=== PATIENT | female | born 1970 | race Caucasian/White ===

== ENCOUNTER 2019-11-12 11:05 | Emergency (ER) | payer MEDICAID, SELFPAY ==
[2019-11-12 11:15] VITALS: BP 144/100; RESP 19; TEMP 36.6; O2SAT 95; BMI 25.7
--- NOTE | 2019-11-12 11:23 | ED_ITS ---
Entered by Marci Leon, acting as scribe for Ortega Sanchez DO Nov 12, 2019 11:05 HPI - Abdominal Pain General: Chief Complaint: Abdominal Pain Stated Complaint: ABD PAIN Time Seen by Provider: 11/12/19 12:22 History of Present Illness: HPI narrative: 49 yo female presents with abd pain. Pt states that she has epigastric pain and it radiates to her right ribs. He has had nausea and vomiting is worse when she eats. Denies any dysuria urge ncy or frequency no hematuria no hematemesis or coffee-ground emesis. MD elicited complaint: abdominal pain Associated Symptoms: Reports nausea; Denies chills, coffee ground emesis, constipation, GI cramping, diarrhea, dysuria, fever(s), heartburn, hematochezia, hematuria, hematemesis, melena, syncope and vomiting Review of Systems Const: Denies: fever, chills, body aches, fatigue, malaise or night sweats Eyes: Denies: change in vision or blurry vision ENMT: Denies: throat pain, oral sores/lesions, dental pain, nasal discharge or nasal congestion Card: Denies: chest pain, palpitations, irregular heart rhythm, edema, syncope, shortness of breath on exertion, shortness of breath when lying down or leg pain with exertion Resp: Denies: shortness of breath, productive cough, non-productive cough or wheezing GI: Reports: abdominal pain (epigastric) and nausea; Denies: vomiting, vomiting blood, coffee grounds in vomit, difficulty swallowing, heartburn/indigestion, diarrhea, constipation, cramping, blood in stool or black tarry stool : Denies: flank pain, painful urination, urinary frequency, urinary urgency, urinary incontinence or blood in urine Musc: Denies: neck pain, back pain, extremity pain, extremity swelling, joint pain or joint swelling Skin/Breast: Denies: rash, itching or redness Neuro: Denies: headache, numbness in extremities, weakness in extremities, changes in sensation, lack of coordination, difficulty walking, frequent falls, dizziness, vertigo or confusion Psych: Denies: anxiety, depression, loss of interest, visual hallucinations, auditory hallucinations, suicidal ideation or homicidal ideation Endo: Denies: excessive urination, excessive thirst, tired all the time or cold intolerance Wolf/Lymph: Denies: easy bruising, easy bleeding, petechiae, enlarged lymph nodes or tender lymph nodes PFSH ED PFSH: Medical History Alcohol use disorder, severe, in early remission Amphetamine use disorder, mild, in sustained remission Chronic post-traumatic stress disorder (PTSD) Major depressive disorder, recurrent, moderate Surgical History (Updated 11/12/19 @ 12:45 by Marci Leon) History of appendectomy History of lung biopsy Social History (Updated 11/06/19 @ 15:14 by Danelle Dior LPN) Smoking and tobacco status: current every day smoker cigarettes Packs smoked per day: 0.5 Years cigarettes smoked: 30 Quit status (tobacco): not considering quitting Second hand smoke exposure: No Current gender identity: Female Physical Exam Const: COMMON NORMALS: average body habitus, oriented x3 and alert GENERAL APPEARANCE: cooperative, comfortable, well kempt and well developed NUTRITIONAL APPEARANCE: not obese ORIENTATION/CONSCIOUSNESS: Yes awake, Yes oriented to person and Yes oriented to place HENMT: COMMON NORMALS: normocephalic, head/scalp atraumatic, EAC's normal, TM's normal bilaterally, external nose normal, moist oral mucous membranes and oropharynx normal HEAD & SCALP: normocephalic and atraumatic NOSE: external nose normal EXTERNAL AUDITORY CANAL: EAC's normal TYMPANIC MEMB ANGELY: TM's normal bilaterally MOUTH: oral and palatal mucosa normal, lip normal and tongue normal THROAT: posterior oropharynx normal and tonsils normal Eye: COMMON NORMALS: PERRL, EOMs intact bilaterally, conjunctivae normal and no scleral icterus CONJUNCTIVA: Yes conjunctivae normal PUPIL: Yes PERRL Neck/C-Spine: COMMON NORMALS: full ROM, no lymphadenopathy, supple, no meningeal signs and thyroid normal THYROID: thyroid normal and asymmetrical Lymph: LYMPHATIC: no lymphadenopathy noted Resp: COMMON NORMALS: normal respiratory effort, no retractions, no use of accessory muscles and clear to auscultation bilaterally AUSCULTATION: clear to auscultation bilaterally Cardio: COMMON NORMALS: regular rate and regular rhythm RATE: regular rate RHYTHM: regular rhythm HEART SOUNDS: no murmurs GI: INSPECTION: Yes normal to inspection AUSCULTATION: Yes normoactive bowel sounds PALPATION: Yes tender (epigastric) Details: RUQ (Positive Altamirano sign), No hepatosplenomegaly, No hernia and No mass : COMMON NORMALS: Yes no CVA tenderness BLADDER/KIDNEY EXAM: Yes no CVA tenderness EXTERNAL FEMALE EXAM: No hernia Back/Pelvis: COMMON NORMALS: no CVA tenderness LUMBAR SPINE/LOWER BACK: Yes normal to inspection Extremity: COMMON NORMALS: no clubbing, cyanosis or edema, no calf tenderness and no pedal edema Neuro: COMMON NORMALS: oriented x3 SENSORIUM/ORIENTATION: Yes alert, Yes oriented to person and Yes oriented to place MENINGEAL SIGNS: Yes no meningeal signs Psych: APPEARANCE: Yes well kempt Skin: COMMON NORMALS: no rashes or lesions noted and skin turgor normal GENERAL SKIN EXAM: no rashes or lesions noted and turgor normal Course ED course: Patient given dose of Zosyn was planning on admitting her. D imaging shows evidence of cholecystitis although her white count is normal. She does not have any obstruction. Patient left the hospital to go home and feed some dogs and then returned. I talked to Dr. Concepcion about her given that she does have an elevated white count injury to her tolerate her temporary elopement from the emergency room will get a go ahead and discharge her home. Discussed with the patient she did actually prefer to go home. The main appointment for her tomorrow to see Dr. Jamey bay and he will schedule her for outpatient cholecystectomy later this week. Vital Signs: Vital signs: Vital Signs Temperature 98 F 11/12/19 11:15 Pulse Rate 75 11/12/19 16:47 Respiratory Rate 14 11/12/19 16:47 Blood Pressure 145/85 11/12/19 16:47 Pulse Oximetry 98 11/12/19 16:47 MDM - Abdominal Pain Lab Data: Labs: Lab Results 11/12/19 11/12/19 11/12/19 Range/Units 12:17 12:17 12:17 WBC 6.6 (4.0-10.0) 10^3/ uL RBC 4.73 (4.1-5.3) 10^6/u L Hgb 13.4 (11.5-15.3) g/dL Hct 42.5 (37.0-47.0) % MCV 89.9 (81-99) fL MCH 28.3 (28.0-34.0) pg MCHC 31.5 (30.0-36.0) g/dL RDW 16.1 H (12.1-15.1) % Plt Count 258 (130-400) 10^3/c mm MPV 9.4 (7.4-10.4) fL Neut % (Auto) 57.1 % Lymph % (Auto) 29.7 % [place] % (Auto) 9.5 % Eos % (Auto) 2.7 % Baso % (Auto) 0.8 % Neut # (Auto) 3.8 (1.8-7.7) 10^3/u L Lymph # (Auto) 2.0 (0.8-4.8) 10^3/u L [place] # (Auto) 0.6 (0.2-0.9) 10^3/u L Eos # (Auto) 0.2 (0.0-0.8) 10^3/u L Baso # (Auto) 0.1 (0.0-0.1) 10^3/u L Nucleated RBC % (a uto) 0 % Nucleated RBCs # 0.0 /100WBC Sodium 139 (136-145) mmol/L Potassium 4.6 (3.5-5.1) mmol/L Chloride 102 (98-107) mmol/L Carbon Dioxide 25 (22-29) mmol/L Anion Gap 16.6 (5-19) BUN 17 (6-20) mg/dL Creatinine 0.6 (0.5-0.9) mg/dL GFR Calculation 105.4 (90-130) mL/min Glucose 102 (65-115) mg/dL Calcium 10.6 H (8.5-10.5) mg/dL Total Bilirubin 0.2 (0.15-1.2) mg/dL AST 165 H (0-32) U/L ALT 226 H (0-33) U/L Alkaline Phosphata se 103 (35-105) IU/L Total Protein 8.2 (6.6-8.7) g/dL Albumin 4.3 (3.5-5.2) g/dL Globulin 3.9 (1.3-4.6) g/dL Lipase 31 (13-60) U/L Urine Color (Yellow) Urine Appearance (CLEAR) Urine pH (5-7) Ur Specific Gravit y (1.005-1.030) Urine Protein (Negative) Urine Glucose (UA) (Normal) Urine Ketones (Negative) Urine Occult Blood (Negative) Urine Nitrate (Negative) Urine Bilirubin (NEGATIVE) Urine Urobilinogen (Negative) mg/dL Ur Leukocyte Susana ase (Negative) Urine Opiates Scre en (Negative) ng/mL Ur Barbiturates Sc reen (Negative) ng/mL Ur Phencyclidine S crn (Negative) ng/mL Ur Amphetamines Sc reen (Negative) ng/mL U Benzodiazepines Scrn (Negative) ng/mL Urine Cocaine Scre en (Negative) ng/mL U Marijuana (THC) Screen (Negative) ng/mL Ethyl Alcohol < 10 (0-10) mg/dL 11/12/19 11/12/19 Range/Units 12:29 12:29 WBC (4.0-10.0) 10^3/ uL RBC (4.1-5.3) 10^6/u L Hgb (11.5-15.3) g/dL Hct (37.0-47.0) % MCV (81-99) fL MCH (28.0-34.0) pg MCHC (30.0-36.0) g/dL RDW (12.1-15.1) % Plt Count (130-400) 10^3/c mm MPV (7.4-10.4) fL Neut % (Auto) % Lymph % (Auto) % [place] % (Auto) % Eos % (Auto) % Baso % (Auto) % Neut # (Auto) (1.8-7.7) 10^3/u L Lymph # (Auto) (0.8-4.8) 10^3/u L [place] # (Auto) (0.2-0.9) 10^3/u L Eos # (Auto) (0.0-0.8) 10^3/u L Baso # (Auto) (0.0-0.1) 10^3/u L Nucleated RBC % (a uto) % Nucleated RBCs # /100WBC Sodium (136-145) mmol/L Potassium (3.5-5.1) mmol/L Chloride (98-107) mmol/L Carbon Dioxide (22-29) mmol/L Anion Gap (5-19) BUN (6-20) mg/dL Creatinine (0.5-0.9) mg/dL GFR Calculation (90-130) mL/min Glucose (65-115) mg/dL Calcium (8.5-10.5) mg/dL Total Bilirubin (0.15-1.2) mg/dL AST (0-32) U/L ALT (0-33) U/L Alkaline Phosphata se (35-105) IU/L Total Protein (6.6-8.7) g/dL Albumin (3.5-5.2) g/dL Globulin (1.3-4.6) g/dL Lipase (13-60) U/L Urine Color Yellow (Yellow) Urine Appearance Clear (CLEAR) Urine pH 5 (5-7) Ur Specific Gravit y 1.020 (1.005-1.030) Urine Protein Neg (Negative) Urine Glucose (UA) Norm (Normal) Urine Ketones Negative (Negative) Urine Occult Blood Neg (Negative) Urine Nitrate Negative (Negative) Urine Bilirubin Neg (NEGATIVE) Urine Urobilinogen Norm (Negative) mg/dL Ur Leukocyte Susana ase Negative (Negative) Urine Opiates Scre en Negative (Negative) ng/mL Ur Barbiturates Sc reen Negative (Negative) ng/mL Ur Phencyclidine S crn Negative (Negative) ng/mL Ur Amphetamines Sc reen Negative (Negative) ng/mL U Benzodiazepines Scrn Negative (Negative) ng/mL Urine Cocaine Scre en Negative (Negative) ng/mL U Marijuana (THC) Screen Negative (Negative) ng/mL Ethyl Alcohol (0-10) mg/dL Discharge Plan Discharge Patient Disposition: Home, Self-Care Clinical Impression: Cholecystitis Condition: Stable Prescriptions: [place] 5-325 mg tablet 1 tab PO Q6H PRN (Reason: pain) Qty: 20 RF: 0 Zofran 4 mg tablet 4 mg PO Q6H PRN (Reason: nausea and vomiting) Qty: 20 RF: 0 No Action hydroxyzine pamoate [Vistaril] 25 mg capsule 25 mg PO BID PRN (Reason: anxiety) Qty: 60 RF: 1 gabapentin 600 mg tablet 600 mg PO BID Qty: 60 RF: 1 olanzapine 5 mg tablet 5 mg PO Q6H PRN (Reason: hallucinations) RF: 0 ibuprofen 200 mg Tablet 200 mg PO Q6H PRN (Reason: Pain) RF: 0 mirtazapine 30 mg tablet 30 mg PO BEDTIME RF: 0 Discharge Orders: Discharge Order (Routine); Ordered 11/12/19 Ordered By: Ortega Sanchez Referrals: Ruben Concepcion MD [Physician] - (November 13, 2019 at 3:45pm at Dr. Concepcion's office on [facility]) Discharge Diet: Clear Liquid and Full LIquid Discharge Activity: Increase activity as tolerated Activity Restrictions/Additional Instructions: You will be [facility] by Dr[facility]. Discharge Date/Time: 11/12/19 16:47 Coding Level of Care Code ED Credit Specialist for Chg Fwd Exam Comprehensive The documentation recorded by the Edward rodriguez Kialy, accurately reflects the service I personally performed and the decisions made by Daniel cerna Curtis L, DO Nov 12, 2019 11:05
[2019-11-12 12:26] LABS: Basophils # 0.1 10^3/uL (0.0-0.1); Basophils % 0.8 %; Eosinophils # 0.2 10^3/uL (0.0-0.8); Eosinophils % 2.7 %; Hematocrit 42.5 % (37.0-47.0); Hemoglobin 13.4 g/dL (11.5-15.3); Lymphocytes % 29.7 %; Mean Corpuscular HGB Conc 31.5 g/dL (30.0-36.0); Mean Corpuscular Hemoglobin 28.3 pg (28.0-34.0); Mean Corpuscular Volume 89.9 fL (81-99); Mean Platelet Volume 9.4 fL (7.4-10.4); Monocytes # 0.6 10^3/uL (0.2-0.9); Monocytes % 9.5 %; Neutrophils # 3.8 10^3/uL (1.8-7.7); Neutrophils % 57.1 %; Nucleated Red Blood Cells % 0 %; Platelet Count 258 10^3/cmm (130-400); Red Blood Count 4.73 10^6/uL (4.1-5.3); Red Cell Distribution Width 16.1 % (12.1-15.1); White Blood Count 6.6 10^3/uL (4.0-10.0)
[2019-11-12 12:51] LABS: Alanine Aminotransferase 226 U/L (0-33); Albumin Level 4.3 g/dL (3.5-5.2); Alkaline Phosphatase 103 IU/L (35-105); Anion Gap 16.6 (5-19); Aspartate Amino Transferase 165 U/L (0-32); Blood Urea Nitrogen 17 mg/dL (6-20); Calcium 10.6 mg/dL (8.5-10.5); Carbon Dioxide 25 mmol/L (22-29); Chloride 102 mmol/L (98-107); Globulin 3.9 g/dL (1.3-4.6); Glomerular Filtration Rate 105.4 mL/min (90-130); Glucose 102 mg/dL (65-115); Potassium 4.6 mmol/L (3.5-5.1); Sodium 139 mmol/L (136-145); Total Bilirubin 0.2 mg/dL (0.15-1.2); Total Protein 8.2 g/dL (6.6-8.7)
[2019-11-12 12:51] LABS: Add Urine Microscopic? NO
[2019-11-12 13:03] LABS: Bilirubin Urine Neg (NEGATIVE); Blood Urine Neg (Negative); Glucose Urine UA Norm (Normal); Ketones Urine Negative (Negative); Leukocyte Esterase Urine Negative (Negative); Nitrate Urine Negative (Negative); Protein Urine Neg (Negative); Urine Appearance Clear (CLEAR); Urine Color Yellow (Yellow); Urobilinogen Urine Norm (Negative); pH Urine 5 (5-7)
[2019-11-12 13:11] LABS: Alcohol Level < 10 mg/dL (0-10)
[2019-11-12 13:18] LABS: Amphetamines Screen Urine Negative (Negative); Barbiturates Screen Urine Negative (Negative); Benzodiazepines Screen Urine Negative (Negative); Cocaine Screen Urine Negative (Negative); Opiate Screen Urine Negative (Negative); PCP Screen Urine Negative (Negative); THC Screen Urine Negative (Negative)
[2019-11-12] MEDS: sodium chloride 0.9% 1,000 ML 999 ML IV (13:18)
[2019-11-12] MEDS: ondansetron 2 mg/ML SDV 2 mL 4 MG IVP (13:19)
[2019-11-12 13:20] LABS: Lipase 31 U/L (13-60)
--- NOTE | 2019-11-12 13:57 | US_ITS ---
WS: [id number] ABDOMINAL ULTRASOUND LIMITED REASON FOR VISIT: RUQ pain TECHNIQUE: Grayscale and Doppler ultrasound examination of the abdomen. FINDINGS: Pancreas: Appears negative Abdominal aorta and IVC: There is negative Liver: Liver measures 19.0 cm in length. Infiltration of the liver Gallbladder: Gallbladder wall thickness measures 3.6 mm. Edema changes of the wall. Biliary sludge p resent. No definite stones identified but the gallbladder is contracted. Common bile duct measured 0.49 cm. Right kidney: Right kidney measures 9.7 cm x 5.7 cm x 4.6 cm. No hydronephrosis or stones. US/US gall bladder 34770 IMPRESSION: Thickened wall gallbladder with edema this of the wall and contracture consiste nt with acute cholecystitis. fatty infiltration of the liver.
--- NOTE | 2019-11-12 14:25 | PC.NURSE ---
Ultrasound at bedside with patient.
[2019-11-12] MEDS: piperacillin-tazobactam 3.375 GM in sodium chloride 0.9% (plus) 50 ML IV (15:09)
[2019-11-12 15:10] VITALS: RESP 14
[2019-11-12] MEDS: morphine 4 mg/mL SDV 1 mL IVP (15:10)
--- NOTE | 2019-11-12 15:11 | PC.NURSE ---
Patient resting at this time. No needs.
[2019-11-12 15:18] VITALS: BP 119/72; PULSE 85; O2SAT 95
--- NOTE | 2019-11-12 16:15 | PC.NURSE ---
Called to room. Patient is concerned that her animals will not be fed. She is unable to reach a family member to feed her animals. She has elected to leave and attend to her animals. She risks associated with leaving the hospital discussed. She verbalized understanding. She hopes to return shortly.
[2019-11-12 16:47] VITALS: BP 145/85; PULSE 75; RESP 14; O2SAT 98
== END 2019-11-12 16:47 | disposition home or self-care (01) ==
PROVIDERS: Emergency Provider Family Medicine; Family Provider Nurse Practitioner
DX: K81.9 Cholecystitis, unspecified (principal); F17.210 Nicotine dependence, cigarettes, uncomplicated
CPT/HCPCS: 36415; 76705; 80053; 80307; 81003; 83690; 85025; 96365; 96366; 96367; 96375; 99282; 99284; J2270; J2405; J2543; J7030

== ENCOUNTER 2019-11-14 08:01 | Day surgery (SDC) | payer MEDICAID, SELFPAY ==
[2019-11-14] VITALS (15 sets, daily range): BP systolic 135–167; BP diastolic 87–106; PULSE 68–110; RESP 15–26; TEMP 36.4–37; O2SAT 90–98
--- NOTE | 2019-11-14 07:40 | W.PM.OPSUD ---
Surgery/Procedure H&P Update DATE OF PROCEDURE: November 14, 2019 DATE H&P PERFORMED: 11/13/19 H&P UPDATE INFORMATION: I have reviewed H&P completed within last 30 days, I have examined patient prior to procedure and No changes to prior documentation PLANNED PROCEDURE: Operation Date: 11/14/19 09:30 Proposed Procedures p Laparoscopic Cholecystectomy 73082 K81.9(Not Applicable) - Ruben Concepcion MD
--- NOTE | 2019-11-14 08:58 | ANES.PREANE2 ---
Pre-Anesthetic Assessment Pre-Anesthetic Assessment: Height/Weight: Height 1.6 m Weight 67.132 kg Preop Diagnosis: Acute cholecystitis Proposed Procedure: Operation Date: 11/14/19 09:30 Proposed Procedures p Laparoscopic Cholecystectomy 82946 K81.9(Not Applicable) - Ruben Concepcion MD Was Beta Irineo taken within 24 hours: N/A Last intake: Intake Last Liquid Date 11/13/19 Last Liquid Time 21:00 Last Solid Date 11/13/19 Last Solid Time 19:00 Social: Social History: Alcohol (history abuse) and Tobacco (0.5 ppd) Packs per day: 0.5 Comment: history of drug and alcohol abuse Exam: Pre-Anes Outpt Exam: alert, oriented x 3, clear to auscultation bilaterally and regular rate & rhythm Airway: Submandibular: WNL Cervical ROM: WNL MP: 2 Dentition: False History/ROS: No significant complaints Pulmonary: Pulmonary: COPD and [place] CV/HEM: CV/HEM: Murmur : : None reported Hepatic: Hepatic: Hepatitis (hep C) GI: GI: None reported Metabolic: Metabolic: None reported Musc/skel: Musc/skel: Lower Back Pain and OA/DJD Neuropsych: Neuropsych: Anxiety, Depression and None reported Anesthetic Plan: ASA status: 3 Anesthesia: General Risk of > 500 ml blood loss (7ml/kg in children): No PFSH Anesthesia PFSH: Medical History (Updated 11/13/19 @ 17:34 by Ruben Concepcion MD) Alcohol use disorder, severe, in early remission Amphetamine use disorder, mild, in sustained remission Chronic post-traumatic stress disorder (PTSD) Hepatitis C Major depressive disorder, recurrent, moderate Surgical History (Updated 11/13/19 @ 17:34 by Ruben Concepcion MD) H/O: hysterectomy History of appendectomy History of lung biopsy Hx of tonsillectomy Social History Smoking and tobacco status: current every day smoker cigarettes Packs smoked per day: 0.5 Years cigarettes smoked: 30 Quit status (tobacco): not considering quitting Second hand smoke exposure: No Current gender identity: Female Data Anesthesia Cardiac Studies: No Data to Display
[2019-11-14] MEDS: sodium chloride 0.9% 1,000 ML 30 ML IV (09:14)
[2019-11-14] MEDS: levofloxacin-dextrose 5 % 500 MG/100 ML PREMIX 100 MG IV (09:20)
--- NOTE | 2019-11-14 10:21 | PM.OP ---
Operative Report Date of procedure: November 14, 2019 Pre-op Diagnosis: Acute cholecystitis Post-op diagnosis: same Procedure Done: Laparoscopic cholecystectomy Specimens removed/disposition: Gallbladder Surgeon: Ruben Concepcion Anesthesia: General Condition: stable Disposition: PACU Procedure: The patient was taken to the operating room and was intubated under general anesthesia. After the antibiotic had been administered, the abdomen was prepped and draped in a sterile manner. Using a #15 blade, a 1 centimeter infraumbilical curvilinear incision was made and using an open Preston technique the peritoneal cavity was entered. A 10 millimeter port was placed and 15 millimeters of pneumoperitoneum was created. A 10 millimeter, 30 degrees scope was then introduced. Three 5 millimeter ports were placed in the epigastric, midclavicular and the anterior axillary line two fingerbreadths below the costal margin on the right side under the direct visualization. Ratcheted forceps were introduced into the lateral most port and was used to retract the fundus of the gallbladder cephalad and using forceps the infundibulum of the gallbladder was retracted laterally. Using L-hook cautery the peritoneum overlying the Calot's triangle was opened medially and laterally until the cystic duct and the cystic artery were skeletonized. Dissection was carried along the body of the gallbladder and after ensuring critical view of safety, 4 clips applied on the cystic duct and 3 clips applied on the cystic artery and cut leaving, 3 clips on the remaining portion of the duct and 2 clips on the remaining portion of the artery. The rest of the gallbladder was dissected off the liver using L-hook cautery. There was no bleeding or bile leaking noted from the gallbladder fossa and the clips appeared to be in place. An EndoCatch bag was introduced to remove the gallbladder. All the ports were removed under direct visualization and there was no bleeding noted from the port sites. The fascia of the umbilicus was closed using [id number] 0 Vicryl sutures and the subcutaneous tissue was approximated using 3-0 Vicryl sutures. The skin at all four ports were closed using 4-0 Monocryl and Dermabond. A total of 10 millimeters of 0.5% Marcaine was infiltrated around the port sites. The patient was stable throughout the procedure.
[2019-11-14] MEDS: ondansetron 2 mg/ML SDV 2 mL 4 MG IVP (10:30)
[2019-11-14] MEDS: fentaNYL 50 mcg/mL INJ 2mL IVP ×2 (10:32→10:38)
[2019-11-14] MEDS: morphine 4 mg/mL SDV 1 mL 2 MG IVP ×2 (10:43→10:45)
--- NOTE | 2019-11-14 10:50 | SUR.PHASEI ---
1027 PT MORE ALERT C/O STILL OF ABD PAIN OF 10/10 PT HOB UP TO COMFORT VSS RESP UNLABORED
--- NOTE | 2019-11-14 11:06 | SUR.PHASEI ---
1100 PT DOZING OFF AND ON, VSS PT CONTINUES TO C/O OF PAIN OF 10 WHEN AWAKE, BUT FACE SCALE 3 PT STATES HER PAIN ON ADMIT TO PREOP TODAY WAS 8 , PT OK WITH TAKING PO PAIN MED AND SIPS OF SPRITE IN OPS , PT TO OPS AWAKES EASILY TALKS TO NURSE BEATRIZ. PT GIVEN JELLO AND SPRITE.
[2019-11-14] MEDS: oxyCODONE-APAP 5-325 mg Tablet 1 TAB PO (11:39)
== END 2019-11-14 12:11 | disposition home or self-care (01) ==
PROVIDERS: Family Provider Nurse Practitioner; Visit Provider Surgery
PROC: 0FT44ZZ Resection of Gallbladder, Percutaneous Endoscopic Approach (ICD-10-PCS; CPT 47562; principal; 2019-11-14 09:10)
DX: K80.10 Calculus of gallbladder with chronic cholecystitis without obstruction (principal); F17.210 Nicotine dependence, cigarettes, uncomplicated; J44.9 Chronic obstructive pulmonary disease, unspecified; B19.20 Unspecified viral hepatitis C without hepatic coma; M19.90 Unspecified osteoarthritis, unspecified site
CPT/HCPCS: 47562; 12345; 88304; 96365; J0131; J1100; J1956; J2001; J2250; J2270; J2370; J2405; J2704; J2710; J3010; J3490; J7030

== ENCOUNTER 2019-12-02 15:05 | Emergency (ER) | payer MEDICAID, SELFPAY ==
[2019-12-02] VITALS (14 sets, daily range): BP systolic 128–199; BP diastolic 52–115; PULSE 39–112; RESP 16–18; TEMP 36.9; O2SAT 95–98; BMI 28.3
--- NOTE | 2019-12-02 16:03 | ED_ITS ---
Entered by Ronda Sauer, acting as scribe for Komal Cherry Valerio Dec 02, 2019 15:05 HPI - Abdominal Pain General: Chief Complaint: Abdominal Pain Stated Complaint: ABD PAIN Time Seen by Provider: 12/02/19 16:02 Source: patient Mode of arrival: ambulatory Limitations: no limitations History of Present Illness: HPI narrative: 49 yo Female presents to ED with complaint of left side abdominal pain. Pt states that the pain started last night in her left flank and radiates around to her left abdomen. Pt states that she just had her gallbladder out about a week and a half ago.(Per patient's medical record, her laparoscopic cholecystectomy was performed on 11/14/19). Pt states that she also has boils on her scalp. Pt states that she has lost her hair due to stress because she quit drinking, got , and her mom . Pt states that she can't lay down and can't sleep because of the pain from the boils on her head. MD elicited complaint: abdominal pain and flank pain Pertinent past history: other (cholecystectomy a week and a half ago) Onset (ago): day(s) Pain Consistency: constant Location: L flank Radiation: LUQ Migration to: no migration Exacerbating factors: nothing Relieving factors: nothing Context: recent surgery/procedure Associated Symptoms: Reports chills; Denies constipation, diarrhea, dysuria, fever(s), hematuria, nausea, syncope and vomiting Review of Systems General: Reports: other (negative unless marked) Const: Reports: chills; Denies: fever Eyes: Denies: change in vision or blurry vision ENMT: Denies: throat pain, painful swallowing, hoarseness, ear pain, ear discharge, Change in hearing or nasal discharge Card: Denies: chest pain, palpitations, irregular heart rhythm, syncope, pre- syncope, shortness of breath on exertion or shortness of breath when lying down Resp: Denies: shortness of breath, productive cough, non-productive cough, wheezing, coughing up blood or chest congestion GI: Reports: abdominal pain; Denies: nausea, vomiting, diarrhea or constipation : Reports: flank pain; Denies: painful urination, urinary frequency, urinary urgency, decreased urine ouput, urinary incontinence or blood in urine Musc: Denies: neck pain, back pain, extremity pain, extremity swelling, joint pain, joint swelling, joint warmth or joint stiffness Skin/Breast: Reports: sores (scalp); Denies: rash, skin tenderness or yellow skin Neuro: Denies: headache, numbness in extremities, weakness in extremities, changes in sensation, lack of coordination, difficulty walking, dizziness, vertigo or confusion Endo: Denies: excessive thirst, tired all the time, cold intolerance, e xcessive sweating, flushing or hot flashes Wolf/Lymph: Denies: easy bruising, easy bleeding, petechiae or enlarged lymph nodes All/Imm: Denies: hives, throat swelling, tongue swelling, facial swelling or acute wheezing PFSH ED PFSH: Medical History Alcohol use disorder, severe, in early remission Amphetamine use disorder, mild, in sustained remission Chronic post-traumatic stress disorder (PTSD) Hepatitis C Major depressive disorder, recurrent, moderate Surgical History H/O: hysterectomy History of appendectomy History of lung biopsy Hx of tonsillectomy Status post laparoscopic cholecystectomy Social History Smoking and tobacco status: current every day smoker cigarettes Packs smoked per day: 0.5 Years cigarettes smoked: 30 Quit status (tobacco): not considering quitting Second hand smoke exposure: No Current gender identity: Female Physical Exam Const: COMMON NORMALS: no apparent distress, oriented x3, no limitations, healthy appearing and well nourished EXAM LIMITATIONS: no altered mental status GENERAL APPEARANCE: cooperative, well kempt and well developed ORIENTATION/CONSCIOUSNESS: Yes awake HENMT: COMMON NORMALS: normocephalic, head/scalp atraumatic, hearing grossly normal bilaterally, external ears normal, EAC's normal, external nose normal and moist oral mucous membranes HEAD & SCALP: normal to inspection, normocephalic and atraumatic FACE & SINUS: normal facial exam and face symmetric NOSE: external nose normal and nares normal EXTERNAL EAR: Yes external ears normal EXTERNAL AUDITORY CANAL: EAC's normal MOUTH: oral and palatal mucosa normal and tongue normal Eye: COMMON NORMALS: PERRL, EOMs intact bilaterally, conjunctivae normal and no scleral icterus GENERAL EYE: normal appearance of both eyes and normal light reflex CONJUNCTIVA: Yes conjunctivae normal SCLERA: sclerae normal CORNEA: Yes corneas normal PUPIL: Yes PERRL DIRECT OPHTHALMOSCOPY: Yes normal light reflex Neck/C-Spine: COMMON NORMALS: full ROM, no lymphadenopathy, supple, no meningeal signs and no JVD GENERAL: Yes normal visual inspection and Yes trachea midline CERVICAL SPINE: Yes cervical ROM normal Chest: COMMONS NORMALS: inspection of chest normal and palpation of chest normal Resp: COMMON NORMALS: normal respiratory effort, no retractions, no use of accessory muscles and clear to auscultation bilaterally EFFORT & INSPECTION: Yes able to speak in complete sentences AUSCULTATION: clear to auscultation bilaterally Cardio: COMMON NORMALS: no JVD, regular rate, regular rhythm, S1 normal heart sound, S2 normal heart sound, no gallops, no clicks, no murmurs and no rub JUGULAR VENOUS DISTENTION: no JVD RATE: regular rate RHYTHM: regular rhythm HEART SOUNDS: S1 normal and S2 normal GI: COMMON NORMALS: soft to palpation, non-tender, no hepatosplenomegaly and no masses INSPECTION: Yes normal to inspection PALPATION: Yes soft and Yes no hepatosplenomegaly : COMMON NORMALS: Yes no CVA tenderness BLADDER/KIDNEY EXAM: Yes no CVA tenderness Back/Pelvis: COMMON NORMALS: no CVA tenderness, thoracic and lumbar spine normal to inspection, no thoracic nor lumbar tenderness and thoraco-lumbar ROM normal Extremity: COMMON NORMALS: normal to inspection, full ROM, normal capillary refill, no joint enlargement, no clubbing, cyanosis or edema and no calf tenderness Neuro: COMMON NORMALS: oriented x3, CN's II-XII intact bilaterally, moves all extremities, no focal motor deficits and no sensory deficits noted MENINGEAL SIGNS: Yes no meningeal signs Psych: COMMON NORMALS: mental status grossly normal, thought process normal, cooperative, affect normal, speech normal and activity/motor behavior normal APPEARANCE: Yes well kempt SPEECH: Yes normal speech THOUGHT PROCESS: normal thought process Skin: COMMON NORMALS: no rashes or lesions noted, skin turgor normal, no jaundice, no petechiae and no mottling GENERAL SKIN EXAM: no rashes or lesions noted and turgor normal Course Vital Signs: Vital signs: Vital Signs Temperature 98.4 F 12/02/19 15:33 Pulse Rate 89 12/02/19 21:22 Respiratory Rate 18 12/02/19 21:22 Blood Pressure 199/115 12/02/19 21:22 Pulse Oximetry 98 12/02/19 21:22 MDM - Abdominal Pain MDM Narrative: Medical decision making narrative: Viola is a 49-year-old female who comes in complaining of left upper quadrant abdominal pain. She said associated nausea but no vomiting. She denies any epigastric or right upper quadrant pain. Her CT scan was consistent with a postcholecystectomy patient and specifically did not notice any problems with her biliary tree. Ultrasound confirmed a normal postoperative common bile duct. The patient's liver enzymes are elevated but per review of her chart they are chronically elevated and she does have hepatitis C. Her T bili and alk phos were normal. There is no imaged common bile duct stone. Patient declined an MRCP or other more invasive evaluation. She was requesting something for blood pressure and repeatedly asked for pain medications which she did receive but stated she wanted something for home which I have informed her she would have to see her regular doctor for this. I did review the case with Dr. Concepcion who had seen the patient and performed her surgery he recommended she start on Protonix for possible gastritis. The patient did agree to return to her symptoms change or worsen but she wanted to be discharged at this time. Lab Data: Attestation: I reviewed the patient's lab results. Labs: Lab Results 12/02/19 12/02/19 12/02/19 Range/Units 16:27 16:27 16:27 WBC 5.8 (4.0-10.0) 10^3/ uL RBC 4.49 (4.1-5.3) 10^6/u L Hgb 12.5 (11.5-15.3) g/dL Hct 40.8 (37.0-47.0) % MCV 90.9 (81-99) fL MCH 27.8 L (28.0-34.0) pg MCHC 30.6 (30.0-36.0) g/dL RDW 15.7 H (12.1-15.1) % Plt Count 301 (130-400) 10^3/c mm MPV 9.1 (7.4-10.4) fL Neut % (Auto) 53.9 % Lymph % (Auto) 31.7 % [place] % (Auto) 10.4 % Eos % (Auto) 2.8 % Baso % (Auto) 0.9 % Neut # (Auto) 3.1 (1.8-7.7) 10^3/u L Lymph # (Auto) 1.8 (0.8-4.8) 10^3/u L [place] # (Auto) 0.6 (0.2-0.9) 10^3/u L Eos # (Auto) 0.2 (0.0-0.8) 10^3/u L Baso # (Auto) 0.1 (0.0-0.1) 10^3/u L Nucleated RBC % (a uto) 0 % Nucleated RBCs # 0.0 /100WBC Sodium 138 (136-145) mmol/L Potassium 3.8 (3.5-5.1) mmol/L Chloride 97 L (98-107) mmol/L Carbon Dioxide 30 H (22-29) mmol/L Anion Gap 14.8 (5-19) BUN 11 (6-20) mg/dL Creatinine 0.5 (0.5-0.9) mg/dL GFR Calculation 130.1 H (90-130) mL/min Glucose 112 (65-115) mg/dL Calculated Osmolal ity 283 L (285-295) mOsm/k g Calcium 9.8 (8.5-10.5) mg/dL Total Bilirubin 0.2 (0.15-1.2) mg/dL AST 332 H (0-32) U/L ALT 192 H (0-33) U/L Alkaline Phosphata se 112 H (35-105) IU/L Total Protein 7.6 (6.6-8.7) g/dL Albumin 3.9 (3.5-5.2) g/dL Globulin 3.7 (1.3-4.6) g/dL Lipase 23 (13-60) U/L HCG, Qual Negative (Negative) Urine Color (Yellow) Urine Appearance (CLEAR) Urine pH (5-7) Ur Specific Gravit y (1.005-1.030) Urine Protein (Negative) Urine Glucose (UA) (Normal) Urine Ketones (Negative) Urine Blood (Negative) Urine Nitrate (Negative) Urine Bilirubin (NEGATIVE) Prot Sulfosalicyli c Acd Urine Urobilinogen (Negative) mg/dL Ur Leukocyte Susana ase (Negative) Urine RBC (0-2) /hpf Urine WBC (0-5) /hpf Ur Squamous Epith Cells (0-5) Urine Bacteria (NONE) Urine Mucus Hepatitis A IgM Ab (Nonreactive) Hep Bs Antigen (Nonreactive) Hep B Core IgM Ab (Nonreactive) Hepatitis C Antibo dy (Nonreactive) 12/02/19 12/02/19 Range/Units 16:27 18:28 WBC (4.0-10.0) 10^3/ uL RBC (4.1-5.3) 10^6/u L Hgb (11.5-15.3) g/dL Hct (37.0-47.0) % MCV (81-99) fL MCH (28.0-34.0) pg MCHC (30.0-36.0) g/dL RDW (12.1-15.1) % Plt Count (130-400) 10^3/c mm MPV (7.4-10.4) fL Neut % (Auto) % Lymph % (Auto) % [place] % (Auto) % Eos % (Auto) % Baso % (Auto) % Neut # (Auto) (1.8-7.7) 10^3/u L Lymph # (Auto) (0.8-4.8) 10^3/u L [place] # (Auto) (0.2-0.9) 10^3/u L Eos # (Auto) (0.0-0.8) 10^3/u L Baso # (Auto) (0.0-0.1) 10^3/u L Nucleated RBC % (a uto) % Nucleated RBCs # /100WBC Sodium (136-145) mmol/L Potassium (3.5-5.1) mmol/L Chloride (98-107) mmol/L Carbon Dioxide (22-29) mmol/L Anion Gap (5-19) BUN (6-20) mg/dL Creatinine (0.5-0.9) mg/dL GFR Calculation (90-130) mL/min Glucose (65-115) mg/dL Calculated Osmolal ity (285-295) mOsm/k g Calcium (8.5-10.5) mg/dL Total Bilirubin (0.15-1.2) mg/dL AST (0-32) U/L ALT (0-33) U/L Alkaline Phosphata se (35-105) IU/L Total Protein (6.6-8.7) g/dL Albumin (3.5-5.2) g/dL Globulin (1.3-4.6) g/dL Lipase (13-60) U/L HCG, Qual (Negative) Urine Color Yellow (Yellow) Urine Appearance Clear (CLEAR) Urine pH 8 H (5-7) Ur Specific Gravit y 1.015 (1.005-1.030) Urine Protein Neg (Negative) Urine Glucose (UA) Norm (Normal) Urine Ketones Negative (Negative) Urine Blood Trace H (Negative) Urine Nitrate Negative (Negative) Urine Bilirubin Neg (NEGATIVE) Prot Sulfosalicyli c Acd Negative Urine Urobilinogen Norm (Negative) mg/dL Ur Leukocyte Susana ase Negative (Negative) Urine RBC Rare (0-2) /hpf Urine WBC None (0-5) /hpf Ur Squamous Epith Cells Rare (0-5) Urine Bacteria Trace (NONE) Urine Mucus Trace Hepatitis A IgM Ab Non-reactive (Nonreactive) Hep Bs Antigen Non-reactive (Nonreactive) Hep B Core IgM Ab Non-reactive (Nonreactive) Hepatitis C Antibo dy Reactive H (Nonreactive) Imaging Data ^: CT Abd/Pel: Radiologist's impression: [place] [address] CT Scan Report Signed Patient: Viola Woods #: [id number] : 1970Acct#:[id number] Age/Sex: 49 / FADM Date: 12/02/19 Loc: ERRoom/Bed: Attending Dr: Ordering Provider/Ordering MD: Komal Cherry DO Date of Service: 12/02/19 Procedure(s): CT abdomen pelvis w con* [id number] Accession Number(s): [id number] Report Number: [id number] PROCEDURE INFORMATION: Exam: CT Abdomen And Pelvis With Contrast Exam date and time: 12/02/2019 4:20 PM Age: 49 years old Clinical indication: Abdominal pain; Localized; Left upper quadrant (luq); Prior surgery; Surgery date: Post-operative (0-2 days); Surgery type: Gb TECHNIQUE: Imaging protocol: Computed tomography of the abdomen and pelvis with intravenous contrast. Total DLP: 601.89 mGy-cm Radiation optimization: All CT scans at this facility use at least one of these dose optimization techniques: automated exposure control; mA and/or kV adjustment per patient size (includes targeted exams where dose is matched to clinical indication); or iterative reconstruction. Contrast material: OMNI 300; Contrast volume: 95 ml; Contrast route: LT UPPER ARM; COMPARISON: CT abdomen pelvis w con* [id number] 08/01/2018 4:21 PM FINDINGS: Lungs: Limited assessment lung bases fails to reveal evidence for active cardiopulmonary process. Right basilar surgical clips. Calcified granuloma right middle lobe. This is a benign finding. Liver: Again note of a tiny left hepatic lobe cyst. Mild hepatomegaly at 19 cm. Gallbladder and bile ducts: Status post cholecystectomy. No visible evidence of postoperative complication. No visible hematoma, seroma, abscess, or biloma. Mild intra and extrahepatic biliary ectasia post cholecystectomy. Maximum common bile duct diameter 7 mm. No visible choledocholithiasis. Pancreas: Pancreas unremarkable. No pancreatic ductal ectasia. Spleen: Spleen unremarkable. Adrenals: Adrenal glands unremarkable. Kidneys and ureters: Kidneys unremarkable. No hydronephrosis or perinephric fluid. No visible obstructing nephrolithiasis. Stomach and bowel: Nonobstructive bowel pattern. No visible adynamic or reactive ileus. Appendix: Status post appendectomy. Intraperitoneal space: Unremarkable. No free air. No significant fluid collection. Vasculature: The abdominal aorta is nonaneurysmal. Minimal arterial sclerotic disease. Lymph nodes: No visible mesenteritis/panniculitis or mesenteric lymphadenitis/lymphadenopathy. Bladder: Unremarkable as visualized. Reproductive: Status post hysterectomy. Bones/joints: No visible active musculoskeletal pathology. Advanced degenerative disease and degenerative disc disease with disc space height loss L5/S1. Soft tissues: Unremarkable. CT/CT abdomen pelvis w con* [id number] IMPRESSION: 1. Status post cholecystectomy without visible evidence of postoperative complication to include no visible evidence of hematoma, seroma, abscess, or biloma. 2. Mild intra and extrahepatic biliary ectasia status post cholecystectomy. Radiation Dose CTDIVOL = (mGy): DLP = 601.89 (mGy-cm) Dictated By:Jv Vaca Signed By:Jv VacaSirebekah Date/Time:12/02/191745 DD/ 44 US: Radiologist's impression: Ultrasound abdomen, Tech interpretation -no acute findings. Common bile duct normal postcholecystectomy. No other CBD stone seen. Pancreas normal. Liver normal except for cyst. Right and left kidney normal. IVC normal. Spleen normal. Discharge Plan Discharge Patient Disposition: Home, Self-Care Clinical Impression: Abdominal pain Qualifiers: Abdominal location: left upper quadrant Qualified Code(s): R10.12 - Left upper quadrant pain Cellulitis Qualifiers: Site of cellulitis: head Qualified Code(s): L03.811 - Cellulitis of head [any part, except face] Condition: Stable Prescriptions: New Protonix 40 mg tablet,delayed release (DR/EC) 40 mg PO DAILY 56 Days RF: 0 Bactrim DS 800-160 mg tablet 1 tab PO Q12H 10 Days Qty: 20 RF: 0 No Action hydroxyzine pamoate [Vistaril] 25 mg capsule 25 mg PO BID PRN (Reason: anxiety) Qty: 60 RF: 1 gabapentin 600 mg tablet 600 mg PO BID Qty: 60 RF: 1 diphenhydramine HCl [Benadryl] 25 mg Capsule See Rx Instructions .ROUTE .COMPLEX RF: 0 mirtazapine 30 mg tablet 30 mg PO BEDTIME RF: 0 ondansetron HCl [Zofran] 4 mg tablet 4 mg PO Q6H PRN (Reason: nausea and vomiting) Qty: 20 RF: 0 Discharge Orders: Discharge Order (Routine); Ordered 12/02/19 Ordered By: Komal Cherry Referrals: Lili Harris PHOTOGRAPHIC REPRODUCTION TECHNICIAN [Primary Care Provider] - 1-3 days Discharge Diet: Advance as tolerated Discharge Activity: Increase activity as tolerated Patient Instructions: Cellulitis, Abdominal Pain (ED) Activity Restrictions/Additional Instructions: Please return to the ER immediately for any of the signs or symptoms listed on your discharge instruction sheets, worsening/changing of your symptoms, you are not getting better as quickly as expected, or for ANY other cause or concerns. Discharge Date/Time: 12/02/19 21:24 Coding Level of Care Code ED Tricot Knitter for Chg Fwd Exam Comprehensive The documentation recorded by the Cristiane rodriguez Carmen, accurately reflects the service I personally performed and the decisions made by Jo Ann cerna Eli N Dec 02, 2019 15:05
--- NOTE | 2019-12-02 16:09 | CTR_ITS ---
PROCEDURE INFORMATION: Exam: CT Abdomen And Pelvis With Contrast Exam date and time: 12/02/2019 4:20 PM Age: 49 years old Clinical indication: Abdominal pain; Localized; Left upper quadrant (luq); Prior surgery; Surgery date: Post-operative (0-2 days); Surgery type: Gb TECHNIQUE: Imaging protocol: Computed tomography of the abdomen and pelvis with intravenous contrast. Total DLP: 601.89 mGy-cm Radiation optimization: All CT scans at this facility use at least one of these dose optimization techniques: automated exposure control; mA and/or kV adjustment per patient size (includes targeted exams where dose is matched to clinical indication); or iterative reconstruction. Contrast material: OMNI 300; Contrast volume: 95 ml; Contrast route: LT UPPER ARM; COMPARISON: CT abdomen pelvis w con* [id number] 08/01/2018 4:21 PM FINDINGS: Lungs: Limited assessment lung bases fails to reveal evidence for active cardiopulmonary process. Right basilar surgical clips. Calcified granuloma right middle lobe. This is a benign finding. Liver: Again note of a tiny left hepatic lobe cyst. Mild hepatomegaly at 19 cm. Gallbladder and bile ducts: Status post cholecystectomy. No visible evidence of postoperative complication. No visible hematoma, seroma, abscess, or biloma. Mild intra and extrahepatic biliary ectasia post cholecystectomy. Maximum common bile duct diameter 7 mm. No visible choledocholithiasis. Pancreas: Pancreas unremarkable. No pancreatic ductal ectasia. Spleen: Spleen unremarkable. Adrenals: Adrenal glands unremarkable. Kidneys and ureters: Kidneys unremarkable. No hydronephrosis or perinephric fluid. No visible obstructing nephrolithiasis. Stomach and bowel: Nonobstructive bowel pattern. No visible adynamic or reactive ileus. Appendix: Status post appendectomy. Intraperitoneal space: Unremarkable. No free air. No significant fluid collection. Vasculature: The abdominal aorta is nonaneurysmal. Minimal arterial sclerotic disease. Lymph nodes: No visible mesenteritis/panniculitis or mesenteric lymphadenitis/lymphadenopathy. Bladder: Unremarkable as visualized. Reproductive: Status post hysterectomy. Bones/joints: No visible active musculoskeletal pathology. Advanced degenerative disease and degenerative disc disease with disc space height loss L5/S1. Soft tissues: Unremarkable. CT/CT abdomen pelvis w con* [id number] IMPRESSION: 1. Status post cholecystectomy without visible evidence of postoperative complication to include no visible evidence of hematoma, seroma, abscess, or biloma. 2. Mild intra and extrahepatic biliary ectasia status post cholecystectomy. Radiation Dose CTDIVOL = (mGy): DLP = 601.89 (mGy-cm)
[2019-12-02 16:33] LABS: Basophils # 0.1 10^3/uL (0.0-0.1); Basophils % 0.9 %; Eosinophils # 0.2 10^3/uL (0.0-0.8); Eosinophils % 2.8 %; Hematocrit 40.8 % (37.0-47.0); Hemoglobin 12.5 g/dL (11.5-15.3); Lymphocytes # 1.8 10^3/uL (0.8-4.8); Lymphocytes % 31.7 %; Mean Corpuscular HGB Conc 30.6 g/dL (30.0-36.0); Mean Corpuscular Hemoglobin 27.8 pg (28.0-34.0); Mean Corpuscular Volume 90.9 fL (81-99); Mean Platelet Volume 9.1 fL (7.4-10.4); Monocytes # 0.6 10^3/uL (0.2-0.9); Monocytes % 10.4 %; Neutrophils # 3.1 10^3/uL (1.8-7.7); Neutrophils % 53.9 %; Nucleated Red Blood Cells % 0 %; Platelet Count 301 10^3/cmm (130-400); Red Blood Count 4.49 10^6/uL (4.1-5.3); Red Cell Distribution Width 15.7 % (12.1-15.1); White Blood Count 5.8 10^3/uL (4.0-10.0)
[2019-12-02] MEDS: ondansetron 2 mg/ML SDV 2 mL 4 MG IVP (16:39)
[2019-12-02] MEDS: morphine 4 mg/mL SDV 1 mL IVP (16:39)
[2019-12-02] MEDS: sodium chloride 0.9% 1,000 ML 100 ML IV (16:39)
[2019-12-02 16:45] LABS: HCG, Serum Qual Negative (Negative)
[2019-12-02 16:52] LABS: Alanine Aminotransferase 192 U/L (0-33); Albumin Level 3.9 g/dL (3.5-5.2); Alkaline Phosphatase 112 IU/L (35-105); Anion Gap 14.8 (5-19); Aspartate Amino Transferase 332 U/L (0-32); Blood Urea Nitrogen 11 mg/dL (6-20); Calcium 9.8 mg/dL (8.5-10.5); Carbon Dioxide 30 mmol/L (22-29); Chloride 97 mmol/L (98-107); Globulin 3.7 g/dL (1.3-4.6); Glomerular Filtration Rate 130.1 mL/min (90-130); Glucose 112 mg/dL (65-115); Lipase 23 U/L (13-60); Osmolality Calculated 283 mOsm/kg (285-295); Potassium 3.8 mmol/L (3.5-5.1); Sodium 138 mmol/L (136-145); Total Bilirubin 0.2 mg/dL (0.15-1.2); Total Protein 7.6 g/dL (6.6-8.7)
[2019-12-02] MEDS: iohexol 300 mg/mL 100 mL Btl IV (17:11)
[2019-12-02] MEDS: HYDROmorphone 1 mg/mL INJ 1 mL IVP (18:07)
--- NOTE | 2019-12-02 18:10 | USR_ITS ---
PROCEDURE INFORMATION: Exam: US Abdomen Complete Exam date and time: 12/02/2019 6:39 PM Age: 49 years old Clinical indication: Abdominal pain; Acute; Prior surgery; Surgery date: <1 month; Surgery type: Gb removed less than 2 weeks ago; Additional info: Elevated lfts TECHNIQUE: Imaging protocol: Real-time ultrasound of the abdomen with image documentation. COMPARISON: US gall bladder [id number] 11/12/2019 2:33 PM FINDINGS: Liver: Mild intra and extrahepatic biliary ectasia status post cholecystectomy with the common bile duct averaging 7 mm. Gallbladder: Status post cholecystectomy. Pancreas: Visualized pancreas is unremarkable. Right kidney: Right kidney dimensions 10.5 cm x 4 cm x 5.2 cm. Left kidney: Left kidney dimensions 11.2 cm x 6.4 cm x 6.7 cm. Spleen: Spleen unremarkable. Aorta: Visualized portion of the abdominal aorta nonaneurysmal. Inferior vena cava: Patent IVC. Other findings: Antegrade portal venous flow to color and Doppler assessment. US/US abdomen complete* [id number] IMPRESSION: Mild intra and extrahepatic biliary ectasia status post cholecystectomy with the common bile duct averaging 7 mm.
[2019-12-02 18:55] LABS: Hepatitis A Antibody IgM. Non-Reactive (Nonreactive); Hepatitis B Core IgM Non-Reactive (Nonreactive); Hepatitis B Surface Antigen. Non-Reactive (Nonreactive); Hepatitis C Virus Antibody Reactive (Nonreactive)
[2019-12-02 19:03] LABS: Bilirubin Urine Neg (NEGATIVE); Blood Urine Trace (Negative); Glucose Urine UA Norm (Normal); Ketones Urine Negative (Negative); Leukocyte Esterase Urine Negative (Negative); Nitrate Urine Negative (Negative); Protein Urine Neg (Negative); Specific Gravity, Urine 1.015 (1.005-1.030); Sulfosalicylic Acid Urine Negative; Urine Appearance Clear (CLEAR); Urine Color Yellow (Yellow); Urobilinogen Urine Norm (Negative); pH Urine 8 (5-7)
[2019-12-02 19:05] LABS: Add Urine Culture? No; Bacteria Urine TRACE; Mucus Urine TRACE; RBC Urine RARE /hpf (0-2); Squamous Epithelial Cell Urine RARE (0-5)
[2019-12-02] MEDS: sulfamethoxazole-trimeth DS 160-800 mg Tablet 1 TAB PO (21:07)
[2019-12-02] MEDS: ketorolac 30 mg/mL INJ 15 MG IVP (21:08)
== END 2019-12-02 21:24 | disposition home or self-care (01) ==
PROVIDERS: Emergency Provider Emergency Medicine; Family Provider Nurse Practitioner; PCP Nurse Practitioner
DX: R10.12 Left upper quadrant pain (principal); L03.90 Cellulitis, unspecified; Z90.49 Acquired absence of other specified parts of digestive tract
CPT/HCPCS: 12345; 36415; 74177; 76700; 80053; 80074; 81001; 83690; 84703; 85025; 96360; 96361; 96374; 96375; 99284; A9270; J1170; J1885; J2270; J2405; J7030; Q9967

== ENCOUNTER 2019-12-23 11:56 | Emergency (ER) | payer MEDICAID, SELFPAY ==
[2019-12-23 12:03] VITALS: BP 174/95; PULSE 116; RESP 18; TEMP 36.7; O2SAT 98; BMI 26.5
--- NOTE | 2019-12-23 12:17 | ED_ITS ---
HPI - Chest Pain General: Chief Complaint: Chest Pain Stated Complaint: CP; POSSIBLE PNEUMONIA; ALCOHOL RELAPSE Time Seen by Provider: 12/23/19 12:13 History of Present Illness: HPI narrative: 49-year-old female presents with chest pain. Patient is hyperventilating and is extremely anxious she states she has not drank in a few days and thinks she is withdrawing as well she denies hematochezia hematemesis or coffee-ground emesis denies any shortness of breath no vomiting or diarrhea. She states she had started drinking again drank heavily for a while and then recently suddenly stopped. Associated symptoms: Deny abdominal pain, dyspnea, fever(s), nausea or vomiting Review of Systems Const: Denies: fever, chills, body aches, change in appetite, fatigue or malaise ENMT: Denies: throat pain, ear pain, nasal discharge or nasal congestion Card: Reports: chest pain; Denies: edema, shortness of breath on exertion or shortness of breath when lying down Resp: Denies: shortness of breath, productive cough or non-productive cough GI: Denies: abdominal pain, nausea, vomiting, vomiting blood, coffee grounds in vomit, diarrhea, constipation, bloating, blood in stool or black tarry stool : Denies: flank pain, difficulty urinating, painful urination, urinary frequency or urinary urgency Skin/Breast: Denies: rash or itching PFSH ED PFSH: Social History Smoking and tobacco status: current every day smoker cigarettes Packs smoked per day: 0.5 Years cigarettes smoked: 30 Quit status (tobacco): not considering quitting Second hand smoke exposure: No Current gender identity: Female Physical Exam Const: COMMON NORMALS: no apparent distress GENERAL APPEARANCE: cooperative and comfortable ORIENTATION/CONSCIOUSNESS: Yes awake, Yes oriented to person, Yes oriented to place and Yes oriented to time HENMT: COMMON NORMALS: normocephalic, head/scalp atraumatic, hearing grossly normal bilaterally, external ears normal, EAC's normal, TM's normal bilaterally, nasal mucous membranes and turbinates normal, moist oral mucous membranes and oropharynx normal HEAD & SCALP: normocephalic and atraumatic NOSE: nasal mucous membranes and turbinates normal EXTERNAL EAR: Yes external ears normal EXTERNAL AUDITORY CANAL: EAC's normal TYMPANIC MEMBRANE: TM's normal bilaterally Eye: COMMON NORMALS: PERRL, EOMs intact bilaterally, conjunctivae normal and no scleral icterus CONJUNCTIVA: Yes conjunctivae normal PUPIL: Yes PERRL Neck/C-Spine: COMMON NORMALS: full ROM, no lymphadenopathy, supple and no JVD Lymph: LYMPHATIC: no lymphadenopathy noted and no lymphedema noted Resp: COMMON NORMALS: normal respiratory effort, no retractions, no use of accessory muscles and clear to auscultation bilaterally AUSCULTATION: clear to auscultation bilaterally Cardio: COMMON NORMALS: no JVD, regular rate, regular rhythm and no murmurs RATE: regular rate RHYTHM: regular rhythm GI: COMMON NORMALS: soft to palpation and no hepatosplenomegaly AUSCULTATION: Yes normoactive bowel sounds PALPATION: Yes soft, No tender, No guarding and Yes no hepatosplenomegaly Extremity: COMMON NORMALS: normal to inspection, normal capillary refill, no clubbing, cyanosis or edema, no calf tenderness and no pedal edema Neuro: SENSORIUM/ORIENTATION: Yes oriented to person, Yes oriented to place and Yes oriented to time Skin: COMMON NORMALS: no rashes or lesions noted GENERAL SKIN EXAM: no rashes or lesions noted Course Vital Signs: Vital signs: Vital Signs Temperature 98.7 F 12/23/19 15:29 Pulse Rate 112 H 12/23/19 15:29 Respiratory Rate 16 12/23/19 15:29 Blood Pressure 138/95 12/23/19 15:29 Pulse Oximetry 95 12/23/19 15:29 MDM - Chest Pain MDM Narrative: Medical decision making narrative: Blood alcohol still mildly elevated patient states she did not drink since yesterday initially she stated been even longer when I discussed with her the fact that she did have a detectable amount of alcohol in her blood she admitted that she did drink yesterday. She is feeling much better she was hyperventilating when she first came in but the timing of the blood gases that had improved some. Salazar go ahead and discharge her home I gave her the number for [facility] encouraged her to seek out alcohol rehab avoid alcohol. She does have some chest discomfort but that has resolved she has any recurrence or problems she should return immediately. Lab Data: Labs: Lab Results 12/23/19 12/23/19 12/23/19 Range/Units 12:35 12:35 12:35 WBC 5.8 (4.0-10.0) 10^3/ uL RBC 5.03 (4.1-5.3) 10^6/u L Hgb 14.2 (11.5-15.3) g/dL Hct 43.5 (37.0-47.0) % MCV 86.5 (81-99) fL MCH 28.2 (28.0-34.0) pg MCHC 32.6 (30.0-36.0) g/dL RDW 17.9 H (12.1-15.1) % Plt Count 215 (130-400) 10^3/c mm MPV 9.2 (7.4-10.4) fL Neut % (Auto) 73.3 % Lymph % (Auto) 20.6 % [place]cho % (Auto) 4.8 % Eos % (Auto) 0.2 % Baso % (Auto) 0.9 % Neut # (Auto) 4.3 (1.8-7.7) 10^3/u L Lymph # (Auto) 1.2 (0.8-4.8) 10^3/u L [place] # (Auto) 0.3 (0.2-0.9) 10^3/u L Eos # (Auto) 0.0 (0.0-0.8) 10^3/u L Baso # (Auto) 0.1 (0.0-0.1) 10^3/u L Nucleated RBC % (a uto) 0 % Nucleated RBCs # 0.0 /100WBC D-Dimer (0-0.59) ug/mIFE U Specimen Type Sample Site ABG pH (7.35-7.45) ABG pCO2 (35-45) mmHg ABG pO2 (80.0-100.0) mmH g ABG HCO3 (22-26) mmol/L ABG O2 Saturation ABG Base Excess (-2.0-2.0) mmol/ L Dutch Test A-a O2 Gradient (5-10) mmHg Hematocrit (37-47) % Hgb O2 Saturation (95-100) % Carboxyhemoglobin (0.4-20.1) %THgb Methemoglobin (0.4-1.5) % Total Hemoglobin (12-16) g/dL Ionized Calcium (1.1-1.4) mmol/L O2 Delivery Device FiO2 % Drying Oven Attendant ID Sodium 133 L (136-145) mmol/L Potassium 3.9 (3.5-5.1) mmol/L Chloride 92 L (98-107) mmol/L Carbon Dioxide 19 L (22-29) mmol/L Anion Gap 25.9 H (5-19) BUN 14 (6-20) mg/dL Creatinine 0.9 (0.5-0.9) mg/dL GFR Calculation 66.0 L (90-130) mL/min Glucose 107 (65-115) mg/dL Calculated Osmolal ity 273 L (285-295) mOsm/k g Calcium 10.1 (8.5-10.5) mg/dL Total Bilirubin 1.1 (0.15-1.2) mg/dL AST 1080 H (0-32) U/L ALT 912 H (0-33) U/L Alkaline Phosphata se 202 H (35-105) IU/L Troponin T Baselin e 13 H (0-10) ng/mL Troponin T [address] [place] (0-10) ng/mL Delta Troponin T (0-10) ABS# Total Protein 7.8 (6.6-8.7) g/dL Albumin 4.4 (3.5-5.2) g/dL Globulin 3.4 (1.3-4.6) g/dL Lipase 39 (13-60) U/L Urine Color (Yellow) Urine Appearance (CLEAR) Urine pH (5-7) Ur Specific Gravit y (1.005-1.030) Urine Protein (Negative) Urine Glucose (UA) (Normal) Urine Ketones (Negative) Urine Blood (Negative) Urine Nitrate (Negative) Urine Bilirubin (NEGATIVE) Urine Urobilinogen (Negative) mg/dL Ur Leukocyte Susana ase (Negative) Urine RBC (0-2) /hpf Urine WBC (0-5) /hpf Ur Squamous Epith Cells (0-5) Urine Bacteria (NONE) Hyaline Casts Urine Mucus Urine Opiates Scre en (Negative) ng/mL Ur Barbiturates Sc reen (Negative) ng/mL Ur Phencyclidine S crn (Negative) ng/mL Ur Amphetamines Sc reen (Negative) ng/mL U Benzodiazepines Scrn (Negative) ng/mL Urine Cocaine Scre en (Negative) ng/mL U Marijuana (THC) Screen (Negative) ng/mL Ethyl Alcohol (0-10) mg/dL 12/23/19 12/23/19 12/23/19 Range/Units 12:35 12:35 13:03 WBC (4.0-10.0) 10^3/ uL RBC (4.1-5.3) 10^6/u L Hgb (11.5-15.3) g/dL Hct (37.0-47.0) % MCV (81-99) fL MCH (28.0-34.0) pg MCHC (30.0-36.0) g/dL RDW (12.1-15.1) % Plt Count (130-400) 10^3/c mm MPV (7.4-10.4) fL Neut % (Auto) % Lymph % (Auto) % [place] % (Auto) % Eos % (Auto) % Baso % (Auto) % Neut # (Auto) (1.8-7.7) 10^3/u L Lymph # (Auto) (0.8-4.8) 10^3/u L [place] # (Auto) (0.2-0.9) 10^3/u L Eos # (Auto) (0.0-0.8) 10^3/u L Baso # (Auto) (0.0-0.1) 10^3/u L Nucleated RBC % (a uto) % Nucleated RBCs # /100WBC D-Dimer 0.35 (0-0.59) ug/mIFE U Specimen Type Arterial Sample Site Brachial, right ABG pH 7.41 (7.35-7.45) ABG pCO2 30.9 L (35-45) mmHg ABG pO2 74.6 L (80.0-100.0) mmH g ABG HCO3 19.5 L (22-26) mmol/L ABG O2 Saturation 95.1 ABG Base Excess -4.0 L (-2.0-2.0) mmol/ L Dutch Test N/a A-a O2 Gradient 35.4 H (5-10) mmHg Hematocrit 42.9 (37-47) % Hgb O2 Saturation 89.4 L (95-100) % Carboxyhemoglobin 4.8 (0.4-20.1) %THgb Methemoglobin 1.2 (0.4-1.5) % Total Hemoglobin 14.0 (12-16) g/dL Ionized Calcium 1.2 (1.1-1.4) mmol/L O2 Delivery Device Room air FiO2 21.0 % Drying Oven Attendant ID amh Sodium 134.0 (136-145) mmol/L Potassium 3.8 (3.5-5.1) mmol/L Chloride (98-107) mmol/L Carbon Dioxide (22-29) mmol/L Anion Gap (5-19) BUN (6-20) mg/dL Creatinine (0.5-0.9) mg/dL GFR Calculation (90-130) mL/min Glucose 94.0 (65-115) mg/dL Calculated Osmolal ity (285-295) mOsm/k g Calcium (8.5-10.5) mg/dL Total Bilirubin (0.15-1.2) mg/dL AST (0-32) U/L ALT (0-33) U/L Alkaline Phosphata se (35-105) IU/L Troponin T Baselin e (0-10) ng/mL Troponin T 120 [address] [place] (0-10) ng/mL Delta Troponin T (0-10) ABS# Total Protein (6.6-8.7) g/dL Albumin (3.5-5.2) g/dL Globulin (1.3-4.6) g/dL Lipase (13-60) U/L Urine Color (Yellow) Urine Appearance (CLEAR) Urine pH (5-7) Ur Specific Gravit y (1.005-1.030) Urine Protein (Negative) Urine Glucose (UA) (Normal) Urine Ketones (Negative) Urine Blood (Negative) Urine Nitrate (Negative) Urine Bilirubin (NEGATIVE) Urine Urobilinogen (Negative) mg/dL Ur Leukocyte Susana ase (Negative) Urine RBC (0-2) /hpf Urine WBC (0-5) /hpf Ur Squamous Epith Cells (0-5) Urine Bacteria (NONE) Hyaline Casts Urine Mucus Urine Opiates Scre en (Negative) ng/mL Ur Barbiturates Sc reen (Negative) ng/mL Ur Phencyclidine S crn (Negative) ng/mL Ur Amphetamines Sc reen (Negative) ng/mL U Benzodiazepines Scrn (Negative) ng/mL Urine Cocaine Scre en (Negative) ng/mL U Marijuana (THC) Screen (Negative) ng/mL Ethyl Alcohol 36 H (0-10) mg/dL 12/23/19 12/23/19 12/23/19 Range/Units 14:19 14:28 14:28 WBC (4.0-10.0) 10^3/ uL RBC (4.1-5.3) 10^6/u L Hgb (11.5-15.3) g/dL Hct (37.0-47.0) % MCV (81-99) fL MCH (28.0-34.0) pg MCHC (30.0-36.0) g/dL RDW (12.1-15.1) % Plt Count (130-400) 10^3/c mm MPV (7.4-10.4) fL Neut % (Auto) % Lymph % (Auto) % [place] % (Auto) % Eos % (Auto) % Baso % (Auto) % Neut # (Auto) (1.8-7.7) 10^3/u L Lymph # (Auto) (0.8-4.8) 10^3/u L [place] # (Auto) (0.2-0.9) 10^3/u L Eos # (Auto) (0.0-0.8) 10^3/u L Baso # (Auto) (0.0-0.1) 10^3/u L Nucleated RBC % (a uto) % Nucleated RBCs # /100WBC D-Dimer (0-0.59) ug/mIFE U Specimen Type Sample Site ABG pH (7.35-7.45) ABG pCO2 (35-45) mmHg ABG pO2 (80.0-100.0) mmH g ABG HCO3 (22-26) mmol/L ABG O2 Saturation ABG Base Excess (-2.0-2.0) mmol/ L Dutch Test A-a O2 Gradient (5-10) mmHg Hematocrit (37-47) % Hgb O2 Saturation (95-100) % Carboxyhemoglobin (0.4-20.1) %THgb Methemoglobin (0.4-1.5) % Total Hemoglobin (12-16) g/dL Ionized Calcium (1.1-1.4) mmol/L O2 Delivery Device FiO2 % Drying Oven Attendant ID Sodium (136-145) mmol/L Potassium (3.5-5.1) mmol/L Chloride (98-107) mmol/L Carbon Dioxide (22-29) mmol/L Anion Gap (5-19) BUN (6-20) mg/dL Creatinine (0.5-0.9) mg/dL GFR Calculation (90-130) mL/min Glucose (65-115) mg/dL Calculated Osmolal ity (285-295) mOsm/k g Calcium (8.5-10.5) mg/dL Total Bilirubin (0.15-1.2) mg/dL AST (0-32) U/L ALT (0-33) U/L Alkaline Phosphata se (35-105) IU/L Troponin T Baselin e (0-10) ng/mL Troponin T [address] [place] 12.60 H (0-10) ng/mL Delta Troponin T -0.40 L (0-10) ABS# Total Protein (6.6-8.7) g/dL Albumin (3.5-5.2) g/dL Globulin (1.3-4.6) g/dL Lipase (13-60) U/L Urine Color Yellow (Yellow) Urine Appearance Clear (CLEAR) Urine pH 5 (5-7) Ur Specific Gravit y 1.025 (1.005-1.030) Urine Protein Trace (Negative) Urine Glucose (UA) Norm (Normal) Urine Ketones 1+ H (Negative) Urine Blood Neg (Negative) Urine Nitrate Negative (Negative) Urine Bilirubin Neg (NEGATIVE) Urine Urobilinogen Norm (Negative) mg/dL Ur Leukocyte Susana ase Negative (Negative) Urine RBC None (0-2) /hpf Urine WBC None (0-5) /hpf Ur Squamous Epith Cells 0-4 H (0-5) Urine Bacteria Trace (NONE) Hyaline Casts 15-25 H Urine Mucus 1+ Urine Opiates Scre en Negative (Negative) ng/mL Ur Barbiturates Sc reen Negative (Negative) ng/mL Ur Phencyclidine S crn Negative (Negative) ng/mL Ur Amphetamines Sc reen Negative (Negative) ng/mL U Benzodiazepines Scrn Positive H (Negative) ng/mL Urine Cocaine Scre en Negative (Negative) ng/mL U Marijuana (THC) Screen Negative (Negative) ng/mL Ethyl Alcohol (0-10) mg/dL Discharge Plan Discharge Patient Disposition: Home, Self-Care Clinical Impression: Atypical chest pain, Alcohol abuse Condition: Stable Prescriptions: No Action hydroxyzine pamoate [Vistaril] 25 mg capsule 25 mg PO BID PRN (Reason: anxiety) Qty: 60 RF: 1 gabapentin 600 mg tablet 600 mg PO BID Qty: 60 RF: 1 diphenhydramine HCl [Benadryl] 25 mg Capsule See Rx Instructions .ROUTE .COMPLEX RF: 0 pantoprazole [Protonix] 40 mg tablet,delayed release (DR/EC) 40 mg PO DAILY 56 Days RF: 0 mirtazapine 30 mg tablet 30 mg PO BEDTIME RF: 0 ondansetron HCl [Zofran] 4 mg tablet 4 mg PO Q6H PRN (Reason: nausea and vomiting) Qty: 20 RF: 0 Referrals: Liil Harris ADMINISTRATIVE SERVICES ASSISTANT [Primary Care Provider] - Discharge Diet: As Directed Discharge Activity: Increase activity as tolerated Patient Instructions: Abuse of Alcohol (ED) Activity Restrictions/Additional Instructions: Refrain from alcohol, Recommend pursuing rehabilitation for alcohol abuse. Discharge Date/Time: 12/23/19 15:30 Coding Level of Care Code ED Battery Charger Tester for Palak Thorne
--- NOTE | 2019-12-23 12:19 | ECG_ITS ---
Measurements Intervals [place] Rate: 113 P: 73 MD: 158 QRS: 34 QRSD: 87 T: 52 QT: 314 QTc: 431 SINUS TACHYCARDIA POSSIBLE RIGHT ATRIAL ENLARGEMENT [0.25mV P WAVE] POSSIBLE LEFT ATRIAL ENLARGEMENT [-0.1mV P WAVE IN V1/V2] Compared to ECG 04/09/2019 21:39:05 Sinus rhythm no longer present Electronically Signed On 12-24-2019 18:24:34 CDT by Maria E Espinosa M.D. [email or web address]
--- NOTE | 2019-12-23 12:19 | XRR_ITS ---
PROCEDURE INFORMATION: Exam: XR Chest, 1 View Exam date and time: 12/23/2019 12:40 PM Age: 49 years old Clinical indication: Chest pain; Dyspnea/cough TECHNIQUE: Imaging protocol: XR of the chest Views: 1 view. COMPARISON: CR Chest 1 [place] [id number] 04/09/2019 6:15 PM FINDINGS: Lungs: There architectural changes in both lungs compatible with emphysema. Prior right basilar lung surgery. No focal peripheral lung consolidation, air bronchogram formation, or silhouette sign. Pleural space: No pleural effusion or pneumothorax. Heart/Mediastinum: The cardiac silhouette is not enlarged. Bones/joints: No acute osseous abnormality. Other findings: There is a left epicardial fat pad. XR/XR chest 1V portable [id number] IMPRESSION: 1. Emphysema. 2. No pneumonia.
[2019-12-23 12:25] VITALS: RESP 18; O2SAT 98
[2019-12-23 12:42] LABS: Basophils # 0.1 10^3/uL (0.0-0.1); Basophils % 0.9 %; Eosinophils % 0.2 %; Hematocrit 43.5 % (37.0-47.0); Hemoglobin 14.2 g/dL (11.5-15.3); Lymphocytes # 1.2 10^3/uL (0.8-4.8); Lymphocytes % 20.6 %; Mean Corpuscular HGB Conc 32.6 g/dL (30.0-36.0); Mean Corpuscular Hemoglobin 28.2 pg (28.0-34.0); Mean Corpuscular Volume 86.5 fL (81-99); Mean Platelet Volume 9.2 fL (7.4-10.4); Monocytes # 0.3 10^3/uL (0.2-0.9); Monocytes % 4.8 %; Neutrophils # 4.3 10^3/uL (1.8-7.7); Neutrophils % 73.3 %; Nucleated Red Blood Cells % 0 %; Platelet Count 215 10^3/cmm (130-400); Red Blood Count 5.03 10^6/uL (4.1-5.3); Red Cell Distribution Width 17.9 % (12.1-15.1); White Blood Count 5.8 10^3/uL (4.0-10.0)
[2019-12-23] MEDS: LORazepam 2 mg/mL INJ 1 mL 1 MG IVP (12:59)
[2019-12-23] MEDS: sodium chloride 0.9% 1,000 ML 999 ML IV (12:59)
[2019-12-23 13:01] LABS: Albumin Level 4.4 g/dL (3.5-5.2); Alkaline Phosphatase 202 IU/L (35-105); Anion Gap 25.9 (5-19); Blood Urea Nitrogen 14 mg/dL (6-20); Calcium 10.1 mg/dL (8.5-10.5); Carbon Dioxide 19 mmol/L (22-29); Chloride 92 mmol/L (98-107); Globulin 3.4 g/dL (1.3-4.6); Glucose 107 mg/dL (65-115); Lipase 39 U/L (13-60); Osmolality Calculated 273 mOsm/kg (285-295); Potassium 3.9 mmol/L (3.5-5.1); Sodium 133 mmol/L (136-145); Total Bilirubin 1.1 mg/dL (0.15-1.2); Total Protein 7.8 g/dL (6.6-8.7); Troponin(5th) Baseline 13 ng/mL (0-10)
[2019-12-23 13:12] LABS: Alanine Aminotransferase 912 U/L (0-33)
[2019-12-23 13:14] LABS: Alcohol Level 36 mg/dL (0-10)
[2019-12-23 13:15] LABS: ABG PCO2 30.9 mmHg (35-45); ABG PH Result 7.41 (7.35-7.45); Alveolar-Arterial Oxygen Gradi 35.4 mmHg (5-10); Arterial Blood Gas Hematocrit 42.9 % (37-47); Blood Gas Operator Identificat amh; Blood Gas Sample Site Brachial, right; Blood Gas Sample Type Arterial; Carboxyhemoglobin 4.8 %THgb (0.4-20.1); HCO3 ABG 19.5 mmol/L (22-26); HGB O2 Sat 89.4 % (95-100); Ionized Calcium Level - ABG 1.2 mmol/L (1.1-1.4); Methemoglobin 1.2 % (0.4-1.5); Oxygen Device ROOM AIR; Oxygen Saturation ABG 95.1; PO2 ABG 74.6 mmHg (80.0-100.0); Potassium Level - ABG 3.8 mmol/L (3.5-5.0)
[2019-12-23 13:16] LABS: Aspartate Amino Transferase 1080 U/L (0-32)
[2019-12-23] MEDS: ondansetron 2 mg/ML SDV 2 mL 4 MG IVP (13:18)
[2019-12-23] MEDS: ibuprofen 600 mg Tablet PO (13:18)
[2019-12-23 14:33] VITALS: PULSE 114; RESP 17; O2SAT 96
[2019-12-23 14:53] LABS: Add Urine Microscopic? YES; Bilirubin Urine Neg (NEGATIVE); Blood Urine Neg (Negative); Glucose Urine UA Norm (Normal); Ketones Urine 1+ (Negative); Leukocyte Esterase Urine Negative (Negative); Nitrate Urine Negative (Negative); Protein Urine Trace (Negative); Specific Gravity, Urine 1.025 (1.005-1.030); Urine Appearance Clear (CLEAR); Urine Color Yellow (Yellow); Urobilinogen Urine Norm (Negative); pH Urine 5 (5-7)
[2019-12-23 15:02] LABS: Amphetamines Screen Urine Negative (Negative); Barbiturates Screen Urine Negative (Negative); Benzodiazepines Screen Urine Positive (Negative); Cocaine Screen Urine Negative (Negative); Opiate Screen Urine Negative (Negative); PCP Screen Urine Negative (Negative); THC Screen Urine Negative (Negative)
[2019-12-23 15:09] LABS: Bacteria Urine TRACE; Hyaline Casts Urine 15-25; Mucus Urine 1+; Squamous Epithelial Cell Urine 0-4 (0-5)
[2019-12-23 15:10] LABS: Add Urine Culture? No
[2019-12-23 15:12] LABS: D Dimer 0.35 ug/mIFEU (0-0.59)
[2019-12-23 15:29] VITALS: BP 138/95; PULSE 112; RESP 16; TEMP 37.1; O2SAT 95
== END 2019-12-23 15:30 | disposition home or self-care (01) ==
PROVIDERS: Emergency Provider Family Medicine; Family Provider Nurse Practitioner; PCP Nurse Practitioner
DX: R07.89 Other chest pain (principal); F10.10 Alcohol abuse, uncomplicated; F17.210 Nicotine dependence, cigarettes, uncomplicated
CPT/HCPCS: 12345; 36415; 36600; 71045; 80051; 80053; 80306; 80307; 81001; 82810; 83690; 83986; 84484; 85025; 85378; 93005; 96360; 96361; 96374; 96375; 99283; 99284; A9270; J2060; J2405; J7030

== ENCOUNTER 2020-01-05 12:53 | Emergency (ER) | payer MEDICAID, SELFPAY ==
[2020-01-05 13:08] VITALS: BP 153/106; PULSE 106; RESP 17; TEMP 37.3; O2SAT 97; BMI 26.5
--- NOTE | 2020-01-05 13:14 | ED_ITS ---
HPI - Neck Pain/Injury General: Chief Complaint: Neck Pain/Injury Stated Complaint: abscess behind ear Time Seen by Provider: 01/05/20 13:14 Source: patient Mode of arrival: ambulatory Limitations: no limitations History of Present Illness: HPI Narrative: Patient is a 49-year-old female who presents to ED today with complaints of swelling to the left side of her face and neck that she noticed a few days ago. She states area is extremely painful. She has not noticed any redness or warmth to the area. She denies dental pain as she is edentulous to upper and lowers. Reports some mild pain to her left ear. She has not found the eating or drinking seems to make her pain worse. No recent infections Onset (ago): day(s) Place: home Duration: constant Relieving factors: none Exacerbating factors: none Associated symptoms: Denies difficulty walking, dizziness, headache(s) or nausea Review of Systems General: Reports: 10 or more systems reviewed and unremarkable except in HPI and below Const: Denies: fever, chills, body aches, change in appetite, change in weight, fatigue or malaise Eyes: Denies: change in vision, blurry vision, photophobia, floaters or seeing flashes ENMT: Reports: painful swallowing (reports throat doesn't hurt when swallowing; just makes L side of face hurt) and ear pain; Denies: throat pain, enlarged tonsils, hoarseness, mouth pain, swelling of lips/tongue, oral sores/lesions, dental pain, ear discharge, nasal discharge, nasal congestion, nose bleeds or facial/sinus pain Card: Denies: chest pain, palpitations, irregular heart rhythm, edema, lightheadedness, syncope or pre-syncope Resp: Denies: shortness of breath, productive cough or chest congestion GI: Denies: abdominal pain, nausea, vomiting or diarrhea Musc: Reports: neck pain; Denies: back pain, extremity pain, extremity swelling, joint pain or joint swelling Skin/Breast: Denies: rash, sores, new lesion, changing lesion or changes in skin color Neuro: Denies: headache, numbness in extremities, weakness in extremities, changes in sensation, lack of coordination, difficulty walking, dizziness or vertigo [facility] ED PFSH: Social History Smoking and tobacco status: current every day smoker cigarettes Packs smoked per day: 0.5 Years cigarettes smoked: 30 Quit status (tobacco): not considering quitting Second hand smoke exposure: No Current gender identity: Female Physical Exam Const: COMMON NORMALS: average body habitus, oriented x3, no limitations, healthy appearing, alert and well nourished GENERAL APPEARANCE: anxious HENMT: COMMON NORMALS: normocephalic, head/scalp atraumatic, hearing grossly normal bilaterally, external ears normal, EAC's normal, TM's normal bilaterally, external nose normal, nasal mucous membranes and turbinates normal, moist oral mucous membranes, oropharynx normal and gingiva normal HEAD & SCALP: normal to inspection, normocephalic and atraumatic FACE & SINUS: sinuses nontender and other (see below) NOSE: external nose normal, nares normal and nasal mucous membranes and turbinates normal EXTERNAL EAR: Yes external ears normal EXTERNAL AUDITORY CANAL: EAC's normal TYMPANIC MEMBRANE: TM's normal bilaterally MOUTH: oral and palatal mucosa normal, lip normal and tongue normal TEETH & GINGIVA: Yes edentulous THROAT: posterior oropharynx normal, tonsils normal and uvula midline OTHER: pt has extreme tenderness and firm swelling noted to parotid gland/angle of mandible region; there is no erythema and tenderness does not seem to be localized to mastoid region; no lymphadenopathy present Eye: COMMON NORMALS: PERRL and EOMs intact bilaterally PUPIL: Yes PERRL Neck/C-Spine: COMMON NORMALS: full ROM OTHER: see [facility] assessment; swellin g does not seem to extend into submandibular spaces Lymph: LYMPHATIC: no lymphadenopathy noted Resp: COMMON NORMALS: normal respiratory effort and clear to auscultation bilaterally AUSCULTATION: clear to auscultation bilaterally Cardio: COMMON NORMALS: regular rate and regular rhythm RATE: regular rate RHYTHM: regular rhythm Neuro: COMMON NORMALS: oriented x3 SENSORIUM/ORIENTATION: Yes alert Skin: COMMON NORMALS: no rashes or lesions noted GENERAL SKIN EXAM: no rashes or lesions noted Course Vital Signs: Vital signs: Vital Signs Temperature 99.2 F 01/05/20 13:08 Pulse Rate 72 01/05/20 15:36 Respiratory Rate 17 01/05/20 13:08 Blood Pressure 134/85 01/05/20 15:36 Pulse Oximetry 95 01/05/20 15:36 MDM - Neck Pain/Injury Lab Data: Labs: Lab Results 01/05/20 01/05/20 01/05/20 Range/Units 13:51 13:51 13:51 WBC 6.5 (4.0-10.0) 10^3/ uL RBC 4.11 (4.1-5.3) 10^6/u L Hgb 12.0 (11.5-15.3) g/dL Hct 38.1 (37.0-47.0) % MCV 92.7 (81-99) fL MCH 29.2 (28.0-34.0) pg MCHC 31.5 (30.0-36.0) g/dL RDW 17.5 H (12.1-15.1) % Plt Count 297 (130-400) 10^3/c mm MPV 9.4 (7.4-10.4) fL Neut % (Auto) 62.6 % Lymph % (Auto) 25.4 % [place] % (Auto) 8.5 % Eos % (Auto) 2.6 % Baso % (Auto) 0.6 % Neut # (Auto) 4.0 (1.8-7.7) 10^3/u L Lymph # (Auto) 1.6 (0.8-4.8) 10^3/u L [place] # (Auto) 0.6 (0.2-0.9) 10^3/u L Eos # (Auto) 0.2 (0.0-0.8) 10^3/u L Baso # (Auto) 0.0 (0.0-0.1) 10^3/u L Nucleated RBC % (a uto) 0 % Nucleated RBCs # 0.0 /100WBC Sodium 140 (136-145) mmol/L Potassium 3.9 (3.5-5.1) mmol/L Chloride 104 (98-107) mmol/L Carbon Dioxide 24 (22-29) mmol/L Anion Gap 15.9 (5-19) BUN 13 (6-20) mg/dL Creatinine 0.7 (0.5-0.9) mg/dL GFR Calculation 88.2 L (90-130) mL/min Glucose 141 H (65-115) mg/dL Calculated Osmolal ity 289 (285-295) mOsm/k g Lactate 1.9 (0.5-2.2) mmol/L Calcium 10.3 (8.5-10.5) mg/dL Total Bilirubin 0.2 (0.15-1.2) mg/dL AST 35 H (0-32) U/L ALT 49 H (0-33) U/L Alkaline Phosphata se 111 H (35-105) IU/L C-Reactive Protein 1.2 (0.0-4.9) mg/L Total Protein 7.7 (6.6-8.7) g/dL Albumin 3.9 (3.5-5.2) g/dL Globulin 3.8 (1.3-4.6) g/dL Imaging Data^: CT neck: Radiologist's impression: [address] [address] [address] Scan Report Signed Patient: Viola Woods Unit #: [id number] : 1970 Age/Sex: 49 / F ADM Date: 01/05/20 Loc: ER Room/Bed: Attending Dr: Ordering Provider/Ordering MD: Mona De La Cruz Date of Service: 01/05/20 Procedure(s): CT neck w con* [id number] Accession Number(s): [id number] Report Number: [id number] PROCEDURE INFORMATION: Exam: CT Neck With Contrast Exam date and time: 01/05/2020 1:35 PM Age: 49 years old Clinical indication: Pain; Other: Abcess behind left ear/ neck swelling; Additional info: Swelling/pain near angle of jaw TECHNIQUE: Imaging protocol: Computed tomography images of the neck with intravenous contrast. Total DLP: 648.14 mGy-cm Radiation optimization: All CT scans at this facility use at least one of these dose optimization techniques: automated exposure control; mA and/or kV adjustment per patient size (includes targeted exams where dose is matched to clinical indication); or iterative reconstruction. Contrast material: OMNI 300; Contrast volume: 95 ml; Contrast route: LT HAND; COMPARISON: CT Cervical Spine wo* [id number] 10/12/2018 4:56 AM FINDINGS: Nasopharynx: Unremarkable. Oropharynx: Unremarkable. No significant tonsillar enlargement. Hypopharynx: Unremarkable. Larynx: Unremarkable. Normal epiglottis. Retropharyngeal space: Unremarkable. Submandibular/Parotid glands: Unremarkable. Thyroid: 8.5 mm left thyroid nodule, unchanged from 10/12/2018. Lymph nodes: Several homogeneous 1.1 cm or smaller left jugulodigastric chain lymph nodes, probably reactive. Trachea: Visualized trachea is unremarkable. Lungs: Unremarkable as visualized. Bones/joints: Unremarkable. No acute fracture. Soft tissues:Mild subcutaneous fat stranding over left submandibular and parotid glands suggesting mild inflammation/edema. No soft tissue gas evident. No abscess evident. CT/CT neck w con* [id number] IMPRESSION: 1.) Mild subcutaneous fat stranding over left submandibular and parotid glands suggesting mild inflammation/edema. No soft tissue gas evident. No abscess evident. 2.) Left neck lymphadenopathy, presumably reactive. 3.) stable 8.5 mm left thyroid nodule. COMMENTS: Consistent with the [employer]'s Incidental Findings Committee white paper (J Am Astrid Radiol 2015): In patients aged 35 years and older with an incidental thyroid nodule equal to or greater than 1.[address], MRI or extrathyroidal US, further evaluation with dedicated thyroid US is recommended for patients with normal life expectancy and without comorbidities. For smaller nodules without suspicious features, no further evaluation or follow up is recommended. Radiation Dose CTDIVOL = (mGy): DLP = 648.14 (mGy-cm) Dictated By: Levi Zapien MD Signed By: Levi Zapien MD Signed Date/Time: 01/05/201441 DD/ 40 Discharge Plan Discharge Patient Disposition: Home, Self-Care Clinical Impression: Acute parotitis Condition: Stable Prescriptions: New hydrocodone-acetaminophen 5-325 mg tablet 1 tab PO Q6H PRN (Reason: pain) Qty: 15 RF: 0 Augmentin 875-125 mg tablet 1 tab PO Q12H 7 Days Qty: 14 RF: 0 No Action gabapentin 600 mg tablet 600 mg PO BID Qty: 60 RF: 1 mirtazapine 30 mg tablet 30 mg PO BEDTIME Qty: 30 RF: 1 hydroxyzine pamoate [Vistaril] 25 mg capsule 25 mg PO BID PRN (Reason: anxiety) Qty: 60 RF: 1 pantoprazole [Protonix] 40 mg tablet,delayed release (/EC) 40 mg PO DAILY 56 Days RF: 0 ondansetron HCl [Zofran] 4 mg tablet 4 mg PO Q6H PRN (Reason: nausea and vomiting) Qty: 20 RF: 0 Discharge Orders: Discharge Order (Routine); Ordered 01/05/20 Ordered By: Mona De La Cruz Referrals: Lili Harris, [facility] SPECIAL EDUCATOR [Primary Care Provider] - Patient Instructions: Parotid Duct Obstruction (ED), Sialoadenitis (ED), Parotid Gland Infection Activity Restrictions/Additional Instructions: Begin antibiotics promptly. Apply warm compresses to the side of your face multiple times daily. Sucking on sour candies can help stimulate the salivary gland. Please follow-up with your PCP in 3-5 days for continued pain. Return to the emergency department for worsening swelling, uncontrollable pain, fevers greater than 100.4, or any other concerns you may have. Coding Level of Care Code ED Compound Filler for [place] Fwd Exam Comprehensive
--- NOTE | 2020-01-05 13:22 | CTR_ITS ---
PROCEDURE INFORMATION: Exam: CT Neck With Contrast Exam date and time: 01/05/2020 1:35 PM Age: 49 years old Clinical indication: Pain; Other: Abcess behind left ear/ neck swelling; Additional info: Swelling/pain near angle of jaw TECHNIQUE: Imaging protocol: Computed tomography images of the neck with intravenous contrast. Total DLP: 648.14 mGy-cm Radiation optimization: All CT scans at this facility use at least one of these dose optimization techniques: automated exposure control; mA and/or kV adjustment per patient size (includes targeted exams where dose is matched to clinical indication); or iterative reconstruction. Contrast material: OMNI 300; Contrast volume: 95 ml; Contrast route: LT HAND; COMPARISON: CT Cervical Spine wo* [id number] 10/12/2018 4:56 AM FINDINGS: Nasopharynx: Unremarkable. Oropharynx: Unremarkable. No significant tonsillar enlargement. Hypopharynx: Unremarkable. Larynx: Unremarkable. Normal epiglottis. Retropharyngeal space: Unremarkable. Submandibular/Parotid glands: Unremarkable. Thyroid: 8.5 mm left thyroid nodule, unchanged from 10/12/2018. Lymph nodes: Several homogeneous 1.1 cm or smaller left jugulodigastric chain lymph nodes, probably reactive. Trachea: Visualized trachea is unremarkable. Lungs: Unremarkable as visualized. Bones/joints: Unremarkable. No acute fracture. Soft tissues:Mild subcutaneous fat stranding over left submandibular and parotid glands suggesting mild inflammation/edema. No soft tissue gas evident. No abscess evident. CT/CT neck w con* [id number] IMPRESSION: 1.) Mild subcutaneous fat stranding over left submandibular and parotid glands suggesting mild inflammation/edema. No soft tissue gas evident. No abscess evident. 2.) Left neck lymphadenopathy, presumably reactive. 3.) stable 8.5 mm left thyroid nodule. COMMENTS: Consistent with the [employer]'s Incidental Findings Committee white paper (J Am Astrid Radiol 2015): In patients aged 35 years and older with an incidental thyroid nodule equal to or greater than 1.[address], MRI or extrathyroidal US, further evaluation with dedicated thyroid US is recommended for patients with normal life expectancy and without comorbidities. For smaller nodules without suspicious features, no further evaluation or follow up is recommended. Radiation Dose CTDIVOL = (mGy): DLP = 648.14 (mGy-cm)
[2020-01-05 14:02] LABS: Basophils % 0.6 %; Eosinophils # 0.2 10^3/uL (0.0-0.8); Eosinophils % 2.6 %; Hematocrit 38.1 % (37.0-47.0); Lymphocytes # 1.6 10^3/uL (0.8-4.8); Lymphocytes % 25.4 %; Mean Corpuscular HGB Conc 31.5 g/dL (30.0-36.0); Mean Corpuscular Hemoglobin 29.2 pg (28.0-34.0); Mean Corpuscular Volume 92.7 fL (81-99); Mean Platelet Volume 9.4 fL (7.4-10.4); Monocytes # 0.6 10^3/uL (0.2-0.9); Monocytes % 8.5 %; Neutrophils % 62.6 %; Nucleated Red Blood Cells % 0 %; Platelet Count 297 10^3/cmm (130-400); Red Blood Count 4.11 10^6/uL (4.1-5.3); Red Cell Distribution Width 17.5 % (12.1-15.1); White Blood Count 6.5 10^3/uL (4.0-10.0)
[2020-01-05] MEDS: iohexol 300 mg/mL 100 mL Btl IV (14:07)
--- NOTE | 2020-01-05 14:15 | PC.NURSE ---
PT TO CT BY STRETCHER WITH TECH
[2020-01-05 14:19] LABS: Alanine Aminotransferase 49 U/L (0-33); Albumin Level 3.9 g/dL (3.5-5.2); Alkaline Phosphatase 111 IU/L (35-105); Anion Gap 15.9 (5-19); Aspartate Amino Transferase 35 U/L (0-32); Blood Urea Nitrogen 13 mg/dL (6-20); C Reactive Protein 1.2 mg/L (0.0-4.9); Calcium 10.3 mg/dL (8.5-10.5); Carbon Dioxide 24 mmol/L (22-29); Chloride 104 mmol/L (98-107); Globulin 3.8 g/dL (1.3-4.6); Glomerular Filtration Rate 88.2 mL/min (90-130); Glucose 141 mg/dL (65-115); Osmolality Calculated 289 mOsm/kg (285-295); Potassium 3.9 mmol/L (3.5-5.1); Sodium 140 mmol/L (136-145); Total Bilirubin 0.2 mg/dL (0.15-1.2); Total Protein 7.7 g/dL (6.6-8.7)
[2020-01-05 14:20] LABS: Lactate (Lactic Acid level) 1.9 mmol/L (0.5-2.2)
[2020-01-05] MEDS: morphine 4 mg/mL SDV 1 mL IVP (14:30)
[2020-01-05] MEDS: ondansetron 2 mg/ML SDV 2 mL 4 MG IVP (14:30)
[2020-01-05] MEDS: ampicillin-sulbactam 3 GM in sodium chloride 0.9% (plus) 50 ML IV (15:35)
[2020-01-05 15:36] VITALS: BP 134/85; PULSE 72; O2SAT 95
[2020-01-05 16:06] VITALS: BP 167/102; PULSE 79; O2SAT 98
== END 2020-01-05 16:06 | disposition home or self-care (01) ==
PROVIDERS: Emergency Provider Physician Assistant; Family Provider Nurse Practitioner; PCP Nurse Practitioner
DX: K11.21 Acute sialoadenitis (principal); F17.210 Nicotine dependence, cigarettes, uncomplicated
CPT/HCPCS: 12345; 36415; 70491; 80053; 83605; 85025; 86140; 96360; 96365; 96375; 99283; 99284; J0295; J2270; J2405; Q9967

== ENCOUNTER 2020-02-08 10:36 | Emergency (ER) | payer MEDICAID, SELFPAY ==
[2020-02-08 10:38] VITALS: BP 184/109; PULSE 85; RESP 18; TEMP 36.7; O2SAT 98; BMI 26.5
--- NOTE | 2020-02-08 11:09 | XR_ITS ---
WS: [id number] LEFT SHOULDER: 3 VIEW(S) TECHNIQUE: Internal and external rotation with Y view. HISTORY: fall, shoulder pain COMPARISON: None available. No fracture or dislocation or soft tissue abnormality. Glenohumeral and AC joints are unremarkable. XR/XR shoulder LT min 2V* [id number] IMPRESSION: Normal LEFT shoulder.
--- NOTE | 2020-02-08 11:12 | W.ED.EXTPRO ---
HPI - Extremity Problem General: Chief complaint: Extremity Injury, Upper Stated complaint: left shoulder pain Time Seen by Provider: 02/08/20 10:57 History of Present Illness: HPI Narrative: Patient presents four days after a fall onto her left shoulder. She fell and tried to catch herself on the arm, but fell onto it. She has been having severe pain ever since then and has not been able to move the arm. She has tried OTC medications and rubs without relief. Additionally, she has been having sore on her scalp for some time - she was treated about a month ago for a presumed salivary gland infection - with augmentin - and the swelling on the left side of her face and her scalp got better. It is worse again - now she has swelling in the lymph nodes on the right side of the neck. No fever. She has had some chills. Associated symptoms: Deny chest pain or fever(s) Review of Systems Const: Reports: chills; Denies: fever(s) ENMT: Denies: dental pain or ear or mastoid pain Card: Denies: chest pain GI: Denies: nausea or vomiting Skin/Breast: Reports: erythema, skin tenderness, skin swelling and change in hair Neuro: Reports: numbness in extremities; Denies: headache(s) Psych: Reports: anxiety and depression Wolf/Lymph: Reports: enlarged lymph nodes PFSH ED PFSH: Medical History Alcohol use disorder, severe, in early remission Amphetamine use disorder, mild, in sustained remission Chronic post-traumatic stress disorder (PTSD) Hepatitis C Major depressive disorder, recurrent, moderate Surgical History H/O: hysterectomy History of appendectomy History of lung biopsy Hx of tonsillectomy Status post laparoscopic cholecystectomy Social History Smoking and tobacco status: current every day smoker cigarettes Packs smoked per day: 0.5 Years cigarettes smoked: 30 Quit status (tobacco): not considering quitting Second hand smoke exposure: No Current gender identity: Female Physical Exam HENMT: COMMON NORMALS: Normal external nose present HEAD & SCALP: scalp lesion and scalp tenderness HEAD IMAGES: 1. tender, red, mildly fluctuant 2. tender, red, mildly fluctuant 3. tender, red, mildly fluctuant FACE & SINUS: normal facial exam NOSE: Normal external nose present and Normal nares present Neck/C-Spine: COMMON NORMALS: no JVD THYROID: multiple palpable nodules and tender CERVICAL SPINE: Yes cervical ROM normal NECK IMAGES: 1. tender to palpation, muscle 2. enlarged lymph nodes Lymph: LYMPHATIC: lymphadenopathy Resp: COMMON NORMALS: normal respiratory effort, No retractions, No use of accessory muscles and clear to auscultation bilaterally AUSCULTATION: clear to auscultation bilaterally Cardio: COMMON NORMALS: no JVD, regular rate and regular rhythm RATE: regular rate RHYTHM: regular rhythm Extremity: COMMON NORMALS: capillary refill normal LEFT UPPER EXTREMITY: Yes shoulder joint Left shoulder joint: Yes inspection (normal), Yes palpation (diffusely tender to palpation), Yes ROM (will not allow active or passive ranging of the shoulder) and Yes neurovascular exam (describes tingling, motor intact, pulses intact) Course ED course: Patient treated for pain - also doxycycline for scalp lesions - I think the lymph nodes are related to that. She doesn't have a PCP but is working on getting medicaid and getting one. I strongly encouraged her to follow up for her multiple issues. Also given a referral to ortho for her shoulder injury. Vital Signs: Vital signs: Vital Signs Temperature 98.0 F 02/08/20 10:38 Pulse Rate 82 02/08/20 12:02 Respiratory Rate 20 H 02/08/20 12:02 Blood Pressure 173/139 02/08/20 11:56 Pulse Oximetry 98 02/08/20 12:02 Discharge Plan Discharge Patient Disposition: Home, Self-Care Clinical Impression: Other sprain of left shoulder joint, initial encounter, Abscess or cellulitis of scalp Condition: Stable Prescriptions: New hydrocodone-acetaminophen 5-325 mg tablet 1 tab PO Q6H Qty: 14 RF: 0 Robaxin-750 750 mg tablet 750 mg PO TID Qty: 30 RF: 0 doxycycline hyclate 100 mg tablet 100 mg PO BID 14 Days Qty: 28 RF: 0 No Action gabapentin 600 mg tablet 600 mg PO BID Qty: 60 RF: 1 mirtazapine 30 mg tablet 30 mg PO BEDTIME Qty: 30 RF: 1 hydroxyzine pamoate [Vistaril] 25 mg capsule 25 mg PO BID PRN (Reason: anxiety) Qty: 60 RF: 1 ondansetron HCl [Zofran] 4 mg tablet 4 mg PO Q6H PRN (Reason: nausea and vomiting) Qty: 20 RF: 0 hydrocodone-acetaminophen 5-325 mg tablet 1 tab PO Q6H PRN (Reason: pain) Qty: 15 RF: 0 Discharge Orders: Discharge Order (Routine); Ordered 02/08/20 Ordered By: Jacqueline Nelson Referrals: Lili Harris APN [Primary Care Provider] - Sofie Regalado MD [Physician] - 2 weeks Patient Instructions: Cellulitis (ED), Shoulder Sprain (ED) Activity Restrictions/Additional Instructions: Take off the sling and do gentle range of motion exercises with your shoulder several times daily to prevent a frozen shoulder. Do not pick at the sore areas on your head. Return to the ED if worse in any way. Follow with with a primary care physician as soon as possibls. Discharge Date/Time: 02/08/20 12:02 Coding Level of Care Code ED [employer] Manager for [employer] Fwd Exam Detailed
[2020-02-08] MEDS: HYDROcodone-acetaminophen 5-325 mg Tablet 1 TAB PO (11:54)
[2020-02-08] MEDS: methocarbamol 750 mg Tablet 1500 MG PO (11:54)
[2020-02-08] MEDS: doxycycline 100 mg Tablet PO (11:54)
[2020-02-08 11:56] VITALS: BP 173/139; PULSE 81; RESP 18; O2SAT 99
[2020-02-08 12:02] VITALS: PULSE 82; RESP 20; O2SAT 98
--- NOTE | 2020-02-11 10:52 | DCPLANNER ---
manager bilingual had message to schedule a follow up appointment for patient with ortho. manager bilingual called the ortho clinic, spoke with Ida, gave clinic patients information. manager bilingual was told that patients information would be printed and reviewed. Clinic will call nurse case management and patient with appointment information.
--- NOTE | 2020-02-13 12:53 | DCPLANNER ---
Patient has a follow up appointment scheduled for , February 21, 2020 at 1:[address] Regalado. Clinic will call patient with appointment information.
--- NOTE | 2020-03-13 14:10 | DCPLANNER ---
Patient did attend appointment scheduled for 02.21.20 with ortho.
== END 2020-02-08 12:02 | disposition home or self-care (01) ==
PROVIDERS: Emergency Provider Emergency Medicine; Family Provider Nurse Practitioner; PCP Nurse Practitioner
DX: S43.402A Unspecified sprain of left shoulder joint, initial encounter (principal); L02.811 Cutaneous abscess of head [any part, except face]; L03.811 Cellulitis of head [any part, except face]; W19.XXXA Unspecified fall, initial encounter; Z86.19 Personal history of other infectious and parasitic diseases; F17.210 Nicotine dependence, cigarettes, uncomplicated
CPT/HCPCS: 12345; 73030; 99281; 99283

== ENCOUNTER → 2020-02-21 13:48 | Outpatient (BNVA) | payer MEDICAID, SELFPAY | PROVIDERS: Family Provider Nurse Practitioner; PCP Nurse Practitioner; Visit Provider Specialist | DX: M25.512 Pain in left shoulder (principal) | CPT/HCPCS: 73020 ==

== ENCOUNTER 2020-03-04 17:00 | Inpatient (IN) | payer MEDICAID, SELFPAY ==
[2020-03-04 17:02] VITALS: RESP 18
[2020-03-04] MEDS: ziprasidone 20 mg/mL SDV (17:10)
[2020-03-04] MEDS: LORazepam 2 mg/mL INJ 1 mL (17:10)
[2020-03-04] MEDS: ziprasidone 20 mg/mL SDV IM (17:14)
[2020-03-04] MEDS: LORazepam 2 mg/mL INJ 1 mL IM (17:15)
--- NOTE | 2020-03-04 17:20 | W.ED.PSYCH ---
Documented by User: Ortega Sanchez DO 03/05/20 14:03 HPI - Psych General: Chief Complaint: Psychiatric Symptoms Stated Complaint: psych Time Seen by Provider: 03/04/20 17:10 History of Present Illness: HPI Narrative: 49-year-old female presents emergency room acutely intoxicated and belligerent she is having visual and auditory hallucinations claiming she is doing her seeing her father. She is also expressing suicidal ideation. She has a history of methamphetamine use and chronic alcohol abuse. Due to her acutely intoxicated and belligerent state is impossible to get any significant meaningful history from her. MD complaint: suicidal ideation Onset (ago): hour(s) Duration: constant History of same: Yes Relieving factors: none Exacerbating factors: none Context: recent alcohol abuse and recent drug abuse Associated psychiatric symptoms: suicidal ideation, racing thoughts, auditory hallucinations and visual hallucinations Associated symptoms: Reports auditory hallucinations, visual hallucinations and suicidal ideation Treatments prior to arrival: none If self harm: admits thoughts of self harm and has plan Review of Systems Const: Denies: fever(s), chills, body aches, change in appetite, fatigue or malaise ENMT: Denies: throat pain, ear or mastoid pain, nasal discharge or nasal congestion Card: Denies: chest pain, edema or dyspnea on exertion Resp: Denies: dyspnea, productive cough or non-productive cough GI: Denies: abdominal pain, nausea, vomiting, hematemesis, coffee ground emesis, diarrhea, constipation, bloating, hematochezia or melena : Denies: flank pain, difficulty voiding, dysuria, urinary frequency or urinary urgency Psych: Reports: visual hallucinations, auditory hallucinations and suicidal ideation [facility] ED PFSH: Medical History Alcohol use disorder, severe, in early remission She denies alcohol use since last visit. Amphetamine use disorder, mild, in sustained remission Chronic post-traumatic stress disorder (PTSD) Chronic nightmares. See notes below regarding Remeron. Hepatitis C Major depressive disorder, recurrent, moderate Gabapentin is helpful for mood stability/anxiety. She reports mood improvement since making some personal changes in her lifestyle and beginning to attend nondenominational. Surgical History H/O: hysterectomy History of appendectomy History of lung biopsy Hx of tonsillectomy Status post laparoscopic cholecystectomy Social History Smoking and tobacco status: current every day smoker cigarettes Packs smoked per day: 0.5 Years cigarettes smoked: 30 Quit status (tobacco): not considering quitting Second hand smoke exposure: No Current gender identity: Female Physical Exam HENMT: COMMON NORMALS: normocephalic, atraumatic, hearing grossly normal bilaterally, external ears normal, EAC's normal, TM's normal bilaterally, Normal nasal mucous membranes and turbinates present, moist oral mucous membranes and oropharynx normal HEAD & SCALP: normocephalic and atraumatic NOSE: Normal nasal mucous membranes and turbinates present EXTERNAL EAR: Yes external ears normal EXTERNAL AUDITORY CANAL: EAC's normal TYMPANIC MEMBRANE: TM's normal bilaterally Eye: COMMON NORMALS: Equal, round and reactive pupils present, EOMs intact bilaterally, conjunctivae normal and no scleral icterus CONJUNCTIVA: Yes conjunctivae normal PUPIL: Yes Equal, round and reactive pupils present Neck/C-Spine: COMMON NORMALS: full ROM, no lymphadenopathy, supple and no JVD Lymph: LYMPHATIC: no lymphadenopathy noted and no lymphedema noted Resp: COMMON NORMALS: normal respiratory effort, No retractions, No use of accessory muscles and clear to auscultation bilaterally AUSCULTATION: clear to auscultation bilaterally Cardio: COMMON NORMALS: no JVD, regular rate, regular rhythm and No murmurs present (Cardio) RATE: regular rate RHYTHM: regular rhythm GI: COMMON NORMALS: Soft to palpation and No hepatosplenomegaly present AUSCULTATION: Yes normoactive bowel sounds PALPATION: Yes Soft to palpation, No Tenderness to palpation present (GI), No Guarding due to palpation present (GI) and Yes No hepatosplenomegaly present Extremity: COMMON NORMALS: normal to inspection, capillary refill normal, no clubbing, cyanosis or edema, no calf tenderness and no pedal edema Skin: COMMON NORMALS: no rashes or lesions noted GENERAL SKIN EXAM: no rashes or lesions noted MDM - Psych MDM Narrative: Medical decision making narrative: Turned over to Dr. Walker at change of shift Lab Data: Labs: Lab Results 03/04/20 03/04/20 03/04/20 Range/Units 18:58 18:58 19:53 WBC 5.2 (4.0-10.0) 10^3/ uL RBC 4.23 (4.1-5.3) 10^6/u L Hgb 12.7 (11.5-15.3) g/dL Hct 41.9 (37.0-47.0) % MCV 99.1 H (81-99) fL MCH 30.0 (28.0-34.0) pg MCHC 30.3 (30.0-36.0) g/dL RDW 15.4 H (12.1-15.1) % Plt Count 197 (130-400) 10^3/c mm MPV 9.6 (7.4-10.4) fL Neut % (Auto) 40.2 % Lymph % (Auto) 51.0 % Hall % (Auto) 4.6 % Eos % (Auto) 3.4 % Baso % (Auto) 0.6 % Neut # (Auto) 2.1 (1.8-7.7) 10^3/u L Lymph # (Auto) 2.7 (0.8-4.8) 10^3/u L Hall # (Auto) 0.2 (0.2-0.9) 10^3/u L Eos # (Auto) 0.2 (0.0-0.8) 10^3/u L Baso # (Auto) 0.0 (0.0-0.1) 10^3/u L Nucleated RBC % (a uto) 0 % Nucleated RBCs # 0.0 /100WBC Sodium (136-145) mmol/L Potassium (3.5-5.1) mmol/L Chloride (98-107) mmol/L Carbon Dioxide (22-29) mmol/L Anion Gap (5-19) BUN (6-20) mg/dL Creatinine (0.5-0.9) mg/dL GFR Calculation (90-130) mL/min Glucose (65-115) mg/dL Calculated Osmolal ity (285-295) mOsm/k g Calcium (8.5-10.5) mg/dL Total Bilirubin (0.15-1.2) mg/dL AST (0-32) U/L ALT (0-33) U/L Alkaline Phosphata se (35-105) IU/L Total Protein (6.6-8.7) g/dL Albumin (3.5-5.2) g/dL Globulin (1.3-4.6) g/dL Urine Color Yellow (Yellow) Urine Appearance Clear (CLEAR) Urine pH 6.5 (5-7) Ur Specific Gravit y 1.005 (1.005-1.030) Urine Protein Neg (Negative) Urine Glucose (UA) Norm (Normal) Urine Ketones Negative (Negative) Urine Blood Neg (Negative) Urine Nitrate Negative (Negative) Urine Bilirubin Neg (NEGATIVE) Urine Urobilinogen Neg (Negative) mg/dL Ur Leukocyte Susana ase Negative (Negative) Salicylates (3-10) mg/dL Urine Opiates Scre en Negative (Negative) ng/mL Acetaminophen (10-30) ug/mL Ur Barbiturates Sc reen Negative (Negative) ng/mL Ur Phencyclidine S crn Negative (Negative) ng/mL Ur Amphetamines Sc reen Negative (Negative) ng/mL U Benzodiazepines Scrn Negative (Negative) ng/mL Urine Cocaine Scre en Negative (Negative) ng/mL U Marijuana (THC) Screen Negative (Negative) ng/mL Ethyl Alcohol (0-10) mg/dL 03/04/20 Range/Units 19:53 WBC (4.0-10.0) 10^3/ uL RBC (4.1-5.3) 10^6/u L Hgb (11.5-15.3) g/dL Hct (37.0-47.0) % MCV (81-99) fL MCH (28.0-34.0) pg MCHC (30.0-36.0) g/dL RDW (12.1-15.1) % Plt Count (130-400) 10^3/c mm MPV (7.4-10.4) fL Neut % (Auto) % Lymph % (Auto) % Hall % (Auto) % Eos % (Auto) % Baso % (Auto) % Neut # (Auto) (1.8-7.7) 10^3/u L Lymph # (Auto) (0.8-4.8) 10^3/u L Hall # (Auto) (0.2-0.9) 10^3/u L Eos # (Auto) (0.0-0.8) 10^3/u L Baso # (Auto) (0.0-0.1) 10^3/u L Nucleated RBC % (a uto) % Nucleated RBCs # /100WBC Sodium 142 (136-145) mmol/L Potassium 3.6 (3.5-5.1) mmol/L Chloride 111 H (98-107) mmol/L Carbon Dioxide 21 L (22-29) mmol/L Anion Gap 13.6 (5-19) BUN 13 (6-20) mg/dL Creatinine 0.6 (0.5-0.9) mg/dL GFR Calculation 105.4 (90-130) mL/min Glucose 124 H (65-115) mg/dL Calculated Osmolal ity 292 (285-295) mOsm/k g Calcium 8.9 (8.5-10.5) mg/dL Total Bilirubin 0.2 (0.15-1.2) mg/dL AST 152 H (0-32) U/L ALT 314 H (0-33) U/L Alkaline Phosphata se 97 (35-105) IU/L Total Protein 6.8 (6.6-8.7) g/dL Albumin 4.0 (3.5-5.2) g/dL Globulin 2.8 (1.3-4.6) g/dL Urine Color (Yellow) Urine Appearance (CLEAR) Urine pH (5-7) Ur Specific Gravit y (1.005-1.030) Urine Protein (Negative) Urine Glucose (UA) (Normal) Urine Ketones (Negative) Urine Blood (Negative) Urine Nitrate (Negative) Urine Bilirubin (NEGATIVE) Urine Urobilinogen (Negative) mg/dL Ur Leukocyte Susana ase (Negative) Salicylates < 0.3 L (3-10) mg/dL Urine Opiates Scre en (Negative) ng/mL Acetaminophen < 5.0 L (10-30) ug/mL Ur Barbiturates Sc reen (Negative) ng/mL Ur Phencyclidine S crn (Negative) ng/mL Ur Amphetamines Sc reen (Negative) ng/mL U Benzodiazepines Scrn (Negative) ng/mL Urine Cocaine Scre en (Negative) ng/mL U Marijuana (THC) Screen (Negative) ng/mL Ethyl Alcohol 234 H (0-10) mg/dL Discharge Plan Discharge Patient Disposition: Admitted As Inpatient Admit Provider: Jerrell Rincon Clinical Impression: Suicidal ideation Condition: Stable Discharge Date/Time: 03/05/20 01:53 Sign Out Sign Out Data: Patient Sign Out occurred on 03/04/20 at 18:20. Patient's care was discussed, and care was transferred from Ortega Sanchez DO to Komal Cherry. Sign Out Comment: Psych medical clearance pending 96-hour completed Last updated by Ortega Sanchez DO at 03/04/20 18:13 Coding Level of Care Code ED Er Registrar for Chg Fwd Exam Comprehensive Documented by User: Komal Cherry 03/05/20 05:48 HPI - Psych General: Chief Complaint: Psychiatric Symptoms Stated Complaint: psych Time Seen by Provider: 03/04/20 17:10 PFSH ED PFSH: Medical History Alcohol use disorder, severe, in early remission She denies alcohol use since last visit. Amphetamine use disorder, mild, in sustained remission Chronic post-traumatic stress disorder (PTSD) Chronic nightmares. See notes below regarding Remeron. Hepatitis C Major depressive disorder, recurrent, moderate Gabapentin is helpful for mood stability/anxiety. She reports mood improvement since making some personal changes in her lifestyle and beginning to attend nondenominational. Surgical History H/O: hysterectomy History of appendectomy History of lung biopsy Hx of tonsillectomy Status post laparoscopic cholecystectomy Social History Smoking and tobacco status: current every day smoker cigarettes Packs smoked per day: 0.5 Years cigarettes smoked: 30 Quit status (tobacco): not considering quitting Second hand smoke exposure: No Current gender identity: Female MDM - Psych MDM Narrative: Medical decision making narrative: The case was reviewed with Dr. Rincon and he was agreeable to admission. Lab Data: Labs: Lab Results 03/04/20 03/04/20 03/04/20 Range/Units 18:58 18:58 19:53 WBC 5.2 (4.0-10.0) 10^3/ uL RBC 4.23 (4.1-5.3) 10^6/u L Hgb 12.7 (11.5-15.3) g/dL Hct 41.9 (37.0-47.0) % MCV 99.1 H (81-99) fL MCH 30.0 (28.0-34.0) pg MCHC 30.3 (30.0-36.0) g/dL RDW 15.4 H (12.1-15.1) % Plt Count 197 (130-400) 10^3/c mm MPV 9.6 (7.4-10.4) fL Neut % (Auto) 40.2 % Lymph % (Auto) 51.0 % Hall % (Auto) 4.6 % Eos % (Auto) 3.4 % Baso % (Auto) 0.6 % Neut # (Auto) 2.1 (1.8-7.7) 10^3/u L Lymph # (Auto) 2.7 (0.8-4.8) 10^3/u L Hall # (Auto) 0.2 (0.2-0.9) 10^3/u L Eos # (Auto) 0.2 (0.0-0.8) 10^3/u L Baso # (Auto) 0.0 (0.0-0.1) 10^3/u L Nucleated RBC % (a uto) 0 % Nucleated RBCs # 0.0 /100WBC Sodium (136-145) mmol/L Potassium (3.5-5.1) mmol/L Chloride (98-107) mmol/L Carbon Dioxide (22-29) mmol/L Anion Gap (5-19) BUN (6-20) mg/dL Creatinine (0.5-0.9) mg/dL GFR Calculation (90-130) mL/min Glucose (65-115) mg/dL Calculated Osmolal ity (285-295) mOsm/k g Calcium (8.5-10.5) mg/dL Total Bilirubin (0.15-1.2) mg/dL AST (0-32) U/L ALT (0-33) U/L Alkaline Phosphata se (35-105) IU/L Total Protein (6.6-8.7) g/dL Albumin (3.5-5.2) g/dL Globulin (1.3-4.6) g/dL Urine Color Yellow (Yellow) Urine Appearance Clear (CLEAR) Urine pH 6.5 (5-7) Ur Specific Gravit y 1.005 (1.005-1.030) Urine Protein Neg (Negative) Urine Glucose (UA) Norm (Normal) Urine Ketones Negative (Negative) Urine Blood Neg (Negative) Urine Nitrate Negative (Negative) Urine Bilirubin Neg (NEGATIVE) Urine Urobilinogen Neg (Negative) mg/dL Ur Leukocyte Susana ase Negative (Negative) Salicylates (3-10) mg/dL Urine Opiates Scre en Negative (Negative) ng/mL Acetaminophen (10-30) ug/mL Ur Barbiturates Sc reen Negative (Negative) ng/mL Ur Phencyclidine S crn Negative (Negative) ng/mL Ur Amphetamines Sc reen Negative (Negative) ng/mL U Benzodiazepines Scrn Negative (Negative) ng/mL Urine Cocaine Scre en Negative (Negative) ng/mL U Marijuana (THC) Screen Negative (Negative) ng/mL Ethyl Alcohol (0-10) mg/dL 03/04/20 Range/Units 19:53 WBC (4.0-10.0) 10^3/ uL RBC (4.1-5.3) 10^6/u L Hgb (11.5-15.3) g/dL Hct (37.0-47.0) % MCV (81-99) fL MCH (28.0-34.0) pg MCHC (30.0-36.0) g/dL RDW (12.1-15.1) % Plt Count (130-400) 10^3/c mm MPV (7.4-10.4) fL Neut % (Auto) % Lymph % (Auto) % Hall % (Auto) % Eos % (Auto) % Baso % (Auto) % Neut # (Auto) (1.8-7.7) 10^3/u L Lymph # (Auto) (0.8-4.8) 10^3/u L Hall # (Auto) (0.2-0.9) 10^3/u L Eos # (Auto) (0.0-0.8) 10^3/u L Baso # (Auto) (0.0-0.1) 10^3/u L Nucleated RBC % (a uto) % Nucleated RBCs # /100WBC Sodium 142 (136-145) mmol/L Potassium 3.6 (3.5-5.1) mmol/L Chloride 111 H (98-107) mmol/L Carbon Dioxide 21 L (22-29) mmol/L Anion Gap 13.6 (5-19) BUN 13 (6-20) mg/dL Creatinine 0.6 (0.5-0.9) mg/dL GFR Calculation 105.4 (90-130) mL/min Glucose 124 H (65-115) mg/dL Calculated Osmolal ity 292 (285-295) mOsm/k g Calcium 8.9 (8.5-10.5) mg/dL Total Bilirubin 0.2 (0.15-1.2) mg/dL AST 152 H (0-32) U/L ALT 314 H (0-33) U/L Alkaline Phosphata se 97 (35-105) IU/L Total Protein 6.8 (6.6-8.7) g/dL Albumin 4.0 (3.5-5.2) g/dL Globulin 2.8 (1.3-4.6) g/dL Urine Color (Yellow) Urine Appearance (CLEAR) Urine pH (5-7) Ur Specific Gravit y (1.005-1.030) Urine Protein (Negative) Urine Glucose (UA) (Normal) Urine Ketones (Negative) Urine Blood (Negative) Urine Nitrate (Negative) Urine Bilirubin (NEGATIVE) Urine Urobilinogen (Negative) mg/dL Ur Leukocyte Susana ase (Negative) Salicylates < 0.3 L (3-10) mg/dL Urine Opiates Scre en (Negative) ng/mL Acetaminophen < 5.0 L (10-30) ug/mL Ur Barbiturates Sc reen (Negative) ng/mL Ur Phencyclidine S crn (Negative) ng/mL Ur Amphetamines Sc reen (Negative) ng/mL U Benzodiazepines Scrn (Negative) ng/mL Urine Cocaine Scre en (Negative) ng/mL U Marijuana (THC) Screen (Negative) ng/mL Ethyl Alcohol 234 H (0-10) mg/dL Discharge Plan Discharge Patient Disposition: Admitted As Inpatient Admit Provider: Jerrell Rincon Clinical Impression: Suicidal ideation Condition: Stable Discharge Date/Time: 03/05/20 01:53 Sign Out Sign Out Data: Patient Sign Out occurred on 03/04/20 at 18:20. Patient's care was discussed, and care was transferred from Ortega Sanchez DO to Komal Cherry. Sign Out Comment: Psych medical clearance pending 96-hour completed Last updated by Ortega Sanchez DO at 03/04/20 18:13 Coding Level of Care Code ED Er Registrar for Chg Fwd Exam Comprehensive
--- NOTE | 2020-03-04 18:40 | PC.NURSE ---
At this time this RN took over sitting from environmental protection officer, Scout Thomas.
[2020-03-04 19:03] LABS: Add Urine Microscopic? NO
[2020-03-04 19:07] LABS: Bilirubin Urine Neg (NEGATIVE); Blood Urine Neg (Negative); Glucose Urine UA Norm (Normal); Ketones Urine Negative (Negative); Leukocyte Esterase Urine Negative (Negative); Nitrate Urine Negative (Negative); Protein Urine Neg (Negative); Specific Gravity, Urine 1.005 (1.005-1.030); Urine Appearance Clear (CLEAR); Urine Color Yellow (Yellow); Urobilinogen Urine Neg (Negative); pH Urine 6.5 (5-7)
--- NOTE | 2020-03-04 19:10 | PC.NURSE ---
report received from Javi, [employer], and care transferred to LILIAN Monae
[2020-03-04 19:13] LABS: Amphetamines Screen Urine Negative (Negative); Barbiturates Screen Urine Negative (Negative); Benzodiazepines Screen Urine Negative (Negative); Cocaine Screen Urine Negative (Negative); Opiate Screen Urine Negative (Negative); PCP Screen Urine Negative (Negative); THC Screen Urine Negative (Negative)
[2020-03-04 19:58] LABS: Basophils % 0.6 %; Eosinophils # 0.2 10^3/uL (0.0-0.8); Eosinophils % 3.4 %; Hematocrit 41.9 % (37.0-47.0); Hemoglobin 12.7 g/dL (11.5-15.3); Lymphocytes # 2.7 10^3/uL (0.8-4.8); Mean Corpuscular HGB Conc 30.3 g/dL (30.0-36.0); Mean Corpuscular Volume 99.1 fL (81-99); Mean Platelet Volume 9.6 fL (7.4-10.4); Monocytes # 0.2 10^3/uL (0.2-0.9); Monocytes % 4.6 %; Neutrophils # 2.1 10^3/uL (1.8-7.7); Neutrophils % 40.2 %; Nucleated Red Blood Cells % 0 %; Platelet Count 197 10^3/cmm (130-400); Red Blood Count 4.23 10^6/uL (4.1-5.3); Red Cell Distribution Width 15.4 % (12.1-15.1); White Blood Count 5.2 10^3/uL (4.0-10.0)
[2020-03-04 20:12] LABS: Alanine Aminotransferase 314 U/L (0-33); Alcohol Level 234 mg/dL (0-10); Alkaline Phosphatase 97 IU/L (35-105); Anion Gap 13.6 (5-19); Aspartate Amino Transferase 152 U/L (0-32); Blood Urea Nitrogen 13 mg/dL (6-20); Calcium 8.9 mg/dL (8.5-10.5); Carbon Dioxide 21 mmol/L (22-29); Chloride 111 mmol/L (98-107); Globulin 2.8 g/dL (1.3-4.6); Glomerular Filtration Rate 105.4 mL/min (90-130); Glucose 124 mg/dL (65-115); Osmolality Calculated 292 mOsm/kg (285-295); Potassium 3.6 mmol/L (3.5-5.1); Sodium 142 mmol/L (136-145); Total Bilirubin 0.2 mg/dL (0.15-1.2); Total Protein 6.8 g/dL (6.6-8.7)
[2020-03-04 20:16] LABS: Acetaminophen < 5.0 ug/mL (10-30); Salicylate < 0.3 mg/dL (3-10)
[2020-03-04 22:45] VITALS: BP 96/61; PULSE 82; RESP 16; TEMP 36.7; O2SAT 92
[2020-03-05 01:16] VITALS: BP 184/76; PULSE 101; RESP 19; TEMP 36.9; O2SAT 98
[2020-03-05] MEDS: acetaminophen 325 mg Tablet 650 MG PO ×2 (03:18→08:59)
[2020-03-05] MEDS: hyDROXYzine 25 mg Capsule 50 MG PO ×2 (03:22→08:59)
--- NOTE | 2020-03-05 03:22 | PC.NURSE ---
[facility] PT REQUESTING SOMETHING FOR ANXIETY. ADMINISTERED [facility] 50MG PO. WILL MONITOR FOR MEDICATION EFFECTIVENESS.
[2020-03-05 06:00] VITALS: BP 147/87; PULSE 104; RESP 15; TEMP 37.7; O2SAT 96
[2020-03-05] MEDS: thiamine 100 mg Tablet PO (08:59)
[2020-03-05] MEDS: gabapentin 300 mg Capsule 600 MG PO ×2 (08:59→17:03)
[2020-03-05] MEDS: folic acid 1 mg Tablet PO (08:59)
[2020-03-05] MEDS: multivitamin therapeutic Tablet 1 TAB PO (08:59)
--- NOTE | 2020-03-05 09:01 | PC.NURSE ---
Addendum entered by Oneyda Buckner LPN 03/05/20 11:59: prn med effective no further c/o anxiety Original Note: PRN [facility] 50 MG GIVEN PO PER PT C/O STATED ANXIETY. PT HAD TO BE WOKEN UP TO TAKE SCHEDULED MEDS. WILL CONT TO MONITOR
--- NOTE | 2020-03-05 09:25 | P.HP_ITS ---
Providers/Chief Complaint Admitting Physician: Jerrell Rincon MD Primary Care Provider: Lili Harris APN Chief Complaint: psych HPI NPU History of Present Illness Viola Woods is a 49 year old female with a documented history of alcohol abuse and recurrent clinical depression. She was last admitted to this unit for her substance abuse in June 2019. She was under the care of this physician. Since her discharge at that time, she has been able to remain clean and sober. Unfortunately, her psychosocial issues have continued. She continues to be in volved with her who is a destabilizing force. 10 days ago, she became suspicious that her was again seeing a woman with whom he had had an affair. He is a long-overhauler and is frequently gone. She received 2 calls from this woman. She became desponded hopeless and overwhelmed. She began drinking. As is her pattern, her drinking accelerates to the point of self destruction. Her requested police to do a wellness check on her. They found her extremely intoxicated. She did make a vague statement about harming herself. She was brought to the emergency room. Her blood alcohol level on presentation was 234. She was admitted to the psychiatric unit for sa fety and observation. The patient readily admits all of the above details. She is humiliated and a shamed at losing her sobriety in such a dramatic fashion. She reports significant somatic complaints consistent with alcohol withdrawal including nausea, headache, and confusion. However she denies any intent of injuring herself or anyone else at any time. She admits that she is in a psychosocial situation that demands action but is not able to think clearly enough at this point to establish an effective response. Prior to the events of started drinking, she denied symptoms of depression. She reports that her medications are generally working well. She denied suicidal or homicidal ideation. She denied the presence of auditory or visual hallucinations. She had been having good hedonic capacity. However it should be noted that the patient is not a very reliable informant at this time. She continues to take her Remeron and gabapentin and reports that they are effective and without side effects. Laboratory Tests 03/04/20 03/04/20 18:58 19:53 Urine Opiates Screen Negative Ur Barbiturates Screen Negative Ur Phencyclidine Scrn Negative Ur Amphetamines Screen Negative U Benzodiazepines Scrn Negative Urine Cocaine Screen Negative U Marijuana (THC) Screen Negative Ethyl Alcohol 234 H Prior Psychiatric History From her last admission July 21 to July 27, 2019 Viola Woods is a 49-year-old woman who presented to the emergency room primarily because she can't stop drinking. She is having problems with the sequelae of chronic alcohol use. She drinks 's a fifth of fireball whiskey daily. She says she is having a lot of abdominal pain and suspects that there may be other medical problems. She's been having passive suicidal ideation but at no time has she had an intent or plan. She reports feeling hopeless and helpless. She cannot resist the temptation to drink. During interview for a full array of depressive symptoms, she requested we terminate the interview due to her severe nausea and discomfort. She was in agreement with her need to be in the hospital. Past psychiatric history: She reported that she has been in rehabilitation programs here in [place] From admission in March 2019 Suicidal Thoughts and Drinking Alcohol. HPI: The patient is a 48 year old white female who is here for suicidal thoughts. Five days ago, the suicidal thoughts started. Marital conflicts started the bates icidal thoughts. Viola reports her is leaving her. She denies a plan and intent of suicide. She has PTSD, Viola does not know symptoms of PTSD. Viola presented to the inpatient unit and slowly acclimated to the individual group and milieu therapies. She was really struggling with the situation with her and his infidelity and had fallen back on alcohol as a response. She presented and was put on gabapentin and naltrexone as well as latuda which were titrated to effect. She responded well to the medication as well as the inpatient treatment and was able to identify the importance of her going home and facing the situation which she had been using alcohol to avoid. During ho spitalization she had routine laboratory studies which were within normal limits except for few outliers. The results can be seen below. Additionally she had a routine medical examination which was within normal limits and revealed no acute processes. At the time of discharge she was able to contract for safety, with absent lethality, endorsed improvement in mood and reported a commitment to so briety and a plan to focus on her recovery as an outpatient. Review of Systems Narrative: Review of Systems Constitutional: Complains of: Fatigue; also complains of headache Eyes: Complains of: No eye symptoms ENT/Mouth: Complains of: No ENTM symptoms Cardiovascular: Complains of: No cardiac symptoms Respiratory: Complains of: No respiratory symptoms GI: Complains of: Complains of nausea without vomiting Neuro: Complains of: No neuro symptoms Musculoskeletal: Complains of: No musculoskeletal symptoms Skin: Complains of: No skin symptoms Hematologic/Lymphatic: Complains of: No hematologic/lymphatic symptoms Endocrine: Complains of: No endocrine symptoms : Complains of: No symptoms Psych: Complains of: Denied depression, Suicide ideation Meds NPU Home Medications Medication Instructions Recorded Confirmed Last Taken Type hydrocodone 5 mg-acetaminophen 300 1 tab PO BID PRN 7 Days #14 tab 02/21/2006/15 Unknown Rx mg tablet diphenhydramine HCl 25 mg capsule 25 mg PO .QHS PRN cap 02/25/20 03/04/20 Unknown History gabapentin 600 mg tablet 600 mg PO BID #60 tab 02/28/20 03/04/20 Unknown Rx mirtazapine 30 mg tablet 30 mg PO .qhs #30 tab 03/03/20 03/04/20 Unknown Rx Allergies Allergy/AdvReac Type Severity Reaction Status Date / Time cephalexin [From Keflex] Allergy Severe ALGY-Anaphy Verified 02/21/20 13:59 laxis tramadol Allergy Unknown Verified 02/21/20 13:59 trazodone Allergy rapid Verified 02/21/20 13:59 heart beat PFSH NPU PFSH: Medical History Alcohol use disorder, severe, in early remission She denies alcohol use since last visit. Amphetamine use disorder, mild, in sustained remission Chronic post-traumatic stress disorder (PTSD) Chronic nightmares. See notes below regarding Remeron. Hepatitis C Major depressive disorder, recurrent, moderate Gabapentin is helpful for mood stability/anxiety. She reports mood improvement since making some personal changes in her lifestyle and beginning to attend [employer]. Surgical History H/O: hysterectomy History of appendectomy History of lung biopsy Hx of tonsillectomy Status post laparoscopic cholecystectomy Social History Smoking and tobacco status: current every day smoker cigarettes Packs smoked per day: 0.5 Years cigarettes smoked: 30 Quit status (tobacco): not considering quitting Second hand smoke exposure: No Current gender identity: Female Mental Status Exam MSE Comments: Mental Status Exam: Appearance: hygiene is fair; no gross neurological deficits., gait is unremarkable; AIMS=0 Speech: Speech is of normal rate and rhythm and easily understood. Thought processes: Thought processes are abstract. Judgment is not adequate for safety. Associations: intact Psychotic processes: There is no indication of guarding or paranoia. There is no attention to the internal stimuli. Auditory and visual hallucinations are denied. Judgment: Insight is fair. Problem solving skills are adequate for safety. Orientation: The patient is oriented to person, place time and situation. Memory: no deficits noted in immediate, intermediate, or remote spheres. Attention: The patient is alert and interpersonally engaged. Language: Verbalizations are coherent. Fund of knowledge: Fund of knowledge is adequate. Affect/Mood: Affect is consistent with a depressed mood. Denied suicidal ideation Affective range is appropriate. Psychosis: perception unimpaired except through cognitive distortion; reality testing intact. Vitals/I&O/Wt Last Vital Signs Temp 99.8 F H 03/05/20 06:00 Pulse 104 H 03/05/20 06:00 Resp 15 03/05/20 06:00 BP 147/87 03/05/20 06:00 Pulse Ox 96 03/05/20 06:00 Weight last 48 hrs Weight 63.503 kg Data NPU : 03/04/20 19:53 03/04/20 19:53 A&P Assessment and plan (1) Alcohol intoxication: Status: Acute Qualifiers: Complication of substance-induced condition: uncomplicated Qualified Code(s): F10.920 - Alcohol use, unspecified with intoxication, uncomplicated (2) Alcohol dependence: Status: Acute Qualifiers: Substance use status: in withdrawal Complication of substance-induced condition: with unspecified complication Qualified Code(s): F10.239 - Alcohol dependence with withdrawal, unspecified (3) Adjustment disorder with depressed mood: Status: Acute Additional A&P Information Treatment plan: Due to the psychiatric conditions and treatment listed in the Assessment and Plan - the patient requires continued hospitalization. Will provide a safe and therapeutic environment for patient.. Will continue inpatient treatment to allow for medication adjustment and monitoring. Will continue q15 min safety checks. Hospital day #1: Will continue current home medications and monitor for me dication side effects. We will also initiate CIWA protocol. Monitor patient's mood, sleep, appetite, and behavior closely. Encourage patient to participate in individual and group therapeutic sessions on the [facility]itas. Estimated length of stay 5 days The expected benefits and potential side effects of patient's psychiatric medications were discussed with the patient. The patient understands and con sents to treatment.CRITERIA FOR DISCHARGE: stable on medications and no longer an imminent risk Involuntary Hold Information 96 Hour Hold: 96 Hour Involuntary Admission: Yes 96 Hour Hold Ending Date: 03/10/20 96 Hour Hold Ending Time: 17:25 Attestations NPU Medical Necessity Statement*: Patient will remain in the hospital 3-4 nights for alcohol withdrawal protocol Coding Level of Care Code Acute Environmental Science Technician for Palak Thorne Diagnoses Alcohol intoxication F10.920 Complication of substance-induced condition: uncomplicated Alcohol dependence F10.239 Substance use status: in withdrawal Complication of substance-induced condition: with unspecified complication Adjustment disorder with depressed mood F43.21
[2020-03-05] MEDS: LORazepam 2 mg Tablet PO (10:04)
[2020-03-05 14:00] VITALS: BP 124/78; PULSE 86; RESP 18; TEMP 36.8; O2SAT 95
[2020-03-05] MEDS: LORazepam 0.5 mg Tablet PO ×2 (15:43→21:34)
--- NOTE | 2020-03-05 16:38 | PC.RESP ---
SMOKING CESSATION INFORMATION SENT TO PATIENT.
[2020-03-05] MEDS: ondansetron 4 MG Tablet PO (21:33)
[2020-03-05] MEDS: mirtazapine 30 mg Tablet PO (21:33)
--- NOTE | 2020-03-05 21:33 | PC.NURSE ---
PRN ZOFRAN PT REQUESTING SOMETHING TO HELP WITH NAUSEA. ADMINISTERED ZOFRAN 4MG PO. WILL MONITOR FOR MEDICATION EFFECTIVENESS.
[2020-03-05 22:00] VITALS: BP 130/83; PULSE 92; RESP 18; TEMP 35.6; O2SAT 95
[2020-03-06 06:00] VITALS: BP 121/81; PULSE 84; RESP 18; TEMP 36.9; O2SAT 97
[2020-03-06] MEDS: thiamine 100 mg Tablet PO (09:17)
[2020-03-06] MEDS: multivitamin therapeutic Tablet 1 TAB PO (09:17)
[2020-03-06] MEDS: gabapentin 300 mg Capsule 600 MG PO (09:17)
[2020-03-06] MEDS: folic acid 1 mg Tablet PO (09:17)
[2020-03-06] MEDS: LORazepam 1 mg Tablet PO (09:20)
[2020-03-06] MEDS: HYDROcodone-acetaminophen 5-325 mg Tablet 1 TAB PO (11:23)
--- NOTE | 2020-03-06 13:54 | PM.NDC ---
Diagnoses at Discharge Discharge Diagnosis (1) Alcohol intoxication: Status: Resolved Qualifiers: Complication of substance-induced condition: uncomplicated Qualified Code(s): F10.920 - Alcohol use, unspecified with intoxication, uncomplicated (2) Alcohol dependence: Status: Resolved Qualifiers: Substance use status: in withdrawal Complication of substance-induced condition: with unspecified complication Qualified Code(s): F10.239 - Alcohol dependence with withdrawal, unspecified (3) Adjustment disorder with depressed mood: Status: Resolved Reason for Visit Reason for Visit: psych Brief History: Viola Woods is a 49 year old female with a documented history of alcohol abuse and recurrent clinical depression. She was last admitted to this unit for her substance abuse in June 2019. She was under the care of this physician. Since her discharge at that time, she has been able to remain clean and sober. Unfortunately, her psychosocial issues have continued. She continues to be involved with her who is a destabilizing force. 10 days ago, she became suspicious that her was again seeing a woman with whom he had had an affair. He is a long-dumpcart driver and is frequently gone. She received 2 calls from this woman. She became desponded hopeless and overwhelmed. She began drinking. As is her pattern, her drinking accelerates to the point of self destruction. Her requested police to do a wellness check on her. They found her extremely intoxicated. She did make a vague statement about harming herself. She was brought to the emergency room. Her blood alcohol level on presentation was 234. She was admitted to the psychiatric unit for safety and observation. The patient readily admits all of the above details. She is humiliated and ashamed at losing her sobriety in such a dramatic fashion. She reports significant somatic complaints consistent with alcohol withdrawal including nausea, headache, and confusion. However she denies any intent of injuring herself or anyone else at any time. She admits that she is in a psychosocial situation that demands action but is not able to think clearly enough at this point to establish an effective response. Prior to the events of started drinking, she denied symptoms of depression. She reports that her medications are generally working well. She denied suicidal or homicidal ideation. She denied the presence of auditory or visual hallucinations. She had been having good hedonic capacity. However it should be noted that the patient is not a very reliable informant at this time. She continues to take her Remeron and gabapentin and reports that they are effective and without side effects. Hospital Course Hospital Course Assessment and plan (1) Alcohol intoxication: Status: Acute Qualifiers: Complication of substance-induced condition: uncomplicated Qualified Code(s): F10.920 - Alcohol use, unspecified with intoxication, uncomplicated (2) Alcohol dependence: Status: Acute Qualifiers: Substance use status: in withdrawal Complication of substance-induced condition: with unspecified complication Qualified Code(s): F10.239 - Alcohol dependence with withdrawal, unspecified (3) Adjustment disorder with depressed mood: Status: Acute Additional A&P Information Treatment plan: Due to the psychiatric conditions and treatment listed in the Assessment and Plan - the patient requires continued hospitalization. Will provide a safe and therapeutic environment for patient.. Will continue inpatient treatment to allow for medication adjustment and monitoring. Will continue q15 min safety checks. Hospital day #1: Will continue current home medications and monitor for medication side effects. We will also initiate CIWA protocol. Hospital day #2: Patient reported resolution of symptoms of alcohol withdrawal. She was highly motivated to return home. She was concerned about the fact that she had been scheduled for an MRI of her left shoulder and that is verified by Ortho notes. I had given her a small amount of pain medication to get her to her MRI appointment. Otherwise she was no longer an imminent risk to self or others and was granted her request to be discharged. Involuntary Hold Information 96 Hour Hold: 96 Hour Involuntary Admission: Yes 96 Hour Hold Ending Date: 03/10/20 96 Hour Hold Ending Time: 17:25 Mental Status Exam MSE Comments: Discharge Mental Status Exam: Appearance: hygiene is good; no gross neurological deficits., gait is unremarkable; AIMS=0 Speech: Speech is of normal rate and rhythm and easily understood. Thought processes: Thought processes are abstract. Judgment is adequate for safety. Associations: intact Psychotic processes: There is no indication of guarding or paranoia. There is no attention to the internal stimuli. Auditory and visual hallucinations are denied. Judgment: Insight is fair. Problem solving skills are adequate for safety. Orientation: The patient is oriented to person, place time and situation. Memory: no deficits noted in immediate, intermediate, or remote spheres. Attention: The patient is alert and interpersonally engaged. Language: Verbalizations are coherent. Fund of knowledge: Fund of knowledge is adequate. Affect/Mood: Affect is consistent with a euthymic mood. denied suicidal ideation Affective range is appropriate. Psychosis: perception unimpaired except through cognitive distortion; reality testing intact. Discharge Data Data Completed and Pending: Pending at discharge Category Date Time Status MR [facility] LT wo /w con [id number] [place] MRI 03/06/20 08:59 Ordered Vitals: Last Vital Signs Temp 98.5 F 03/06/20 06:00 Pulse 84 03/06/20 06:00 Resp 18 03/06/20 06:00 BP 121/81 03/06/20 06:00 Pulse Ox 97 03/06/20 06:00 Discharge Plan Discharge Patient Disposition: Home, Self-Care Condition: Stable Prescriptions: New hydrocodone-acetaminophen 5-325 mg Tablet 1 tab PO Q12H PRN (Reason: Moderate Pain) Qty: 20 RF: 0 lorazepam 1 mg Tablet 1 mg PO TID Qty: 10 RF: 0 Continued gabapentin 600 mg tablet 600 mg PO BID Qty: 60 RF: 1 mirtazapine [Remeron] 30 mg tablet 30 mg PO .qhs Qty: 30 RF: 0 Discontinued hydrocodone-acetaminophen 5-300 mg tablet 1 tab PO BID PRN (Reason: pain) 7 Days Qty: 14 RF: 0 diphenhydramine HCl [Benadryl] 25 mg capsule 25 mg PO .QHS PRN (Reason: unknown) RF: 0 Discharge Orders: Discharge Order (Routine); Ordered 03/06/20 Ordered By: Jerrell Rincon Discharge Attestations NPU Time Spent in Discharge Care*: greater than 30 min Coding Level of Care Code Acute Welding Machine Operator Electron Beam for Palak Fwd Diagnoses Alcohol intoxication F10.920 Complication of substance-induced condition: uncomplicated Alcohol dependence F10.239 Substance use status: in withdrawal Complication of substance-induced condition: with unspecified complication Adjustment disorder with depressed mood F43.21
[2020-03-06 14:09] VITALS: BP 121/81; PULSE 84; RESP 18; TEMP 36.9; O2SAT 97
== END 2020-03-06 14:17 | disposition home or self-care (01) | DRG 897 ==
LOC: ER 18:20 → NP 21:56
PROVIDERS: Family Medicine; Admitting Provider Psychiatry & Neurology Psychiatry; Family Provider Nurse Practitioner; PCP Nurse Practitioner; Visit Provider Psychiatry & Neurology Psychiatry
DX: F10.229 Alcohol dependence with intoxication, unspecified (principal); F33.1 Major depressive disorder, recurrent, moderate; Y90.7 Blood alcohol level of 200-239 mg/100 ml; F43.12 Post-traumatic stress disorder, chronic; B19.20 Unspecified viral hepatitis C without hepatic coma; F43.21 Adjustment disorder with depressed mood
CPT/HCPCS: 12345; 36415; 80053; 80306; 80307; 81003; 85025; 96372; 99284; J2060; J3486; Q0162

== ENCOUNTER 2020-03-08 11:47 | Emergency (ER) | payer MEDICAID, SELFPAY ==
[2020-03-08 11:53] VITALS: BP 134/92; PULSE 110; RESP 18; TEMP 36.9; O2SAT 95; BMI 25.7
--- NOTE | 2020-03-08 12:12 | W.ED.GENADLT ---
HPI - General Adult General: Chief complaint: General Medical Stated complaint: R LEG/R ABD PAIN Time Seen by Provider: 03/08/20 11:51 Source: patient Mode of arrival: ambulatory Limitations: no limitations History of Present Illness: HPI narrative: Patient is a poor historian. She complains of right flank pain that developed over the last few days. Pain radiates to her right upper quadrant. She denies any urinary symptoms. She denies a fever. Pain radiates to her right leg. She went swimming recently and developed pain in her left ear as well as some discharge. She has tried some [id number] eardrops with no improvement. Associated symptoms: Deny dyspnea, headache(s), nausea, rash, palpitations or vomiting Review of Systems General: Reports: 10 or more systems reviewed and unremarkable except in HPI and below Const: Denies: fever(s), chills or body aches ENMT: Reports: ear or mastoid pain Card: Denies: palpitations, irregular heart rhythm, edema or swelling of feet/ankles Resp: Denies: dyspnea, productive cough or non-productive cough GI: Denies: abdominal pain, nausea or vomiting : Reports: flank pain; Denies: difficulty voiding, dysuria, urinary frequency, urinary urgency or urinary hesitancy Musc: Denies: neck pain, back pain or extremity swelling Skin/Breast: Denies: rash, pruritus or erythema Neuro: Denies: headache(s), numbness in extremities or weakness in extremities Endo: Denies: polyuria, polydipsia or tired all the time [facility] ED PFSH: Medical History (Updated 03/08/20 @ 20:00 by Millie Haddad MD, [facility] [place]) Alcohol use disorder, severe, in early remission She denies alcohol use since last visit. Amphetamine use disorder, mild, in sustained remission Chronic post-traumatic stress disorder (PTSD) Chronic nightmares. See notes below regarding Remeron. Hepatitis C Major depressive disorder, recurrent, moderate Gabapentin is helpful for mood stability/anxiety. She reports mood improvement since making some personal changes in her lifestyle and beginning to attend sabianism. Surgical History H/O: hysterectomy History of appendectomy History of lung biopsy Hx of tonsillectomy Status post laparoscopic cholecystectomy Social History Smoking and tobacco status: current every day smoker cigarettes Packs smoked per day: 0.5 Years cigarettes smoked: 30 Quit status (tobacco): not considering quitting Second hand smoke exposure: No Current gender identity: Female Physical Exam Const: COMMON NORMALS: no acute distress, average body habitus, patient oriented x3, no limitations, healthy appearing, alert and well nourished HENMT: COMMON NORMALS: TM's normal bilaterally EXTERNAL AUDITORY CANAL: Abnormal EAC present EAC laterality: left Details: erythema, EAC tenderness and otic discharge TYMPANIC MEMBRANE: TM's normal bilaterally Neck/C-Spine: COMMON NORMALS: no meningeal signs and no JVD Resp: COMMON NORMALS: normal respiratory effort, No retractions, No use of accessory muscles, clear to auscultation bilaterally and percussion normal AUSCULTATION: clear to auscultation bilaterally PERCUSSION: percussion normal Cardio: COMMON NORMALS: no JVD, regular rate, regular rhythm, S1 normal heart sound present, S2 normal heart sound present, No gallops present (Cardio), No clicks present (Cardio), No murmurs present (Cardio), No rub (Cardio) and Peripheral pulses 2+ throughout RATE: regular rate RHYTHM: regular rhythm HEART SOUNDS: S1 normal heart sound present and S2 normal heart sound present PERIPHERAL PULSES: Peripheral pulses 2+ throughout GI: COMMON NORMALS: Normal to inspection, nondistended, normoactive bowel sounds present, Soft to palpation, non-tender, No hepatosplenomegaly present, no masses and no bruits PALPATION: Yes Soft to palpation and Yes No hepatosplenomegaly present : COMMON NORMALS: Yes no CVA tenderness BLADDER/KIDNEY EXAM: Yes no CVA tenderness Back/Pelvis: COMMON NORMALS: no CVA tenderness Extremity: COMMON NORMALS: normal to inspection, full ROM, capillary refill normal, no calf tenderness and no pedal edema Neuro: COMMON NORMALS: patient oriented x3 SENSORIUM/ORIENTATION: Yes alert MENINGEAL SIGNS: Yes no meningeal signs Skin: COMMON NORMALS: no rashes or lesions noted, no wounds, turgor normal, no jaundice, no petechiae and no mottling GENERAL SKIN EXAM: no rashes or lesions noted and turgor normal Course Reevaluation(s): Reevaluation #1: Discussed her lab findings with her. Negative for acute findings. Discussed her drug screen which was positive for meth, opioids and benzos which she denies taking. We will discharge her home. She voiced understanding and is in agreement with the plan. Time: 15:29 Vital Signs: Vital signs: Vital Signs Temperature 98.5 F 03/08/20 11:53 Pulse Rate 85 03/08/20 15:50 Respiratory Rate 17 03/08/20 15:50 Blood Pressure 132/97 03/08/20 15:50 Pulse Oximetry 96 03/08/20 15:50 MDM - General Adult MDM Narrative: Medical decision making narrative: Patient who has frequent visits to the emergency department and presents with different pain complaints. She has an unremarkable ED evaluation today and is discharged home on muscle relaxants. She also has features suggestive of otitis externa after swimming. She is given topical antibiotic and steroids to apply to the ear. Medical Records: Attestation: I reviewed the patient's medical records. Lab Data: Attestation: I reviewed the patient's lab results. Labs: Lab Results 03/08/20 03/08/20 03/08/20 Range/Units 12:14 12:14 12:54 WBC 7.7 (4.0-10.0) 10^3/ uL RBC 3.35 L (4.1-5.3) 10^6/u L Hgb 10.4 L (11.5-15.3) g/dL Hct 32.1 L (37.0-47.0) % MCV 95.8 (81-99) fL MCH 31.0 (28.0-34.0) pg MCHC 32.4 (30.0-36.0) g/dL RDW 14.7 (12.1-15.1) % Plt Count 152 (130-400) 10^3/c mm MPV 9.8 (7.4-10.4) fL Neut % (Auto) 64.5 % Lymph % (Auto) 22.5 % Petroleum % (Auto) 8.6 % Eos % (Auto) 3.8 % Baso % (Auto) 0.3 % Neut # (Auto) 5.0 (1.8-7.7) 10^3/u L Lymph # (Auto) 1.7 (0.8-4.8) 10^3/u L Petroleum # (Auto) 0.7 (0.2-0.9) 10^3/u L Eos # (Auto) 0.3 (0.0-0.8) 10^3/u L Baso # (Auto) 0.0 (0.0-0.1) 10^3/u L Nucleated RBC % (a uto) 0 % Nucleated RBCs # 0.0 /100WBC Sodium 137 (136-145) mmol/L Potassium 3.6 (3.5-5.1) mmol/L Chloride 106 (98-107) mmol/L Carbon Dioxide 21 L (22-29) mmol/L Anion Gap 13.6 (5-19) BUN 25 H (6-20) mg/dL Creatinine 0.7 (0.5-0.9) mg/dL GFR Calculation 88.2 L (90-130) mL/min Glucose 165 H (65-115) mg/dL Calculated Osmolal ity 285 (285-295) mOsm/k g Calcium 9.6 (8.5-10.5) mg/dL Total Bilirubin 0.3 (0.15-1.2) mg/dL AST 251 H (0-32) U/L ALT 169 H (0-33) U/L Alkaline Phosphata se 94 (35-105) IU/L Total Protein 6.4 L (6.6-8.7) g/dL Albumin 3.9 (3.5-5.2) g/dL Globulin 2.5 (1.3-4.6) g/dL Lipase 36 (13-60) U/L HCG, Qual Negative (Negative) Urine Color (Yellow) Urine Appearance (CLEAR) Urine pH (5-7) Ur Specific Gravit y (1.005-1.030) Urine Protein (Negative) Urine Glucose (UA) (Normal) Urine Ketones (Negative) Urine Blood (Negative) Urine Nitrate (Negative) Urine Bilirubin (NEGATIVE) Urine Urobilinogen (Negative) mg/dL Ur Leukocyte Susana ase (Negative) Urine RBC (0-2) /hpf Urine WBC (0-5) /hpf Ur Squamous Epith Cells (0-5) Urine Bacteria (NONE) Urine Mucus Urine Opiates Scre en (Negative) ng/mL Ur Barbiturates Sc reen (Negative) ng/mL Ur Phencyclidine S crn (Negative) ng/mL Ur Amphetamines Sc reen (Negative) ng/mL U Benzodiazepines Scrn (Negative) ng/mL Urine Cocaine Scre en (Negative) ng/mL U Marijuana (THC) Screen (Negative) ng/mL Ethyl Alcohol < 10 (0-10) mg/dL 03/08/20 03/08/20 Range/Units 12:54 12:54 WBC (4.0-10.0) 10^3/ uL RBC (4.1-5.3) 10^6/u L Hgb (11.5-15.3) g/dL Hct (37.0-47.0) % MCV (81-99) fL MCH (28.0-34.0) pg MCHC (30.0-36.0) g/dL RDW (12.1-15.1) % Plt Count (130-400) 10^3/c mm MPV (7.4-10.4) fL Neut % (Auto) % Lymph % (Auto) % Petroleum % (Auto) % Eos % (Auto) % Baso % (Auto) % Neut # (Auto) (1.8-7.7) 10^3/u L Lymph # (Auto) (0.8-4.8) 10^3/u L Petroleum # (Auto) (0.2-0.9) 10^3/u L Eos # (Auto) (0.0-0.8) 10^3/u L Baso # (Auto) (0.0-0.1) 10^3/u L Nucleated RBC % (a uto) % Nucleated RBCs # /100WBC Sodium (136-145) mmol/L Potassium (3.5-5.1) mmol/L Chloride (98-107) mmol/L Carbon Dioxide (22-29) mmol/L Anion Gap (5-19) BUN (6-20) mg/dL Creatinine (0.5-0.9) mg/dL GFR Calculation (90-130) mL/min Glucose (65-115) mg/dL Calculated Osmolal ity (285-295) mOsm/k g Calcium (8.5-10.5) mg/dL Total Bilirubin (0.15-1.2) mg/dL AST (0-32) U/L ALT (0-33) U/L Alkaline Phosphata se (35-105) IU/L Total Protein (6.6-8.7) g/dL Albumin (3.5-5.2) g/dL Globulin (1.3-4.6) g/dL Lipase (13-60) U/L HCG, Qual (Negative) Urine Color Yellow (Yellow) Urine Appearance Clear (CLEAR) Urine pH 5 (5-7) Ur Specific Gravit y 1.020 (1.005-1.030) Urine Protein Trace (Negative) Urine Glucose (UA) Norm (Normal) Urine Ketones Negative (Negative) Urine Blood 3+ H (Negative) Urine Nitrate Negative (Negative) Urine Bilirubin Neg (NEGATIVE) Urine Urobilinogen Norm (Negative) mg/dL Ur Leukocyte Susana ase Negative (Negative) Urine RBC Rare (0-2) /hpf Urine WBC Rare (0-5) /hpf Ur Squamous Epith Cells Rare (0-5) Urine Bacteria Trace (NONE) Urine Mucus Trace Urine Opiates Scre en Positive H (Negative) ng/mL Ur Barbiturates Sc reen Negative (Negative) ng/mL Ur Phencyclidine S crn Negative (Negative) ng/mL Ur Amphetamines Sc reen Positive H (Negative) ng/mL U Benzodiazepines Scrn Positive H (Negative) ng/mL Urine Cocaine Scre en Negative (Negative) ng/mL U Marijuana (THC) Screen Negative (Negative) ng/mL Ethyl Alcohol (0-10) mg/dL Discharge Plan Discharge Patient Disposition: Home, Self-Care Clinical Impression: Acute right flank pain, Otitis externa Condition: Stable Prescriptions: New cyclobenzaprine 10 mg tablet 10 mg PO TID PRN (Reason: muscle spasm) Qty: 30 RF: 0 Ciprodex 0.3-0.1 % drops,suspension 4 drop EAR-BOTH BID 7 Days RF: 0 Continued gabapentin 600 mg tablet 600 mg PO BID Qty: 60 RF: 1 mirtazapine [Remeron] 30 mg tablet 30 mg PO .qhs Qty: 30 RF: 0 hydrocodone-acetaminophen 5-325 mg Tablet 1 tab PO Q12H PRN (Reason: Moderate Pain) Qty: 20 RF: 0 lorazepam 1 mg Tablet 1 mg PO TID Qty: 10 RF: 0 Discharge Orders: Discharge Order (Routine); Ordered 03/08/20 Ordered By: Millie Haddad Referrals: Lili Harris, [employer] [Primary Care Provider] - 4-7 days Patient Instructions: Abdominal Pain (ED) Activity Restrictions/Additional Instructions: Return for any new or worsening symptoms. Follow-up with the primary care provider within 1 week. Take the medications as prescribed. Interventions: ED Discharge Assessment Last Done: 03/08/20 15:50 ED Charges Last Done: 03/08/20 15:50 Discharge Date/Time: 03/08/20 15:51 Coding Level of Care Code ED Fish Cutting Machine Operator for Chg Fwd Exam Comprehensive
[2020-03-08] MEDS: ketorolac 30 mg/mL INJ IM (12:23)
[2020-03-08] MEDS: orphenadrine 30 mg/mL Inj 2 mL 60 MG IM (12:24)
[2020-03-08 12:43] LABS: Basophils % 0.3 %; Eosinophils # 0.3 10^3/uL (0.0-0.8); Eosinophils % 3.8 %; Hematocrit 32.1 % (37.0-47.0); Hemoglobin 10.4 g/dL (11.5-15.3); Lymphocytes # 1.7 10^3/uL (0.8-4.8); Lymphocytes % 22.5 %; Mean Corpuscular HGB Conc 32.4 g/dL (30.0-36.0); Mean Corpuscular Volume 95.8 fL (81-99); Mean Platelet Volume 9.8 fL (7.4-10.4); Monocytes # 0.7 10^3/uL (0.2-0.9); Monocytes % 8.6 %; Neutrophils % 64.5 %; Nucleated Red Blood Cells % 0 %; Platelet Count 152 10^3/cmm (130-400); Red Blood Count 3.35 10^6/uL (4.1-5.3); Red Cell Distribution Width 14.7 % (12.1-15.1); White Blood Count 7.7 10^3/uL (4.0-10.0)
[2020-03-08 12:49] LABS: Alanine Aminotransferase 169 U/L (0-33); Albumin Level 3.9 g/dL (3.5-5.2); Alkaline Phosphatase 94 IU/L (35-105); Anion Gap 13.6 (5-19); Aspartate Amino Transferase 251 U/L (0-32); Blood Urea Nitrogen 25 mg/dL (6-20); Calcium 9.6 mg/dL (8.5-10.5); Carbon Dioxide 21 mmol/L (22-29); Chloride 106 mmol/L (98-107); Globulin 2.5 g/dL (1.3-4.6); Glomerular Filtration Rate 88.2 mL/min (90-130); Glucose 165 mg/dL (65-115); Lipase 36 U/L (13-60); Osmolality Calculated 285 mOsm/kg (285-295); Potassium 3.6 mmol/L (3.5-5.1); Sodium 137 mmol/L (136-145); Total Bilirubin 0.3 mg/dL (0.15-1.2); Total Protein 6.4 g/dL (6.6-8.7)
[2020-03-08 13:05] LABS: HCG Qualitative Urine. Negative (Negative)
[2020-03-08 13:06] LABS: Alcohol Level < 10 mg/dL (0-10)
[2020-03-08 13:20] LABS: Add Urine Microscopic? YES; Bilirubin Urine Neg (NEGATIVE); Blood Urine 3+ (Negative); Glucose Urine UA Norm (Normal); Ketones Urine Negative (Negative); Leukocyte Esterase Urine Negative (Negative); Nitrate Urine Negative (Negative); Protein Urine Trace (Negative); Urine Appearance Clear (CLEAR); Urine Color Yellow (Yellow); Urobilinogen Urine Norm (Negative); pH Urine 5 (5-7)
[2020-03-08 13:26] LABS: RBC Urine RARE /hpf (0-2); Squamous Epithelial Cell Urine RARE (0-5); WBC Urine RARE /hpf (0-5)
[2020-03-08 13:27] LABS: Add Urine Culture? No; Bacteria Urine TRACE; Mucus Urine TRACE
[2020-03-08 13:29] LABS: Amphetamines Screen Urine Positive (Negative); Barbiturates Screen Urine Negative (Negative); Benzodiazepines Screen Urine Positive (Negative); Cocaine Screen Urine Negative (Negative); Opiate Screen Urine Positive (Negative); PCP Screen Urine Negative (Negative); THC Screen Urine Negative (Negative)
[2020-03-08 15:50] VITALS: BP 132/97; PULSE 85; RESP 17; O2SAT 96
== END 2020-03-08 15:51 | disposition home or self-care (01) ==
PROVIDERS: Emergency Provider Family Medicine; Family Provider Nurse Practitioner; PCP Nurse Practitioner
DX: R10.9 Unspecified abdominal pain (principal); H60.90 Unspecified otitis externa, unspecified ear; Z86.19 Personal history of other infectious and parasitic diseases; F17.210 Nicotine dependence, cigarettes, uncomplicated
CPT/HCPCS: 12345; 36415; 80053; 80306; 80307; 81001; 81025; 83690; 85025; 96372; 99281; 99282; 99283; J1885; J2360

== ENCOUNTER 2020-03-17 15:09 | Inpatient (IN) | payer MEDICAID, SELFPAY ==
[2020-03-17 15:15] VITALS: BP 183/121; PULSE 114; RESP 20; TEMP 36.8; O2SAT 95; BMI 26.5
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
--- NOTE | 2020-03-17 15:43 | CT_ITS ---
WS: [id number] CT HEAD NONCONTRAST HISTORY: fall, possible LOC TECHNIQUE: Contiguous axial imaging performed through the brain in 2.5 mm imaging. Bone and soft tiss ue windows. Sagittal and coronal reformats reviewed. All CT scans at [facility] use at ast one of these dose optimization techniques: automated exposure control; mA and/or kV adjustment pe r patient size (includes targeted exams where dose is matched to clinical indication); or iterative r econstruction. DLP: 848.44 mGy.cm COMPARISON: 11/02/2018 No acute intracranial hemorrhage, midline shift or mass effect. No atrophy or prior infarcts or herniation. Ventricles: Normal size with no hydrocephalus. Paranasal sinuses: As visualized are clear. Mastoid air cells: Well pneumatized. Calvarium and scalp: Skull is intact with no soft tissue edema or swelling. No fracture involving the 1skull base. CT/CT head wo con* [id number] IMPRESSION: Negative head CT.
[2020-03-17 15:56] LABS: Basophils # 0.1 10^3/uL (0.0-0.1); Basophils % 1.5 %; Eosinophils % 0.6 %; Hematocrit 42.8 % (37.0-47.0); Hemoglobin 13.9 g/dL (11.5-15.3); Lymphocytes # 2.2 10^3/uL (0.8-4.8); Lymphocytes % 40.8 %; Mean Corpuscular HGB Conc 32.5 g/dL (30.0-36.0); Mean Corpuscular Hemoglobin 29.7 pg (28.0-34.0); Mean Corpuscular Volume 91.5 fL (81-99); Mean Platelet Volume 8.5 fL (7.4-10.4); Monocytes # 0.4 10^3/uL (0.2-0.9); Monocytes % 7.6 %; Neutrophils # 2.7 10^3/uL (1.8-7.7); Neutrophils % 49.3 %; Nucleated Red Blood Cells % 0 %; Platelet Count 303 10^3/cmm (130-400); Red Blood Count 4.68 10^6/uL (4.1-5.3); Red Cell Distribution Width 15.1 % (12.1-15.1); White Blood Count 5.4 10^3/uL (4.0-10.0)
[2020-03-17 16:22] LABS: Alanine Aminotransferase 308 U/L (0-33); Albumin Level 4.5 g/dL (3.5-5.2); Alcohol Level 179 mg/dL (0-10); Alkaline Phosphatase 128 IU/L (35-105); Anion Gap 20.3 (5-19); Aspartate Amino Transferase 349 U/L (0-32); Blood Urea Nitrogen 17 mg/dL (6-20); Calcium 9.3 mg/dL (8.5-10.5); Carbon Dioxide 24 mmol/L (22-29); Chloride 97 mmol/L (98-107); Globulin 3.3 g/dL (1.3-4.6); Glomerular Filtration Rate 105.4 mL/min (90-130); Glucose 105 mg/dL (65-115); Osmolality Calculated 281 mOsm/kg (285-295); Potassium 4.3 mmol/L (3.5-5.1); Sodium 137 mmol/L (136-145); Total Bilirubin 0.3 mg/dL (0.15-1.2); Total Protein 7.8 g/dL (6.6-8.7)
[2020-03-17 16:26] LABS: Salicylate < 0.3 mg/dL (3-10)
[2020-03-17 16:27] LABS: Acetaminophen < 5.0 ug/mL (10-30)
[2020-03-17] MEDS: LORazepam 1 mg Tablet 0.5 MG PO (17:13)
[2020-03-17 18:22] VITALS: BP 115/75; PULSE 75; RESP 15; O2SAT 98
[2020-03-17 18:33] VITALS: BP 167/100; PULSE 117; RESP 20; TEMP 36.7; O2SAT 94
[2020-03-17] MEDS: mupirocin oint 22 gm 1 APPLIC TOPICAL (19:05)
[2020-03-17] MEDS: ciprofloxacin-dexameth Otic Susp 7.5 mL Btl 4 DROP EAR-LEFT (19:05)
[2020-03-17 19:30] LABS: Add Urine Microscopic? NO
[2020-03-17 19:40] LABS: Bilirubin Urine Neg (NEGATIVE); Blood Urine Neg (Negative); Glucose Urine UA Norm (Normal); Ketones Urine Negative (Negative); Leukocyte Esterase Urine Negative (Negative); Nitrate Urine Negative (Negative); Protein Urine Neg (Negative); Specific Gravity, Urine 1.015 (1.005-1.030); Urine Appearance Clear (CLEAR); Urine Color Yellow (Yellow); Urobilinogen Urine Neg (Negative); pH Urine 5 (5-7)
[2020-03-17 19:44] VITALS: BP 144/109; PULSE 110; RESP 18; TEMP 37.1; O2SAT 96
[2020-03-17] MEDS: hyDROXYzine 25 mg Capsule 50 MG PO (21:25)
[2020-03-17] MEDS: OLANZapine 5 mg ODT PO (21:25)
[2020-03-17 21:44] VITALS: BP 144/109; PULSE 110; TEMP 37.1; O2SAT 96
[2020-03-18] MEDS: LORazepam 2 mg Tablet PO (00:23)
[2020-03-18 06:00] VITALS: BP 139/78; PULSE 96; RESP 21; TEMP 36.9; O2SAT 95
[2020-03-18] MEDS: ciprofloxacin-dexameth Otic Susp 7.5 mL Btl 4 DROP EAR-LEFT ×2 (08:45→17:47)
[2020-03-18] MEDS: mupirocin oint 22 gm 1 APPLIC TOPICAL ×2 (08:45→17:47)
[2020-03-18] MEDS: thiamine 100 mg Tablet PO (08:46)
[2020-03-18] MEDS: gabapentin 300 mg Capsule 600 MG PO ×2 (08:46→17:46)
[2020-03-18] MEDS: folic acid 1 mg Tablet PO (08:46)
[2020-03-18] MEDS: LORazepam 1 mg Tablet PO ×3 (08:46→21:06)
[2020-03-18] MEDS: multivitamin therapeutic Tablet 1 TAB PO (08:46)
--- NOTE | 2020-03-18 09:19 | P.HP_ITS ---
Providers/Chief Complaint Admitting Physician: Miguel Avalos MD Primary Care Provider: Lili Harris APN Chief Complaint: SI HPI NPU History of Present Illness Viola Woods is a 49 year old female The patient presented to the emergency room yesterday endorsing recent relapse on alcohol as well as depression and suicidal thoughts. She was admitted to the neuro-psychiatric unit for definitive treatment of those issues. On the unit today, she reports that she had been doing well until earlier this month when she had her most recent admission and she had relapsed after reportedly having six months of sobriety. She reports that she feels that the medications that she is on are working but they cannot counteract when she is drinking. We agreed to continue her current medications and that the focus we would need to have, is her sobering up while she is here, and maintaining the sobriety after she leaves. An excerpt from the last hospitalization is included below, as she denies any substantive changes. Currently she continues to report some issues at home, being at the heart of her recent relapse. We discussed the importance of her having outpatient therapy to really effectively work on those issues. Per her last [facility] IP eval 03/05/2020: History of Present Illness Viola Woods is a 49 year old female with a documented history of alcohol abuse and recurrent clinical depression. She was last admitted to this unit for her substance abuse in June 2019. She was under the care of this physician. Since her discharge at that time, she has been able to remain clean and sober. Unfortunately, her psychosocial issues have continued. She continues to be involved with her who is a destabilizing force. 10 days ago, she became suspicious that her was again seeing a woman with whom he had had an affair. He is a long-recycling collections driver and is frequently gone. She received 2 calls from this woman. She became desponded hopeless and overwhelmed. She began drinking. As is her pattern, her drinking accelerates to the point of self destruction. Her requested police to do a wellness check on her. They found her extremely intoxicated. She did make a vague statement about harming herself. She was brought to the emergency room. Her blood alcohol level on presentation was 234. She was admitted to the psychiatric unit for safety and observation. The patient readily admits all of the above details. She is humiliated and ashamed at losing her sobriety in such a dramatic fashion. She reports significant somatic complaints consistent with alcohol withdrawal including nausea, headache, and confusion. However she denies any intent of injuring herself or anyone else at any time. She admits that she is in a psychosocial situation that demands action but is not able to think clearly enough at this po int to establish an effective response. Prior to the events of started drinking, she denied symptoms of depression. She reports that her medications are generally working well. She denied suicidal or homicidal ideation. She denied the presence of auditory or visual hallucinations. She had been having good hedonic capacity. However it should be noted that the patient is not a very reliable informant at this time. She continues to take her Remeron and gabapentin and reports that they are effective and without side effects. Laboratory Tests 03/04/20 03/04/20 18:58 19:53 Urine Opiates Screen Negative Ur Barbiturates Screen Negative Ur Phencyclidine Scrn Negative Ur Amphetamines Screen Negative U Benzodiazepines Scrn Negative Urine Cocaine Screen Negative U Marijuana (THC) Screen Negative Ethyl Alcohol 234 H Prior Psychiatric History From her last admission July 21 to July 27, 2019 Viola Woods is a 49-year-old woman who presented to the emergency room primarily because she can't stop drinking. She is having problems with the sequelae of chronic alcohol use. She drinks 's a fifth of fireball whiskey daily. She says she is having a lot of abdominal pain and suspects that there may be other medical problems. She's been having passive suicidal ideation but at no time has she had an intent or plan. She reports feeling hopeless and helpless. She cannot resist the temptation to drink. During interview for a full array of depressive symptoms, she requested we terminate the interview due to her severe nausea and discomfort. She was in agreement with her need to be in the hospital. Past psychiatric history: She reported that she has been in rehabilitation programs here in [place] From admission in March 2019 Suicidal Thoughts and Drinking Alcohol. HPI: The patient is a 48 year old white female who is here for suicidal thoughts. Five days ago, the suicidal thoughts started. Marital conflicts started the suicidal thoughts. Viola reports her is leaving her. She denies a plan and intent of suicide. She has PTSD, Viola does not know symptoms of PTSD. Viola presented to the inpatient unit and slowly acclimated to the individual group and milieu therapies. She was really struggling with the situation with her and his infidelity and had fallen back on alcohol as a response. She presented and was put on gabapentin and naltrexone as well as latuda which were titrated to effect. She responded well to the medication as well as the inpatient treatment and was able to identify the importance of her going home and facing the situation which she had been using alcohol to avoid. During hospitalization she had routine laboratory studies which were within normal limits except for few outliers. The results can be seen below. Additionally she had a routine medical examination which was within normal limits and revealed no acute processes. At the time of discharge she was able to contract for safety, with absent lethality, endorsed improvement in mood and reported a commitment to sobriety and a plan to focus on her recovery as an outpatient. Review of Systems Narrative: Review of Systems Constitutional: Complains of: Fatigue; also complains of headache Eyes: Complains of: No eye symptoms ENT/Mouth: Complains of: No ENTM symptoms Cardiovascular: Complains of: No cardiac symptoms Respiratory: Complains of: No respiratory symptoms GI: Complains of: Complains of nausea without vomiting Neuro: Complains of: No neuro symptoms Musculoskeletal: Complains of: No musculoskeletal symptoms Skin: Complains of: No skin symptoms Hematologic/Lymphatic: Complains of: No hematologic/lymphatic symptoms Endocrine: Complains of: No endocrine symptoms : Complains of: No symptoms Psych: Complains of: Denied depression, Suicide ideation Meds NPU Home Medications Medication Instructions Recorded Confirmed Last Taken Type hydrocodone 5 mg-acetaminophen 300 1 tab PO BID PRN 7 Days #14 tab 02/21/20 03/04/20 Unknown Rx mg tablet diphenhydramine HCl 25 mg capsule 25 mg PO .QHS PRN cap 02/25/20 03/04/20 Unknown History gabapentin 600 mg tablet 600 mg PO BID #60 tab 02/28/20 03/04/20 Unknown Rx mirtazapine 30 mg tablet 30 mg PO .qhs #30 tab 03/03/20 03/04/20 Unknown Rx Allergies Allergy/AdvReac Type Severity Reaction Status Date / Time cephalexin [From Keflex] Allergy Severe ALGY-Anaphy Verified 02/21/20 13:59 laxis tramadol Allergy Unknown Verified 02/21/20 13:59 trazodone Allergy rapid Verified 02/21/20 13:59 heart beat PFS NPU PFSH: Medical History Alcohol use disorder, severe, in early remission She denies alcohol use since last visit. Amphetamine use disorder, mild, in sustained remission Chronic post-traumatic stress disorder (PTSD) Chronic nightmares. See notes below regarding Remeron. Hepatitis C Major depressive disorder, recurrent, moderate Gabapentin is helpful for mood stability/anxiety. She reports mood improvement since making some personal changes in her lifestyle and beginning to attend congregational. Surgical History H/O: hysterectomy History of appendectomy History of lung biopsy Hx of tonsillectomy Status post laparoscopic cholecystectomy Social History Smoking and tobacco status: current every day smoker cigarettes Packs smoked per day: 0.5 Years cigarettes smoked: 30 Quit status (tobacco): not considering quitting Second hand smoke exposure: No Current gender identity: Female Meds NPU Home Medications Medication Instructions Recorded Confirmed Last Taken Type gabapentin 600 mg tablet 600 mg PO BID #60 tab 02/28/20 03/17/20 03/16/20 Rx mirtazapine 30 mg tablet 30 mg PO .qhs #30 tab 03/03/20 03/17/20 03/16/20 Rx hydrocodone-acetaminophen 1 tab PO Q12H PRN #20 tab 03/06/20 03/17/20 03/16/20 Rx lorazepam 1 mg PO TID #10 tab 03/06/20 03/17/20 03/16/20 Rx cyclobenzaprine 10 mg PO TID PRN #30 tab 03/08/20 03/17/20 03/16/20 Rx Allergies Allergy/AdvReac Type Severity Reaction Status Date / Time cephalexin [From Keflex] Allergy Severe ALGY-Anaphy Verified 03/17/20 15:57 laxis tramadol Allergy Unknown Verified 03/17/20 15:57 trazodone Allergy rapid Verified 03/17/20 15:57 heart beat PFS NPU PFSH: Medical History Alcohol use disorder, severe, in early remission She denies alcohol use since last visit. Amphetamine use disorder, mild, in sustained remission Chronic post-traumatic stress disorder (PTSD) Chronic nightmares. See notes below regarding Remeron. Hepatitis C Major depressive disorder, recurrent, moderate Gabapentin is helpful for mood stability/anxiety. She reports mood improvement since making some personal changes in her lifestyle and beginning to attend congregational. Surgical History H/O: hysterectomy History of appendectomy History of lung biopsy Hx of tonsillectomy Status post laparoscopic cholecystectomy Social History Smoking and tobacco status: current every day smoker cigarettes Packs smoked per day: 0.5 Years cigarettes smoked: 30 Quit status (tobacco): not considering quitting Second hand smoke exposure: No Current gender identity: Female Mental Status Exam MSE Comments: This is a well-nourished, well-developed, white male, looking older than her stated age, with adequate dress, grooming, and eye contact. No abnormal movements except for psychomotor retardation. Cooperative with exam in no acute distress. Speech was normal rate and volume. Mood described as depressed; affect congruent. Thought process, organized. Thought content: patient denied any suicidal or homicidal ideation, there were no delusions repor ameya or noted, patient denied any auditory or visual hallucinations. Attention, concentration, and memory appear intact but were not formally tested. He is alert and oriented times three. Insight and judgment are limited, impulse control is limited. Vitals/I&O/Wt Last Vital Signs Temp 98.4 F 03/18/20 06:00 Pulse 96 03/18/20 06:00 Resp 21 H 03/18/20 06:00 BP 139/78 03/18/20 06:00 Pulse Ox 95 03/18/20 06:00 Weight last 48 hrs Weight 68.039 kg Data NPU : 03/17/20 15:49 03/17/20 15:49 A&P Assessment and plan (1) Suicidal ideation: Status: Acute (2) Acute alcohol intoxication: Status: Acute (3) Alcoholism: Status: Acute (4) Amphetamine use disorder, mild, in sustained remission: Status: Chronic (5) Alcohol use disorder, severe, in early remission: Status: Chronic (6) Chronic post-traumatic stress disorder (PTSD): Status: Chronic (7) Major depressive disorder, recurrent, moderate: Status: Chronic Additional A&P Information This is a 49 year old, white female, with a long history of alcohol use disorder, depressive disorder, unspecified, anxiety disorder, unspecified, with recent relapse on alcohol, who presents trying to stabilize and get back on track. Continue current medication. Maintain on the CIWA protocol for withdrawal. Continue q 15-minute checks for safety. Encourage individual, group, and milieu therapy. Recommend discharge to sober living treatment at the highest level, to which she is willing to commit. Involuntary Hold Information 96 Hour Hold: 96 Hour Involuntary Admission: Yes 96 Hour Hold Ending Date: 03/21/20 96 Hour Hold Ending Time: 15:50 Attestations NPU Medical Necessity Statement*: Inpatient hospitalization is medically necessary, and the clinically appropriate intervention at this time. We will monitor the medications and make changes as indicated. She will be in the hospital for over two midnights. Likely length of stay three to five days. Coding Level of Care Code Acute Loaf Counter for [facility] Diagnoses Suicidal ideation R45.851 Acute alcohol intoxication F10.929 Alcoholism F10.20 Amphetamine use disorder, mild, in sustained remission F15.11 Alcohol use disorder, severe, in early remission F10.21 Chronic post-traumatic stress disorder (PTSD) F43.12 Major depressive disorder, recurrent, moderate F33.1
[2020-03-18] MEDS: HYDROcodone-acetaminophen 5-325 mg Tablet 1 TAB PO ×2 (10:20→21:19)
[2020-03-18] MEDS: hyDROXYzine 25 mg Capsule 50 MG PO ×2 (11:39→21:06)
[2020-03-18 14:00] VITALS: BP 116/70; PULSE 108; RESP 20; TEMP 37.3; O2SAT 97
[2020-03-18] MEDS: nicotine 2 mg Gum BUCCAL (15:03)
[2020-03-18] MEDS: mirtazapine 30 mg Tablet PO (21:05)
[2020-03-18 21:09] VITALS: BP 116/75; PULSE 100; RESP 18; TEMP 37.3; O2SAT 94
--- NOTE | 2020-03-19 04:36 | PC.NURSE ---
Pt was given scheduled ativan and prn remeron and vistaril per pt request, at HS.
[2020-03-19 06:00] VITALS: BP 130/85; PULSE 102; RESP 14; TEMP 36.9; O2SAT 96
[2020-03-19] MEDS: thiamine 100 mg Tablet PO (09:05)
[2020-03-19] MEDS: mupirocin oint 22 gm 1 APPLIC TOPICAL ×2 (09:05→17:32)
[2020-03-19] MEDS: LORazepam 1 mg Tablet PO ×3 (09:05→20:51)
[2020-03-19] MEDS: folic acid 1 mg Tablet PO (09:05)
[2020-03-19] MEDS: ciprofloxacin-dexameth Otic Susp 7.5 mL Btl 4 DROP EAR-LEFT ×2 (09:05→17:32)
[2020-03-19] MEDS: multivitamin therapeutic Tablet 1 TAB PO (09:05)
[2020-03-19] MEDS: gabapentin 300 mg Capsule 600 MG PO ×2 (09:05→17:32)
[2020-03-19] MEDS: HYDROcodone-acetaminophen 5-325 mg Tablet 1 TAB PO ×2 (09:08→20:50)
[2020-03-19 14:00] VITALS: BP 114/74; PULSE 101; RESP 20; TEMP 36.9; O2SAT 96
--- NOTE | 2020-03-19 14:17 | PM.NPN ---
Subjective NPU Subjective: Interval history: Viola presented today reporting that she was feeling okay overall. She reports that her withdrawal symptoms are subsiding. She does not feel ready to leave yet but she does feel like things are improving and she is feeling safe with the process. We began a discussion about how she was going to make sure that she could get another long period of sobriety together and has a question that she is working on answering. She is eating better and sleeping better. Mental Status Exam MSE Comments: This is a well-nourished, well-developed, white male, looking older than her stated age, with adequate dress, grooming, and eye contact. No abnormal movements except for psychomotor retardation. Cooperative with exam in no acute distress. Speech was normal rate and volume. Mood described as still not too good; affect congruent. Thought process, organized. Thought content: patient denied any suicidal or homicidal ideation, there were no delusions reported or noted, patient denied any auditory or visual hallucinations. Attention, concentration, and memory appear intact but were not formally tested. He is alert and oriented times three. Insight and judgment are limited, impulse control is limited. Vitals/I&O/Wt Last Vital Signs Temp 98.5 F 03/19/20 06:00 Pulse 102 H 03/19/20 06:00 Resp 14 03/19/20 06:00 BP 130/85 03/19/20 06:00 Pulse Ox 96 03/19/20 06:00 Data NPU : 03/17/20 15:49 03/17/20 15:49 A&P Additional A&P Information (1) Suicidal ideation: (2) Acute alcohol intoxication: (3) Alcoholism: (4) Amphetamine use disorder, mild, in sustained remission: (5) Alcohol use disorder, severe, in early remission: (6) Chronic post-traumatic stress disorder (PTSD): (7) Major depressive disorder, recurrent, moderate: This is a 49 year old, white female, with a long history of alcohol use disorder, depressive disorder, unspecified, anxiety disorder, unspecified, with recent relapse on alcohol, who presents trying to stabilize and get back on track. Continue current medication. Maintain on the CIWA protocol for withdrawal. Continue q 15-minute checks for safety. Encourage individual, group, and milieu therapy. Recommend discharge to sober living treatment at the highest level, to which she is willing to commit. Involuntary Hold Information 96 Hour Hold: 96 Hour Involuntary Admission: Yes 96 Hour Hold Ending Date: 03/21/20 96 Hour Hold Ending Time: 15:50 Attestations NPU Medical Necessity Statement*: Inpatient hospitalization is medically necessary, and the clinically appropriate intervention at this time. We will monitor the medications and make changes as indicated. Likely length of stay 2-4 days. Coding Level of Care Code Acute Carding Machine Feeder for Palak Thorne
[2020-03-19] MEDS: mirtazapine 30 mg Tablet PO (20:49)
[2020-03-19] MEDS: hyDROXYzine 25 mg Capsule 50 MG PO (20:49)
[2020-03-19] MEDS: cyclobenzaprine 10 mg Tablet PO (20:50)
[2020-03-19 22:00] VITALS: BP 112/77; PULSE 107; RESP 22; TEMP 37.2; O2SAT 97
[2020-03-19] MEDS: OLANZapine 5 mg ODT PO (23:32)
[2020-03-20 06:00] VITALS: BP 115/75; PULSE 79; RESP 16; TEMP 36.4; O2SAT 95
[2020-03-20] MEDS: cyclobenzaprine 10 mg Tablet PO (08:57)
[2020-03-20] MEDS: HYDROcodone-acetaminophen 5-325 mg Tablet 1 TAB PO ×2 (08:57→20:48)
[2020-03-20] MEDS: folic acid 1 mg Tablet PO (08:57)
[2020-03-20] MEDS: thiamine 100 mg Tablet PO (08:57)
[2020-03-20] MEDS: LORazepam 1 mg Tablet PO ×3 (08:57→20:46)
[2020-03-20] MEDS: ciprofloxacin-dexameth Otic Susp 7.5 mL Btl 4 DROP EAR-LEFT ×2 (08:58→17:18)
[2020-03-20] MEDS: mupirocin oint 22 gm 1 APPLIC TOPICAL ×2 (08:58→17:18)
[2020-03-20] MEDS: gabapentin 300 mg Capsule 600 MG PO ×2 (08:58→17:18)
[2020-03-20] MEDS: multivitamin therapeutic Tablet 1 TAB PO (08:58)
--- NOTE | 2020-03-20 08:59 | PC.NURSE ---
Addendum entered by Oneyda Buckner LPN 03/20/20 10:45: PRN MED EFFECTIVE NO FURTHER C/O SPASMS Original Note: PRN FLEXERIL 10 MG GIVEN PO PER PT C/O MUSCLE SPASMS
--- NOTE | 2020-03-20 13:04 | P.PN_ITS ---
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 She is lonely and she gets moments where she feels depressed and she either drinks or does other things that are unhealthy, she reports. We discussed the different options and she reports that the plan is that she is going to go with him the next time, however that has been the response we have gotten previous times and they still have not gotten to a point where she is traveling with him. She also reported other issues, deaths in the family, and we discussed the fact that when she gets to the age that she is at, that there has to be some expectation that the people that are around us that are older are going to pass, and if this is an excuse for her drinking all the time, she is going to have a problem, as all of her older family members leave this earth. She is still reporting concerns of lethality but was able to discuss our concerns that this is in relation to the loneliness and not necessarily suicidality. Mental Status Exam MSE Comments: This is a well-nourished, well-developed, white female, with adequate dress, grooming, and eye contact, appearing older than her stated age. No abnormal movements except for mild psychomotor retardation. Cooperative with exam in mild distress. Speech was slightly decreased rate and volume. Mood described as still depressed; affect congruent. She does continue to endorse suicidality, but it is unclear whether this represents a statement that she does not want to leave or actual suicidality. Thought process, organized. Thought content: patient denied any homicidal ideation, there were no delusions reported or noted, patient denied any auditory or visual hallucinations. Attention, concentration, and memory appeared intact but were not formally tested. Alert and oriented times three. Insight and judgment are limited. Vitals/I&O/Wt Last Vital Signs Temp 98.0 F 03/20/20 22:00 Pulse 91 03/20/20 22:00 Resp 17 03/20/20 22:00 BP 102/62 03/20/20 22:00 Pulse Ox 96 03/20/20 22:00 Data NPU : 03/17/20 15:49 03/17/20 15:49 A&P Additional A&P Information (1) Suicidal ideation: (2) Acute alcohol intoxication: (3) Alcoholism: (4) Amphetamine use disorder, mild, in sustained remission: (5) Alcohol use disorder, severe, in early remission: (6) Chronic post-traumatic stress disorder (PTSD): (7) Major depressive disorder, recurrent, moderate: This is a 49 year old, white female, with a long history of alcohol use disorder, depressive disorder, unspecified, anxiety disorder, unspecified, with recent relapse on alcohol, who presents trying to stabilize and get back on track. Continue current medication. Maintain on the CIWA protocol for withdrawal. Continue q 15-minute checks for safety. Encourage individual, group, and milieu therapy. Recommend discharge to sober living treatment at the highest level, to which she is willing to commit. Involuntary Hold Information 96 Hour Hold: 96 Hour Involuntary Admission: Yes 96 Hour Hold Ending Date: 03/21/20 96 Hour Hold Ending Time: 15:50 Attestations NPU 2 Medical Necessity Statement*: Inpatient hospitalization is medically necessary, and the clinically appropriate intervention at this time. We will monitor the medications and make changes as indicated. Likely length of stay 1-3 days.We will consider discharge tomorrow. Coding Level of Care Code Acute Training And Development Coordinator for Palak Thorne
[2020-03-20 13:10] VITALS: BP 111/71; PULSE 87; RESP 18; TEMP 36.8; O2SAT 94
[2020-03-20] MEDS: mirtazapine 30 mg Tablet PO (20:46)
--- NOTE | 2020-03-20 20:46 | PC.NURSE ---
PRN REMERON PT REQUESTING SLEEP AID. ADMINISTERED REMERON 30 MG PO. WILL MONITOR FOR MEDICATION EFFECTIVENESS.
[2020-03-20 22:00] VITALS: BP 102/62; PULSE 91; RESP 17; TEMP 36.7; O2SAT 96
[2020-03-20] MEDS: hyDROXYzine 25 mg Capsule 50 MG PO (23:37)
--- NOTE | 2020-03-20 23:37 | PC.NURSE ---
PRN VISTARIL PT REQUESTING SOMETHING TO HELP WITH ANXIETY. ADMINISTERED VISTARIL 50MG PO. WILL MONITOR FOR MEDICATION EFFECTIVENESS.
--- NOTE | 2020-03-21 00:34 | PC.NURSE ---
PRN REMERON PT REQUESTING SLEEP AID. ADMINISTERED REMERON 30 MG PO. WILL MONITOR FOR MEDICATION EFFECTIVENESS.
[2020-03-21] MEDS: acetaminophen 325 mg Tablet 650 MG PO (01:14)
[2020-03-21 06:00] VITALS: BP 132/80; PULSE 77; RESP 20; TEMP 36.4; O2SAT 97
[2020-03-21] MEDS: gabapentin 300 mg Capsule 600 MG PO (09:19)
[2020-03-21] MEDS: folic acid 1 mg Tablet PO (09:19)
[2020-03-21] MEDS: LORazepam 1 mg Tablet PO (09:19)
[2020-03-21] MEDS: multivitamin therapeutic Tablet 1 TAB PO (09:20)
[2020-03-21] MEDS: thiamine 100 mg Tablet PO (09:20)
[2020-03-21] MEDS: mupirocin oint 22 gm 1 APPLIC TOPICAL (09:20)
[2020-03-21] MEDS: ciprofloxacin-dexameth Otic Susp 7.5 mL Btl 4 DROP EAR-LEFT (09:20)
[2020-03-21] MEDS: HYDROcodone-acetaminophen 5-325 mg Tablet 1 TAB PO (09:27)
--- NOTE | 2020-03-21 12:41 | PM.NDC ---
Diagnoses at Discharge Discharge Diagnosis (1) Suicidal ideation: Status: Resolved (2) Acute alcohol intoxication: Status: Acute (3) Alcoholism: Status: Acute (4) Amphetamine use disorder, mild, in sustained remission: Status: Chronic (5) Alcohol use disorder, severe, in early remission: Status: Chronic (6) Chronic post-traumatic stress disorder (PTSD): Status: Chronic (7) Major depressive disorder, recurrent, moderate: Status: Chronic Problem details: Remeron is helpful for depressed mood symptoms and sleep impairment Reason for Visit Reason for Visit: SI Involuntary Hold Information 96 Hour Hold: 96 Hour Involuntary Admission: Yes 96 Hour Hold Ending Date: 03/21/20 96 Hour Hold Ending Time: 15:50 Mental Status Exam MSE Comments: This is a well-nourished, well-developed, white female, with adequate dress, grooming, and eye contact, appearing older than her stated age. No abnormal movements except for mild psychomotor retardation. Cooperative with exam in no acute distress. Speech was more normal rate and volume. Mood described as better; affect congruent. Thought process, organized. Thought content: patient denied any suicidal or homicidal ideation, there were no delusions reported or noted, patient denied any auditory or visual hallucinations. Attention, concentration, and memory appeared intact but were not formally tested. Alert and oriented times three. Insight and judgment are improving. Discharge Data Data Completed and Pending: Completed Studies During Hospitalization Category Date Time Status CT head wo con* [id number] Stat Cat Scan 03/17/20 15:43 Completed Vitals: Last Vital Signs Temp 97.6 F 03/21/20 06:00 Pulse 77 03/21/20 06:00 Resp 20 H 03/21/20 06:00 BP 132/80 03/21/20 06:00 Pulse Ox 97 03/21/20 06:00 Discharge Plan Discharge Patient Disposition: Home, Self-Care Condition: Stable Prescriptions: Continued cyclobenzaprine 10 mg tablet 10 mg PO TID PRN (Reason: muscle spasm) 30 Days Qty: 30 RF: 1 hydrocodone-acetaminophen 5-325 mg Tablet 1 tab PO Q12H PRN (Reason: Moderate Pain) 10 Days Qty: 30 RF: 0 mirtazapine [Remeron] 30 mg tablet 30 mg PO .qhs 30 Days Qty: 30 RF: 1 lorazepam 1 mg Tablet 1 mg PO TID 10 Days Qty: 30 RF: 0 No Action gabapentin 600 mg tablet 600 mg PO BID Qty: 60 RF: 0 oxycodone 5 mg capsule 5 mg PO Q6H PRN (Reason: pain) Qty: 10 RF: 0 Discharge Orders: Discharge Order (Routine); Ordered 03/21/20 Ordered By: Miguel Avalos Referrals: [facility] [place] [facility] [Outside] - 4-7 days (You will need to go during the walk-in hours of 7:30 a.m.-2:30 p.m. and request initial intake in order to establish services at [facility]. They have walk-in hours on any day Tuesday through Tuesday. If needed, ask about financial assistance. ) [facility] [Outside] - 1-3 days ([facility] offers substance abuse treatment. If you are interested in treatment call them. ) Discharge Diet: Regular Discharge Activity: Resume usual activity Patient Instructions: Alcoholism, Hydrocodone/Acetaminophen (By mouth), Cyclobenzaprine (By mouth), Mirtazapine (By mouth) Activity Restrictions/Additional Instructions: for questions about medicaid application: contact Jeffrey Gar [phone] for questions about possible financial assistance for the hospital: [phone] Discharge Date/Time: 03/21/20 13:20 Discharge Attestations NPU Time Spent in Discharge Care*: less than 30 min Specific Discharge Activities: Specific discharge activities: educating patient, discussing with porter sample case/social workers/dc planners, documenting/other paperwork and evaluating patient/reviewing data Coding Level of Care Code Acute Stamping Mill Tender for [facility] Fwd Diagnoses Suicidal ideation R45.851 Acute alcohol intoxication F10.929 Alcoholism F10.20 Amphetamine use disorder, mild, in sustained remission F15.11 Alcohol use disorder, severe, in early remission F10.21 Chronic post-traumatic stress disorder (PTSD) F43.12 Major depressive disorder, recurrent, moderate F33.1
[2020-03-21 12:44] VITALS: BP 132/80; PULSE 77; RESP 20; TEMP 36.4; O2SAT 97
== END 2020-03-21 13:20 | disposition home or self-care (01) | DRG 897 ==
LOC: ER 15:33 → NP 16:48
PROVIDERS: Family Medicine; Admitting Provider Psychiatry & Neurology Psychiatry; Family Provider Nurse Practitioner; PCP Nurse Practitioner; Visit Provider Psychiatry & Neurology Psychiatry
DX: F10.229 Alcohol dependence with intoxication, unspecified (principal); F33.1 Major depressive disorder, recurrent, moderate; R45.851 Suicidal ideations; Y90.7 Blood alcohol level of 200-239 mg/100 ml; F15.90 Other stimulant use, unspecified, uncomplicated; F43.12 Post-traumatic stress disorder, chronic; B19.20 Unspecified viral hepatitis C without hepatic coma; F17.210 Nicotine dependence, cigarettes, uncomplicated; Z79.891 Long term (current) use of opiate analgesic
CPT/HCPCS: 12345; 36415; 70450; 80053; 80307; 81003; 85025; 99284

== ENCOUNTER 2020-03-22 18:38 | Emergency (ER) | payer MEDICAID, SELFPAY ==
[2020-03-22 18:48] VITALS: BP 117/69; PULSE 99; RESP 18; TEMP 36.8; O2SAT 93; BMI 26.5
== END 2020-03-22 20:15 ==
LOC: ER 18:50
PROVIDERS: Emergency Provider Emergency Medicine
DX: Z53.21 Procedure and treatment not carried out due to patient leaving prior to being seen by health care provider (principal)
CPT/HCPCS: 99281

== ENCOUNTER 2020-03-24 15:12 | Emergency (ER) | payer MEDICAID, SELFPAY ==
[2020-03-24 15:12] VITALS: BP 165/56; PULSE 107; RESP 16; TEMP 36.7; O2SAT 97; BMI 26.5
[2020-03-24 15:22] VITALS: RESP 18
--- NOTE | 2020-03-24 15:49 | ED_ITS ---
HPI - Psych General: Chief Complaint: Psychiatric Symptoms Stated Complaint: PSYCH EVAL Time Seen by Provider: 03/24/20 15:14 History of Present Illness: HPI Narrative: This patient is a 49-year-old female presenting today with hallucinations. She also has chronic pain in her right side. She has a history of alcohol abuse which had been in remission for 6 or 7 months until she relapsed about a week ago. She thinks she drank for a couple of days and then was admitted here to the hospital. She has not had a drink since being discharged from the hospital. She is very motivated to stay sober. She presents today because she has been having hallucinations that actually started before she had relapse. She said she is seeing people who are not there and finds herself talking to objects as though they were people. She said she gets upset because the objects do not return any conversation. She also says that she has hallucinated that her mother is there with her. She is afraid to drive because she cannot tell what is real and what not. She was concerned that medications were causing the symptoms so she did not take any of her normal medications today. She also has frequent falls which she relates to her right leg giving out on her. She sees pain management for this but currently has no insurance and cannot afford to go. She has not had any pain medicine for some time. She says she is not overtly suicidal but she is afraid she is going to hurt herself or someone else because she cannot tell what is real and what does not. Relieving factors: none Exacerbating factors: none Context: not taking psychiatric medications Associated psychiatric symptoms: auditory hallucinations and visual hallucinations If self harm: admits thoughts of self harm (But says that she would not do it because of her love for her family) Details of plan: She states that she does not want to live like this but she also does not want to kill her self. She wants to get better Review of Systems General: Reports: 10 or more systems reviewed and unremarkable except in HPI and below Const: Denies: fever(s), chills, fatigue or malaise Eyes: Denies: change in vision ENMT: Denies: odynophagia Card: Denies: chest pain or swelling of feet/ankles Resp: Denies: dyspnea, productive cough or non-productive cough GI: Denies: abdominal pain, nausea or vomiting : Denies: flank pain or difficulty voiding Musc: Reports: back pain and extremity pain; Denies: neck pain Skin/Breast: Denies: rash Neuro: Reports: numbness in extremities, difficulty walking and frequent falls; Denies: headache(s) or weakness in extremities Wolf/Lymph: Denies: easy bruising or easy bleeding PFSH ED PFSH: Medical History Alcohol use disorder, severe, in early remission She denies alcohol use since last visit. Amphetamine use disorder, mild, in sustained remission Chronic post-traumatic stress disorder (PTSD) Chronic nightmares. See notes below regarding Remeron. Hepatitis C Major depressive disorder, recurrent, moderate Gabapentin is helpful for mood stability/anxiety. She reports mood improvement since making some personal changes in her lifestyle and beginning to attend gnosticism. Surgical History H/O: hysterectomy History of appendectomy History of lung biopsy Hx of tonsillectomy Status post laparoscopic cholecystectomy Social History Smoking and tobacco status: current every day smoker cigarettes Packs smoked per day: 0.5 Years cigarettes smoked: 30 Quit status (tobacco): not considering quitting Second hand smoke exposure: No Current gender identity: Female Physical Exam Const: COMMON NORMALS: no acute distress, patient oriented x3, no limitations and alert GENERAL APPEARANCE: cooperative, comfortable and well kempt HENMT: HEAD & SCALP: normal to inspection FACE & SINUS: normal facial exam Eye: GENERAL EYE: appearance normal, both eyes and all related structures Neck/C-Spine: COMMON NORMALS: supple, no meningeal signs and no JVD Chest: COMMONS NORMALS: normal inspection of the chest Resp: COMMON NORMALS: normal respiratory effort, No use of accessory muscles and clear to auscultation bilaterally AUSCULTATION: clear to auscultation bilaterally Cardio: COMMON NORMALS: no JVD, regular rate, regular rhythm and No murmurs present (Cardio) RATE: regular rate RHYTHM: regular rhythm GI: COMMON NORMALS: Normal to inspection, nondistended, normoactive bowel sounds present, Soft to palpation and non-tender INSPECTION: Yes normal to inspection AUSCULTATION: Yes normoactive bowel sounds PALPATION: Yes Soft to palpation Back/Pelvis: COMMON NORMALS: thoracic and lumbar spine normal to inspection Extremity: COMMON NORMALS: normal to inspection Neuro: COMMON NORMALS: patient oriented x3, moves all extremities, no focal motor deficits and no sensory deficits noted SENSORIUM/ORIENTATION: Yes alert MENINGEAL SIGNS: Yes no meningeal signs Psych: COMMON NORMALS: mental status grossly normal and cooperative APPEARANCE: Yes well kempt MOOD & AFFECT: Yes depressed mood and Yes anxious THOUGHT PROCESS: disorganized THOUGHT CONTENT: Yes Hallucination(s) present Skin: COMMON NORMALS: no rashes or lesions noted and turgor normal GENERAL SKIN EXAM: no rashes or lesions noted and turgor normal MDM - Psych Lab Data: Labs: Lab Results 03/24/20 03/24/20 03/24/20 Range/Units 15:50 15:50 15:50 WBC 4.4 (4.0-10.0) 10^3/ uL RBC 3.87 L (4.1-5.3) 10^6/u L Hgb 11.7 (11.5-15.3) g/dL Hct 37.2 (37.0-47.0) % MCV 96.1 (81-99) fL MCH 30.2 (28.0-34.0) pg MCHC 31.5 (30.0-36.0) g/dL RDW 14.8 (12.1-15.1) % Plt Count 185 (130-400) 10^3/c mm MPV 9.4 (7.4-10.4) fL Neut % (Auto) 54.5 % Lymph % (Auto) 32.6 % [place] % (Auto) 9.7 % Eos % (Auto) 2.5 % Baso % (Auto) 0.5 % Neut # (Auto) 2.4 (1.8-7.7) 10^3/u L Lymph # (Auto) 1.4 (0.8-4.8) 10^3/u L [place] # (Auto) 0.4 (0.2-0.9) 10^3/u L Eos # (Auto) 0.1 (0.0-0.8) 10^3/u L Baso # (Auto) 0.0 (0.0-0.1) 10^3/u L Nucleated RBC % (a uto) 0 % Nucleated RBCs # 0.0 /100WBC Sodium 137 (136-145) mmol/L Potassium 3.9 (3.5-5.1) mmol/L Chloride 102 (98-107) mmol/L Carbon Dioxide 24 (22-29) mmol/L Anion Gap 14.9 (5-19) BUN 6 (6-20) mg/dL Creatinine 0.4 L (0.5-0.9) mg/dL GFR Calculation 168.3 H (90-130) mL/min Glucose 96 (65-115) mg/dL Calculated Osmolal ity 280 L (285-295) mOsm/k g Calcium 9.8 (8.5-10.5) mg/dL Total Bilirubin 0.2 (0.15-1.2) mg/dL AST 78 H (0-32) U/L ALT 119 H (0-33) U/L Alkaline Phosphata se 98 (35-105) IU/L Total Protein 7.5 (6.6-8.7) g/dL Albumin 4.2 (3.5-5.2) g/dL Globulin 3.3 (1.3-4.6) g/dL Urine Color (Yellow) Urine Appearance (CLEAR) Urine pH (5-7) Ur Specific Gravit y (1.005-1.030) Urine Protein (Negative) Urine Glucose (UA) (Normal) Urine Ketones (Negative) Urine Blood (Negative) Urine Nitrate (Negative) Urine Bilirubin (NEGATIVE) Urine Urobilinogen (Negative) mg/dL Ur Leukocyte Susana ase (Negative) Salicylates < 0.3 L (3-10) mg/dL Urine Opiates Scre en (Negative) ng/mL Acetaminophen < 5.0 L (10-30) ug/mL Ur Barbiturates Sc reen (Negative) ng/mL Ur Phencyclidine S crn (Negative) ng/mL Ur Amphetamines Sc reen (Negative) ng/mL U Benzodiazepines Scrn (Negative) ng/mL Urine Cocaine Scre en (Negative) ng/mL U Marijuana (THC) Screen (Negative) ng/mL Ethyl Alcohol < 10 (0-10) mg/dL 03/24/20 03/24/20 Range/Units 16:20 16:20 WBC (4.0-10.0) 10^3/ uL RBC (4.1-5.3) 10^6/u L Hgb (11.5-15.3) g/dL Hct (37.0-47.0) % MCV (81-99) fL MCH (28.0-34.0) pg MCHC (30.0-36.0) g/dL RDW (12.1-15.1) % Plt Count (130-400) 10^3/c mm MPV (7.4-10.4) fL Neut % (Auto) % Lymph % (Auto) % [place] % (Auto) % Eos % (Auto) % Baso % (Auto) % Neut # (Auto) (1.8-7.7) 10^3/u L Lymph # (Auto) (0.8-4.8) 10^3/u L [place] # (Auto) (0.2-0.9) 10^3/u L Eos # (Auto) (0.0-0.8) 10^3/u L Baso # (Auto) (0.0-0.1) 10^3/u L Nucleated RBC % (a uto) % Nucleated RBCs # /100WBC Sodium (136-145) mmol/L Potassium (3.5-5.1) mmol/L Chloride (98-107) mmol/L Carbon Dioxide (22-29) mmol/L Anion Gap (5-19) BUN (6-20) mg/dL Creatinine (0.5-0.9) mg/dL GFR Calculation (90-130) mL/min Glucose (65-115) mg/dL Calculated Osmolal ity (285-295) mOsm/k g Calcium (8.5-10.5) mg/dL Total Bilirubin (0.15-1.2) mg/dL AST (0-32) U/L ALT (0-33) U/L Alkaline Phosphata se (35-105) IU/L Total Protein (6.6-8.7) g/dL Albumin (3.5-5.2) g/dL Globulin (1.3-4.6) g/dL Urine Color Straw (Yellow) Urine Appearance Clear (CLEAR) Urine pH 7 (5-7) Ur Specific Gravit y 1.005 (1.005-1.030) Urine Protein Neg (Negative) Urine Glucose (UA) Norm (Normal) Urine Ketones Negative (Negative) Urine Blood Neg (Negative) Urine Nitrate Negative (Negative) Urine Bilirubin Neg (NEGATIVE) Urine Urobilinogen Norm (Negative) mg/dL Ur Leukocyte Susana ase Negative (Negative) Salicylates (3-10) mg/dL Urine Opiates Scre en Negative (Negative) ng/mL Acetaminophen (10-30) ug/mL Ur Barbiturates Sc reen Negative (Negative) ng/mL Ur Phencyclidine S crn Negative (Negative) ng/mL Ur Amphetamines Sc reen Negative (Negative) ng/mL U Benzodiazepines Scrn Positive H (Negative) ng/mL Urine Cocaine Scre en Negative (Negative) ng/mL U Marijuana (THC) Screen Negative (Negative) ng/mL Ethyl Alcohol (0-10) mg/dL Discharge Plan Discharge Patient Disposition: Home, Self-Care Clinical Impression: Acute anxiety Chronic pain Qualifiers: Chronic pain type: other chronic pain Qualified Code(s): G89.29 - Other chronic pain Condition: Stable Prescriptions: New oxycodone 5 mg capsule 5 mg PO Q6H PRN (Reason: pain) Qty: 10 RF: 0 No Action gabapentin 600 mg tablet 600 mg PO BID Qty: 60 RF: 1 Ciprodex 0.3-0.1 % Drops,Suspension 4 drp ear (left) BID 10 Days Qty: 10 RF: 0 cyclobenzaprine 10 mg tablet 10 mg PO TID PRN (Reason: muscle spasm) 30 Days Qty: 30 RF: 1 hydrocodone-acetaminophen 5-325 mg Tablet 1 tab PO Q12H PRN (Reason: Moderate Pain) 10 Days Qty: 30 RF: 0 mirtazapine [Remeron] 30 mg tablet 30 mg PO .qhs 30 Days Qty: 30 RF: 1 lorazepam 1 mg Tablet 1 mg PO TID 10 Days Qty: 30 RF: 0 Discharge Orders: Discharge Order (Routine); Ordered 03/24/20 Ordered By: Jacqueline Nelson Discharge Diet: Advance as tolerated Discharge Activity: Resume usual activity Patient Instructions: Chronic Pain (ED), Anxiety (ED) Activity Restrictions/Additional Instructions: Return to the emergency department if thoughts of harming yourself or anyone else. Return as well if you wish for further treatment for the hallucinations. Follow-up with [facility] for medication adjustments. Use the pain medicine sparingly and follow-up with pain management as planned. Discharge Date/Time: 03/24/20 17:39 Coding Level of Care Code ED Charge Master Coordinator for [place] Fwd Exam Comprehensive
[2020-03-24 15:53] VITALS: RESP 18
[2020-03-24] MEDS: oxyCODONE-APAP 5-325 mg Tablet 2 TAB PO (15:53)
[2020-03-24 15:56] LABS: Basophils % 0.5 %; Eosinophils # 0.1 10^3/uL (0.0-0.8); Eosinophils % 2.5 %; Hematocrit 37.2 % (37.0-47.0); Hemoglobin 11.7 g/dL (11.5-15.3); Lymphocytes # 1.4 10^3/uL (0.8-4.8); Lymphocytes % 32.6 %; Mean Corpuscular HGB Conc 31.5 g/dL (30.0-36.0); Mean Corpuscular Hemoglobin 30.2 pg (28.0-34.0); Mean Corpuscular Volume 96.1 fL (81-99); Mean Platelet Volume 9.4 fL (7.4-10.4); Monocytes # 0.4 10^3/uL (0.2-0.9); Monocytes % 9.7 %; Neutrophils # 2.4 10^3/uL (1.8-7.7); Neutrophils % 54.5 %; Nucleated Red Blood Cells % 0 %; Platelet Count 185 10^3/cmm (130-400); Red Blood Count 3.87 10^6/uL (4.1-5.3); Red Cell Distribution Width 14.8 % (12.1-15.1); White Blood Count 4.4 10^3/uL (4.0-10.0)
[2020-03-24 16:18] LABS: Alanine Aminotransferase 119 U/L (0-33); Albumin Level 4.2 g/dL (3.5-5.2); Alkaline Phosphatase 98 IU/L (35-105); Anion Gap 14.9 (5-19); Aspartate Amino Transferase 78 U/L (0-32); Blood Urea Nitrogen 6 mg/dL (6-20); Calcium 9.8 mg/dL (8.5-10.5); Carbon Dioxide 24 mmol/L (22-29); Chloride 102 mmol/L (98-107); Globulin 3.3 g/dL (1.3-4.6); Glomerular Filtration Rate 168.3 mL/min (90-130); Glucose 96 mg/dL (65-115); Osmolality Calculated 280 mOsm/kg (285-295); Potassium 3.9 mmol/L (3.5-5.1); Sodium 137 mmol/L (136-145); Total Bilirubin 0.2 mg/dL (0.15-1.2); Total Protein 7.5 g/dL (6.6-8.7)
[2020-03-24 16:24] LABS: Acetaminophen < 5.0 ug/mL (10-30); Salicylate < 0.3 mg/dL (3-10)
[2020-03-24 16:39] LABS: Add Urine Microscopic? NO
[2020-03-24 16:42] LABS: Bilirubin Urine Neg (NEGATIVE); Blood Urine Neg (Negative); Glucose Urine UA Norm (Normal); Ketones Urine Negative (Negative); Leukocyte Esterase Urine Negative (Negative); Nitrate Urine Negative (Negative); Protein Urine Neg (Negative); Specific Gravity, Urine 1.005 (1.005-1.030); Urine Appearance Clear (CLEAR); Urine Color Straw (Yellow); Urobilinogen Urine Norm (Negative); pH Urine 7 (5-7)
[2020-03-24 16:52] LABS: Amphetamines Screen Urine Negative (Negative); Barbiturates Screen Urine Negative (Negative); Benzodiazepines Screen Urine Positive (Negative); Cocaine Screen Urine Negative (Negative); Opiate Screen Urine Negative (Negative); PCP Screen Urine Negative (Negative); THC Screen Urine Negative (Negative)
[2020-03-24 17:33] LABS: Alcohol Level < 10 mg/dL (0-10)
[2020-03-24 17:38] VITALS: RESP 18; TEMP 36.7; O2SAT 97
== END 2020-03-24 17:39 | disposition home or self-care (01) ==
PROVIDERS: Emergency Provider Emergency Medicine
DX: F41.9 Anxiety disorder, unspecified (principal); G89.29 Other chronic pain; Z86.19 Personal history of other infectious and parasitic diseases; F17.210 Nicotine dependence, cigarettes, uncomplicated
CPT/HCPCS: 12345; 36415; 80053; 80306; 80307; 81003; 85025; 99282; 99283

== ENCOUNTER 2020-05-01 15:20 | Emergency (ER) | payer MEDICAID, SELFPAY ==
[2020-05-01 16:03] VITALS: BP 119/83; PULSE 97; RESP 14; TEMP 36.9; O2SAT 96; BMI 26.5
[2020-05-01 16:52] LABS: Basophils % 0.5 %; Eosinophils # 0.2 10^3/uL (0.0-0.8); Eosinophils % 2.4 %; Hematocrit 45.2 % (37.0-47.0); Hemoglobin 14.3 g/dL (11.5-15.3); Lymphocytes # 3.2 10^3/uL (0.8-4.8); Lymphocytes % 42.8 %; Mean Corpuscular HGB Conc 31.6 g/dL (30.0-36.0); Mean Corpuscular Hemoglobin 29.9 pg (28.0-34.0); Mean Corpuscular Volume 94.4 fL (81-99); Mean Platelet Volume 9.5 fL (7.4-10.4); Monocytes # 0.7 10^3/uL (0.2-0.9); Monocytes % 9.5 %; Neutrophils # 3.32 10^3/uL (1.8-7.7); Neutrophils % 44.7 %; Nucleated Red Blood Cells % 0 %; Platelet Count 275 10^3/cmm (130-400); Red Blood Count 4.79 10^6/uL (4.1-5.3); Red Cell Distribution Width 15.1 % (12.1-15.1); White Blood Count 7.5 10^3/uL (4.0-10.0)
--- NOTE | 2020-05-01 17:15 | W.ED.ABDPA2 ---
HPI - Abdominal Pain General: Chief Complaint: Abdominal Pain Stated Complaint: right side stomach pain/ swelling Time Seen by Provider: 05/01/20 17:06 Source: patient Mode of arrival: ambulatory Limitations: no limitations History of Present Illness: HPI narrative: Viola is a 49-year-old female who has a long history of alcoholism and hep C. Patient states she has had diffuse abdominal pain mainly being epigastric and right upper quadrant over the last 2 to 3 days. She has had a cholecystectomy along with appendectomy and hysterectomy. States her pain is sharp in nature and rates it a 7 out of 10. Denies any fever denies any worsening or improving factors. MD elicited complaint: abdominal pain Pertinent past history: other Onset (ago): day(s) Pain Consistency: constant Location: Diffuse Severity: moderate Quality: stabbing Radiation: none Migration to: no migration Exacerbating factors: nothing Relieving factors: nothing Associated Symptoms: Denies chills, dysuria and fever(s) Review of Systems Const: Denies: fever(s), chills, body aches or change in appetite Eyes: Denies: blurry vision or eye discomfort ENMT: Denies: throat pain or dental pain Card: Denies: chest pain Resp: Denies: dyspnea GI: Reports: abdominal pain : Denies: dysuria Musc: Denies: neck pain or back pain Skin/Breast: Denies: rash Neuro: Denies: headache(s) Psych: Denies: depression Wolf/Lymph: Denies: easy bruising All/Imm: Denies: urticaria PFSH ED PFSH: Medical History Alcohol use disorder, severe, in early remission Amphetamine use disorder, mild, in sustained remission Chronic post-traumatic stress disorder (PTSD) Hepatitis C Major depressive disorder, recurrent, moderate Remeron is helpful for depressed mood symptoms and sleep impairment Surgical History H/O: hysterectomy History of appendectomy History of lung biopsy Hx of tonsillectomy Status post laparoscopic cholecystectomy Social History Smoking and tobacco status: current every day smoker cigarettes Packs smoked per day: 0.5 Years cigarettes smoked: 30 Quit status (tobacco): not considering quitting Second hand smoke exposure: No Current gender identity: Female Physical Exam Const: COMMON NORMALS: no acute distress, patient oriented x3 and healthy appearing HENMT: COMMON NORMALS: normocephalic and atraumatic HEAD & SCALP: normocephalic and atraumatic Eye: COMMON NORMALS: Equal, round and reactive pupils present and EOMs intact bilaterally PUPIL: Yes Equal, round and reactive pupils present Neck/C-Spine: COMMON NORMALS: full ROM and supple Chest: COMMONS NORMALS: normal inspection of the chest and normal palpation of entire chest wall Resp: COMMON NORMALS: normal respiratory effort, No retractions, No use of accessory muscles and clear to auscultation bilaterally AUSCULTATION: clear to auscultation bilaterally Cardio: COMMON NORMALS: regular rate, regular rhythm and No murmurs present (Cardio) RATE: regular rate RHYTHM: regular rhythm GI: COMMON NORMALS: Normal to inspection, nondistended, normoactive bowel sounds present, Soft to palpation and no masses PALPATION: Yes Soft to palpation and Yes Tenderness to palpation present (GI) (diffuse) Extremity: COMMON NORMALS: normal to inspection and full ROM Neuro: COMMON NORMALS: patient oriented x3, moves all extremities and no focal motor deficits Psych: COMMON NORMALS: mental status grossly normal, Normal thought process present and cooperative THOUGHT PROCESS: Normal thought process present Skin: COMMON NORMALS: no rashes or lesions noted and no wounds GENERAL SKIN EXAM: no rashes or lesions noted Course Vital Signs: Vital signs: Vital Signs Temperature 98.4 F 05/01/20 16:03 Pulse Rate 81 05/01/20 18:29 Respiratory Rate 18 05/01/20 18:29 Blood Pressure 152/87 05/01/20 18:29 Pulse Oximetry 96 05/01/20 18:29 MDM - Abdominal Pain MDM Narrative: Medical decision making narrative: Viola presents here with abdominal pain. Patient's lab work and CT scan here are negative. Her pain is improved and will place her on Bentyl and Zofran. She is stable for discharge and is to follow-up with her primary care doctor in 3 to 5 days and return if worsening. She understands and agrees to plan. Lab Data: Labs: Lab Results 05/01/20 05/01/20 05/01/20 Range/Units 16:05 16:41 16:41 WBC 7.5 (4.0-10.0) 10^3/ uL RBC 4.79 (4.1-5.3) 10^6/u L Hgb 14.3 (11.5-15.3) g/dL Hct 45.2 (37.0-47.0) % MCV 94.4 (81-99) fL MCH 29.9 (28.0-34.0) pg MCHC 31.6 (30.0-36.0) g/dL RDW 15.1 (12.1-15.1) % Plt Count 275 (130-400) 10^3/c mm MPV 9.5 (7.4-10.4) fL Neut % (Auto) 44.7 % Lymph % (Auto) 42.8 % [place] % (Auto) 9.5 % Eos % (Auto) 2.4 % Baso % (Auto) 0.5 % Neut # (Auto) 3.32 (1.8-7.7) 10^3/u L Lymph # (Auto) 3.2 (0.8-4.8) 10^3/u L [place] # (Auto) 0.7 (0.2-0.9) 10^3/u L Eos # (Auto) 0.2 (0.0-0.8) 10^3/u L Baso # (Auto) 0.0 (0.0-0.1) 10^3/u L Nucleated RBC % (a uto) 0 % Nucleated RBCs # 0.0 /100WBC Sodium 134 L (136-145) mmol/L Potassium 4.9 (3.5-5.1) mmol/L Chloride 101 (98-107) mmol/L Carbon Dioxide 25 (22-29) mmol/L Anion Gap 12.9 (5-19) BUN 15 (6-20) mg/dL Creatinine 0.6 (0.5-0.9) mg/dL GFR Calculation 105.4 (90-130) mL/min Glucose 111 (65-115) mg/dL Calculated Osmolal ity 275 L (285-295) mOsm/k g Calcium 10.7 H (8.5-10.5) mg/dL Total Bilirubin 0.2 (0.15-1.2) mg/dL AST 73 H (0-32) U/L ALT 162 H (0-33) U/L Alkaline Phosphata se 123 H (35-105) IU/L Total Protein 8.2 (6.6-8.7) g/dL Albumin 4.7 (3.5-5.2) g/dL Globulin 3.5 (1.3-4.6) g/dL Lipase 64 H (13-60) U/L Urine Color Yellow (Yellow) Urine Appearance Clear (CLEAR) Urine pH 6 (5-7) Ur Specific Gravit y 1.020 (1.005-1.030) Urine Protein Neg (Negative) Urine Glucose (UA) Norm (Normal) Urine Ketones Negative (Negative) Urine Blood Neg (Negative) Urine Nitrate Negative (Negative) Urine Bilirubin Neg (NEGATIVE) Urine Urobilinogen Norm (Negative) mg/dL Ur Leukocyte Susana ase Negative (Negative) Imaging Data ^: CT Abd/Pel: Radiologist's impression: [place] [address] CT Scan Report Signed Patient: Viola Woods Unit #: [id number] : 1970 Age/Sex: 49 / F ADM Date: 05/01/20 Loc: ER Room/Bed: Attending Dr: Ordering Provider/Ordering MD: Radha Osullivan MD Date of Service: 05/01/20 Procedure(s): CT abdomen pelvis w con* [id number] Accession Number(s): [id number] Report Number: [id number] PROCEDURE INFORMATION: Exam: CT Abdomen And Pelvis With Contrast Exam date and time: 05/01/2020 6:03 PM Age: 49 years old Clinical indication: Abdominal pain; Prior surgery; Surgery type: Hyst, gb, appy; Additional info: Abd pain TECHNIQUE: Imaging protocol: Computed tomography of the abdomen and pelvis with intravenous contrast. Radiation optimization: All CT scans at this facility use at least one of these dose optimization techniques: automated exposure control; mA and/or kV adjustment per patient size (includes targeted exams where dose is matched to clinical indication); or iterative reconstruction. Contrast material: OMNI 300; Contrast volume: 95 ml; Contrast route: INTRAVENOUS (IV); COMPARISON: CT abdomen pelvis w con* [id number] 12/02/2019 5:14 PM RADIATION DOSE METRICS: Total DLP (mGy-cm): 683.41 FINDINGS: Liver: Tiny benign cyst in the left lobe liver is not changed. Gallbladder and bile ducts: There has been a cholecystectomy. There is mild biliary tract dilatation consistent with post cholecystectomy status not significantly changed. Pancreas: The pancreas is normal. Spleen: The spleen is normal. Adrenals: The adrenal glands are normal. Kidneys and ureters: The kidneys are normal. There is no evidence of hydronephrosis. Stomach and bowel: There is no evidence of colitis/diverticulitis. Mild gaseous and fluid distention of some small bowel loops may represent mild ileus. There is no evidence for bowel obstruction. Appendix: There has been an appendectomy. Intraperitoneal space: Unremarkable. No free air. No significant fluid collection. Vasculature: Unremarkable. No abdominal aortic aneurysm. Lymph nodes: Unremarkable. No enlarged lymph nodes. Bladder: Unremarkable as visualized. Reproductive: There has been a hysterectomy. Bones/joints: Degenerative changes L5-S1 is stable. Soft tissues: Unremarkable. CT/CT abdomen pelvis w con* [id number] IMPRESSION: Possible mild ileus. Otherwise no acute finding. Discharge Plan Discharge Patient Disposition: Home Clinical Impression: Abdominal pain Qualifiers: Abdominal location: generalized Qualified Code(s): R10.84 - Generalized abdominal pain Condition: Stable Prescriptions: New ondansetron 4 mg tablet,disintegrating 4 mg PO Q6H PRN (Reason: nausea and vomiting) Qty: 14 RF: 0 dicyclomine 20 mg tablet 20 mg PO TID PRN (Reason: abdominal pain) Qty: 20 RF: 0 No Action gabapentin 600 mg tablet 600 mg PO BID Qty: 60 RF: 0 oxycodone 5 mg capsule 5 mg PO Q6H PRN (Reason: pain) Qty: 10 RF: 0 Tylenol 325 mg Tablet 650 mg PO PRN PRN (Reason: Pain) RF: 0 mirtazapine [Remeron] 30 mg tablet 30 mg PO .qhs 30 Days Qty: 30 RF: 1 Discharge Orders: Discharge Order (Routine); Ordered 05/01/20 Ordered By: Radha Osullivan Discharge Diet: Advance as tolerated Discharge Activity: Resume usual activity Patient Instructions: Abdominal Pain (ED) Coding Level of Care Code ED Superintendent Communications for Chg Fwd Exam Comprehensive
[2020-05-01 17:18] LABS: Add Urine Microscopic? NO
--- NOTE | 2020-05-01 17:31 | XRR_ITS ---
PROCEDURE INFORMATION: Exam: XR Abdomen, 1 View Exam date and time: 05/01/2020 5:54 PM Age: 49 years old Clinical indication: Abdominal pain; Generalized; Prior surgery; Additional info: Abd pain TECHNIQUE: Imaging protocol: XR of the abdomen. Views: Frontal supine view of the abdomen. 1 View. COMPARISON: CT abdomen pelvis w con* [id number] 12/02/2019 5:14 PM FINDINGS: Gastrointestinal tract: Bowel gas pattern is nonspecific. No mass effect upon the bowel loops. Distal rectal gas. Scattered loops of air filled small bowel none of which are dilated. Large amount of stool throughout the large bowel. Bones/joints: No acute process within the osseous structures of the spine or pelvis. Soft tissues: No appreciable calcifications XR/XR KUB [id number] IMPRESSION: 1. Bowel gas pattern is nonspecific. 2. Large amount of stool throughout the large bowel.
[2020-05-01 17:32] LABS: Urine Appearance Clear (CLEAR); Urine Color Yellow (Yellow)
[2020-05-01 17:33] LABS: Bilirubin Urine Neg (NEGATIVE); Blood Urine Neg (Negative); Glucose Urine UA Norm (Normal); Ketones Urine Negative (Negative); Leukocyte Esterase Urine Negative (Negative); Nitrate Urine Negative (Negative); Protein Urine Neg (Negative); Urobilinogen Urine Norm (Negative); pH Urine 6 (5-7)
[2020-05-01 17:36] VITALS: BP 144/87; PULSE 91; RESP 20; O2SAT 96
[2020-05-01 17:39] LABS: Alanine Aminotransferase 162 U/L (0-33); Albumin Level 4.7 g/dL (3.5-5.2); Alkaline Phosphatase 123 IU/L (35-105); Anion Gap 12.9 (5-19); Aspartate Amino Transferase 73 U/L (0-32); Blood Urea Nitrogen 15 mg/dL (6-20); Calcium 10.7 mg/dL (8.5-10.5); Carbon Dioxide 25 mmol/L (22-29); Chloride 101 mmol/L (98-107); Globulin 3.5 g/dL (1.3-4.6); Glomerular Filtration Rate 105.4 mL/min (90-130); Glucose 111 mg/dL (65-115); Lipase 64 U/L (13-60); Osmolality Calculated 275 mOsm/kg (285-295); Potassium 4.9 mmol/L (3.5-5.1); Sodium 134 mmol/L (136-145); Total Bilirubin 0.2 mg/dL (0.15-1.2); Total Protein 8.2 g/dL (6.6-8.7)
[2020-05-01 17:51] VITALS: RESP 20
[2020-05-01] MEDS: metoclopramide 5 mg/mL SDV 2 mL 10 MG IVP (17:51)
[2020-05-01] MEDS: diphenhydrAMINE 50 mg/mL SDV 1mL IVP (17:51)
[2020-05-01] MEDS: morphine 4 mg/mL SDV 1 mL IVP (17:51)
--- NOTE | 2020-05-01 18:00 | CTR_ITS ---
PROCEDURE INFORMATION: Exam: CT Abdomen And Pelvis With Contrast Exam date and time: 05/01/2020 6:03 PM Age: 49 years old Clinical indication: Abdominal pain; Prior surgery; Surgery type: Hyst, gb, appy; Additional info: Abd pain TECHNIQUE: Imaging protocol: Computed tomography of the abdomen and pelvis with intravenous contrast. Radiation optimization: All CT scans at this facility use at least one of these dose optimization techniques: automated exposure control; mA and/or kV adjustment per patient size (includes targeted exams where dose is matched to clinical indication); or iterative reconstruction. Contrast material: OMNI 300; Contrast volume: 95 ml; Contrast route: INTRAVENOUS (IV); COMPARISON: CT abdomen pelvis w con* [id number] 12/02/2019 5:14 PM RADIATION DOSE METRICS: Total DLP (mGy-cm): 683.41 FINDINGS: Liver: Tiny benign cyst in the left lobe liver is not changed. Gallbladder and bile ducts: There has been a cholecystectomy. There is mild biliary tract dilatation consistent with post cholecystectomy status not significantly changed. Pancreas: The pancreas is normal. Spleen: The spleen is normal. Adrenals: The adrenal glands are normal. Kidneys and ureters: The kidneys are normal. There is no evidence of hydronephrosis. Stomach and bowel: There is no evidence of colitis/diverticulitis. Mild gaseous and fluid distention of some small bowel loops may represent mild ileus. There is no evidence for bowel obstruction. Appendix: There has been an appendectomy. Intraperitoneal space: Unremarkable. No free air. No significant fluid collection. Vasculature: Unremarkable. No abdominal aortic aneurysm. Lymph nodes: Unremarkable. No enlarged lymph nodes. Bladder: Unremarkable as visualized. Reproductive: There has been a hysterectomy. Bones/joints: Degenerative changes L5-S1 is stable. Soft tissues: Unremarkable. CT/CT abdomen pelvis w con* [id number] IMPRESSION: Possible mild ileus. Otherwise no acute finding. Radiation Dose CTDIVOL = (mGy): DLP = 683.41 (mGy-cm)
[2020-05-01 18:03] VITALS: BP 136/92; PULSE 88; RESP 18; O2SAT 96
[2020-05-01] MEDS: iohexol 300 mg/mL 100 mL Btl 95 ML IV (18:14)
[2020-05-01 18:29] VITALS: BP 152/87; PULSE 81; RESP 18; O2SAT 96
[2020-05-01 19:05] VITALS: BP 152/87; PULSE 81; RESP 18; TEMP 37; O2SAT 95
== END 2020-05-01 19:08 | disposition home or self-care (01) ==
PROVIDERS: Emergency Provider Emergency Medicine
DX: R10.84 Generalized abdominal pain (principal); Z86.19 Personal history of other infectious and parasitic diseases; F17.210 Nicotine dependence, cigarettes, uncomplicated
CPT/HCPCS: 12345; 36415; 74018; 74177; 80053; 81003; 83690; 85025; 96374; 96375; 99283; J1200; J2270; J2765; Q9967

== ENCOUNTER 2020-06-18 11:22 | Emergency (ER) | payer MEDICAID, SELFPAY ==
[2020-06-18 11:37] VITALS: BP 162/98; PULSE 93; RESP 18; TEMP 36.2; O2SAT 96; BMI 28.7
--- NOTE | 2020-06-18 11:51 | CT_ITS ---
WS: [id number] CT ABDOMEN PELVIS TECHNIQUE: Contrast-enhanced CT of the abdomen and pelvis with coronal and sagittal reformatted image s. CLINICAL INFORMATION: abd pain COMPARISON: None. DLP: 825.[address] scans at [facility] use at least one of these dose optimization techniques: automat ed exposure control; mA and/or kV adjustment per patient size (includes targeted exams where dose is matched to clinical indication); or iterative reconstruction. FINDINGS: Cholecystectomy. Prior hysterectomy. Mild diffuse fatty infiltration liver. A few tiny hepatic cysts. Normal GE junction. Lung bases are well aerated. Adrenal glands are normal. Normal renal parenchymal enhancement. No hydronephrosis. Normal spleen. Normal visualized pancreas. Normal caliber abdominal aorta. Tiny incidental fat-containing abdominal hernia. Normal sigmoid colon. No evidence of high-grade small or large bowel obstruction. Prior appendectomy. No abdominal lymphadenopathy. No pelvic or inguinal lymphadenopathy. Disc space narrowing L5-S1. Por taylor vein and splenic vein are patent. CT/CT abdomen pelvis w con* [id number] IMPRESSION: 1. Mild diffuse fatty infiltration liver. A few tiny hepatic cysts. 2. Prior cholecystectomy. 3. Normal renal parenchymal enhancement. No hydronephrosis. 4. No evidence of small or large bowel obstruction. 5. No free fluid in the pelvis. 6. No acute abdominal or pelvic findings. Attempted notification Radha Osullivan MD at 06/18/2020 12:31 PM.
--- NOTE | 2020-06-18 11:54 | W.ED.ABDPA2 ---
HPI - Abdominal Pain General: Chief Complaint: Abdominal Pain Stated Complaint: abdominal pain Time Seen by Provider: 06/18/20 11:47 Source: patient Mode of arrival: ambulatory Limitations: no limitations History of Present Illness: HPI narrative: 49-year-old female who has chronic abdominal pain states she has been having right upper quadrant abdominal pain over the last 2 to 3 days. Patient states the pain is sharp in nature and rates today 6 out of 10. She has had some fullness feeling and nausea. MD elicited complaint: abdominal pain Associated Symptoms: Denies chills, dysuria and fever(s) Review of Systems Const: Denies: fever(s), chills, body aches or change in appetite Eyes: Denies: blurry vision or eye discomfort ENMT: Denies: throat pain or dental pain Card: Denies: chest pain Resp: Denies: dyspnea GI: Reports: abdominal pain : Denies: dysuria Musc: Denies: neck pain or back pain Skin/Breast: Denies: rash Neuro: Denies: headache(s) Psych: Denies: depression Wolf/Lymph: Denies: easy bruising All/Imm: Denies: urticaria PFSH ED PFSH: Medical History Alcohol use disorder, severe, in early remission Amphetamine use disorder, mild, in sustained remission Chronic post-traumatic stress disorder (PTSD) Hepatitis C Major depressive disorder, recurrent, moderate Remeron is helpful for depressed mood symptoms and sleep impairment. Surgical History H/O: hysterectomy History of appendectomy History of lung biopsy Hx of tonsillectomy Status post laparoscopic cholecystectomy Social History Smoking and tobacco status: current every day smoker cigarettes Packs smoked per day: 0.5 Years cigarettes smoked: 30 Quit status (tobacco): not considering quitting Second hand smoke exposure: No Alcohol intake: former Substance/Drug Use: never Current gender identity: Female Physical Exam Const: COMMON NORMALS: no acute distress, patient oriented x3 and healthy appearing HENMT: COMMON NORMALS: normocephalic and atraumatic HEAD & SCALP: normocephalic and atraumatic Eye: COMMON NORMALS: Equal, round and reactive pupils present and EOMs intact bilaterally PUPIL: Yes Equal, round and reactive pupils present Neck/C-Spine: COMMON NORMALS: full ROM and supple Chest: COMMONS NORMALS: normal inspection of the chest and normal palpation of entire chest wall Resp: COMMON NORMALS: normal respiratory effort, No retractions, No use of accessory muscles and clear to auscultation bilaterally AUSCULTATION: clear to auscultation bilaterally Cardio: COMMON NORMALS: regular rate, regular rhythm and No murmurs present (Cardio) RATE: regular rate RHYTHM: regular rhythm GI: COMMON NORMALS: Normal to inspection, nondistended, normoactive bowel sounds present, Soft to palpation, non-tender and no masses PALPATION: Yes Soft to palpation and Yes Tenderness to palpation present (GI) Details: RUQ Extremity: COMMON NORMALS: normal to inspection and full ROM Neuro: COMMON NORMALS: patient oriented x3, moves all extremities and no focal motor deficits Psych: COMMON NORMALS: mental status grossly normal, Normal thought process present and cooperative THOUGHT PROCESS: Normal thought process present Skin: COMMON NORMALS: no rashes or lesions noted and no wounds GENERAL SKIN EXAM: no rashes or lesions noted Course Vital Signs: Vital signs: Vital Signs Temperature 97.2 F L 06/18/20 11:37 Pulse Rate 93 06/18/20 11:37 Respiratory Rate 18 06/18/20 12:13 Blood Pressure 162/98 06/18/20 11:37 Pulse Oximetry 99 06/18/20 12:13 MDM - Abdominal Pain MDM Narrative: Medical decision making narrative: Simeon presents here with abdominal pain. Patient CT scan and blood work here are normal. She has no signs of acute surgical cause for her pain. She is well-appearing here and is stable for discharge. She is to follow-up with her PCP in 3 to 5 days return if worsening. Lab Data: Labs: Lab Results 06/18/20 06/18/20 06/18/20 Range/Units 12:00 12:03 12:03 WBC 6.4 (4.0-10.0) 10^3/ uL RBC 4.62 (4.1-5.3) 10^6/u L Hgb 13.9 (11.5-15.3) g/dL Hct 43.4 (37.0-47.0) % MCV 93.9 (81-99) fL MCH 30.1 (28.0-34.0) pg MCHC 32.0 (30.0-36.0) g/dL RDW 15.0 (12.1-15.1) % Plt Count 228 (130-400) 10^3/c mm MPV 9.4 (7.4-10.4) fL Neut % (Auto) 50.6 % Lymph % (Auto) 36.3 % [place] % (Auto) 9.5 % Eos % (Auto) 2.8 % Baso % (Auto) 0.6 % Neut # (Auto) 3.24 (1.8-7.7) 10^3/u L Lymph # (Auto) 2.3 (0.8-4.8) 10^3/u L [place] # (Auto) 0.6 (0.2-0.9) 10^3/u L Eos # (Auto) 0.2 (0.0-0.8) 10^3/u L Baso # (Auto) 0.0 (0.0-0.1) 10^3/u L Nucleated RBC % (a uto) 0 % Nucleated RBCs # 0.0 /100WBC Sodium 138 (136-145) mmol/L Potassium 4.4 (3.5-5.1) mmol/L Chloride 104 (98-107) mmol/L Carbon Dioxide 24 (22-29) mmol/L Anion Gap 14.4 (5-19) BUN 7 (6-20) mg/dL Creatinine 0.6 (0.5-0.9) mg/dL GFR Calculation 105.4 (90-130) mL/min Glucose 102 (65-115) mg/dL Calculated Osmolal ity 284 L (285-295) mOsm/k g Calcium 10.6 H (8.5-10.5) mg/dL Total Bilirubin 0.2 (0.15-1.2) mg/dL AST 28 (0-32) U/L ALT 31 (0-33) U/L Alkaline Phosphata se 94 (35-105) IU/L Total Protein 8.0 (6.6-8.7) g/dL Albumin 4.5 (3.5-5.2) g/dL Globulin 3.5 (1.3-4.6) g/dL Lipase 42 (13-60) U/L Urine Color Yellow (Yellow) Urine Appearance Clear (CLEAR) Urine pH 6 (5-7) Ur Specific Gravit y 1.005 (1.005-1.030) Urine Protein Neg (Negative) Urine Glucose (UA) Norm (Normal) Urine Ketones Negative (Negative) Urine Blood Neg (Negative) Urine Nitrate Negative (Negative) Urine Bilirubin Neg (Negative) Urine Urobilinogen Norm (Negative) mg/dL Ur Leukocyte Susana ase Negative (Negative) Imaging Data ^: CT Abd/Pel: Attestation: I personally reviewed and interpreted this imaging study as follows: Radiologist's impression: [address] [place] [address] CT Scan Report Signed Patient: Viola Woods Unit #: [id number] : 1970 Age/Sex: 49 / F ADM Date: 06/18/20 Loc: ER Room/Bed: Attending Dr: Ordering Provider/Ordering MD: Radha Osullivan MD Date of Service: 06/18/20 Procedure(s): CT abdomen pelvis w con* [id number] Accession Number(s): [id number] Report Number: [id number] WS: [id number] CT ABDOMEN PELVIS TECHNIQUE: Contrast-enhanced CT of the abdomen and pelvis with coronal and sagittal reformatted images. CLINICAL INFORMATION: abd pain COMPARISON: None. DLP: 825.[address] scans at [facility] use at least one of these dose optimization techniques: automated exposure control; mA and/or kV adjustment per patient size (includes targeted exams where dose is matched to clinical indication); or iterative reconstruction. FINDINGS: Cholecystectomy. Prior hysterectomy. Mild diffuse fatty infiltration liver. A few tiny hepatic cysts. Normal GE junction. Lung bases are well aerated. Adrenal glands are normal. Normal renal parenchymal enhancement. No hydronephrosis. Normal spleen. Normal visualized pancreas. Normal caliber abdominal aorta. Tiny incidental fat-containing abdominal hernia. Normal sigmoid colon. No evidence of high-grade small or large bowel obstruction. Prior appendectomy. No abdominal lymphadenopathy. No pelvic or inguinal lymphadenopathy. Disc space narrowing L5-S1. Portal vein and splenic vein are patent. CT/CT abdomen pelvis w con* [id number] IMPRESSION: 1. Mild diffuse fatty infiltration liver. A few tiny hepatic cysts. 2. Prior cholecystectomy. 3. Normal renal parenchymal enhancement. No hydronephrosis. 4. No evidence of small or large bowel obstruction. 5. No free fluid in the pelvis. 6. No acute abdominal or pelvic findings. Discharge Plan Discharge Patient Disposition: Home Clinical Impression: Abdominal pain Qualifiers: Abdominal location: right upper quadrant Qualified Code(s): R10.11 - Right upper quadrant pain Condition: Stable Prescriptions: New Reglan 10 mg tablet 10 mg PO Q6H PRN (Reason: nausea and vomiting) Qty: 20 RF: 0 No Action gabapentin 600 mg tablet 600 mg PO BID Qty: 60 RF: 1 mirtazapine [Remeron] 15 mg tablet 15 mg PO DAILY Qty: 30 RF: 1 sucralfate [Carafate] 1 gram tablet 1 gm PO Q6H Qty: 120 RF: 2 pantoprazole [Protonix] 40 mg tablet,delayed release (DR/EC) 40 mg PO BID Qty: 60 RF: 2 acetaminophen [Tylenol] 325 mg Tablet 650 mg PO PRN PRN (Reason: Pain) RF: 0 Discharge Orders: Discharge Order (Routine); Ordered 06/18/20 Ordered By: Rdaha Osullivan Discharge Diet: Advance as tolerated Discharge Activity: Resume usual activity Patient Instructions: Abdominal Pain (ED) Coding Level of Care Code 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
[2020-06-18 12:08] LABS: Basophils % 0.6 %; Eosinophils # 0.2 10^3/uL (0.0-0.8); Eosinophils % 2.8 %; Hematocrit 43.4 % (37.0-47.0); Hemoglobin 13.9 g/dL (11.5-15.3); Lymphocytes # 2.3 10^3/uL (0.8-4.8); Lymphocytes % 36.3 %; Mean Corpuscular Hemoglobin 30.1 pg (28.0-34.0); Mean Corpuscular Volume 93.9 fL (81-99); Mean Platelet Volume 9.4 fL (7.4-10.4); Monocytes # 0.6 10^3/uL (0.2-0.9); Monocytes % 9.5 %; Neutrophils # 3.24 10^3/uL (1.8-7.7); Neutrophils % 50.6 %; Nucleated Red Blood Cells % 0 %; Platelet Count 228 10^3/cmm (130-400); Red Blood Count 4.62 10^6/uL (4.1-5.3); White Blood Count 6.4 10^3/uL (4.0-10.0)
[2020-06-18 12:13] VITALS: RESP 18; O2SAT 99
[2020-06-18] MEDS: morphine 4 mg/mL SDV 1 mL IVP (12:13)
[2020-06-18] MEDS: iohexol 300 mg/mL 100 mL Btl IV (12:19)
[2020-06-18 12:21] LABS: Add Urine Microscopic? NO
[2020-06-18] MEDS: ondansetron 2 mg/ML SDV 2 mL 4 MG IVP (12:21)
[2020-06-18] MEDS: sodium chloride 0.9% 1,000 ML 999 ML IV (12:21)
[2020-06-18 12:24] LABS: Bilirubin Urine Neg (Negative); Blood Urine Neg (Negative); Glucose Urine UA Norm (Normal); Ketones Urine Negative (Negative); Leukocyte Esterase Urine Negative (Negative); Nitrate Urine Negative (Negative); Protein Urine Neg (Negative); Specific Gravity, Urine 1.005 (1.005-1.030); Urine Appearance Clear (CLEAR); Urine Color Yellow (Yellow); Urobilinogen Urine Norm (Negative); pH Urine 6 (5-7)
[2020-06-18 12:27] LABS: Alanine Aminotransferase 31 U/L (0-33); Albumin Level 4.5 g/dL (3.5-5.2); Alkaline Phosphatase 94 IU/L (35-105); Anion Gap 14.4 (5-19); Aspartate Amino Transferase 28 U/L (0-32); Blood Urea Nitrogen 7 mg/dL (6-20); Calcium 10.6 mg/dL (8.5-10.5); Carbon Dioxide 24 mmol/L (22-29); Chloride 104 mmol/L (98-107); Globulin 3.5 g/dL (1.3-4.6); Glomerular Filtration Rate 105.4 mL/min (90-130); Glucose 102 mg/dL (65-115); Lipase 42 U/L (13-60); Osmolality Calculated 284 mOsm/kg (285-295); Potassium 4.4 mmol/L (3.5-5.1); Sodium 138 mmol/L (136-145); Total Bilirubin 0.2 mg/dL (0.15-1.2)
[2020-06-18] MEDS: metoclopramide 5 mg/mL SDV 2 mL 10 MG IVP (13:10)
[2020-06-18] MEDS: diphenhydrAMINE 50 mg/mL SDV 1mL IVP (13:11)
[2020-06-18 13:30] VITALS: BP 139/98; PULSE 81; RESP 14; O2SAT 99
== END 2020-06-18 13:30 | disposition home or self-care (01) ==
PROVIDERS: Emergency Provider Emergency Medicine
DX: R10.11 Right upper quadrant pain (principal); Z86.19 Personal history of other infectious and parasitic diseases; F17.210 Nicotine dependence, cigarettes, uncomplicated
CPT/HCPCS: 12345; 74177; 80053; 81003; 83690; 85025; 96361; 96374; 96375; 99282; 99283; J1200; J2270; J2405; J2765; J7030; Q9967

== ENCOUNTER → 2020-06-26 15:19 | Outpatient (BNVA) | payer MEDICAID, SELFPAY | PROVIDERS: Visit Provider Surgery | DX: Z11.59 Encounter for screening for other viral diseases (principal) | CPT/HCPCS: 87635 ==

== ENCOUNTER 2020-07-03 12:55 | Emergency (ER) | payer MEDICAID, SELFPAY ==
[2020-07-03 13:00] VITALS: BP 154/81; PULSE 114; RESP 18; TEMP 36.8; O2SAT 92; BMI 28.3
--- NOTE | 2020-07-03 13:03 | XR_ITS ---
WS: [id number] XR wrist LT min 3V* [id number] REASON FOR EXAM: fall - wrist pain FINDINGS: Normal alignment of the left wrist. No cortical disruption or focal bone lesion is identified. The joint spaces of the left wrist are well preserved. No soft tissue abnormality is noted. XR/XR wrist LT min 3V* [id number] IMPRESSION: No fracture or dislocation of the left wrist.
[2020-07-03 13:10] VITALS: BP 154/84; PULSE 104; RESP 19; O2SAT 95
--- NOTE | 2020-07-03 13:16 | ED_ITS ---
HPI - Extremity Problem General: Chief complaint: Extremity Injury, Upper Stated complaint: FELL, INJURY TO L WRIST Time Seen by Provider: 07/03/20 12:59 History of Present Illness: HPI Narrative: 49-year-old female patient presents to the emergency department with onset of left wrist pain after she sustained a fall, FOOSH injury. She reports was mopping the floor when she slipped and fell. Attempted to break her fall with her outstretched left hand. She reports today, onset of swelling with bruising to the volar side. Pain with movement. MD Complaint: joint pain (Left wrist) Onset (ago): day(s) (1) Pain Consistency: intermittent Location: left and upper extremity Severity scale (1-10): 5 Quality: aching and constant Radiation: proximal and distal Relieving factors: immobilization Exacerbating factors: range of motion Associated symptoms: Reports no associated symptoms; Deny chest pain, fever(s) or rash Review of Systems General: Reports: 10 or more systems reviewed and unremarkable except in HPI and below Const: Denies: fever(s), chills or diaphoresis Eyes: Denies: blurry vision or eye redness ENMT: Denies: throat pain, dental pain or disequilibrium Card: Denies: chest pain, palpitations or irregular heart rhythm Resp: Denies: dyspnea, productive cough, non-productive cough or wheezing GI: Denies: abdominal pain, nausea or vomiting : Denies: difficulty voiding or dysuria Musc: Reports: joint pain (Left wrist) and joint swelling (Left breast); Denies: neck pain or back pain Skin/Breast: Denies: rash or pruritus Neuro: Denies: headache(s), weakness in extremities or behavioral changes Psych: Denies: anxiety or depression Wolf/Lymph: Denies: easy bruising PFS ED PFSH: Medical History (Updated 07/03/20 @ 13:36 by CARRI Serrano) Alcohol use disorder, severe, in early remission Amphetamine use disorder, mild, in sustained remission Chronic post-traumatic stress disorder (PTSD) Hepatitis C Major depressive disorder, recurrent, moderate Remeron is helpful for depressed mood symptoms and sleep impairment. Surgical History H/O: hysterectomy History of appendectomy History of lung biopsy Hx of tonsillectomy Status post laparoscopic cholecystectomy Social History Smoking and tobacco status: current every day smoker cigarettes Packs smoked per day: 0.5 Years cigarettes smoked: 30 Quit status (tobacco): not considering quitting Second hand smoke exposure: No Alcohol intake: former Current gender identity: Female Physical Exam Const: COMMON NORMALS: no acute distress, patient oriented x3, healthy appearing and alert GENERAL APPEARANCE: cooperative, comfortable and well hydrated HENMT: COMMON NORMALS: normocephalic, Normal external nose present and moist oral mucous membranes HEAD & SCALP: normocephalic NOSE: Normal external nose present Eye: COMMON NORMALS: Equal, round and reactive pupils present and EOMs intact bilaterally GENERAL EYE: appearance normal, both eyes and all related structures PUPIL: Yes Equal, round and reactive pupils present Neck/C-Spine: COMMON NORMALS: full ROM and no lymphadenopathy GENERAL: Yes normal visual inspection and Yes trachea midline CERVICAL SPINE: Yes cervical ROM normal, No pain with cervical ROM, No Cervical spine tenderness, No Paracervical muscle tenderness and No Trapezius muscle tenderness Lymph: LYMPHATIC: no lymphadenopathy noted Chest: COMMONS NORMALS: normal inspection of the chest Resp: COMMON NORMALS: normal respiratory effort and clear to auscultation bilaterally AUSCULTATION: clear to auscultation bilaterally Cardio: COMMON NORMALS: regular rhythm, S1 normal heart sound present, S2 normal heart sound present and Peripheral pulses 2+ throughout RHYTHM: regular rhythm HEART SOUNDS: S1 normal heart sound present and S2 normal heart sound present PERIPHERAL PULSES: Peripheral pulses 2+ throughout GI: COMMON NORMALS: Normal to inspection, nondistended, normoactive bowel sounds present, Soft to palpation and non-tender INSPECTION: Yes normal to inspection PALPATION: Yes Soft to palpation : COMMON NORMALS: Yes no CVA tenderness BLADDER/KIDNEY EXAM: Yes no CVA tenderness Back/Pelvis: COMMON NORMALS: no CVA tenderness and thoracic and lumbar spine normal to inspection Extremity: COMMON NORMALS: normal to inspection and capillary refill normal GENERAL: Yes normal exam except as noted LEFT UPPER EXTREMITY: Yes wrist Left wrist: Yes inspection (Slight swelling noted dorsally), Yes palpation (Pain with palpation to the left wrist, no pain to the left hand palmar or dorsal. Full range of motion noted to the phalanges distally), Yes ROM (Pain reproduced to the left wrist with pronation and supination) and Yes neurovascular exam (Distally intact) OTHER: Neuro: COMMON NORMALS: patient oriented x3 and no focal motor deficits SENSORIUM/ORIENTATION: Yes alert Psych: COMMON NORMALS: mental status grossly normal, Normal thought process present and cooperative ACTIVITY/MOTOR BEHAVIOR: Yes appropriate eye contact THOUGHT PROCESS: Normal thought process present Skin: COMMON NORMALS: no rashes or lesions noted and turgor normal GENERAL SKIN EXAM: no rashes or lesions noted and turgor normal Course ED course: 79-year-old female patient presents to the emergency department w ith 24-hour history of left wrist pain after she sustained a fall, FOOSH injury. Able to complete pronation supination with pain reproduced to the left wrist, preliminary findings of left wrist x-ray without acute fracture; however, radiology interpretation remains pending. Patient will be contacted if fracture is appreciated. She will then be referred to orthopedic surgery. She has requested narcotics upon this, case discussed with Dr. Osullivan, narcotics were not recommended at this time, no further orders. Patient was reexamined for left upper extremity injury, not able to reproduce pain to the shoulder elbow or hand/proximal forearm. Neurovascular exam remains unchanged, intact, status post splint placement. Vital Signs: Vital signs: Vital Signs Temperature 98.3 F 07/03/20 13:00 Pulse Rate 104 H 07/03/20 13:10 Respiratory Rate 19 H 07/03/20 13:10 Blood Pressure 154/84 07/03/20 13:10 Pulse Oximetry 95 07/03/20 13:10 Discharge Plan Discharge Patient Disposition: Home Clinical Impression: Sprain and strain of wrist Fracture of wrist Qualifiers: Encounter type: initial encounter Fracture type: closed Laterality: left Qualified Code(s): S62.102A - Fracture of unspecified carpal bone, left wrist, initial encounter for closed fracture Condition: Stable Prescriptions: No Action gabapentin 600 mg tablet 600 mg PO BID Qty: 60 RF: 1 mirtazapine [Remeron] 15 mg tablet 15 mg PO DAILY Qty: 30 RF: 1 sucralfate [Carafate] 1 gram tablet 1 gm PO Q6H Qty: 120 RF: 2 pantoprazole [Protonix] 40 mg tablet,delayed release (DR/EC) 40 mg PO BID Qty: 60 RF: 2 acetaminophen [Tylenol] 325 mg Tablet 650 mg PO PRN PRN (Reason: Pain) RF: 0 Reglan 10 mg tablet 10 mg PO Q6H PRN (Reason: nausea and vomiting) Qty: 20 RF: 0 Discharge Orders: Discharge Order (Routine); Ordered 07/03/20 Ordered By: Luzma Ayala Discharge Diet: Usual diet Discharge Activity: Limit activity as instructed Patient Instructions: Wrist Injury (ED), Splint Care (ED), Wrist Sprain (ED) Activity Restrictions/Additional Instructions: Radiology interpretation, formal review of left wrist x-ray remains pending application services manager will contact you with follow-up with orthopedic surgery Wear the splint as this will help with pain and immobilization of the wrist, this will also help with pain and swelling. Keep cool compresses on the left wrist several times daily, avoid direct contact of ice to the skin If you develop redness, swelling of the left arm, increased pain, inability to move your fingers, you will need to return to the emergency department. Limit use of the left wrist due to injury. 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
[2020-07-03] MEDS: HYDROcodone-acetaminophen 5-325 mg Tablet 1 TAB PO (13:20)
--- NOTE | 2020-07-03 14:00 | DCPLANNER ---
manager of operations was asked to schedule a follow up appointment for patient with the ortho clinic. manager of operations called the ortho clinic spoke with Deneen, gave clinic patients information. manager of operations was told that patients information would be printed and reviewed. Clinic will call patient with appointment information.
[2020-07-03 14:14] VITALS: BP 169/51; PULSE 95; RESP 18; O2SAT 96
--- NOTE | 2020-07-08 16:03 | DCPLANNER ---
residential care facility manager spoke with Ida [facility] about follow up appointment. residential care facility manager was told that patient is to follow up with primary care, patient is aware that she is to follow up with primary care physician.
== END 2020-07-03 14:05 | disposition home or self-care (01) ==
PROVIDERS: Emergency Provider Nurse Practitioner Family
DX: S63.502A Unspecified sprain of left wrist, initial encounter (principal); S66.912A Strain of unspecified muscle, fascia and tendon at wrist and hand level, left hand, initial encounter; Z86.19 Personal history of other infectious and parasitic diseases; F17.210 Nicotine dependence, cigarettes, uncomplicated; W01.0XXA Fall on same level from slipping, tripping and stumbling without subsequent striking against object, initial encounter
CPT/HCPCS: 12345; 29125; 73110; 99281; 99283

== ENCOUNTER 2020-07-04 11:17 | Emergency (ER) | payer MEDICAID, SELFPAY ==
[2020-07-04 12:04] VITALS: BP 178/103; PULSE 85; RESP 18; TEMP 36.6; O2SAT 96; BMI 4004.2
--- NOTE | 2020-07-04 12:27 | W.ED.EXTPRO ---
HPI - Extremity Problem General: Chief complaint: Extremity Problem,Nontraumatic Stated complaint: left wrist pain/fractured, here yesterday Time Seen by Provider: 07/04/20 11:43 History of Present Illness: HPI Narrative: 49-year-old female patient presents to the emergency department with continued left upper extremity pain. She was seen in the emergency department yesterday, diagnosed with a questionable radial styloid fracture, that was not appreciated on radiology final report. She reports continued pain, she states able to take naproxen last night but did not help. MD Complaint: extremity pain Location: left and upper extremity Quality: aching Radiation: proximal and distal Associated symptoms: Reports arthralgias (left wrist); Deny chest pain, fever(s) or rash Review of Systems General: Reports: 10 or more systems reviewed and unremarkable except in HPI and below Const: Denies: fever(s), chills or diaphoresis Eyes: Denies: blurry vision or eye redness ENMT: Denies: throat pain, dental pain or disequilibrium Card: Denies: chest pain, palpitations or irregular heart rhythm Resp: Denies: dyspnea, productive cough, non-productive cough or wheezing GI: Denies: abdominal pain, nausea or vomiting : Denies: difficulty voiding or dysuria Musc: Reports: joint pain (left wrist), joint stiffness (left wrist) and limited range of motion (left wrist); Denies: neck pain, back pain or joint warmth Skin/Breast: Denies: rash or pruritus Neuro: Denies: headache(s), weakness in extremities or behavioral changes Wolf/Lymph: Denies: easy bruising PFSH ED PFSH: Medical History (Updated 07/04/20 @ 12:43 by Luzma Ayala [facility]) Alcohol use disorder, severe, in early remission Amphetamine use disorder, mild, in sustained remission Chronic post-traumatic stress disorder (PTSD) Hepatitis C Major depressive disorder, recurrent, moderate Remeron is helpful for depressed mood symptoms and sleep impairment. Surgical History H/O: hysterectomy History of appendectomy History of lung biopsy Hx of tonsillectomy Status post laparoscopic cholecystectomy Social History Smoking and tobacco status: current every day smoker cigarettes Packs smoked per day: 0.5 Years cigarettes smoked: 30 Quit status (tobacco): not considering quitting Second hand smoke exposure: No Alcohol intake: former Current gender identity: Female Physical Exam Const: COMMON NORMALS: no acute distress, patient oriented x3, healthy appearing and alert GENERAL APPEARANCE: cooperative, comfortable and well hydrated HENMT: COMMON NORMALS: normocephalic, Normal external nose present and moist oral mucous membranes HEAD & SCALP: normocephalic NOSE: Normal external nose present Eye: COMMON NORMALS: Equal, round and reactive pupils present and EOMs intact bilaterally GENERAL EYE: appearance normal, both eyes and all related structures PUPIL: Yes Equal, round and reactive pupils present Neck/C-Spine: COMMON NORMALS: full ROM and no lymphadenopathy GENERAL: Yes normal visual inspection and Yes trachea midline CERVICAL SPINE: Yes cervical ROM normal Lymph: LYMPHATIC: no lymphadenopathy noted Chest: COMMONS NORMALS: normal inspection of the chest Resp: COMMON NORMALS: normal respiratory effort and clear to auscultation bilaterally AUSCULTATION: clear to auscultation bilaterally Cardio: COMMON NORMALS: regular rhythm, S1 normal heart sound present, S2 normal heart sound present and Peripheral pulses 2+ throughout RHYTHM: regular rhythm HEART SOUNDS: S1 normal heart sound present and S2 normal heart sound present PERIPHERAL PULSES: Peripheral pulses 2+ throughout GI: COMMON NORMALS: Soft to palpation and non-tender INSPECTION: Yes normal to inspection PALPATION: Yes Soft to palpation : COMMON NORMALS: Yes no CVA tenderness BLADDER/KIDNEY EXAM: Yes no CVA tenderness Back/Pelvis: COMMON NORMALS: no CVA tenderness and thoracic and lumbar spine normal to inspection Extremity: COMMON NORMALS: normal to inspection and capillary refill normal GENERAL: Yes normal exam except as noted RIGHT UPPER EXTREMITY: Yes lower arm (Not able to reproduce tenderness to the left forearm, proximal distal elbow, to the elbow pronation/supination intact) and Yes wrist (Tenderness to the volar side, slight ecchymosis noted, wrist splint was removed for visualization) Right wrist: Yes palpation (Volar), Yes ROM (Limited secondary to pain), Yes neurovascular exam (Distally intact) and Yes special tests (I was not able to produce tenderness over the scaphoid, left hand or phalanges of the left hand) Neuro: COMMON NORMALS: patient oriented x3 and no focal motor deficits SENSORIUM/ORIENTATION: Yes alert Psych: COMMON NORMALS: mental status grossly normal, Normal thought process present and cooperative ACTIVITY/MOTOR BEHAVIOR: Yes appropriate eye contact THOUGHT PROCESS: Normal thought process present Skin: COMMON NORMALS: no rashes or lesions noted and turgor normal GENERAL SKIN EXAM: no rashes or lesions noted and turgor normal Course ED course: 49-year-old female patient presents to the emergency department due to continued pain of the left upper extremity. Case discussed with Dr. Osullivan yesterday, abnormalities of the left wrist not identified, patient requested narcotic prescription, supervising physician did not authorize upon discussion. I discussed with her today, since occult fracture not appreciated, we are not able to administer narcotic prescriptions. Case discussed with Dr. Nelson, no new orders. I discussed with Viola other alternatives such as Salon Pas and to take Tylenol as needed for pain. She verbalized understanding. She also understands she will need to follow-up with her primary care physician rather than orthopedic surgery. Vital Signs: Vital signs: Vital Signs Temperature 97.8 F 07/04/20 12:04 Pulse Rate 81 07/04/20 12:50 Respiratory Rate 18 07/04/20 12:50 Blood Pressure 168/105 07/04/20 12:50 Pulse Oximetry 97 07/04/20 12:50 Discharge Plan Discharge Patient Disposition: Home Clinical Impression: Muscle strain of left wrist Qualifiers: Encounter type: initial encounter Qualified Code(s): S66.912A - Strain of unspecified muscle, fascia and tendon at wrist and hand level, left hand, initial encounter Contusion Qualifiers: Encounter type: initial encounter Contusion area: wrist Laterality: left Qualified Code(s): S60.212A - Contusion of left wrist, initial encounter Condition: Stable Prescriptions: New ibuprofen 800 mg tablet 800 mg PO TID PRN (Reason: pain) Qty: 30 RF: 0 No Action gabapentin 600 mg tablet 600 mg PO BID Qty: 60 RF: 1 mirtazapine [Remeron] 15 mg tablet 15 mg PO DAILY Qty: 30 RF: 1 sucralfate [Carafate] 1 gram tablet 1 gm PO Q6H Qty: 120 RF: 2 pantoprazole [Protonix] 40 mg tablet,delayed release (DR/EC) 40 mg PO BID Qty: 60 RF: 2 acetaminophen [Tylenol] 325 mg Tablet 650 mg PO PRN PRN (Reason: Pain) RF: 0 Reglan 10 mg tablet 10 mg PO Q6H PRN (Reason: nausea and vomiting) Qty: 20 RF: 0 Discharge Orders: Discharge Order (Routine); Ordered 07/04/20 Ordered By: Luzma Ayala Discharge Diet: Usual diet Discharge Activity: Limit activity as instructed Patient Instructions: Wrist Injury (ED), Strains Activity Restrictions/Additional Instructions: Fracture was not appreciated on left wrist x-ray from yesterday according to the radiologist Follow-up with your primary care provider next week if pain continues Keep left wrist/forearm in splint to help with pain Continue with cool compresses, may alternate with warm compresses if it feels better Return to the emergency department if you develop worsening left wrist pain, redness swelling of the left arm, inability to move your fingers on the left hand Do not take ibuprofen with any other medication with exception of Tylenol. Use of [id number] product such as Aleve, ibuprofen, or Advil can cause duplication of therapy and can cause harm to the kidneys. Discharge Date/Time: 07/04/20 12:50 Coding Level of Care Code ED Lighter for [facility] Fwd Exam Comprehensive
[2020-07-04 12:40] VITALS: PULSE 85
[2020-07-04 12:50] VITALS: BP 168/105; PULSE 81; RESP 18; O2SAT 97
== END 2020-07-04 12:50 | disposition home or self-care (01) ==
PROVIDERS: Emergency Provider Nurse Practitioner Family
DX: S66.912A Strain of unspecified muscle, fascia and tendon at wrist and hand level, left hand, initial encounter (principal); S60.212A Contusion of left wrist, initial encounter; Z86.19 Personal history of other infectious and parasitic diseases; F17.210 Nicotine dependence, cigarettes, uncomplicated; X58.XXXA Exposure to other specified factors, initial encounter
CPT/HCPCS: 12345; 29125; 99281; 99282

== ENCOUNTER 2020-07-09 13:47 | Outpatient (CLI) | payer MEDICAID, SELFPAY ==
--- NOTE | 2020-07-09 14:00 | XRR_ITS ---
PROCEDURE INFORMATION: Exam: XR Left Shoulder Exam date and time: 07/09/2020 2:15 PM Age: 50 years old Clinical indication: Pain and injury or trauma; Fall; Blunt trauma (contusions or hematomas); Shoulder; Left; Injury date: 07/04/20; Additional info: Acute pain of L shoulder TECHNIQUE: Imaging protocol: XR Left shoulder. Views: 2 or more views. COMPARISON: CR XR shoulder LT 1V [id number] 02/21/2020 1:53 PM FINDINGS: Bones/joints: Unremarkable. Soft tissues: Normal. XR/XR shoulder LT min 2V* [id number] IMPRESSION: No acute findings.
--- NOTE | 2020-07-09 14:00 | XRR_ITS ---
PROCEDURE INFORMATION: Exam: XR Left Hand Exam date and time: 07/09/2020 2:15 PM Age: 50 years old Clinical indication: Injury or trauma; Fall; Blunt trauma (contusions or hematomas); Wrist and hand; Left; Injury date: 07/04/20; Additional info: Injury of L hand TECHNIQUE: Imaging protocol: XR Left hand. Views: 3 or more views. COMPARISON: No relevant prior studies available. FINDINGS: Bones/joints: Negative for acute bony abnormality. Soft tissues: Normal. XR/XR hand LT min 3V* [id number] IMPRESSION: No acute findings.
== END 2020-07-09 13:48 | disposition home or self-care (01) ==
PROVIDERS: PCP Nurse Practitioner Family; Visit Provider Nurse Practitioner Family
DX: M25.512 Pain in left shoulder (principal); S69.92XA Unspecified injury of left wrist, hand and finger(s), initial encounter; X58.XXXA Exposure to other specified factors, initial encounter
CPT/HCPCS: 73030; 73130

== ENCOUNTER 2020-08-01 08:36 | Inpatient (IN) | payer MEDICAID, SELFPAY ==
[2020-08-01 08:37] VITALS: BP 146/82; PULSE 91; RESP 16; TEMP 36.7; O2SAT 96; BMI 26.5
--- NOTE | 2020-08-01 08:58 | W.ED.PSYCH ---
Documented by User: LuzmaCARRI Lam 08/01/20 18:10 HPI - Psych General: Chief Complaint: Psychiatric Symptoms Stated Complaint: CONFUSION/ DEPRESSION Time Seen by Provider: 08/01/20 08:37 History of Present Illness: HPI Narrative: 50-year-old female patient presents to the emergency department via EMS due to bizarre behavior and confusion. Her friend Michele, who called 911, reports he became concerned when she started seeing people that were not there, stated there were kids in a man in the house she was afraid of. He reports she is not slept in 3 nights, when she would try to rest, would have nightmares. States she has been emotionally not right. Her friend Michele reports she attempted to make a cake during the night on a flat sheet funes, reports better of the cake all over the oven and a mess in the kitchen with things misplaced. Viola states she is depressed, reports she does not want to live anymore, reports stress at home, she denies having a plan. She reports emotional stress with her sister and her father. She also agrees with bad dreams and nightmares. She denies recent EtOH use, reports last methamphetamine use several months ago. She reports seeing people and people are telling her that she is not as pretty as her mother. She reports history of schizophrenia and bipolar disorder. MD complaint: suicidal ideation and feels depressed Onset (ago): day(s) (3) Duration: constant and getting worse History of same: Yes Relieving factors: none Context: significant life stressor Associated psychiatric symptoms: depression, auditory hallucinations and visual hallucinations Associated symptoms: Reports auditory hallucinations, visual hallucinations, delusions and depression Treatments prior to arrival: placed on mental health hold Review of Systems General: Reports: 10 or more systems reviewed and unremarkable except in HPI and below Const: Denies: fever(s), chills or diaphoresis Eyes: Denies: blurry vision or eye redness ENMT: Denies: throat pain, dental pain or disequilibrium Card: Denies: chest pain, palpitations or irregular heart rhythm Resp: Denies: dyspnea, productive cough, non-productive cough or wheezing GI: Denies: abdominal pain, nausea or vomiting : Denies: difficulty voiding or dysuria Musc: Denies: neck pain, back pain or joint warmth Skin/Breast: Denies: rash, pruritus, skin tenderness or changes in skin color Neuro: Reports: confusion and difficulty communicating thoughts; Denies: headache(s), weakness in extremities or behavioral changes Psych: Reports: anxiety, depression, sleeping less, irritability, paranoia, visual hallucinations and auditory hallucinations Wolf/Lymph: Denies: easy bruising PFS ED PFSH: Medical History (Updated 08/01/20 @ 19:06 by HENOK Meeks) Alcohol use disorder, severe, in early remission Amphetamine use disorder, mild, in sustained remission Chronic post-traumatic stress disorder (PTSD) Hepatitis C Major depressive disorder, recurrent, moderate Remeron is helpful for depressed mood symptoms and sleep impairment. Surgical History H/O: hysterectomy History of appendectomy History of lung biopsy Hx of tonsillectomy Status post laparoscopic cholecystectomy Social History Smoking and tobacco status: current every day smoker cigarettes Packs smoked per day: 0.5 Years cigarettes smoked: 30 Quit status (tobacco): not considering quitting Second hand smoke exposure: No Alcohol intake: former Current gender identity: Female Physical Exam Const: COMMON NORMALS: patient oriented x3, alert and well nourished GENERAL APPEARANCE: cooperative, comfortable, anxious and well hydrated ORIENTATION/CONSCIOUSNESS: Yes awake, Yes oriented to person, Yes oriented to place, Yes oriented to time and Yes confused HENMT: COMMON NORMALS: normocephalic, Normal external nose present and moist oral mucous membranes HEAD & SCALP: normocephalic NOSE: Normal external nose present Eye: COMMON NORMALS: Equal, round and reactive pupils present and EOMs intact bilaterally GENERAL EYE: appearance normal, both eyes and all related structures PUPIL: Yes Equal, round and reactive pupils present Neck/C-Spine: COMMON NORMALS: full ROM and no lymphadenopathy GENERAL: Yes normal visual inspection and Yes trachea midline CERVICAL SPINE: Yes cervical ROM normal Lymph: LYMPHATIC: no lymphadenopathy noted Chest: COMMONS NORMALS: normal inspection of the chest Resp: COMMON NORMALS: normal respiratory effort and clear to auscultation bilaterally AUSCULTATION: clear to auscultation bilaterally Cardio: COMMON NORMALS: regular rhythm, S1 normal heart sound present, S2 normal heart sound present and Peripheral pulses 2+ throughout RHYTHM: regular rhythm HEART SOUNDS: S1 normal heart sound present and S2 normal heart sound present PERIPHERAL PULSES: Peripheral pulses 2+ throughout GI: COMMON NORMALS: Soft to palpation and non-tender INSPECTION: Yes normal to inspection PALPATION: Yes Soft to palpation : COMMON NORMALS: Yes no CVA tenderness BLADDER/KIDNEY EXAM: Yes no CVA tenderness Back/Pelvis: COMMON NORMALS: no CVA tenderness and thoracic and lumbar spine normal to inspection Extremity: COMMON NORMALS: normal to inspection and capillary refill normal Neuro: COMMON NORMALS: patient oriented x3 and no focal motor deficits SENSORIUM/ORIENTATION: Yes alert, Yes oriented to person, Yes oriented to place and Yes oriented to time Psych: COMMON NORMALS: cooperative and speech normal ATTITUDE: Yes evasive ACTIVITY/MOTOR BEHAVIOR: Yes psychomotor slowing, Yes fidgeting, Yes disorganized behavior and Yes restless SPEECH: Yes normal speech MOOD & AFFECT: Yes depressed mood, Yes anxious and Yes tearful THOUGHT PROCESS: Circumstantial thought process present THOUGHT CONTENT: Yes delusions and Yes Hallucination(s) present auditory and visual MEMORY/COGNITION: Yes memory grossly intact INSIGHT: Limited insight present (Psych) JUDGEMENT: Fair judgement present (Psych) Skin: COMMON NORMALS: no rashes or lesions noted and turgor normal GENERAL SKIN EXAM: no rashes or lesions noted and turgor normal MDM - Psych Lab Data: Labs: Lab Results 08/01/20 08/01/20 08/01/20 Range/Units 09:12 09:12 09:12 WBC 7.1 (4.0-10.0) 10^3/ uL RBC 4.26 (4.1-5.3) 10^6/u L Hgb 13.2 (11.5-15.3) g/dL Hct 41.1 (37.0-47.0) % MCV 96.5 (81-99) fL MCH 31.0 (28.0-34.0) pg MCHC 32.1 (30.0-36.0) g/dL RDW 15.0 (12.1-15.1) % Plt Count 204 (130-400) 10^3/c mm MPV 9.3 (7.4-10.4) fL Neut % (Auto) 54.6 % Lymph % (Auto) 29.2 % [place] % (Auto) 12.1 % Eos % (Auto) 3.1 % Baso % (Auto) 0.7 % Neut # (Auto) 3.89 (1.8-7.7) 10^3/u L Lymph # (Auto) 2.1 (0.8-4.8) 10^3/u L [place] # (Auto) 0.9 (0.2-0.9) 10^3/u L Eos # (Auto) 0.2 (0.0-0.8) 10^3/u L Baso # (Auto) 0.1 (0.0-0.1) 10^3/u L Nucleated RBC % (a uto) 0 % Nucleated RBCs # 0.0 /100WBC Sodium 136 (136-145) mmol/L Potassium 4.3 (3.5-5.1) mmol/L Chloride 102 (98-107) mmol/L Carbon Dioxide 22 (22-29) mmol/L Anion Gap 16.3 (5-19) BUN 34 H (6-20) mg/dL Creatinine 0.8 (0.5-0.9) mg/dL GFR Calculation 75.3 L (90-130) mL/min Glucose 94 (65-115) mg/dL Calculated Osmolal ity 289 (285-295) mOsm/k g Calcium 10.8 H (8.5-10.5) mg/dL Total Bilirubin 0.2 (0.15-1.2) mg/dL AST 203 H (0-32) U/L ALT 134 H (0-33) U/L Alkaline Phosphata se 93 (35-105) IU/L Creatine Kinase (26-192) U/L Total Protein 7.9 (6.6-8.7) g/dL Albumin 4.3 (3.5-5.2) g/dL Globulin 3.6 (1.3-4.6) g/dL Urine Color Yellow (Yellow) Urine Appearance Clear (CLEAR) Urine pH 5 (5-7) Ur Specific Gravit y 1.020 (1.005-1.030) Urine Protein Neg (Negative) Urine Glucose (UA) Norm (Normal) Urine Ketones Negative (Negative) Urine Blood Neg (Negative) Urine Nitrate Negative (Negative) Urine Bilirubin Neg (Negative) Urine Urobilinogen Neg (Negative) mg/dL Ur Leukocyte Susana ase 1+ H (Negative) Urine RBC 0-4 H (0-2) /hpf Urine WBC 0-4 H (0-5) /hpf Ur Squamous Epith Cells 0-4 H (0-5) /hpf Amorphous Sediment Not Reportable Urine Bacteria 1+ H (NONE) /hpf Hyaline Casts 5-10 H /lpf Urine Mucus 1+ /hpf Salicylates < 0.3 L (3-10) mg/dL Urine Opiates Scre en (Negative) ng/mL Acetaminophen < 5.0 L (10-30) ug/mL Ur Barbiturates Sc reen (Negative) ng/mL Ur Phencyclidine S crn (Negative) ng/mL Ur Amphetamines Sc reen (Negative) ng/mL U Benzodiazepines Scrn (Negative) ng/mL Urine Cocaine Scre en (Negative) ng/mL U Marijuana (THC) Screen (Negative) ng/mL Ethyl Alcohol < 10 (0-10) mg/dL 08/01/20 08/01/20 08/01/20 Range/Units 09:12 09:12 18:40 WBC (4.0-10.0) 10^3/ uL RBC (4.1-5.3) 10^6/u L Hgb (11.5-15.3) g/dL Hct (37.0-47.0) % MCV (81-99) fL MCH (28.0-34.0) pg MCHC (30.0-36.0) g/dL RDW (12.1-15.1) % Plt Count (130-400) 10^3/c mm MPV (7.4-10.4) fL Neut % (Auto) % Lymph % (Auto) % [place] % (Auto) % Eos % (Auto) % Baso % (Auto) % Neut # (Auto) (1.8-7.7) 10^3/u L Lymph # (Auto) (0.8-4.8) 10^3/u L [place] # (Auto) (0.2-0.9) 10^3/u L Eos # (Auto) (0.0-0.8) 10^3/u L Baso # (Auto) (0.0-0.1) 10^3/u L Nucleated RBC % (a uto) % Nucleated RBCs # /100WBC Sodium (136-145) mmol/L Potassium (3.5-5.1) mmol/L Chloride (98-107) mmol/L Carbon Dioxide (22-29) mmol/L Anion Gap (5-19) BUN (6-20) mg/dL Creatinine (0.5-0.9) mg/dL GFR Calculation (90-130) mL/min Glucose (65-115) mg/dL Calculated Osmolal ity (285-295) mOsm/k g Calcium (8.5-10.5) mg/dL Total Bilirubin (0.15-1.2) mg/dL AST (0-32) U/L ALT (0-33) U/L Alkaline Phosphata se (35-105) IU/L Creatine Kinase 4247 H* 2409 H* (26-192) U/L Total Protein (6.6-8.7) g/dL Albumin (3.5-5.2) g/dL Globulin (1.3-4.6) g/dL Urine Color (Yellow) Urine Appearance (CLEAR) Urine pH (5-7) Ur Specific Gravit y (1.005-1.030) Urine Protein (Negative) Urine Glucose (UA) (Normal) Urine Ketones (Negative) Urine Blood (Negative) Urine Nitrate (Negative) Urine Bilirubin (Negative) Urine Urobilinogen (Negative) mg/dL Ur Leukocyte Susana ase (Negative) Urine RBC (0-2) /hpf Urine WBC (0-5) /hpf Ur Squamous Epith Cells (0-5) /hpf Amorphous Sediment Urine Bacteria (NONE) /hpf Hyaline Casts /lpf Urine Mucus /hpf Salicylates (3-10) mg/dL Urine Opiates Scre en Negative (Negative) ng/mL Acetaminophen (10-30) ug/mL Ur Barbiturates Sc reen Negative (Negative) ng/mL Ur Phencyclidine S crn Negative (Negative) ng/mL Ur Amphetamines Sc reen Positive H (Negative) ng/mL U Benzodiazepines Scrn Positive H (Negative) ng/mL Urine Cocaine Scre en Negative (Negative) ng/mL U Marijuana (THC) Screen Negative (Negative) ng/mL Ethyl Alcohol (0-10) mg/dL Imaging Data^: CT Head: Radiologist's impression: [address] [address] [address] Scan Report Signed Patient: Peggy,Viola D Unit #: [id number] : 1970 Age/Sex: 50 / F ADM Date: 08/01/20 Loc: ER Room/Bed: Attending Dr: Ordering Provider/Ordering MD: Luzma Ayala Date of Service: 08/01/20 Procedure(s): CT head wo con* 91285 Accession Number(s): [id number] Report Number: [id number] WS: [id number] CT HEAD TECHNIQUE: Noncontrast CT of the head obtained from the skullbase to the vertex. CLINICAL INFORMATION: visual hallucinations COMPARISON: March 17, 2020 DLP: 645.[address] scans at [facility] use at least one of these dose optimization techniques: automated exposure control; mA and/or kV adjustment per patient size (includes targeted exams where dose is matched to clinical indication); or iterative reconstruction. FINDINGS: No evidence of intracranial hemorrhage or mass effect. Ventricular system and basal cisterns are patent. No extra-axial fluid collections. No evidence of mass or mass effect. Normal kay-white differentiation. Paranasal sinuses and mastoid air cells are well aerated. .Normal visualized soft tissues. CT/CT head wo con* 73000 IMPRESSION: 1. No evidence of intracranial hemorrhage or mass effect. 2. No acute intracranial findings. Dictated By: Collins Ramirez MD Signed By: Collins Ramirez MD Signed Date/Time: 08/01/20953 DD/ Discharge Plan Discharge Patient Disposition: Admitted As Inpatient Clinical Impression: Suicidal ideation, Substance abuse Condition: Stable Referrals: Teresa Andrade NP [Primary Care Provider] - Coding Level of Care Code ED Die Cut Operator for Chg Fwd Exam Comprehensive Documented by User: HENOK Meeks 08/01/20 20:34 HPI - Psych General: Chief Complaint: Psychiatric Symptoms Stated Complaint: CONFUSION/ DEPRESSION Time Seen by Provider: 08/01/20 08:37 [facility] ED PFSH: Medical History (Updated 08/01/20 @ 19:06 by HENOK Meeks) Alcohol use disorder, severe, in early remission Amphetamine use disorder, mild, in sustained remission Chronic post-traumatic stress disorder (PTSD) Hepatitis C Major depressive disorder, recurrent, moderate Remeron is helpful for depressed mood symptoms and sleep impairment. Surgical History H/O: hysterectomy History of appendectomy History of lung biopsy Hx of tonsillectomy Status post laparoscopic cholecystectomy Social History Smoking and tobacco status: current every day smoker cigarettes Packs smoked per day: 0.5 Years cigarettes smoked: 30 Quit status (tobacco): not considering quitting Second hand smoke exposure: No Alcohol intake: former Current gender identity: Female MDM - Psych MDM Narrative: Medical decision making narrative: Assumed care of patient from [facility]. Patient was brought to the emergency department for confusion anxiety and voiced suicidal thoughts. Patient had been using methamphetamines and had an elevated CPK. Reviewed the exam with Dr. Avalos who agreed to admit patient after medical clearance. Patient agreed to plan. Patient needs admitted for safety of self and others. Lab Data: Labs: Lab Results 08/01/20 08/01/20 08/01/20 Range/Units 09:12 09:12 09:12 WBC 7.1 (4.0-10.0) 10^3/ uL RBC 4.26 (4.1-5.3) 10^6/u L Hgb 13.2 (11.5-15.3) g/dL Hct 41.1 (37.0-47.0) % MCV 96.5 (81-99) fL MCH 31.0 (28.0-34.0) pg MCHC 32.1 (30.0-36.0) g/dL RDW 15.0 (12.1-15.1) % Plt Count 204 (130-400) 10^3/c mm MPV 9.3 (7.4-10.4) fL Neut % (Auto) 54.6 % Lymph % (Auto) 29.2 % [place] % (Auto) 12.1 % Eos % (Auto) 3.1 % Baso % (Auto) 0.7 % Neut # (Auto) 3.89 (1.8-7.7) 10^3/u L Lymph # (Auto) 2.1 (0.8-4.8) 10^3/u L [place] # (Auto) 0.9 (0.2-0.9) 10^3/u L Eos # (Auto) 0.2 (0.0-0.8) 10^3/u L Baso # (Auto) 0.1 (0.0-0.1) 10^3/u L Nucleated RBC % (a uto) 0 % Nucleated RBCs # 0.0 /100WBC Sodium 136 (136-145) mmol/L Potassium 4.3 (3.5-5.1) mmol/L Chloride 102 (98-107) mmol/L Carbon Dioxide 22 (22-29) mmol/L Anion Gap 16.3 (5-19) BUN 34 H (6-20) mg/dL Creatinine 0.8 (0.5-0.9) mg/dL GFR Calculation 75.3 L (90-130) mL/min Glucose 94 (65-115) mg/dL Calculated Osmolal ity 289 (285-295) mOsm/k g Calcium 10.8 H (8.5-10.5) mg/dL Total Bilirubin 0.2 (0.15-1.2) mg/dL AST 203 H (0-32) U/L ALT 134 H (0-33) U/L Alkaline Phosphata se 93 (35-105) IU/L Creatine Kinase (26-192) U/L Total Protein 7.9 (6.6-8.7) g/dL Albumin 4.3 (3.5-5.2) g/dL Globulin 3.6 (1.3-4.6) g/dL Urine Color Yellow (Yellow) Urine Appearance Clear (CLEAR) Urine pH 5 (5-7) Ur Specific Gravit y 1.020 (1.005-1.030) Urine Protein Neg (Negative) Urine Glucose (UA) Norm (Normal) Urine Ketones Negative (Negative) Urine Blood Neg (Negative) Urine Nitrate Negative (Negative) Urine Bilirubin Neg (Negative) Urine Urobilinogen Neg (Negative) mg/dL Ur Leukocyte Susana ase 1+ H (Negative) Urine RBC 0-4 H (0-2) /hpf Urine WBC 0-4 H (0-5) /hpf Ur Squamous Epith Cells 0-4 H (0-5) /hpf Amorphous Sediment Not Reportable Urine Bacteria 1+ H (NONE) /hpf Hyaline Casts 5-10 H /lpf Urine Mucus 1+ /hpf Salicylates < 0.3 L (3-10) mg/dL Urine Opiates Scre en (Negative) ng/mL Acetaminophen < 5.0 L (10-30) ug/mL Ur Barbiturates Sc reen (Negative) ng/mL Ur Phencyclidine S crn (Negative) ng/mL Ur Amphetamines Sc reen (Negative) ng/mL U Benzodiazepines Scrn (Negative) ng/mL Urine Cocaine Scre en (Negative) ng/mL U Marijuana (THC) Screen (Negative) ng/mL Ethyl Alcohol < 10 (0-10) mg/dL 08/01/20 08/01/20 08/01/20 Range/Units 09:12 09:12 18:40 WBC (4.0-10.0) 10^3/ uL RBC (4.1-5.3) 10^6/u L Hgb (11.5-15.3) g/dL Hct (37.0-47.0) % MCV (81-99) fL MCH (28.0-34.0) pg MCHC (30.0-36.0) g/dL RDW (12.1-15.1) % Plt Count (130-400) 10^3/c mm MPV (7.4-10.4) fL Neut % (Auto) % Lymph % (Auto) % [place] % (Auto) % Eos % (Auto) % Baso % (Auto) % Neut # (Auto) (1.8-7.7) 10^3/u L Lymph # (Auto) (0.8-4.8) 10^3/u L [place] # (Auto) (0.2-0.9) 10^3/u L Eos # (Auto) (0.0-0.8) 10^3/u L Baso # (Auto) (0.0-0.1) 10^3/u L Nucleated RBC % (a uto) % Nucleated RBCs # /100WBC Sodium (136-145) mmol/L Potassium (3.5-5.1) mmol/L Chloride (98-107) mmol/L Carbon Dioxide (22-29) mmol/L Anion Gap (5-19) BUN (6-20) mg/dL Creatinine (0.5-0.9) mg/dL GFR Calculation (90-130) mL/min Glucose (65-115) mg/dL Calculated Osmolal ity (285-295) mOsm/k g Calcium (8.5-10.5) mg/dL Total Bilirubin (0.15-1.2) mg/dL AST (0-32) U/L ALT (0-33) U/L Alkaline Phosphata se (35-105) IU/L Creatine Kinase 4247 H* 2409 H* (26-192) U/L Total Protein (6.6-8.7) g/dL Albumin (3.5-5.2) g/dL Globulin (1.3-4.6) g/dL Urine Color (Yellow) Urine Appearance (CLEAR) Urine pH (5-7) Ur Specific Gravit y (1.005-1.030) Urine Protein (Negative) Urine Glucose (UA) (Normal) Urine Ketones (Negative) Urine Blood (Negative) Urine Nitrate (Negative) Urine Bilirubin (Negative) Urine Urobilinogen (Negative) mg/dL Ur Leukocyte Susana ase (Negative) Urine RBC (0-2) /hpf Urine WBC (0-5) /hpf Ur Squamous Epith Cells (0-5) /hpf Amorphous Sediment Urine Bacteria (NONE) /hpf Hyaline Casts /lpf Urine Mucus /hpf Salicylates (3-10) mg/dL Urine Opiates Scre en Negative (Negative) ng/mL Acetaminophen (10-30) ug/mL Ur Barbiturates Sc reen Negative (Negative) ng/mL Ur Phencyclidine S crn Negative (Negative) ng/mL Ur Amphetamines Sc reen Positive H (Negative) ng/mL U Benzodiazepines Scrn Positive H (Negative) ng/mL Urine Cocaine Scre en Negative (Negative) ng/mL U Marijuana (THC) Screen Negative (Negative) ng/mL Ethyl Alcohol (0-10) mg/dL Discharge Plan Discharge Patient Disposition: Admitted As Inpatient Clinical Impression: Suicidal ideation, Substance abuse Condition: Stable Referrals: Teresa Andrade, HISTOLOGY SUPERVISOR [Primary Care Provider] - Coding Level of Care Code ED Die Cut Operator for Chg Fwd Exam Comprehensive Documented by User: Komal Cherry 08/01/20 20:23 HPI - Psych General: Chief Complaint: Psychiatric Symptoms Stated Complaint: CONFUSION/ DEPRESSION Time Seen by Provider: 08/01/20 08:37 PFSH ED PFSH: Medical History (Updated 08/01/20 @ 19:06 by HENOK Meeks) Alcohol use disorder, severe, in early remission Amphetamine use disorder, mild, in sustained remission Chronic post-traumatic stress disorder (PTSD) Hepatitis C Major depressive disorder, recurrent, moderate Remeron is helpful for depressed mood symptoms and sleep impairment. Surgical History H/O: hysterectomy History of appendectomy History of lung biopsy Hx of tonsillectomy Status post laparoscopic cholecystectomy Social History Smoking and tobacco status: current every day smoker cigarettes Packs smoked per day: 0.5 Years cigarettes smoked: 30 Quit status (tobacco): not considering quitting Second hand smoke exposure: No Alcohol intake: former Current gender identity: Female MDM - Psych MDM Narrative: Medical decision making narrative: 2021 -patient was seen and examined by me and I agree with Carlos Marin APN's assessment and plan. I discussed the case to with Dr. Avalos who agrees to recheck a CK in the morning. The patient's CK is fallen almost in half with just 1 L of normal saline and she has a another normal saline to go. We will could encourage her to drink overnight and we will repeat her labs in the morning. Dr. Avalos is agreeable to this plan. Lab Data: Labs: Lab Results 08/01/20 08/01/20 08/01/20 Range/Units 09:12 09:12 09:12 WBC 7.1 (4.0-10.0) 10^3/ uL RBC 4.26 (4.1-5.3) 10^6/u L Hgb 13.2 (11.5-15.3) g/dL Hct 41.1 (37.0-47.0) % MCV 96.5 (81-99) fL MCH 31.0 (28.0-34.0) pg MCHC 32.1 (30.0-36.0) g/dL RDW 15.0 (12.1-15.1) % Plt Count 204 (130-400) 10^3/c mm MPV 9.3 (7.4-10.4) fL Neut % (Auto) 54.6 % Lymph % (Auto) 29.2 % [place] % (Auto) 12.1 % Eos % (Auto) 3.1 % Baso % (Auto) 0.7 % Neut # (Auto) 3.89 (1.8-7.7) 10^3/u L Lymph # (Auto) 2.1 (0.8-4.8) 10^3/u L [place] # (Auto) 0.9 (0.2-0.9) 10^3/u L Eos # (Auto) 0.2 (0.0-0.8) 10^3/u L Baso # (Auto) 0.1 (0.0-0.1) 10^3/u L Nucleated RBC % (a uto) 0 % Nucleated RBCs # 0.0 /100WBC Sodium 136 (136-145) mmol/L Potassium 4.3 (3.5-5.1) mmol/L Chloride 102 (98-107) mmol/L Carbon Dioxide 22 (22-29) mmol/L Anion Gap 16.3 (5-19) BUN 34 H (6-20) mg/dL Creatinine 0.8 (0.5-0.9) mg/dL GFR Calculation 75.3 L (90-130) mL/min Glucose 94 (65-115) mg/dL Calculated Osmolal ity 289 (285-295) mOsm/k g Calcium 10.8 H (8.5-10.5) mg/dL Total Bilirubin 0.2 (0.15-1.2) mg/dL AST 203 H (0-32) U/L ALT 134 H (0-33) U/L Alkaline Phosphata se 93 (35-105) IU/L Creatine Kinase (26-192) U/L Total Protein 7.9 (6.6-8.7) g/dL Albumin 4.3 (3.5-5.2) g/dL Globulin 3.6 (1.3-4.6) g/dL Urine Color Yellow (Yellow) Urine Appearance Clear (CLEAR) Urine pH 5 (5-7) Ur Specific Gravit y 1.020 (1.005-1.030) Urine Protein Neg (Negative) Urine Glucose (UA) Norm (Normal) Urine Ketones Negative (Negative) Urine Blood Neg (Negative) Urine Nitrate Negative (Negative) Urine Bilirubin Neg (Negative) Urine Urobilinogen Neg (Negative) mg/dL Ur Leukocyte Susana ase 1+ H (Negative) Urine RBC 0-4 H (0-2) /hpf Urine WBC 0-4 H (0-5) /hpf Ur Squamous Epith Cells 0-4 H (0-5) /hpf Amorphous Sediment Not Reportable Urine Bacteria 1+ H (NONE) /hpf Hyaline Casts 5-10 H /lpf Urine Mucus 1+ /hpf Salicylates < 0.3 L (3-10) mg/dL Urine Opiates Scre en (Negative) ng/mL Acetaminophen < 5.0 L (10-30) ug/mL Ur Barbiturates Sc reen (Negative) ng/mL Ur Phencyclidine S crn (Negative) ng/mL Ur Amphetamines Sc reen (Negative) ng/mL U Benzodiazepines Scrn (Negative) ng/mL Urine Cocaine Scre en (Negative) ng/mL U Marijuana (THC) Screen (Negative) ng/mL Ethyl Alcohol < 10 (0-10) mg/dL 08/01/20 08/01/20 08/01/20 Range/Units 09:12 09:12 18:40 WBC (4.0-10.0) 10^3/ uL RBC (4.1-5.3) 10^6/u L Hgb (11.5-15.3) g/dL Hct (37.0-47.0) % MCV (81-99) fL MCH (28.0-34.0) pg MCHC (30.0-36.0) g/dL RDW (12.1-15.1) % Plt Count (130-400) 10^3/c mm MPV (7.4-10.4) fL Neut % (Auto) % Lymph % (Auto) % [place] % (Auto) % Eos % (Auto) % Baso % (Auto) % Neut # (Auto) (1.8-7.7) 10^3/u L Lymph # (Auto) (0.8-4.8) 10^3/u L [place] # (Auto) (0.2-0.9) 10^3/u L Eos # (Auto) (0.0-0.8) 10^3/u L Baso # (Auto) (0.0-0.1) 10^3/u L Nucleated RBC % (a uto) % Nucleated RBCs # /100WBC Sodium (136-145) mmol/L Potassium (3.5-5.1) mmol/L Chloride (98-107) mmol/L Carbon Dioxide (22-29) mmol/L Anion Gap (5-19) BUN (6-20) mg/dL Creatinine (0.5-0.9) mg/dL GFR Calculation (90-130) mL/min Glucose (65-115) mg/dL Calculated Osmolal ity (285-295) mOsm/k g Calcium (8.5-10.5) mg/dL Total Bilirubin (0.15-1.2) mg/dL AST (0-32) U/L ALT (0-33) U/L Alkaline Phosphata se (35-105) IU/L Creatine Kinase 4247 H* 2409 H* (26-192) U/L Total Protein (6.6-8.7) g/dL Albumin (3.5-5.2) g/dL Globulin (1.3-4.6) g/dL Urine Color (Yellow) Urine Appearance (CLEAR) Urine pH (5-7) Ur Specific Gravit y (1.005-1.030) Urine Protein (Negative) Urine Glucose (UA) (Normal) Urine Ketones (Negative) Urine Blood (Negative) Urine Nitrate (Negative) Urine Bilirubin (Negative) Urine Urobilinogen (Negative) mg/dL Ur Leukocyte Susana ase (Negative) Urine RBC (0-2) /hpf Urine WBC (0-5) /hpf Ur Squamous Epith Cells (0-5) /hpf Amorphous Sediment Urine Bacteria (NONE) /hpf Hyaline Casts /lpf Urine Mucus /hpf Salicylates (3-10) mg/dL Urine Opiates Scre en Negative (Negative) ng/mL Acetaminophen (10-30) ug/mL Ur Barbiturates Sc reen Negative (Negative) ng/mL Ur Phencyclidine S crn Negative (Negative) ng/mL Ur Amphetamines Sc reen Positive H (Negative) ng/mL U Benzodiazepines Scrn Positive H (Negative) ng/mL Urine Cocaine Scre en Negative (Negative) ng/mL U Marijuana (THC) Screen Negative (Negative) ng/mL Ethyl Alcohol (0-10) mg/dL Discharge Plan Discharge Patient Disposition: Admitted As Inpatient Clinical Impression: Suicidal ideation, Substance abuse Condition: Stable Referrals: Teresa Andrade NP [Primary Care Provider] - Coding Level of Care Code 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
--- NOTE | 2020-08-01 09:04 | CT_ITS ---
WS: [id number] CT HEAD TECHNIQUE: Noncontrast CT of the head obtained from the skullbase to the vertex. CLINICAL INFORMATION: visual hallucinations COMPARISON: March 17, 2020 DLP: 645.[address] scans at [facility] use at least one of these dose optimization techniques: automat ed exposure control; mA and/or kV adjustment per patient size (includes targeted exams where dose is matched to clinical indication); or iterative reconstruction. FINDINGS: No evidence of intracranial hemorrhage or mass effect. Ventricular system and basal cisterns are sullivan nt. No extra-axial fluid collections. No evidence of mass or mass effect. Normal kay-white different iation. Paranasal sinuses and mastoid air cells are well aerated. .Normal visualized soft tissues. CT/CT head wo con* [id number] IMPRESSION: 1. No evidence of intracranial hemorrhage or mass effect. 2. No acute intracranial findings.
[2020-08-01 09:18] LABS: Basophils # 0.1 10^3/uL (0.0-0.1); Basophils % 0.7 %; Eosinophils # 0.2 10^3/uL (0.0-0.8); Eosinophils % 3.1 %; Hematocrit 41.1 % (37.0-47.0); Hemoglobin 13.2 g/dL (11.5-15.3); Lymphocytes # 2.1 10^3/uL (0.8-4.8); Lymphocytes % 29.2 %; Mean Corpuscular HGB Conc 32.1 g/dL (30.0-36.0); Mean Corpuscular Volume 96.5 fL (81-99); Mean Platelet Volume 9.3 fL (7.4-10.4); Monocytes # 0.9 10^3/uL (0.2-0.9); Monocytes % 12.1 %; Neutrophils # 3.89 10^3/uL (1.8-7.7); Neutrophils % 54.6 %; Nucleated Red Blood Cells % 0 %; Platelet Count 204 10^3/cmm (130-400); Red Blood Count 4.26 10^6/uL (4.1-5.3); White Blood Count 7.1 10^3/uL (4.0-10.0)
[2020-08-01 09:35] LABS: Alanine Aminotransferase 134 U/L (0-33); Albumin Level 4.3 g/dL (3.5-5.2); Alkaline Phosphatase 93 IU/L (35-105); Anion Gap 16.3 (5-19); Aspartate Amino Transferase 203 U/L (0-32); Blood Urea Nitrogen 34 mg/dL (6-20); Calcium 10.8 mg/dL (8.5-10.5); Carbon Dioxide 22 mmol/L (22-29); Chloride 102 mmol/L (98-107); Globulin 3.6 g/dL (1.3-4.6); Glomerular Filtration Rate 75.3 mL/min (90-130); Glucose 94 mg/dL (65-115); Osmolality Calculated 289 mOsm/kg (285-295); Potassium 4.3 mmol/L (3.5-5.1); Sodium 136 mmol/L (136-145); Total Bilirubin 0.2 mg/dL (0.15-1.2); Total Protein 7.9 g/dL (6.6-8.7)
[2020-08-01 09:38] LABS: Acetaminophen < 5.0 ug/mL (10-30); Alcohol Level < 10 mg/dL (0-10); Salicylate < 0.3 mg/dL (3-10)
[2020-08-01 09:45] LABS: Amphetamines Screen Urine Positive (Negative); Barbiturates Screen Urine Negative (Negative); Benzodiazepines Screen Urine Positive (Negative); Cocaine Screen Urine Negative (Negative); Opiate Screen Urine Negative (Negative); PCP Screen Urine Negative (Negative); THC Screen Urine Negative (Negative)
[2020-08-01 10:18] LABS: Add Urine Microscopic? YES; Bilirubin Urine Neg (Negative); Blood Urine Neg (Negative); Glucose Urine UA Norm (Normal); Ketones Urine Negative (Negative); Leukocyte Esterase Urine 1+ (Negative); Nitrate Urine Negative (Negative); Protein Urine Neg (Negative); Urine Appearance Clear (CLEAR); Urine Color Yellow (Yellow); Urobilinogen Urine Neg (Negative); pH Urine 5 (5-7)
[2020-08-01 10:19] LABS: Bacteria Urine 1+ /hpf; Mucus Urine 1+ /hpf; RBC Urine 0-4 /hpf (0-2); Squamous Epithelial Cell Urine 0-4 /hpf (0-5); WBC Urine 0-4 /hpf (0-5)
[2020-08-01 10:20] LABS: Add Urine Culture? Yes
[2020-08-01] MEDS: sodium chloride 0.9% 500 ML 999 ML IV ×2 (12:29→18:45)
--- NOTE | 2020-08-01 14:13 | PC.NURSE ---
Pt is speaking on the phone to [facility]
--- NOTE | 2020-08-01 14:59 | DCPLANNER ---
marketing project manager was asked to find placement for patient due to family being in our NPU. marketing project manager called the following facilities: [facility] - faxed information at 12:18 [facility] - left voicemail at 12:18 [facility] - left voicemail at 12:30 [facility] - faxed information at 12:53 [facility] - Faxed information at 12:18 [facility] - denied patient [facility] is currently reviewing patients information [facility] -denied patient at this time.
--- NOTE | 2020-08-01 15:27 | DCPLANNER ---
job analysis manager called [facility] for [facility] - left voicemail for facility to call me back.
[2020-08-01] MEDS: LORazepam 2 mg/mL INJ 1 mL IVP ×2 (16:27→19:28)
[2020-08-01 17:28] LABS: Creatine Phosphokinase 4247 U/L (26-192)
--- NOTE | 2020-08-01 19:03 | DCPLANNER ---
[facility] called counter caser and stated that they declined patient. graphic manager informed ED physician, Carlos. He spoke with Dr. Avalos, after 3 denials, patient will be accepted here in the stress unit here.
[2020-08-01 20:07] LABS: Creatine Phosphokinase 2409 U/L (26-192)
[2020-08-01] MEDS: sodium chloride 0.9% 1,000 ML 999 ML IV (20:07)
[2020-08-01 23:37] VITALS: BP 131/83; PULSE 78; RESP 16; O2SAT 99
[2020-08-02 00:10] VITALS: BP 119/70; PULSE 75; RESP 18; TEMP 36.5; O2SAT 91
[2020-08-02 00:25] VITALS: BP 119/70; PULSE 75; RESP 18; TEMP 36.5; O2SAT 91
--- NOTE | 2020-08-02 01:17 | PC.NURSE ---
Skin assessment revealed a scratch top of right foot and old scar right upper abdomen.
[2020-08-02] MEDS: hyDROXYzine 25 mg Capsule 50 MG PO (01:33)
[2020-08-02] MEDS: baclofen 10 mg Tablet PO (01:34)
[2020-08-02] MEDS: HYDROcodone-acetaminophen 5-325 mg Tablet 1 TAB PO ×3 (01:34→18:02)
[2020-08-02 06:00] VITALS: BP 126/87; PULSE 63; RESP 16; TEMP 36.6; O2SAT 96
--- NOTE | 2020-08-02 08:04 | P.HP_ITS ---
Providers/Chief Complaint Admitting Physician: Miguel Avalos MD Primary Care Provider: Teresa Andrade NP Chief Complaint: CONFUSION/ DEPRESSION HPI NPU History of Present Illness Viola Woods is a 50 year old female who presented to the emergency room with t he following report: HPI Narrative: 50-year-old female patient presents to the emergency department via EMS due to bizarre behavior and confusion. Her friend Michele, who called 911, reports he became concerned when she started seeing people that were not there, stated there were kids in a man in the house she was afraid of. He reports she is not slept in 3 nights, when she would try to rest, would have nightmares. States she has been emotionally not right. Her friend Michele reports she attempted to make a cake during the night on a flat sheet funes, reports better of the cake all over the oven and a mess in the kitchen with things misplaced. Viola states she is depressed, reports she does not want to live anymore, reports stress at home, she denies having a plan. She reports emotional stress with her sister and her father. She also agrees with bad dreams and nightmares. She denies recent EtOH use, reports last methamphetamine use several months ago. She reports seeing people and people are telling her that she is not as pretty as her mother. She reports history of schizophrenia and bipolar disorder. MD complaint: suicidal ideation and feels depressed Onset (ago): day(s) (3) Duration: constant and getting worse History of same: Yes Relieving factors: none Context: significant life stressor Associated psychiatric symptoms: depression, auditory hallucinations and visual hallucinations Associated symptoms: Reports auditory hallucinations, visual hallucinations, delusions and depression Treatments prior to arrival: placed on mental health hold. She was admitted to the neuropsychiatric unit for definitive treatment of those issues. Noteworthy was the fact that her sister was also scheduled for admission and so given that it is against policy and several attempts were made to get her to another facility that will be on separate sides of the unit and not able to attend groups at the same time. She presented clearly out of sorts and her story did not in any way match up with the facts of her presentation. She continued to state that she had not used any drugs recently with clear positivity in a UDS as well as critical highs on her CK likely related to methamphetamine use. She noted that her sister was in town and her sister is a bad influence on her leading to poor choices but continues to deny drug use is 1 of those poor choices. She endorsed that she got remarried and that somehow that marriage is part of her reason for presenting. Much of her story did not make logical sense. We did review her last hospitalization which was in February and she agreed that it represented accurate historical data and an excerpt is included below. We agreed that we would review her pharmacy records and other records and try to identify what she is taking an attempt to help with her depression and anxiety that she did endorse. Per her 03/18/2020 inpatient eval: History of Present Illness Viola Woods is a 49 year old female The patient presented to the emergency r oom yesterday endorsing recent relapse on alcohol as well as depression and suicidal thoughts. She was admitted to the neuro-psychiatric unit for definitive treatment of those issues. On the unit today, she reports that she had been doing well until earlier this month when she had her most recent admission and she had relapsed after reportedly having six months of sobriety. She reports that she feels that the medications that she is on are working but they cannot counteract when she is drinking. We agreed to continue her current medications and that the focus we would need to have, is her sobering up while she is here, and maintaining the sobriety after she leaves. An excerpt from the last h ospitalization is included below, as she denies any substantive changes. Currently she continues to report some issues at home, being at the heart of her recent relapse. We discussed the importance of her having outpatient therapy to really effectively work on those issues. Per her last [facility] IP eval 03/05/2020: History of Present Illness Viola Woods is a 49 year old female with a documented history of alcohol abuse and recurrent clinical depression. She was last admitted to this unit for her substance abuse in June 2019. She was under the care of this physician. Since her discharge at that time, she has been able to remain clean and sober. Unfortunately, her psychosocial issues have continued. She continues to be involved with her who is a destabilizing force. 10 days ago, she became suspicious that her was again seeing a woman with whom he had had an affair. He is a long-regional intermodal truck driver and is frequently gone. She received 2 calls from this woman. She became desponded hopeless and overwhelmed. She began drinking. As is her pattern, her drinking accelerates to the point of self destruction. Her requested police to do a wellness check on her. They found her extremely intoxicated. She did make a vague statement about harming herself. She was brought to the emergency room. Her blood alcohol level on presentation was 234. She was admitted to the psychiatric unit for safety and observation. The patient readily admits all of the above details. She is humiliated and ashamed at losing her sobriety in such a dramatic fashion. She reports significant somatic complaints consistent with alcohol withdrawal including nausea, headache, and confusion. However she denies any intent of injuring herself or anyone else at any time. She admits that she is in a psychosocial situation that demands action but is not able to think clearly enough at this point to establish an effective response. Prior to the events of started drinking, she denied symptoms of depression. She reports that her medications are generally working well. She denied suicidal or homicidal ideation. She denied the presence of auditory or visual hallucinations. She had been having good hedonic capacity. However it should be noted that the patient is not a very reliable informant at this time. She continues to take her Remeron and gabapentin and reports that they are effective and without side effects. Laboratory Tests 03/04/20 03/04/20 18:58 19:53 Urine Opiates Screen Negative Ur Barbiturates Screen Negative Ur Phencyclidine Scrn Negative Ur Amphetamines Screen Negative U Benzodiazepines Scrn Negative Urine Cocaine Screen Negative U Marijuana (THC) Screen Negative Ethyl Alcohol 234 H Prior Psychiatric History From her last admission July 21 to July 27, 2019 Viola Woods is a 49-year-old woman who presented to the emergency room primarily because she can't stop drinking. She is having problems with the sequelae of chronic alcohol use. She drinks 's a fifth of fireball whiskey daily. She says she is having a lot of abdominal pain and suspects that there may be other medical problems. She's been having passive suicidal ideation but at no time has she had an intent or plan. She reports feeling hopeless and helpless. She cannot resist the temptation to drink. During interview for a full array of depressive symptoms, she requested we terminate the interview due to her severe nausea and discomfort. She was in agreement with her need to be in the hospital. Past psychiatric history: She reported that she has been in rehabilitation programs here in [place] From admission in March 2019 Suicidal Thoughts and Drinking Alcohol. HPI: The patient is a 48 year old white female who is here for suicidal thoughts. Five days ago, the suicidal thoughts started. Marital conflicts started the suicidal thoughts. Viola reports her is leaving her. She denies a plan and intent of suicide. She has PTSD, Viola does not know symptoms of PTSD. Viola presented to the inpatient unit and slowly acclimated to the individual group and milieu therapies. She was really struggling with the situation with her and his infidelity and had fallen back on alcohol as a response. She presented and was put on gabapentin and naltrexone as well as latuda which were titrated to effect. She responded well to the medication as well as the inpatient treatment and was able to identify the importance of her going home and facing the situation which she had been using alcohol to avoid. During hospitalization she had routine laboratory studies which were within normal limits except for few outliers. The results can be seen below. Additionally she had a routine medical examination which was within normal limits and revealed no acute processes. At the time of discharge she was able to contract for safety, with absent lethality, endorsed improvement in mood and reported a commitment to sobriety and a plan to focus on her recovery as an outpatient. Review of Systems Narrative: Review of Systems Constitutional: Complains of: Fatigue; also complains of headache Eyes: Complains of: No eye symptoms ENT/Mouth: Complains of: No ENTM symptoms Cardiovascular: Complains of: No cardiac symptoms Respiratory: Complains of: No respiratory symptoms GI: Complains of: Complains of nausea without vomiting Neuro: Complains of: No neuro symptoms Musculoskeletal: Complains of: No musculoskeletal symptoms Skin: Complains of: No skin symptoms Hematologic/Lymphatic: Complains of: No hematologic/lymphatic symptoms Endocrine: Complains of: No endocrine symptoms : Complains of: No symptoms Psych: Complains of: Denied depression, Suicide ideation Meds NPU Home Medications Medication Instructions Recorded Confirmed Last Taken Type hydrocodone 5 mg-acetaminophen 300 1 tab PO BID PRN 7 Days #14 tab 02/21/20 03/04/20 Unknown Rx mg tablet diphenhydramine HCl 25 mg capsule 25 mg PO .QHS PRN cap 02/25/20 03/04/20 Unknown History gabapentin 600 mg tablet 600 mg PO BID #60 tab 02/28/20 03/04/20 Unknown Rx mirtazapine 30 mg tablet 30 mg PO .qhs #30 tab 03/03/20 03/04/20 Unknown Rx Allergies Allergy/AdvReac Type Severity Reaction Status Date / Time cephalexin [From Keflex] Allergy Severe ALGY-Anaphy Verified 02/21/20 13:59 laxis tramadol Allergy Unknown Verified 02/21/20 13:59 trazodone Allergy rapid Verified 02/21/20 13:59 heart beat PFSH NPU PFSH: Medical History Alcohol use disorder, severe, in early remission She denies alcohol use since last visit. Amphetamine use disorder, mild, in sustained remission Chronic post-traumatic stress disorder (PTSD) Chronic nightmares. See notes below regarding Remeron. Hepatitis C Major depressive disorder, recurrent, moderate Gabapentin is helpful for mood stability/anxiety. She reports mood improvement since making some personal changes in her lifestyle and beginning to attend [facility]. Surgical History H/O: hysterectomy History of appendectomy History of lung biopsy Hx of tonsillectomy Status post laparoscopic cholecystectomy Social History Smoking and tobacco status: current every day smoker cigarettes Packs smoked per day: 0.5 Years cigarettes smoked: 30 Quit status (tobacco): not considering quitting Second hand smoke exposure: No Current gender identity: Female Meds NPU Home Medications Medication Instructions Recorded Confirmed Last Taken Type gabapentin 600 mg tablet 600 mg PO BID #60 tab 05/12/20 08/01/20 08/01/20 Rx pantoprazole 40 mg tablet,delayed 40 mg PO BID #60 tab 06/11/20 08/01/20 08/01/20 Rx release Remeron 15 mg PO BEDTIME 08/01/20 08/01/20 07/30/20 History baclofen 10 mg PO TID PRN 08/01/20 08/01/20 07/31/20 History hydrocodone-acetaminophen 1 tab PO Q6H PRN 08/01/20 08/01/20 07/31/20 History ibuprofen 400 mg PO PRN 08/01/20 08/01/20 Unknown History lisinopril 5 mg PO BID 08/01/20 08/01/20 08/01/20 History lorazepam 2 mg PO BID 08/01/20 08/01/20 07/31/20 History Allergies Allergy/AdvReac Type Severity Reaction Status Date / Time cephalexin [From Keflex] Allergy Severe ALGY-Anaphy Verified 08/01/20 15:53 laxis tramadol Allergy Unknown Verified 08/01/20 15:53 trazodone Allergy rapid Verified 08/01/20 15:53 heart beat PFSH NPU PFSH: Medical History (Updated 08/03/20 @ 07:25 by Miguel Avalos MD) Alcohol use disorder, severe, in early remission Amphetamine use disorder, mild, in sustained remission Chronic post-traumatic stress disorder (PTSD) Hepatitis C Major depressive disorder, recurrent, moderate Remeron is helpful for depressed mood symptoms and sleep impairment. Surgical History H/O: hysterectomy History of appendectomy History of lung biopsy Hx of tonsillectomy Status post laparoscopic cholecystectomy Social History Smoking and tobacco status: current every day smoker cigarettes Packs smoked per day: 0.5 Years cigarettes smoked: 30 Quit status (tobacco): not considering quitting Second hand smoke exposure: No Alcohol intake: former Current gender identity: Female Mental Status Exam MSE Comments: This is an obese white female, unkempt with limited eye contact. Poor dentition/absent dentition. Significant psychomotor retardation and limited cooperation with exam in moderate distress. Speech was increased rate decreased volume and dysarthric. Mood described as depressed and anxious, affect energetic. Thought process linear. Thought content: Patient endorsed suicidal thoughts but denied homicidal ideations there were no delusions reported but she appeared to be confused and paranoid, she denied auditory or visual hallucinations. Concentration were noted and read was unreliable but none were formally tested. She is alert and oriented times person and place. Insight and judgment are impaired impulse control is impaired. Vitals/I&O/Wt Last Vital Signs Temp 97.9 F 08/02/20 06:00 Pulse 63 08/02/20 06:00 Resp 16 08/02/20 06:00 BP 126/87 08/02/20 06:00 Pulse Ox 96 08/02/20 06:00 Weight last 48 hrs Weight 76.771 kg Weight 68.039 kg Data NPU : 08/01/20 09:12 08/02/20 09:30 Micro: Microbiology 08/01/20 09:12 Urine Culture - Preliminary Urine,Clean Catch Microbiology 08/01/20 09:12 Urine,Clean Catch Urine Culture - Preliminary A&P Assessment and plan (1) Suicidal ideation: Status: Acute (2) Substance abuse: Status: Acute (3) Methamphetamine dependence: Status: Acute (4) Alcohol use disorder, severe, in early remission: Status: Chronic (5) Chronic post-traumatic stress disorder (PTSD): Status: Chronic (6) Major depressive disorder, recurrent, moderate: Status: Chronic Additional A&P Information Viola presents today with active addiction that she is in denial of and continued mental health challenges with an elevated CK and the presence of her sister on the unit creating some challenges for the treatment team to navigate. 1. Continue current medication. We will initiate Prozac but continue to explore her other medication and adherence and attempt to stabilize her mental health issues. 2. Continue every 15 minute checks for safety. 3. Encourage individual, group and milieu therapy. 4. Encourage sober living treatment at the highest level of care to which she is willing to commit. Involuntary Hold Information 96 Hour Hold: 96 Hour Involuntary Admission: No 96 Hour Hold Ending Date: 03/21/20 96 Hour Hold Ending Time: 15:50 Attestations NPU Medical Necessity Statement*: Inpatient hospitalization is medically necessary and the clinically appropriate intervention at this time. We will monitor medications and make changes as indicated. She will be in the hospital for over 2 midnights. Likely length of stay 3 to 5 days. Coding Level of Care Code Acute Endocrinology Physician for Palak Thoren Diagnoses Suicidal ideation R45.851 Substance abuse F19.10 Methamphetamine dependence F15.20 Alcohol use disorder, severe, in early remission F10.21 Chronic post-traumatic stress disorder (PTSD) F43.12 Major depressive disorder, recurrent, moderate F33.1
[2020-08-02] MEDS: lisinopril 5 mg Tablet PO ×2 (08:06→20:34)
[2020-08-02] MEDS: LORazepam 2 mg Tablet PO ×2 (08:06→20:35)
[2020-08-02] MEDS: gabapentin 300 mg Capsule 600 MG PO ×2 (08:07→20:34)
[2020-08-02] MEDS: pantoprazole DR 40 mg Tablet PO ×2 (08:07→20:35)
[2020-08-02 10:46] LABS: Anion Gap 11.2 (5-19); Blood Urea Nitrogen 17 mg/dL (6-20); Calcium 9.7 mg/dL (8.5-10.5); Carbon Dioxide 26 mmol/L (22-29); Chloride 107 mmol/L (98-107); Creatinine Clr Calc Pharmacy 101.5611; Glucose 97 mg/dL (65-115); Osmolality Calculated 291 mOsm/kg (285-295); Potassium 4.2 mmol/L (3.5-5.1); Sodium 140 mmol/L (136-145)
[2020-08-02 11:22] LABS: Creatine Phosphokinase 1082 U/L (26-192)
[2020-08-02 14:00] VITALS: BP 107/71; PULSE 82; RESP 18; TEMP 36.3; O2SAT 94
[2020-08-02] MEDS: mirtazapine 15 mg Tablet PO (20:35)
[2020-08-02 21:09] VITALS: BP 95/58; PULSE 83; RESP 19; TEMP 36.5; O2SAT 96
[2020-08-03] MEDS: HYDROcodone-acetaminophen 5-325 mg Tablet 1 TAB PO ×3 (02:23→14:31)
[2020-08-03 06:00] VITALS: BP 113/63; PULSE 69; RESP 17; TEMP 36.6; O2SAT 91
--- NOTE | 2020-08-03 07:29 | PM.NPN ---
Vitals/I&O/Wt Last Vital Signs Temp 97.8 F 08/03/20 06:00 Pulse 69 08/03/20 06:00 Resp 17 08/03/20 06:00 BP 113/63 08/03/20 06:00 Pulse Ox 91 08/03/20 06:00 Weight last 48 hrs Weight 76.771 kg Weight 68.039 kg Data NPU : 08/01/20 09:12 08/02/20 09:30 Micro: Microbiology 08/01/20 09:12 Urine Culture - Preliminary Urine,Clean Catch Microbiology 08/01/20 09:12 Urine,Clean Catch Urine Culture - Preliminary Involuntary Hold Information 96 Hour Hold: 96 Hour Involuntary Admission: No 96 Hour Hold Ending Date: 03/21/20 96 Hour Hold Ending Time: 15:50 Coding Level of Care Code Acute Food Court Team Member for Palak Thorne
[2020-08-03] MEDS: pantoprazole DR 40 mg Tablet PO (08:27)
[2020-08-03] MEDS: gabapentin 300 mg Capsule 600 MG PO (08:27)
[2020-08-03] MEDS: LORazepam 2 mg Tablet PO (08:27)
[2020-08-03] MEDS: lisinopril 5 mg Tablet PO (08:27)
[2020-08-03] MEDS: fluoxetine 20 mg Capsule PO (12:06)
[2020-08-03 14:00] VITALS: BP 132/83; PULSE 81; RESP 18; TEMP 36.9
[2020-08-03 16:25] VITALS: BP 132/83; PULSE 81; RESP 18; TEMP 36.9
--- NOTE | 2020-08-03 16:28 | PC.NURSE ---
CLIENT REQUESTING TO LEAVE AGAINST MEDICAL ADVICE. DR. CHAU NOTIFIED CLIENT LEAVING AMA WITH DR. CHAU CONSENT TO LEAVE AMA.
--- NOTE | 2020-08-03 18:09 | PM.NDC ---
Diagnoses at Discharge Discharge Diagnosis (1) Suicidal ideation: Status: Resolved (2) Substance abuse: Status: Acute (3) Methamphetamine dependence: Status: Acute (4) Alcohol use disorder, severe, in early remission: Status: Chronic (5) Chronic post-traumatic stress disorder (PTSD): Status: Chronic (6) Major depressive disorder, recurrent, moderate: Status: Chronic Permanent problem details: Remeron is helpful for depressed mood symptoms and sleep impairment. Reason for Visit Reason for Visit: CONFUSION/ DEPRESSION Brief History: History of Present Illness Viola Woods is a 50 year old female who presented to the emergency room with the following report: HPI Narrative: 50-year-old female patient presents to the emergency department via EMS due to bizarre behavior and confusion. Her friend Michele, who called 911, reports he became concerned when she started seeing people that were not there, stated there were kids in a man in the house she was afraid of. He reports she is not slept in 3 nights, when she would try to rest, would have nightmares. States she has been emotionally not right. Her friend Michele reports she attempted to make a cake during the night on a flat sheet funes, reports better of the cake all over the oven and a mess in the kitchen with things misplaced. Viola states she is depressed, reports she does not want to live anymore, reports stress at home, she denies having a plan. She reports emotional stress with her sister and her father. She also agrees with bad dreams and nightmares. She denies recent EtOH use, reports last methamphetamine use several months ago. She reports seeing people and people are telling her that she is not as pretty as her mother. She reports history of schizophrenia and bipolar disorder. MD complaint: suicidal ideation and feels depressed Onset (ago): day(s) (3) Duration: constant and getting worse History of same: Yes Relieving factors: none Context: significant life stressor Associated psychiatric symptoms: depression, auditory hallucinations and visual hallucinations Associated symptoms: Reports auditory hallucinations, visual hallucinations, delusions and depression Treatments prior to arrival: placed on mental health hold. She was admitted to the neuropsychiatric unit for definitive treatment of those issues. Noteworthy was the fact that her sister was also scheduled for admission and so given that it is against policy and several attempts were made to get her to another facility that will be on separate sides of the unit and not able to attend groups at the same time. She presented clearly out of sorts and her story did not in any way match up with the facts of her presentation. She continued to state that she had not used any drugs recently with clear positivity in a UDS as well as critical highs on her CK likely related to methamphetamine use. She noted that her sister was in town and her sister is a bad influence on her leading to poor choices but continues to deny drug use is 1 of those poor choices. She endorsed that she got remarried and that somehow that marriage is part of her reason for presenting. Much of her story did not make logical sense. We did review her last hospitalization which was in February and she agreed that it represented accurate historical data and an excerpt is included below. We agreed that we would review her pharmacy records and other records and try to identify what she is taking an attempt to help with her depression and anxiety that she did endorse. Per her 03/18/2020 inpatient eval: History of Present Illness Viola Woods is a 49 year old female The patient presented to the emergency room yesterday endorsing recent relapse on alcohol as well as depression and suicidal thoughts. She was admitted to the neuro-psychiatric unit for definitive treatment of those issues. On the unit today, she reports that she had been doing well until earlier this month when she had her most recent admission and she had relapsed after reportedly having six months of sobriety. She reports that she feels that the medications that she is on are working but they cannot counteract when she is drinking. We agreed to continue her current medications and that the focus we would need to have, is her sobering up while she is here, and maintaining the sobriety after she leaves. An excerpt from the last hospitalization is included below, as she denies any substantive changes. Currently she continues to report some issues at home, being at the heart of her recent relapse. We discussed the importance of her having outpatient therapy to really effectively work on those issues. Per her last [facility] eval 03/05/2020: History of Present Illness Viola Woods is a 49 year old female with a documented history of alcohol abuse and recurrent clinical depression. She was last admitted to this unit for her substance abuse in June 2019. She was under the care of this physician. Since her discharge at that time, she has been able to remain clean and sober. Unfortunately, her psychosocial issues have continued. She continues to be involved with her who is a destabilizing force. 10 days ago, she became suspicious that her was again seeing a woman with whom he had had an affair. He is a long-warehouse associate driver and is frequently gone. She received 2 calls from this woman. She became desponded hopeless and overwhelmed. She began drinking. As is her pattern, her drinking accelerates to the point of self destruction. Her requested police to do a wellness check on her. They found her extremely intoxicated. She did make a vague statement about harming herself. She was brought to the emergency room. Her blood alcohol level on presentation was 234. She was admitted to the psychiatric unit for safety and observation. The patient readily admits all of the above details. She is humiliated and ashamed at losing her sobriety in such a dramatic fashion. She reports significant somatic complaints consistent with alcohol withdrawal including nausea, headache, and confusion. However she denies any intent of injuring herself or anyone else at any time. She admits that she is in a psychosocial situation that demands action but is not able to think clearly enough at this point to establish an effective response. Prior to the events of started drinking, she denied symptoms of depression. She reports that her medications are generally working well. She denied suicidal or homicidal ideation. She denied the presence of auditory or visual hallucinations. She had been having good hedonic capacity. However it should be noted that the patient is not a very reliable informant at this time. She continues to take her Remeron and gabapentin and reports that they are effective and without side effects. Laboratory Tests 03/04/20 03/04/20 18:58 19:53 Urine Opiates Screen Negative Ur Barbiturates Screen Negative Ur Phencyclidine Scrn Negative Ur Amphetamines Screen Negative U Benzodiazepines Scrn Negative Urine Cocaine Screen Negative U Marijuana (THC) Screen Negative Ethyl Alcohol 234 H Prior Psychiatric History From her last admission July 21 to July 27, 2019 Viola Woods is a 49-year-old woman who presented to the emergency room primarily because she can't stop drinking. She is having problems with the sequelae of chronic alcohol use. She drinks 's a fifth of fireball whiskey daily. She says she is having a lot of abdominal pain and suspects that there may be other medical problems. She's been having passive suicidal ideation but at no time has she had an intent or plan. She reports feeling hopeless and helpless. She cannot resist the temptation to drink. During interview for a full array of depressive symptoms, she requested we terminate the interview due to her severe nausea and discomfort. She was in agreement with her need to be in the hospital. Past psychiatric history: She reported that she has been in rehabilitation programs here in [place] From admission in March 2019 Suicidal Thoughts and Drinking Alcohol. HPI: The patient is a 48 year old white female who is here for suicidal thoughts. Five days ago, the suicidal thoughts started. Marital conflicts started the suicidal thoughts. Viola reports her is leaving her. She denies a plan and intent of suicide. She has PTSD, Viola does not know symptoms of PTSD. Viola presented to the inpatient unit and slowly acclimated to the individual group and milieu therapies. She was really struggling with the situation with her and his infidelity and had fallen back on alcohol as a response. She presented and was put on gabapentin and naltrexone as well as latuda which were titrated to effect. She responded well to the medication as well as the inpatient treatment and was able to identify the importance of her going home and facing the situation which she had been using alcohol to avoid. During hospitalization she had routine laboratory studies which were within normal limits except for few outliers. The results can be seen below. Additionally she had a routine medical examination which was within normal limits and revealed no acute processes. At the time of discharge she was able to contract for safety, with absent lethality, endorsed improvement in mood and reported a commitment to sobriety and a plan to focus on her recovery as an outpatient. Review of Systems Narrative: Review of Systems Constitutional: Complains of: Fatigue; also complains of headache Eyes: Complains of: No eye symptoms ENT/Mouth: Complains of: No ENTM symptoms Cardiovascular: Complains of: No cardiac symptoms Respiratory: Complains of: No respiratory symptoms GI: Complains of: Complains of nausea without vomiting Neuro: Complains of: No neuro symptoms Musculoskeletal: Complains of: No musculoskeletal symptoms Skin: Complains of: No skin symptoms Hematologic/Lymphatic: Complains of: No hematologic/lymphatic symptoms Endocrine: Complains of: No endocrine symptoms : Complains of: No symptoms Psych: Complains of: Denied depression, Suicide ideation Meds NPU Home Medications Medication Instructions Recorded Confirmed Last Taken Type hydrocodone 5 mg-acetaminophen 300 1 tab PO BID PRN 7 Days #14 tab 02/21/20 03/04/20 Unknown Rx mg tablet diphenhydramine HCl 25 mg capsule 25 mg PO .QHS PRN cap 02/25/20 03/04/20 Unknown History gabapentin 600 mg tablet 600 mg PO BID #60 tab 02/28/20 03/04/20 Unknown Rx mirtazapine 30 mg tablet 30 mg PO .qhs #30 tab 03/03/20 03/04/20 Unknown Rx Allergies Allergy/AdvReac Type Severity Reaction Status Date / Time cephalexin [From Keflex] Allergy Severe ALGY-Anaphy Verified 02/21/20 13:59 laxis tramadol Allergy Unknown Verified 02/21/20 13:59 trazodone Allergy rapid Verified 02/21/20 13:59 heart beat PFSH NPU PFSH: Medical History Alcohol use disorder, severe, in early remission She denies alcohol use since last visit. Amphetamine use disorder, mild, in sustained remission Chronic post-traumatic stress disorder (PTSD) Chronic nightmares. See notes below regarding Remeron. Hepatitis C Major depressive disorder, recurrent, moderate Gabapentin is helpful for mood stability/anxiety. She reports mood improvement since making some personal changes in her lifestyle and beginning to attend christian. Surgical History H/O: hysterectomy History of appendectomy History of lung biopsy Hx of tonsillectomy Status post laparoscopic cholecystectomy Social History Smoking and tobacco status: current every day smoker cigarettes Packs smoked per day: 0.5 Years cigarettes smoked: 30 Quit status (tobacco): not considering quitting Second hand smoke exposure: No Current gender identity: Female Hospital Course Hospital Course Viola presented to the emergency department with the complaints as stated above. She was admitted to the neuropsychiatric unit for definitive treatment of those issues. She slowly acclimated to the individual, group and milieu therapies provided. However after a short period she decided to sign out AMA because she wasn't getting pain medication or some other medication that she desired. During the hospitalization we administered her home medications but in keeping with an AMA discharge she was not given meds when she left. She did contract for safety prior to leaving. During the hospitalization she had routine laboratory studies which were within normal limits except for few outliers. Also she had a general medical evaluation was also within normal limits and revealed no new acute processes outside of the slight elevation in CK/rhabdomyolysis which resolved. Discharge Summary At the time of discharge, she denied psychosis or lethality. Her mood and anxiety were unremarkable. She reported a plan to avoid all drugs of abuse but requested to be discharged AGAINST MEDICAL ADVICE. She was evaluated and deemed to be absent credible lethality, and was not on a 96 hour hold and so she was discharged per her request. Involuntary Hold Information 96 Hour Hold: 96 Hour Involuntary Admission: No 96 Hour Hold Ending Date: 03/21/20 96 Hour Hold Ending Time: 15:50 Mental Status Exam MSE Comments: This is an obese white female, with adequate grooming and eye contact. Poor dentition/absent dentition. No abnormal movements. Cooperative with exam in no acute distress. Speech was normal rate and volume and dysarthric. Mood described as fine, affect congruent. Thought process organized. Thought content: Patient denied suicidal or homicidal ideations, there were no delusions reported or noted, she denied auditory or visual hallucinations. Attention and Concentration were intact and memory was mostly reliable but none were formally tested. She is alert and oriented times 3. Insight and judgment are limited, impulse control is impaired. Discharge Data Data Completed and Pending: Completed Studies During Hospitalization Category Date Time Status CT head wo con* 7 0450 Stat Cat Scan 08/01/20 09:04 Completed Vitals: Last Vital Signs Temp 98.4 F 08/03/20 16:25 Pulse 81 08/03/20 16:25 Resp 18 08/03/20 16:25 BP 132/83 08/03/20 16:25 Pulse Ox 91 08/03/20 06:00 Discharge Plan Discharge Patient Disposition: Left Against Medical Advice Condition: Stable Prescriptions: No Action gabapentin 600 mg tablet 600 mg PO BID Qty: 60 RF: 1 Remeron 15 mg tablet 15 mg PO BEDTIME Qty: 30 RF: 1 pantoprazole [Protonix] 40 mg tablet,delayed release (DR/EC) 40 mg PO BID Qty: 60 RF: 2 ibuprofen 200 mg Tablet 400 mg PO PRN RF: 0 lisinopril 5 mg tablet 5 mg PO BID RF: 0 hydrocodone-acetaminophen 5-325 mg tablet 1 tab PO Q6H PRN (Reason: Pain) RF: 0 lorazepam 2 mg Tablet 2 mg PO BID RF: 0 Naprosyn 500 mg tablet 500 mg PO BID PRN (Reason: pain) Qty: 20 RF: 0 clindamycin HCl 300 mg capsule 300 mg PO Q6H 10 Days Qty: 40 RF: 0 Discharge Orders: Discharge Order (Routine); Ordered 08/03/20 Ordered By: Miguel Avalos Referrals: Laurita Torres APRN [Nurse Practitioner] - 08/12/20 3:00 pm Teresa Andrade NP [Primary Care Provider] - Discharge Diet: Regular Discharge Activity: Resume usual activity Discharge Attestations NPU Time Spent in Discharge Care*: less than 30 min Specific Discharge Activities: Specific discharge activities: educating patient, discussing with case mgr/social workers/dc planners, documenting/other paperwork and evaluating patient/reviewing data Coding Level of Care Code Acute Fire Alarm Inspector for [facility] Fwd Diagnoses Suicidal ideation R45.851 Substance abuse F19.10 Methamphetamine dependence F15.20 Alcohol use disorder, severe, in early remission F10.21 Chronic post-traumatic stress disorder (PTSD) F43.12 Major depressive disorder, recurrent, moderate F33.1
--- NOTE | 2020-08-04 18:05 | PC.RESP ---
Smoking Cessation information sent to patient.
== END 2020-08-03 16:31 | disposition home or self-care (01) | DRG 885 ==
LOC: ER 21:25 → NP 23:24
PROVIDERS: Emergency Medicine; Nurse Practitioner Family; Admitting Provider Psychiatry & Neurology Psychiatry; PCP Nurse Practitioner Family; Visit Provider Psychiatry & Neurology Psychiatry
DX: F33.1 Major depressive disorder, recurrent, moderate (principal); R45.851 Suicidal ideations; F15.20 Other stimulant dependence, uncomplicated; F19.10 Other psychoactive substance abuse, uncomplicated; F10.21 Alcohol dependence, in remission; F43.12 Post-traumatic stress disorder, chronic; B19.20 Unspecified viral hepatitis C without hepatic coma; F17.210 Nicotine dependence, cigarettes, uncomplicated
CPT/HCPCS: 12345; 36415; 70450; 80048; 80053; 80306; 80307; 81001; 82550; 85025; 87086; 96375; 99284; J2060; J7030; J7040

== ENCOUNTER 2020-08-09 13:23 | Emergency (ER) | payer MEDICAID, SELFPAY ==
[2020-08-09 13:28] VITALS: BP 134/84; PULSE 73; RESP 18; TEMP 36.7; O2SAT 96; BMI 28.3
--- NOTE | 2020-08-09 13:39 | W.ED.SKABFB ---
HPI - Skin/Abscess/Foreign Bdy General: Chief complaint: Skin/Abscess/Foreign Body Stated complaint: left hand infection Time Seen by Provider: 08/09/20 13:33 Source: patient Mode of arrival: ambulatory Limitations: no limitations History of Present Illness: HPI narrative: 50-year-old female states she had erythema to her left hand over the last 4 days. She has had some pain as well she rates a 5 out of 10. Denies any fever. Denies any drainage. Patient denies any worsening or improving factors. Denies any vomiting. Associated symptoms: Deny chills, fever(s), nausea or vomiting Review of Systems Const: Denies: fever(s), chills, body aches or change in appetite Eyes: Denies: blurry vision or eye discomfort ENMT: Denies: throat pain or dental pain Card: Denies: chest pain Resp: Denies: dyspnea GI: Denies: abdominal pain, nausea, vomiting or diarrhea : Denies: dysuria Musc: Denies: neck pain or back pain Skin/Breast: Reports: erythema Neuro: Denies: headache(s) Psych: Denies: depression Wolf/Lymph: Denies: easy bruising All/Imm: Denies: urticaria PFSH ED PFSH: Medical History Alcohol use disorder, severe, in early remission Amphetamine use disorder, mild, in sustained remission Chronic post-traumatic stress disorder (PTSD) Hepatitis C Major depressive disorder, recurrent, moderate Remeron is helpful for depressed mood symptoms and sleep impairment. Surgical History H/O: hysterectomy History of appendectomy History of lung biopsy Hx of tonsillectomy Status post laparoscopic cholecystectomy Social History Smoking and tobacco status: current every day smoker cigarettes Packs smoked per day: 0.5 Years cigarettes smoked: 30 Quit status (tobacco): not considering quitting Second hand smoke exposure: No Alcohol intake: former Current gender identity: Female Physical Exam Const: COMMON NORMALS: no acute distress, patient oriented x3 and healthy appearing HENMT: COMMON NORMALS: normocephalic and atraumatic HEAD & SCALP: normocephalic and atraumatic Eye: COMMON NORMALS: Equal, round and reactive pupils present and EOMs intact bilaterally PUPIL: Yes Equal, round and reactive pupils present Neck/C-Spine: COMMON NORMALS: full ROM and supple Chest: COMMONS NORMALS: normal inspection of the chest and normal palpation of entire chest wall Resp: COMMON NORMALS: normal respiratory effort, No retractions, No use of accessory muscles and clear to auscultation bilaterally AUSCULTATION: clear to auscultation bilaterally Cardio: COMMON NORMALS: regular rate, regular rhythm and No murmurs present (Cardio) RATE: regular rate RHYTHM: regular rhythm GI: COMMON NORMALS: Normal to inspection, nondistended, normoactive bowel sounds present, Soft to palpation, non-tender and no masses PALPATION: Yes Soft to palpation Extremity: COMMON NORMALS: full ROM NARRATIVE EXTREMITY EXAM: Erythema to dorsal surface of left hand. Roughly 2 cm of erythema is warm to touch. Does not involve any joints. No abscess. Neuro: COMMON NORMALS: patient oriented x3, moves all extremities and no focal motor deficits Psych: COMMON NORMALS: mental status grossly normal, Normal thought process present and cooperative THOUGHT PROCESS: Normal thought process present Skin: COMMON NORMALS: no rashes or lesions noted and no wounds GENERAL SKIN EXAM: no rashes or lesions noted Course Vital Signs: Vital signs: Vital Signs Temperature 98.1 F 08/09/20 13:28 Pulse Rate 73 08/09/20 13:28 Respiratory Rate 18 08/09/20 13:28 Blood Pressure 134/84 08/09/20 13:28 Pulse Oximetry 96 08/09/20 13:28 MDM - Skin/Abscess/Foreign Bdy MDM Narrative: Medical decision making narrative: Viola presents here with cellulitis to her left hand. It is over the dorsal surface and does not go to the wrist. No abscess. It is mild in nature. We will place her on antibiotics. She is stable for discharge and is to return if she has any spreading of it. Discharge Plan Discharge Patient Disposition: Home Clinical Impression: Cellulitis of hand, left Condition: Stable Prescriptions: New Naprosyn 500 mg tablet 500 mg PO BID PRN (Reason: pain) Qty: 20 RF: 0 clindamycin HCl 300 mg capsule 300 mg PO Q6H 10 Days Qty: 40 RF: 0 No Action gabapentin 600 mg tablet 600 mg PO BID Qty: 60 RF: 1 pantoprazole [Protonix] 40 mg tablet,delayed release (DR/EC) 40 mg PO BID Qty: 60 RF: 2 ibuprofen 200 mg Tablet 400 mg PO PRN RF: 0 lisinopril 5 mg tablet 5 mg PO BID RF: 0 hydrocodone-acetaminophen 5-325 mg tablet 1 tab PO Q6H PRN (Reason: Pain) RF: 0 lorazepam 2 mg Tablet 2 mg PO BID RF: 0 baclofen 10 mg Tablet 10 mg PO TID PRN (Reason: unknown) RF: 0 Remeron 15 mg tablet 15 mg PO BEDTIME RF: 0 Discharge Orders: Discharge Order (Routine); Ordered 08/09/20 Ordered By: Radha Osullivan Referrals: Teresa Andrade ASSESSMENT COORDINATOR [Primary Care Provider] - 1-3 days Discharge Diet: Advance as tolerated Discharge Activity: Resume usual activity Patient Instructions: Cellulitis (ED) Coding Level of Care Code ED Field Training Manager for [facility]
[2020-08-09] MEDS: HYDROcodone-acetaminophen 5-325 mg Tablet 1 TAB PO (13:46)
== END 2020-08-09 13:54 | disposition home or self-care (01) ==
PROVIDERS: Emergency Provider Emergency Medicine; PCP Nurse Practitioner Family
DX: L03.114 Cellulitis of left upper limb (principal); Z86.19 Personal history of other infectious and parasitic diseases; F17.210 Nicotine dependence, cigarettes, uncomplicated
CPT/HCPCS: 12345; 99281; 99283

== ENCOUNTER → 2020-08-12 08:26 | Outpatient (BNVA) | payer MEDICAID, SELFPAY | PROVIDERS: PCP Nurse Practitioner Family; Visit Provider Nurse Practitioner Psychiatric/Mental Health | DX: F43.12 Post-traumatic stress disorder, chronic (principal); F33.1 Major depressive disorder, recurrent, moderate; F10.21 Alcohol dependence, in remission | CPT/HCPCS: 99212 ==

== ENCOUNTER 2020-08-15 12:43 | Emergency (ER) | payer MEDICAID, SELFPAY ==
[2020-08-15 12:56] VITALS: BP 122/82; PULSE 86; RESP 18; TEMP 36.6; O2SAT 95; BMI 28.3
--- NOTE | 2020-08-15 13:21 | XR_ITS ---
WS: [id number] LEFT HAND: 3 VIEW(S) TECHNIQUE: PA, oblique and lateral. HISTORY: left hand pain and swelling COMPARISON: 07/09/2020 Suspicious for nondisplaced fracture involving the base of the third metacarpal. No displacement. Moderate amount of soft tissue edema over the dorsal hand and wrist. XR/XR hand LT min 3V* [id number] IMPRESSION: 1. Moderate amount of edema over the dorsal hand and wrist. 2. Suspicious but indeterminate for nondisplaced fracture proximal third metac arpal.
[2020-08-15] MEDS: tetanus-dipt-pertussis 0.5 mL SDV IM (13:56)
[2020-08-15 14:15] LABS: Basophils # 0.1 10^3/uL (0.0-0.1); Basophils % 0.7 %; Eosinophils # 0.3 10^3/uL (0.0-0.8); Eosinophils % 3.4 %; Hematocrit 39.1 % (37.0-47.0); Hemoglobin 12.3 g/dL (11.5-15.3); Lymphocytes # 1.9 10^3/uL (0.8-4.8); Lymphocytes % 25.7 %; Mean Corpuscular HGB Conc 31.5 g/dL (30.0-36.0); Mean Corpuscular Hemoglobin 30.1 pg (28.0-34.0); Mean Corpuscular Volume 95.6 fL (81-99); Mean Platelet Volume 9.8 fL (7.4-10.4); Monocytes # 0.6 10^3/uL (0.2-0.9); Monocytes % 8.1 %; Neutrophils # 4.51 10^3/uL (1.8-7.7); Neutrophils % 61.7 %; Nucleated Red Blood Cells % 0 %; Platelet Count 243 10^3/cmm (130-400); Red Blood Count 4.09 10^6/uL (4.1-5.3); Red Cell Distribution Width 14.4 % (12.1-15.1); White Blood Count 7.3 10^3/uL (4.0-10.0)
[2020-08-15 14:25] LABS: Alanine Aminotransferase 97 U/L (0-33); Albumin Level 4.1 g/dL (3.5-5.2); Alkaline Phosphatase 101 IU/L (35-105); Aspartate Amino Transferase 66 U/L (0-32); Blood Urea Nitrogen 20 mg/dL (6-20); Calcium 9.7 mg/dL (8.5-10.5); Carbon Dioxide 26 mmol/L (22-29); Chloride 106 mmol/L (98-107); Globulin 3.1 g/dL (1.3-4.6); Glomerular Filtration Rate 75.3 mL/min (90-130); Glucose 113 mg/dL (65-115); Osmolality Calculated 289 mOsm/kg (285-295); Sodium 138 mmol/L (136-145); Total Bilirubin 0.2 mg/dL (0.15-1.2); Total Protein 7.2 g/dL (6.6-8.7)
[2020-08-15 14:28] LABS: Anion Gap 10.5 (5-19); Potassium 4.5 mmol/L (3.5-5.1)
[2020-08-15] MEDS: HYDROcodone-acetaminophen 5-325 mg Tablet 1 TAB PO (14:35)
--- NOTE | 2020-08-15 14:47 | ED_ITS ---
HPI - Skin/Abscess/Foreign Bdy General: Chief complaint: Skin/Abscess/Foreign Body Stated complaint: SPIDER BITE Time Seen by Provider: 08/15/20 13:11 Source: patient Mode of arrival: ambulatory Limitations: no limitations History of Present Illness: HPI narrative: 50-year-old female patient presents to the emergency department with onset of left hand pain x8 days. She reports seen in the ED for potential, spider bite , placed on clindamycin August 09, 2020. She reports hand improved over the next couple of days, she reports past 2 days of increased pain and swelling with redness. She reports difficulty with opening closure of the fist. She states mild fever. She reports cleaning out an old barn this past week prior to onset of symptoms., previous x-ray of the l eft hand on 07/09/2020 after sustaining FOOSH injury, negative x-ray at that time. complaint: discoloration Onset (ago): day(s) (8) Location: L hand Severity: moderate Severity scale (1-10): 7 Quality: burning, stabbing and aching Associated symptoms: Reports chills and fever(s); Deny nausea or vomiting Treatments prior to arrival: other (Antibiotic clindamycin) Review of Systems General: Reports: 10 or more systems reviewed and unremarkable except in HPI and below Const: Reports: fever(s) Eyes: Denies: blurry vision or eye redness ENMT: Denies: throat pain, dental pain or disequilibrium Card: Denies: chest pain, palpitations or irregular heart rhythm Resp: Denies: dyspnea, productive cough, non-productive cough or wheezing GI: Denies: abdominal pain, nausea or vomiting : Denies: difficulty voiding or dysuria Musc: Denies: neck pain or back pain Skin/Breast: Reports: erythema, skin tenderness and changes in skin color; Denies: rash or pruritus Neuro: Denies: headache(s), weakness in extremities or behavioral changes Psych: Denies: anxiety or depression Wolf/Lymph: Denies: easy bruising PFS ED PFSH: Medical History (Updated 08/15/20 @ 16:35 by Jacqueline Nelson MD) Alcohol use disorder, severe, in early remission Amphetamine use disorder, mild, in sustained remission Chronic post-traumatic stress disorder (PTSD) Hepatitis C Major depressive disorder, recurrent, moderate Remeron is helpful for depressed mood symptoms and sleep impairment. Surgical History H/O: hysterectomy History of appendectomy History of lung biopsy Hx of tonsillectomy Status post laparoscopic cholecystectomy Social History Smoking and tobacco status: current every day smoker cigarettes Packs smoked per day: 0.5 Years cigarettes smoked: 30 Quit status (tobacco): not considering quitting Second hand smoke exposure: No Alcohol intake: former Current gender identity: Female Physical Exam Const: COMMON NORMALS: no acute distress, patient oriented x3, healthy appearing and alert GENERAL APPEARANCE: cooperative, comfortable and well hydrated HENMT: COMMON NORMALS: normocephalic, Normal external nose present and moist oral mucous membranes HEAD & SCALP: normocephalic NOSE: Normal external nose present Eye: COMMON NORMALS: Equal, round and reactive pupils present and EOMs intact bilaterally GENERAL EYE: appearance normal, both eyes and all related structures PUPIL: Yes Equal, round and reactive pupils present Neck/C-Spine: COMMON NORMALS: full ROM and no lymphadenopathy GENERAL: Yes normal visual inspection and Yes trachea midline CERVICAL SPINE: Yes cervical ROM normal Lymph: LYMPHATIC: no lymphadenopathy noted Chest: COMMONS NORMALS: normal inspection of the chest Resp: COMMON NORMALS: normal respiratory effort and clear to auscultation bilaterally AUSCULTATION: clear to auscultation bilaterally Cardio: COMMON NORMALS: regular rhythm, S1 normal heart sound present, S2 normal heart sound present and Peripheral pulses 2+ throughout RHYTHM: regular rhythm HEART SOUNDS: S1 normal heart sound present and S2 normal heart sound present PERIPHERAL PULSES: Peripheral pulses 2+ throughout GI: COMMON NORMALS: Soft to palpation and non-tender INSPECTION: Yes normal to inspection PALPATION: Yes Soft to palpation : COMMON NORMALS: Yes no CVA tenderness BLADDER/KIDNEY EXAM: Yes no CVA tenderness Back/Pelvis: COMMON NORMALS: no CVA tenderness and thoracic and lumbar spine normal to inspection Extremity: COMMON NORMALS: normal to inspection and capillary refill normal GENERAL: Yes normal exam except as noted LEFT UPPER EXTREMITY: Yes hand & digits (Edema and erythema over the dorsal aspect of the hand, no open wounds/lesio) Left hand and digits: Yes palpation (Pain to the dorsal hand), Yes ROM (Limited flexion/extension of the fingers) and Yes neurovascular exam (Distally intact, erythema/tracking of the left ulnar wrist) Neuro: COMMON NORMALS: patient oriented x3 and no focal motor deficits SENSORIUM/ORIENTATION: Yes alert Psych: COMMON NORMALS: mental status grossly normal, Normal thought process present and cooperative ACTIVITY/MOTOR BEHAVIOR: Yes appropriate eye contact THOUGHT PROCESS: Normal thought process present Skin: COMMON NORMALS: no rashes or lesions noted and turgor normal GENERAL SKIN EXAM: no rashes or lesions noted and turgor normal Course ED course: 50-year-old female patient presents to the emergency department cellulitis of the left hand. Serology and x-ray results discussed with Dr. Nelson, Dr. Nelson evaluated the patient. Further discharge completed by supervising physician. Vital Signs: Vital signs: Vital Signs Temperature 97.9 F 08/15/20 12:56 Pulse Rate 76 08/15/20 16:51 Respiratory Rate 18 08/15/20 16:51 Blood Pressure 133/78 08/15/20 16:51 Pulse Oximetry 96 08/15/20 16:51 MDM - Skin/Abscess/Foreign Bdy Lab Data: Labs: Lab Results 08/15/20 08/15/20 08/15/20 Range/Units 13:50 13:50 13:50 WBC 7.3 (4.0-10.0) 10^3/ uL RBC 4.09 L (4.1-5.3) 10^6/u L Hgb 12.3 (11.5-15.3) g/dL Hct 39.1 (37.0-47.0) % MCV 95.6 (81-99) fL MCH 30.1 (28.0-34.0) pg MCHC 31.5 (30.0-36.0) g/dL RDW 14.4 (12.1-15.1) % Plt Count 243 (130-400) 10^3/c mm MPV 9.8 (7.4-10.4) fL Neut % (Auto) 61.7 % Lymph % (Auto) 25.7 % Pender % (Auto) 8.1 % Eos % (Auto) 3.4 % Baso % (Auto) 0.7 % Neut # (Auto) 4.51 (1.8-7.7) 10^3/u L Lymph # (Auto) 1.9 (0.8-4.8) 10^3/u L Pender # (Auto) 0.6 (0.2-0.9) 10^3/u L Eos # (Auto) 0.3 (0.0-0.8) 10^3/u L Baso # (Auto) 0.1 (0.0-0.1) 10^3/u L Nucleated RBC % (a uto) 0 % Nucleated RBCs # 0.0 /100WBC ESR 54 H (0-15) mm/hr Sodium 138 (136-145) mmol/L Potassium 4.5 (3.5-5.1) mmol/L Chloride 106 (98-107) mmol/L Carbon Dioxide 26 (22-29) mmol/L Anion Gap 10.5 (5-19) BUN 20 (6-20) mg/dL Creatinine 0.8 (0.5-0.9) mg/dL GFR Calculation 75.3 L (90-130) mL/min Glucose 113 (65-115) mg/dL Calculated Osmolal ity 289 (285-295) mOsm/k g Calcium 9.7 (8.5-10.5) mg/dL Total Bilirubin 0.2 (0.15-1.2) mg/dL AST 66 H (0-32) U/L ALT 97 H (0-33) U/L Alkaline Phosphata se 101 (35-105) IU/L Total Protein 7.2 (6.6-8.7) g/dL Albumin 4.1 (3.5-5.2) g/dL Globulin 3.1 (1.3-4.6) g/dL Imaging Data^: Xray Ortho: Radiologist's impression: [facility] [address] [place] [address] XRay Report Signed Patient: Viola Woods Unit #: [id number] : [id number] Age/Sex: 50 / F ADM Date: 08/15/20 Loc: ER Room/Bed: Attending Dr: Ordering Provider/Ordering MD: Luzma Ayala Date of Service: 08/15/20 Procedure(s): XR hand LT min 3V* [id number] Accession Number(s): [id number] Report Number: [id number] WS: [id number] LEFT HAND: 3 VIEW(S) TECHNIQUE: PA, oblique and lateral. HISTORY: left hand pain and swelling COMPARISON: 07/09/2020 Suspicious for nondisplaced fracture involving the base of the third metacarpal. No displacement. Moderate amount of soft tissue edema over the dorsal hand and wrist. XR/XR hand LT min 3V* [id number] IMPRESSION: 1. Moderate amount of edema over the dorsal hand and wrist. 2. Suspicious but indeterminate for nondisplaced fracture proximal third metacarpal. Dictated By: Stephanie Daly DO Signed By: Stephanie Daly DO Signed Date/Time: 08/15/201413 DD/ 1407 Discharge Plan Discharge Patient Disposition: Home Clinical Impression: Cellulitis of hand, left Condition: Stable Prescriptions: New hydrocodone-acetaminophen 5-325 mg tablet 1 tab PO Q4H PRN (Reason: pain) Qty: 7 RF: 0 No Action gabapentin 600 mg tablet 600 mg PO BID Qty: 60 RF: 1 Remeron 15 mg tablet 15 mg PO BEDTIME Qty: 30 RF: 1 pantoprazole [Protonix] 40 mg tablet,delayed release (DR/EC) 40 mg PO BID Qty: 60 RF: 2 ibuprofen 200 mg Tablet 400 mg PO PRN RF: 0 lisinopril 5 mg tablet 5 mg PO BID RF: 0 hydrocodone-acetaminophen 5-325 mg tablet 1 tab PO Q6H PRN (Reason: Pain) RF: 0 lorazepam 2 mg Tablet 2 mg PO BID RF: 0 Naprosyn 500 mg tablet 500 mg PO BID PRN (Reason: pain) Qty: 20 RF: 0 clindamycin HCl 300 mg capsule 300 mg PO Q6H 10 Days Qty: 40 RF: 0 Discharge Orders: Discharge Order (Routine); Ordered 08/15/20 Ordered By: Jacqueline Nelson Referrals: Teresa Andrade NP [Primary Care Provider] - Discharge Diet: Advance as tolerated Discharge Activity: Resume usual activity Patient Instructions: Cellulitis (ED) Activity Restrictions/Additional Instructions: Continue the antibiotic and follow up with your pain medicine. Coding Level of Care Code ED Polishing Machine Operator Helper for Chg Fwd Exam Comprehensive
[2020-08-15 15:46] LABS: Erythrocyte Sedimentation Rate 54 mm/hr (0-15)
[2020-08-15 16:51] VITALS: BP 133/78; PULSE 76; RESP 18; O2SAT 96
== END 2020-08-15 16:51 | disposition home or self-care (01) ==
PROVIDERS: Emergency Provider Nurse Practitioner Family; PCP Nurse Practitioner Family
DX: L03.114 Cellulitis of left upper limb (principal); Z86.19 Personal history of other infectious and parasitic diseases; F17.210 Nicotine dependence, cigarettes, uncomplicated; Z23 Encounter for immunization
CPT/HCPCS: 12345; 73130; 80053; 85025; 85651; 87040; 90471; 90715; 99282; 99283

== ENCOUNTER 2020-08-17 19:26 | Emergency (ER) | payer MEDICAID, SELFPAY ==
[2020-08-17 19:27] VITALS: BP 192/113; PULSE 94; RESP 18; TEMP 36.3; O2SAT 98; BMI 28.3
--- NOTE | 2020-08-17 19:38 | XRR_ITS ---
PROCEDURE INFORMATION: Exam: XR Left Hand Exam date and time: 08/17/2020 8:11 PM Age: 50 years old Clinical indication: Swelling; Hand; Left; Additional info: Pain and swelling TECHNIQUE: Imaging protocol: XR Left hand. Views: 3 or more views. COMPARISON: CR XR hand LT min 3V* [id number] 08/15/2020 1:46 PM FINDINGS: Bones/joints: No fracture or other acute osseous abnormality. No acute or chronic joint abnormality demonstrated. Soft tissues: Dorsal soft tissue swelling noted. XR/XR hand LT min 3V* [id number] IMPRESSION: 1. Dorsal soft tissue swelling noted. This is unchanged from 08/15/2020. 2. No acute fracture demonstrated on the current examination. 3. There is no interval change from the prior examination.
--- NOTE | 2020-08-17 20:17 | W.ED.EXTPRO ---
HPI - Extremity Problem General: Chief complaint: Extremity Injury, Upper Stated complaint: Lt hand swelling Time Seen by Provider: 08/17/20 19:36 History of Present Illness: HPI Narrative: This patient is a 50-year-old female who presents with hand pain. She has been seen several times for this complaint. She thinks maybe a spider bit her on the hand. She has been on clindamycin for it. She comes in complaining of pain. She is tearful. She has been on hydrocodone and Naprosyn. She is concerned that it is getting worse. I saw her on her last visit and today it looks significantly better to me. Complaint: extremity pain and extremity swelling Onset (ago): day(s) Pain Consistency: constant Location: left and upper extremity (Dorsal surface of the hand) Associated symptoms: Deny fever(s) Review of Systems Const: Denies: fever(s) [facility] ED PFSH: Medical History (Updated 08/17/20 @ 21:48 by Jacqueline Nelson MD) Alcohol use disorder, severe, in early remission Chronic post-traumatic stress disorder (PTSD) Hepatitis C Major depressive disorder, recurrent, moderate Remeron is helpful for depressed mood symptoms and sleep impairment. Surgical History H/O: hysterectomy History of appendectomy History of lung biopsy Hx of tonsillectomy Status post laparoscopic cholecystectomy Social History Smoking and tobacco status: current every day smoker cigarettes Packs smoked per day: 0.5 Years cigarettes smoked: 30 Quit status (tobacco): not considering quitting Second hand smoke exposure: No Alcohol intake: former Current gender identity: Female Physical Exam Const: COMMON NORMALS: no acute distress, patient oriented x3, no limitations and alert GENERAL APPEARANCE: cooperative and comfortable HENMT: HEAD & SCALP: normal to inspection FACE & SINUS: normal facial exam Eye: GENERAL EYE: appearance normal, both eyes and all related structures Neck/C-Spine: COMMON NORMALS: supple, no meningeal signs and no JVD Chest: COMMONS NORMALS: normal inspection of the chest Resp: COMMON NORMALS: normal respiratory effort and No use of accessory muscles Cardio: COMMON NORMALS: no JVD Extremity: GENERAL: Yes normal exam except as noted and Yes other findings (Dorsal surface of the left hand with slight swelling and tenderness. The r) Neuro: COMMON NORMALS: patient oriented x3, moves all extremities, no focal motor deficits and no sensory deficits noted SENSORIUM/ORIENTATION: Yes alert MENINGEAL SIGNS: Yes no meningeal signs Psych: COMMON NORMALS: mental status grossly normal, cooperative and normal affect Skin: COMMON NORMALS: no rashes or lesions noted and turgor normal GENERAL SKIN EXAM: no rashes or lesions noted and turgor normal Course ED course: Give the patient a dose of ketamine at the dosage use for acute pain. Is to give her Ativan as she had a little bit of a reaction to the ketamine. I would recommend using the same dose but over 10 to 15 minutes. It did seem to really help and she seemed very calm and comfortable the time of discharge. Vital Signs: Vital signs: Vital Signs Temperature 97.8 F 08/17/20 22:39 Pulse Rate 88 08/17/20 22:39 Respiratory Rate 16 08/17/20 22:39 Blood Pressure 140/86 08/17/20 22:39 Pulse Oximetry 97 08/17/20 22:39 MDM - Extremity (Nontraumatic) Lab Data: Labs: Lab Results 08/17/20 Range/Units 20:21 ESR 60 H (0-15) mm/hr Discharge Plan Discharge Patient Disposition: Home Clinical Impression: Cellulitis Qualifiers: Site of cellulitis: extremity Site of cellulitis of extremity: upper extremity Laterality: left Qualified Code(s): L03.114 - Cellulitis of left upper limb Condition: Stable Prescriptions: New doxycycline hyclate 100 mg tablet 100 mg PO BID 7 Days Qty: 14 RF: 0 Discontinued clindamycin HCl 300 mg capsule 300 mg PO Q6H 10 Days Qty: 40 RF: 0 No Action gabapentin 600 mg tablet 600 mg PO BID Qty: 60 RF: 1 Remeron 15 mg tablet 15 mg PO BEDTIME Qty: 30 RF: 1 pantoprazole [Protonix] 40 mg tablet,delayed release (DR/EC) 40 mg PO BID Qty: 60 RF: 2 hydrocodone-acetaminophen 5-325 mg tablet 1 tab PO Q4H PRN (Reason: pain) Qty: 7 RF: 0 ibuprofen 200 mg Tablet 400 mg PO PRN RF: 0 lisinopril 5 mg tablet 5 mg PO BID RF: 0 hydrocodone-acetaminophen 5-325 mg tablet 1 tab PO Q6H PRN (Reason: Pain) RF: 0 lorazepam 2 mg Tablet 2 mg PO BID RF: 0 Naprosyn 500 mg tablet 500 mg PO BID PRN (Reason: pain) Qty: 20 RF: 0 Discharge Orders: Discharge Order (Routine); Ordered 08/17/20 Ordered By: Jacqueline Nelson Referrals: Teresa Andrade NP [Primary Care Provider] - Discharge Diet: Usual diet Discharge Activity: Resume usual activity Patient Instructions: Cellulitis (ED) Activity Restrictions/Additional Instructions: You can stop the clindamycin if you think it is causing itching - take the doxycycline instead and take all of it until gone. Use ibuprofen and tylenol for pain. Use cool compresses for itching. Coding Level of Care Code ED Mechanical Meter Tester for Palak Fwd Exam Comprehensive
[2020-08-17 20:26] VITALS: BP 156/104; PULSE 96; RESP 18; O2SAT 96
[2020-08-17] MEDS: LORazepam 2 mg/mL INJ 1 mL 0.5 MG IVP ×2 (21:55→22:06)
[2020-08-17 22:09] LABS: Erythrocyte Sedimentation Rate 60 mm/hr (0-15)
[2020-08-17 22:39] VITALS: BP 140/86; PULSE 88; RESP 16; TEMP 36.6; O2SAT 97
== END 2020-08-17 22:49 | disposition home or self-care (01) ==
PROVIDERS: Emergency Provider Emergency Medicine; PCP Nurse Practitioner Family
DX: L03.114 Cellulitis of left upper limb (principal); Z86.19 Personal history of other infectious and parasitic diseases; F17.210 Nicotine dependence, cigarettes, uncomplicated
CPT/HCPCS: 12345; 73130; 85651; 96374; 96375; 96376; 99283; J2060; J3490

== ENCOUNTER 2020-08-21 11:25 | Emergency (ER) | payer MEDICAID, SELFPAY ==
[2020-08-21 11:29] VITALS: BP 180/100; PULSE 101; RESP 18; TEMP 36.3; O2SAT 97; BMI 28.3
--- NOTE | 2020-08-21 11:38 | ED_ITS ---
HPI - Extremity Problem General: Chief complaint: Extremity Problem,Nontraumatic Stated complaint: swelling/burning on left hand Time Seen by Provider: 08/21/20 11:31 Source: patient Mode of arrival: ambulatory Limitations: no limitations History of Present Illness: HPI Narrative: 50-year-old female patient presents to the emergency department with continued left hand pain and swelling, presumed spider bite. She was treated in the emergency department 08/08/2020, placed on clindamycin, with diagnosis of cellulitis that was improving, suggested to discontinue clindamycin with new prescription of doxycycline provided 08/17/2020. Patient reports she continued clindamycin until all gone and just started doxycycline 2 days ago. She reports out of hydrocodone for pain. [place] rodriguez naproxen is not helping. States cannot handle the pain, reports improved swelling, decreased redness, able to move her fingers and make a fist. She reports pain radiates to the wrist. Pain worse with movement. [facility] attempted to schedule appointment with her primary care provider but was unable to do so, she restates prior PCP is out of town for the holidays. She denies new trauma or injuries, [facility] made ribs at home for Thanksgiving. She is requesting hydrocodone for pain upon exam. MD Complaint: joint pain (left hand and wrist) Onset (ago): week(s) (08/08/2020) Pain Consistency: constant Location: left and upper extremity Severity scale (1-10): 7 Quality: stabbing, aching and constant Radiation: proximal Relieving factors: rest Exacerbating factors: range of motion Associated symptoms: Reports arthralgias (wrist); Deny chest pain, fever(s) or rash Review of Systems General: Reports: 10 or more systems reviewed and unremarkable except in HPI and below Const: Denies: fever(s), chills or diaphoresis Eyes: Denies: blurry vision or eye redness ENMT: Denies: throat pain, dental pain or disequilibrium Card: Denies: chest pain, palpitations or irregular heart rhythm Resp: Denies: dyspnea, productive cough, non-productive cough or wheezing GI: Denies: abdominal pain, nausea or vomiting : Denies: difficulty voiding or dysuria Musc: Reports: joint pain (left wrist and hand) and joint stiffness (left wrist); Denies: neck pain or back pain Skin/Breast: Denies: rash or pruritus Neuro: Denies: headache(s), weakness in extremities or behavioral changes Psych: Denies: anxiety or depression Wolf/Lymph: Denies: easy bruising PFSH ED PFSH: Medical History (Updated 08/21/20 @ 11:45 by Luzma Ayala [facility]) Alcohol use disorder, severe, in early remission Chronic post-traumatic stress disorder (PTSD) Hepatitis C Major depressive disorder, recurrent, moderate Remeron is helpful for depressed mood symptoms and sleep impairment. Surgical History H/O: hysterectomy History of appendectomy History of lung biopsy Hx of tonsillectomy Status post laparoscopic cholecystectomy Social History Smoking and tobacco status: current every day smoker cigarettes Packs smoked per day: 0.5 Years cigarettes smoked: 30 Quit status (tobacco): not considering quitting Second hand smoke exposure: No Alcohol intake: former Current gender identity: Female Physical Exam Const: COMMON NORMALS: no acute distress, patient oriented x3, healthy appearing and alert GENERAL APPEARANCE: cooperative, comfortable and well hydrated HENMT: COMMON NORMALS: normocephalic, Normal external nose present and moist oral mucous membranes HEAD & SCALP: normocephalic NOSE: Normal external nose present Eye: COMMON NORMALS: Equal, round and reactive pupils present and EOMs intact bilaterally GENERAL EYE: appearance normal, both eyes and all related stru ctures PUPIL: Yes Equal, round and reactive pupils present Neck/C-Spine: COMMON NORMALS: full ROM and no lymphadenopathy GENERAL: Yes normal visual inspection and Yes trachea midline CERVICAL SPINE: Yes cervical ROM normal Lymph: LYMPHATIC: no lymphadenopathy noted Chest: COMMONS NORMALS: normal inspection of the chest Resp: COMMON NORMALS: normal respiratory effort and clear to auscultation bilaterally AUSCULTATION: clear to auscultation bilaterally Cardio: COMMON NORMALS: regular rhythm, S1 normal heart sound present, S2 normal heart sound present and Peripheral pulses 2+ throughout RHYTHM: regular rhythm HEART SOUNDS: S1 normal heart sound present and S2 normal heart sound present PERIPHERAL PULSES: Peripheral pulses 2+ throughout GI: COMMON NORMALS: Soft to palpation and non-tender INSPECTION: Yes normal to inspection PALPATION: Yes Soft to palpation : COMMON NORMALS: Yes no CVA tenderness BLADDER/KIDNEY EXAM: Yes no CVA tenderness Back/Pelvis: COMMON NORMALS: no CVA tenderness and thoracic and lumbar spine normal to inspection Extremity: COMMON NORMALS: normal to inspection, full ROM and capillary refill normal GENERAL: Yes normal exam except as noted RIGHT UPPER EXTREMITY: Yes hand & digits (Slight swelling of the dorsum of the left hand, marked improvement) Right hand and digits: Yes inspection (Significantly improved compared to 08/17/2020 exam), Yes palpation (Tenderness over the dorsum hand, second third and fourth carpals), Yes ROM exam (Full flexion/extension of the fingers to the left hand, hand grasp 5/5), Yes neurovascular exam (Distally intact) and Yes tendon exam (Visually intact) LEFT UPPER EXTREMITY: Yes wrist (Negative erythema or lymphadenitis noted, supination pronation intact) Left wrist: Yes palpation (Tender over the distal dorsum), Yes ROM (Fully intact) and Yes neurovascular exam (Distally intact) Neuro: COMMON NORMALS: patient oriented x3 and no focal motor deficits SENSORIUM/ORIENTATION: Yes alert Psych: COMMON NORMALS: mental status grossly normal, Normal thought process present and cooperative ACTIVITY/MOTOR BEHAVIOR: Yes appropriate eye contact THOUGHT PROCESS: Normal thought process present Skin: COMMON NORMALS: no rashes or lesions noted and turgor normal GENERAL SKIN EXAM: no rashes or lesions noted and turgor normal Course ED course: 50-year-old female patient presents to the emergency department with complaints of continued left hand pain and wrist pain, previous exams notat ed, left dorsal hand improved today upon exam. No new injuries or trauma, previous radiology x-rays reviewed. Patient was advised to follow-up with primary care, instructed to continue with follow-up and to complete doxycycline until all gone, placed in Velcro wrist splint to help with pain as immobilization does help. Patient was administered hydrocodone here in the ED with instruction prescription would not be provided. She is to continue naproxen with recommendation to elevate the extremity, attempt application of [id number] topical analgesics for pain. Instructed to follow-up with her primary care provider next week, referral to vp digital marketing social media and crm completed to assist with appointment. Vital Signs: Vital signs: Vital Signs Temperature 97.3 F L 08/21/20 11:29 Pulse Rate 101 H 08/21/20 11:29 Respiratory Rate 18 08/21/20 11:29 Blood Pressure 180/100 08/21/20 11:29 Pulse Oximetry 97 08/21/20 11:29 Discharge Plan Discharge Patient Disposition: Home Clinical Impression: Cellulitis of hand, left, Wrist pain, left Condition: Stable Prescriptions: No Action gabapentin 600 mg tablet 600 mg PO BID Qty: 60 RF: 1 Remeron 15 mg tablet 15 mg PO BEDTIME Qty: 30 RF: 1 pantoprazole [Protonix] 40 mg tablet,delayed release (DR/EC) 40 mg PO BID Qty: 60 RF: 2 hydrocodone-acetaminophen 5-325 mg tablet 1 tab PO Q4H PRN (Reason: pain) Qty: 7 RF: 0 doxycycline hyclate 100 mg tablet 100 mg PO BID 7 Days Qty: 14 RF: 0 ibuprofen 200 mg Tablet 400 mg PO PRN RF: 0 lisinopril 5 mg tablet 5 mg PO BID RF: 0 hydrocodone-acetaminophen 5-325 mg tablet 1 tab PO Q6H PRN (Reason: Pain) RF: 0 lorazepam 2 mg Tablet 2 mg PO BID RF: 0 Naprosyn 500 mg tablet 500 mg PO BID PRN (Reason: pain) Qty: 20 RF: 0 Discharge Orders: Discharge Order (Routine); Ordered 08/21/20 Ordered By: Luzma Ayala Referrals: Teresa Andrade NP [Primary Care Provider] - Discharge Diet: Usual diet Discharge Activity: Limit activity as instructed Patient Instructions: Cellulitis (ED), Arthralgia (ED) Activity Restrictions/Additional Instructions: May apply [id number] Salonpas or other topical pain relief agents to the top of the hand to help with pain Return to the emergency department if you develop fever, chills or red streaking of the left arm Keep the left hand elevated to help with swelling, remain in Velcro splint to help with pain and swelling. Apply cool compresses alternate with warm moist heat, apply frequently to help with pain and swelling. Continue doxycycline until all gone, even if better Continue naproxen for pain May take Tylenol, 1 g by mouth 3 times daily as needed for pain. Do not exceed this dose in a 24-hour period. Coding Level of Care Code ED Emblem Drawer In for Palak Thorne
[2020-08-21] MEDS: HYDROcodone-acetaminophen 7.5-325 mg Tablet 1 TAB PO (11:44)
[2020-08-21 11:46] VITALS: BP 180/100; PULSE 89; RESP 15; O2SAT 96
--- NOTE | 2020-08-26 14:44 | DCPLANNER ---
reception manager had message to schedule a follow up appointment for patient with primary care. reception manager called [phone] to speak with patient about a follow up appointment. reception manager was unable to speak with patient at this time, a voicemail was left for patient to return caseworker protective services phone call.
== END 2020-08-21 11:51 | disposition home or self-care (01) ==
PROVIDERS: Emergency Provider Nurse Practitioner Family; PCP Nurse Practitioner Family
DX: L03.114 Cellulitis of left upper limb (principal); Z86.19 Personal history of other infectious and parasitic diseases; F17.210 Nicotine dependence, cigarettes, uncomplicated
CPT/HCPCS: 12345; 29125; 99282; 99283

== ENCOUNTER 2020-08-23 12:20 | Emergency (ER) | payer MEDICAID, SELFPAY ==
[2020-08-23 12:23] VITALS: BP 164/110; PULSE 119; RESP 20; TEMP 36.6; O2SAT 97; BMI 28.3
--- NOTE | 2020-08-23 12:47 | W.ED.GENADLT ---
HPI - General Adult General: Chief complaint: General Medical Stated complaint: L HAND SWOLLEN, BLOOD IN URINE, L ABD PAIN Time Seen by Provider: 08/23/20 12:29 History of Present Illness: HPI narrative: Patient requesting pain medication says her hand still hurts this is swelled she is wearing a brace. Also said she has had some blood in urine started this last night. complaint: Hand pain and hematuria Onset (ago): day(s) Severity: moderate Associated symptoms: Deny chest pain, dyspnea, headache(s), nausea, rash or vomiting Review of Systems Const: Denies: fever(s), chills or body aches Eyes: Denies: change in vision or blurry vision ENMT: Denies: throat pain or nasal congestion Card: Denies: chest pain or dyspnea on exertion Resp: Denies: dyspnea, productive cough or non-productive cough GI: Denies: abdominal pain, nausea or vomiting : Reports: hematuria Musc: Reports: extremity pain (Left hand she has a brace on it says she has knots in it and it hurts recen) Skin/Breast: Denies: rash Neuro: Denies: headache(s) Psych: Denies: anxiety or depression Wolf/Lymph: Denies: easy bruising PFSH ED PFSH: Medical History (Updated 08/21/20 @ 11:45 by Luzma Ayala [facility]) Alcohol use disorder, severe, in early remission Chronic post-traumatic stress disorder (PTSD) Hepatitis C Major depressive disorder, recurrent, moderate Remeron is helpful for depressed mood symptoms and sleep impairment. Surgical History H/O: hysterectomy History of appendectomy History of lung biopsy Hx of tonsillectomy Status post laparoscopic cholecystectomy Social History Smoking and tobacco status: current every day smoker cigarettes Packs smoked per day: 0.5 Years cigarettes smoked: 30 Quit status (tobacco): not considering quitting Second hand smoke exposure: No Alcohol intake: former Current gender identity: Female Physical Exam Const: COMMON NORMALS: no acute distress GI: COMMON NORMALS: Normal to inspection, nondistended, normoactive bowel sounds present Extremity: LEFT UPPER EXTREMITY: Yes lower arm (Hand and arm looks fine no signs of swelling cellulitis no erythema has ful) Left lower arm: Yes other (Pain is not consistent with physical exam barely touch her skin she says it) Course Vital Signs: Vital signs: Vital Signs Temperature 97.9 F 08/23/20 12:23 Pulse Rate 119 H 08/23/20 12:23 Respiratory Rate 20 H 08/23/20 12:23 Blood Pressure 164/110 08/23/20 12:23 Pulse Oximetry 97 08/23/20 12:23 MDM - General Adult MDM Narrative: Medical decision making narrative: Patient refuses cath UA. Patient left room before receiving medication and did not notify any staff that she was leaving. Patient did not seem pleased she was not receiving a narcotic Discharge Plan Discharge Patient Disposition: Left Against Medical Advice Prescriptions: No Action gabapentin 600 mg tablet 600 mg PO BID Qty: 60 RF: 1 Remeron 15 mg tablet 15 mg PO BEDTIME Qty: 30 RF: 1 pantoprazole [Protonix] 40 mg tablet,delayed release (DR/EC) 40 mg PO BID Qty: 60 RF: 2 hydrocodone-acetaminophen 5-325 mg tablet 1 tab PO Q4H PRN (Reason: pain) Qty: 7 RF: 0 doxycycline hyclate 100 mg tablet 100 mg PO BID 7 Days Qty: 14 RF: 0 ibuprofen 200 mg Tablet 400 mg PO PRN RF: 0 lisinopril 5 mg tablet 5 mg PO BID RF: 0 hydrocodone-acetaminophen 5-325 mg tablet 1 tab PO Q6H PRN (Reason: Pain) RF: 0 lorazepam 2 mg Tablet 2 mg PO BID RF: 0 Naprosyn 500 mg tablet 500 mg PO BID PRN (Reason: pain) Qty: 20 RF: 0 Referrals: Teresa Andrade NP [Primary Care Provider] - Coding Level of Care Code ED Intake Specialist for Chg Fwd Exam Expanded Problem Focused
== END 2020-08-23 12:39 | disposition left against medical advice (07) ==
LOC: ER 12:41
PROVIDERS: Emergency Provider Nurse Practitioner Family; PCP Nurse Practitioner Family
DX: M79.89 Other specified soft tissue disorders (principal); Z76.0 Encounter for issue of repeat prescription; Z53.21 Procedure and treatment not carried out due to patient leaving prior to being seen by health care provider; Z86.19 Personal history of other infectious and parasitic diseases; F17.210 Nicotine dependence, cigarettes, uncomplicated
CPT/HCPCS: 12345; 99281

== ENCOUNTER 2020-08-29 13:33 | Emergency (ER) | payer MEDICAID, SELFPAY ==
[2020-08-29] VITALS (7 sets, daily range): BP systolic 137–180; BP diastolic 72–108; PULSE 76–100; RESP 18–20; TEMP 36.5–36.6; O2SAT 95–96; BMI 28.3
--- NOTE | 2020-08-29 14:49 | ECG_ITS ---
[facility] Test Date: 2020-08-29 Pat Name: Viola Woods Department: Room: Gender: Female Psychologist Personnel: : 1970 Requested By: Millie Haddad I Order Number: [id number] Ayah MD: Pia Nichols M.D. Measurements Intervals [place] Rate: 85 P: 56 MI: 187 QRS: 6 QRSD: 89 T: 39 QT: 388 QTc: 462 Interpretive Statements SINUS RHYTHM Compared to ECG 12/23/2019 12:11:16 Sinus tachycardia no longer present Electronically Signed On 08-29-2020 19:15:39 [employer] by Pia Nichols M.D. [id number]
--- NOTE | 2020-08-29 14:49 | XR_ITS ---
WS: [id number] Portable AP upright chest, 08/29/2020 Clinical Data: chest pain Comparison: Portable chest, 12/23/2019. Findings: No nodules, masses or effusions are seen. The heart is normal. The pulmonary vascularity is not increased. No pneumonia or pneumothorax is seen. There are calcified granulomas in both lungs XR/XR chest 1V portable [id number] Impression: Negative chest.
--- NOTE | 2020-08-29 14:49 | XR_ITS ---
WS: [id number] Left shoulder, 2 views, 08/29/2020 Clinical Data: shoulder pain Comparison: Left shoulder, 07/09/2020. Findings: No fractures or dislocations are seen. The AC joint is normal. The adjacent left clavicle, left scapu la and ribs are normal. The soft tissues are unremarkable. XR/XR shoulder LT min 2V* [id number] Impression: Negative left shoulder.
--- NOTE | 2020-08-29 14:49 | USCV_ITS ---
Viola Woods Age: 50 Gender: F : 1970 Exam Date: 08/29/2020 15:17 Ordering Phys: Millie Haddad MD [facility] [place] Technologist: Romi Gomez [place] [facility] [place] Indication: LUE pain and swelling HISTORY: Upper extremity pain. PROCEDURES: Venous duplex imaging was performed in only the left upper extremity. The following venous structures were evaluated: internal jugular vein, subclavian vein, axillary vein, and brachial veins. In addition, the basilic vein, cephalic vein, radial vein, and ulnar vein. Serial compression, augmentation maneuvers, and spectral Doppler flow evaluation were performed. FINDINGS: Normal 2-D, color Doppler and phasicity noted in the left upper extremity venous system extending from the left internal jugular vein through the main forearm. No thrombosis or occlusion noted. Normal 2-D, color Doppler and phasicity noted in the left upper extremity venous system extending from the left internal jugular vein through the main forearm. No thrombosis or occlusion noted. CONCLUSIONS No evidence of thrombus of the left upper extremity veins. Collins Ramirez MD (Electronically Signed) Final Date: 29 August 2020 17:38 S
--- NOTE | 2020-08-29 15:01 | PC.NURSE ---
EKG done by attending nurse.
[2020-08-29 15:06] LABS: Basophils % 0.7 %; Eosinophils # 0.3 10^3/uL (0.0-0.8); Eosinophils % 4.2 %; Hematocrit 38.5 % (37.0-47.0); Hemoglobin 12.5 g/dL (11.5-15.3); Lymphocytes # 1.8 10^3/uL (0.8-4.8); Lymphocytes % 29.8 %; Mean Corpuscular HGB Conc 32.5 g/dL (30.0-36.0); Mean Corpuscular Hemoglobin 30.4 pg (28.0-34.0); Mean Corpuscular Volume 93.7 fL (81-99); Mean Platelet Volume 11.1 fL (7.4-10.4); Monocytes # 0.4 10^3/uL (0.2-0.9); Monocytes % 6.9 %; Neutrophils # 3.42 10^3/uL (1.8-7.7); Neutrophils % 58.1 %; Nucleated Red Blood Cells % 0 %; Platelet Count 159 10^3/cmm (130-400); Red Blood Count 4.11 10^6/uL (4.1-5.3); Red Cell Distribution Width 14.8 % (12.1-15.1); White Blood Count 5.9 10^3/uL (4.0-10.0)
--- NOTE | 2020-08-29 15:15 | W.ED.GENADLT ---
HPI - General Adult General: Chief complaint: General Medical Stated complaint: L ARM/NECK PAIN, SOB Time Seen by Provider: 08/29/20 14:00 Source: patient Mode of arrival: ambulatory Limitations: no limitations History of Present Illness: HPI narrative: Patient is a 50-year-old female with anxiety and substance use presents to the emergency department with left arm pain. Symptoms have been going on for about 5 days and is gradually worsening. It radiates to her neck and now her chest. She tried to manage it at home but her family scared to thinking she may have a DVT in her upper extremity or an [place] so she came in here to be evaluated for that. Onset (ago): day(s) (5) Location: left and upper extremity Radiation: neck and other (chest) Severity: severe Quality: sharp Pain Consistency: constant Relieving factors: none Exacerbating factors: movement Associated symptoms: Reports chest pain; Deny confusion, cough, diaphoresis, decreased appetite, dyspnea, fevers/chills, headache(s), malaise, nausea, rash, palpitations, seizures, short of breath, syncope, vomiting or weakness Review of Systems General: Reports: 10 or more systems reviewed and unremarkable except in HPI and below Const: Denies: malaise or diaphoresis Eyes: Denies: change in vision or blurry vision ENMT: Denies: throat pain, enlarged tonsils, odynophagia, hoarseness, mouth pain or swelling of lips/tongue Card: Reports: chest pain; Denies: palpitations or syncope Resp: Denies: dyspnea GI: Denies: nausea or vomiting : Denies: flank pain, difficulty voiding, dysuria, urinary frequency, urinary urgency or urinary hesitancy Musc: Denies: neck pain, back pain or extremity swelling Skin/Breast: Denies: rash Neuro: Denies: headache(s) or confusion Endo: Denies: polyuria, polydipsia or tired all the time PFSH ED PFSH: Medical History Alcohol use disorder, severe, in early remission Chronic post-traumatic stress disorder (PTSD) Hepatitis C Major depressive disorder, recurrent, moderate Remeron is helpful for depressed mood symptoms and sleep impairment. Surgical History H/O: hysterectomy History of appendectomy History of lung biopsy Hx of tonsillectomy Status post laparoscopic cholecystectomy Social History Smoking and tobacco status: current every day smoker cigarettes Packs smoked per day: 0.5 Years cigarettes smoked: 30 Quit status (tobacco): not considering quitting Second hand smoke exposure: No Alcohol intake: former Current gender identity: Female Physical Exam Const: COMMON NORMALS: no acute distress, average body habitus, patient oriented x3, no limitations, healthy appearing, alert and well nourished HENMT: COMMON NORMALS: normocephalic, atraumatic and moist oral mucous membranes HEAD & SCALP: normocephalic and atraumatic Neck/C-Spine: COMMON NORMALS: full ROM, supple, no meningeal signs, no JVD and No carotid bruits Chest: COMMONS NORMALS: normal inspection of the chest and normal palpation of entire chest wall Resp: COMMON NORMALS: normal respiratory effort, No retractions, No use of accessory muscles, clear to auscultation bilaterally and percussion normal AUSCULTATION: clear to auscultation bilaterally PERCUSSION: percussion normal Cardio: COMMON NORMALS: no JVD, regular rate, regular rhythm, S1 normal heart sound present, S2 normal heart sound present, No gallops present (Cardio), No clicks present (Cardio), No murmurs present (Cardio), No rub (Cardio) and Peripheral pulses 2+ throughout RATE: regular rate RHYTHM: regular rhythm HEART SOUNDS: S1 normal heart sound present and S2 normal heart sound present PERIPHERAL PULSES: Peripheral pulses 2+ throughout GI: COMMON NORMALS: Normal to inspection, nondistended, normoactive bowel sounds present, Soft to palpation, non-tender, No hepatosplenomegaly present, no masses and no bruits PALPATION: Yes Soft to palpation and Yes No hepatosplenomegaly present Extremity: COMMON NORMALS: normal to inspection, full ROM, capillary refill normal, no calf tenderness and no pedal edema LEFT UPPER EXTREMITY: Yes shoulder joint Left shoulder joint: Yes palpation (tenderness in the supra and infraspinatus muscles) and Yes special tests Left shoulder special tests: Empty can test: Positive, Drop arm test: Positive, Crossover impingement test: Positive, Neer impingement test: Positive and Rivers-Rikki impingement test: Positive Neuro: COMMON NORMALS: patient oriented x3 SENSORIUM/ORIENTATION: Yes alert MENINGEAL SIGNS: Yes no meningeal signs Skin: COMMON NORMALS: no rashes or lesions noted, no wounds, turgor normal, no jaundice, no petechiae and no mottling GENERAL SKIN EXAM: no rashes or lesions noted and turgor normal Course Vital Signs: Vital signs: Vital Signs Temperature 97.8 F 08/29/20 18:43 Pulse Rate 85 08/29/20 18:43 Respiratory Rate 20 H 08/29/20 18:43 Blood Pressure 180/108 08/29/20 18:43 Pulse Oximetry 95 08/29/20 18:43 MDM - General Adult MDM Narrative: Medical decision making narrative: This patient presents with left arm/neck pain. Her family was concerned about a DVT in the LUE and so she came in for evaluation. Evaluation in the ED was negative for ACS and DVT. HEART score is low. However her examination was consistent with a rotator cuff tendinitis of her left shoulder. I offered her an intrarticular shoulder injection but she declined. I therefore discharged her home with oral corticosteroids and she is to f/u with her PCP for further evaluation and possible MRI. Medical Records: Attestation: I reviewed the patient's medical records. Lab Data: Attestation: I reviewed the patient's lab results. Labs: Lab Results 08/29/20 08/29/20 08/29/20 Range/Units 14:43 14:43 14:43 WBC 5.9 (4.0-10.0) 10^3/ uL RBC 4.11 (4.1-5.3) 10^6/u L Hgb 12.5 (11.5-15.3) g/dL Hct 38.5 (37.0-47.0) % MCV 93.7 (81-99) fL MCH 30.4 (28.0-34.0) pg MCHC 32.5 (30.0-36.0) g/dL RDW 14.8 (12.1-15.1) % Plt Count 159 (130-400) 10^3/c mm MPV 11.1 H (7.4-10.4) fL Neut % (Auto) 58.1 % Lymph % (Auto) 29.8 % Berrien % (Auto) 6.9 % Eos % (Auto) 4.2 % Baso % (Auto) 0.7 % Neut # (Auto) 3.42 (1.8-7.7) 10^3/u L Lymph # (Auto) 1.8 (0.8-4.8) 10^3/u L [place] # (Auto) 0.4 (0.2-0.9) 10^3/u L Eos # (Auto) 0.3 (0.0-0.8) 10^3/u L Baso # (Auto) 0.0 (0.0-0.1) 10^3/u L Nucleated RBC % (a uto) 0 % Nucleated RBCs # 0.0 /100WBC Sodium 140 (136-145) mmol/L Potassium 3.9 (3.5-5.1) mmol/L Chloride 104 (98-107) mmol/L Carbon Dioxide 26 (22-29) mmol/L Anion Gap 13.9 (5-19) BUN 9 (6-20) mg/dL Creatinine 0.5 (0.5-0.9) mg/dL GFR Calculation 129.6 (90-130) mL/min Glucose 112 (65-115) mg/dL Calculated Osmolal ity 289 (285-295) mOsm/k g Calcium 9.3 (8.5-10.5) mg/dL Total Bilirubin 0.2 (0.15-1.2) mg/dL AST 80 H (0-32) U/L ALT 136 H (0-33) U/L Alkaline Phosphata se 102 (35-105) IU/L Troponin T Baselin e 6 (0-10) ng/L Troponin T 120 Min bharath (0-10) ng/L Delta Troponin T (0-10) ABS# NT-Pro-B Natriuret Pep 604 H (0-125) pg/mL Total Protein 6.6 (6.6-8.7) g/dL Albumin 4.0 (3.5-5.2) g/dL Globulin 2.6 (1.3-4.6) g/dL Lipase 37 (13-60) U/L 08/29/20 Range/Units 17:24 WBC (4.0-10.0) 10^3/ uL RBC (4.1-5.3) 10^6/u L Hgb (11.5-15.3) g/dL Hct (37.0-47.0) % MCV (81-99) fL MCH (28.0-34.0) pg MCHC (30.0-36.0) g/dL RDW (12.1-15.1) % Plt Count (130-400) 10^3/c mm MPV (7.4-10.4) fL Neut % (Auto) % Lymph % (Auto) % Berrien % (Auto) % Eos % (Auto) % Baso % (Auto) % Neut # (Auto) (1.8-7.7) 10^3/u L Lymph # (Auto) (0.8-4.8) 10^3/u L Berrien # (Auto) (0.2-0.9) 10^3/u L Eos # (Auto) (0.0-0.8) 10^3/u L Baso # (Auto) (0.0-0.1) 10^3/u L Nucleated RBC % (a uto) % Nucleated RBCs # /100WBC Sodium (136-145) mmol/L Potassium (3.5-5.1) mmol/L Chloride (98-107) mmol/L Carbon Dioxide (22-29) mmol/L Anion Gap (5-19) BUN (6-20) mg/dL Creatinine (0.5-0.9) mg/dL GFR Calculation (90-130) mL/min Glucose (65-115) mg/dL Calculated Osmolal ity (285-295) mOsm/k g Calcium (8.5-10.5) mg/dL Total Bilirubin (0.15-1.2) mg/dL AST (0-32) U/L ALT (0-33) U/L Alkaline Phosphata se (35-105) IU/L Troponin T Baselin e (0-10) ng/L Troponin T 120 Min bharath 6.00 (0-10) ng/L Delta Troponin T 0 (0-10) ABS# NT-Pro-B Natriuret Pep (0-125) pg/mL Total Protein (6.6-8.7) g/dL Albumin (3.5-5.2) g/dL Globulin (1.3-4.6) g/dL Lipase (13-60) U/L Imaging Data^: Xray Ortho: Attestation: I personally reviewed and interpreted this imaging study as follows: Radiologist's impression: [address] [address] XRay Report Signed Patient: Viola Woods #: [id number] : 1970Acct#:[id number] Age/Sex: 50 / FADM Date: 08/29/20 Loc: ERRoom/Bed: Attending Dr: Ordering Provider/Ordering MD: Millie Haddad MD, [facility] [place] Date of Service: 08/29/20 Procedure(s): XR shoulder LT min 2V* [id number] Accession Number(s): [id number] Report Number: [id number] WS: [id number] Left shoulder, 2 views, 08/29/2020 Clinical Data: shoulder pain Comparison: Left shoulder, 07/09/2020. Findings: No fractures or dislocations are seen. The AC joint is normal. The adjacent left clavicle, left scapula and ribs are normal. The soft tissues are unremarkable. XR/XR shoulder LT min 2V* [id number] Impression: Negative left shoulder. Dictated By:Violeta Angel MD Signed By:Violeta Angel MDSigned Date/Time:08/29/20 1543 DD/ 1542 US: Radiologist's impression: [employer] [address] Ultrasound Report Signed Patient: Viola Woods #: [id number] : 1970Acct#:[id number] Age/Sex: 50 / FADM Date: 08/29/20 Loc: ERRoom/Bed: Attending Dr: Ordering Provider/Ordering MD: Millie Haddad MD, [facility] [place] Date of Service: 08/29/20 Procedure(s): [place] [address] Accession Number(s): [id number] Report Number: [id number] Viola Woods Age: 50 Gender: F : 1970 Exam Date: 08/29/2020 15:17 Ordering Phys: Millie Haddad MD [facility] [place] Technologist: Romi Gomez [place] [facility] [place] Indication: LUE pain and swelling HISTORY: Upper extremity pain. PROCEDURES: Venous duplex imaging was performed in only the left upper extremity. The following venous structures were evaluated: internal jugular vein, subclavian vein, axillary vein, and brachial veins. In addition, the basilic vein, cephalic vein, radial vein, and ulnar vein. Serial compression, augmentation maneuvers, and spectral Doppler flow evaluation were performed. FINDINGS: Normal 2-D, color Doppler and phasicity noted in the left upper extremity venous system extending from the left internal jugular vein through the main forearm. No thrombosis or occlusion noted. Normal 2-D, color Doppler and phasicity noted in the left upper extremity venous system extending from the left internal jugular vein through the main forearm. No thrombosis or occlusion noted. CONCLUSIONS No evidence of thrombus of the left upper extremity veins. Collins Ramirez MD (Electronically Signed) Final Date: 29 August 2020 17:38 S EKG Data^: EKG 1: Attestation: I personally reviewed and interpreted this EKG as follows: EKG interpretation date: 08/29/20 EKG interpretation time: 14:28 Prior EKG tracings: not available for review Interpretation: NSR HR [address] changes Normal axis. Computer generated interpretation: Chest X-Ray 08/29/20 14:49 Impression: Negative chest. Shoulder X-Ray 08/29/20 14:49 Impression: Negative left shoulder. Discharge Plan Discharge Patient Disposition: Home Clinical Impression: Tendinitis of left rotator cuff Condition: Stable Prescriptions: New prednisone 20 mg tablet 60 mg PO DAILY Qty: 15 RF: 0 Continued lisinopril 5 mg tablet 5 mg PO BID@ RF: 0 Benadryl 25 mg Capsule 25 mg PO PRN RF: 0 gabapentin 600 mg tablet 600 mg PO BID@ RF: 0 Protonix 40 mg tablet,delayed release (DR/EC) 40 mg PO BID@ RF: 0 Remeron 15 mg tablet 15 mg PO BEDTIME@ RF: 0 Naprosyn 500 mg tablet 500 mg PO Q12H PRN (Reason: pain) RF: 0 Discharge Orders: Discharge ED (Routine); Ordered 08/29/20 Ordered By: Millie Haddad Referrals: Teresa Andrade NP [Primary Care Provider] - 1-3 days Discharge Diet: Usual diet Discharge Activity: Increase activity as tolerated Patient Instructions: Rotator Cuff Tendinitis (ED) Activity Restrictions/Additional Instructions: Return for any new or worsening symptoms. Follow-up with your primary care provider within 3 days for further evaluation and to see if he will benefit from an MRI of the shoulder. Take the steroids as prescribed. 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
[2020-08-29 15:17] LABS: Troponin(5th) Baseline 6 ng/L (0-10)
[2020-08-29 15:26] LABS: Alanine Aminotransferase 136 U/L (0-33); Alkaline Phosphatase 102 IU/L (35-105); Anion Gap 13.9 (5-19); Aspartate Amino Transferase 80 U/L (0-32); Blood Urea Nitrogen 9 mg/dL (6-20); Calcium 9.3 mg/dL (8.5-10.5); Carbon Dioxide 26 mmol/L (22-29); Chloride 104 mmol/L (98-107); Globulin 2.6 g/dL (1.3-4.6); Glomerular Filtration Rate 129.6 mL/min (90-130); Glucose 112 mg/dL (65-115); Lipase 37 U/L (13-60); NT Pro B Type Natriuretic Pept 604 pg/mL (0-125); Osmolality Calculated 289 mOsm/kg (285-295); Potassium 3.9 mmol/L (3.5-5.1); Sodium 140 mmol/L (136-145); Total Bilirubin 0.2 mg/dL (0.15-1.2); Total Protein 6.6 g/dL (6.6-8.7)
--- NOTE | 2020-08-29 16:49 | ECG_ITS ---
[facility] Test Date: 2020-08-29 Pat Name: Viola Woods Department: Room: Gender: Female Iuss Analyst: : 1970 Requested By: Millie Haddad I Order Number: [id number] Ayah MD: Pia Nichols M.D. Measurements Intervals [place] Rate: 76 P: 52 WA: 207 QRS: 10 QRSD: 92 T: 36 QT: 396 QTc: 447 Interpretive Statements SINUS RHYTHM Compared to ECG 08/29/2020 14:28:44 No significant changes Electronically Signed On 08-29-2020 19:29:19 MESH WORKER by Pia Nichols M.D. [id number]
[2020-08-29 17:55] LABS: Troponin 5 2HR Delta 0 ABS# (0-10)
[2020-08-29] MEDS: predniSONE 20 mg Tablet 60 MG PO (18:41)
== END 2020-08-29 18:45 | disposition home or self-care (01) ==
PROVIDERS: Emergency Provider Family Medicine; PCP Nurse Practitioner Family
DX: M77.8 Other enthesopathies, not elsewhere classified (principal); Z86.19 Personal history of other infectious and parasitic diseases; F17.210 Nicotine dependence, cigarettes, uncomplicated
CPT/HCPCS: 12345; 71045; 73030; 80053; 83690; 83880; 84484; 85025; 93005; 93971; 99281; 99283; J3490; J7512

== ENCOUNTER 2020-09-06 18:53 | Emergency (ER) | payer MEDICAID, SELFPAY ==
[2020-09-06 18:59] VITALS: BP 146/94; PULSE 85; RESP 18; TEMP 36.6; O2SAT 95; BMI 28.3
--- NOTE | 2020-09-06 19:09 | XRR_ITS ---
PROCEDURE INFORMATION: Exam: XR Chest, 1 View Exam date and time: 09/06/2020 7:09 PM Age: 50 years old Clinical indication: Cough TECHNIQUE: Imaging protocol: XR of the chest Views: 1 view. COMPARISON: CR XR chest 1V portable [id number] 08/29/2020 3:28 PM FINDINGS: Lungs: Unremarkable. No consolidation. Pleural space: Unremarkable. No pleural effusion. No pneumothorax. Heart/Mediastinum: Unremarkable. No cardiomegaly. Bones/joints: Unremarkable. XR/XR chest 1V portable [id number] IMPRESSION: No acute findings.
--- NOTE | 2020-09-06 19:51 | ED_ITS ---
HPI - General Adult General: Chief complaint: General Medical Stated complaint: depression/possible covid Time Seen by Provider: 09/06/20 19:04 Source: patient and EMS Mode of arrival: EMS Limitations: no limitations History of Present Illness: HPI narrative: 50-year-old female is well-known to the ER is here with depression. Patient states that her left has gone out and she had called him and told him that he had not he did do that with her severe depression. He then called the railcar carpenter railcar carpenter brought her here for possible suicidality. She adamantly denies any suicidality to me. She states she has had a cough and is worried about Covid. She is well-appearing here and in no respiratory distress. She denies any fevers. Denies any other symptoms. Associated symptoms: Deny chest pain, headache(s), nausea, rash or vomiting Review of Systems Const: Denies: fever(s), chills, body aches or change in appetite Eyes: Denies: blurry vision or eye discomfort ENMT: Denies: throat pain or dental pain Card: Denies: chest pain Resp: Reports: non-productive cough GI: Denies: abdominal pain, nausea, vomiting or diarrhea : Denies: dysuria Musc: Denies: neck pain or back pain Skin/Breast: Denies: rash Neuro: Denies: headache(s) Psych: Reports: depression Wolf/Lymph: Denies: easy bruising All/Imm: Denies: urticaria PFSH ED PFSH: Medical History Alcohol use disorder, severe, in early remission Chronic post-traumatic stress disorder (PTSD) Hepatitis C Major depressive disorder, recurrent, moderate Remeron is helpful for depressed mood symptoms and sleep impairment. Surgical History H/O: hysterectomy History of appendectomy History of lung biopsy Hx of tonsillectomy Status post laparoscopic cholecystectomy Social History Smoking and tobacco status: current every day smoker cigarettes Packs smoked per day: 0.5 Years cigarettes smoked: 30 Quit status (tobacco): not considering quitting Second hand smoke exposure: No Alcohol intake: former Current gender identity: Female Physical Exam Const: COMMON NORMALS: no acute distress, patient oriented x3 and healthy appearing HENMT: COMMON NORMALS: normocephalic and atraumatic HEAD & SCALP: normocephalic and atraumatic Eye: COMMON NORMALS: Equal, round and reactive pupils present and EOMs intact bilaterally PUPIL: Yes Equal, round and reactive pupils present Neck/C-Spine: COMMON NORMALS: full ROM and supple Chest: COMMONS NORMALS: normal inspection of the chest and normal palpation of entire chest wall Resp: COMMON NORMALS: normal respiratory effort, No retractions, No use of accessory muscles and clear to auscultation bilaterally AUSCULTATION: clear to auscultation bilaterally Cardio: COMMON NORMALS: regular rate, regular rhythm and No murmurs present (Cardio) RATE: regular rate RHYTHM: regular rhythm GI: COMMON NORMALS: Normal to inspection, nondistended, normoactive bowel sounds present, Soft to palpation, non-tender and no masses PALPATION: Yes Soft to palpation Extremity: COMMON NORMALS: normal to inspection and full ROM Neuro: COMMON NORMALS: patient oriented x3, moves all extremities and no focal motor deficits Psych: COMMON NORMALS: mental status grossly normal, Normal thought process present and cooperative THOUGHT PROCESS: Normal thought process present Skin: COMMON NORMALS: no rashes or lesions noted and no wounds GENERAL SKIN EXAM: no rashes or lesions noted Course Vital Signs: Vital signs: Vital Signs Temperature 97.8 F 09/06/20 18:59 Pulse Rate 85 09/06/20 18:59 Respiratory Rate 18 09/06/20 18:59 Blood Pressure 146/94 09/06/20 18:59 Pulse Oximetry 95 09/06/20 18:59 MDM - General Adult MDM Narrative: Medical decision making narrative: Patient presents here with depression. She adamantly denies suicidality to me I do not believe she is truly suicidal. I Dr. Avalos of psychiatry evaluate patient as well and he agrees as well she is not acutely suicidal. He does know Viola as well from previous admissions. I believe she is stable for discharge. Her Covid here is negative. She is to follow-up with her psychiatrist and return to ER if she has any suicidal thoughts. She understands and agrees to plan. Lab Data: Labs: Lab Results 09/06/20 Range/Units 19:30 SARS-CoV-2 Ag (Rap id) Negative (Negative) Imaging Data^: CXR: Attestation: I personally reviewed and interpreted this imaging study as follows: Radiologist's impression: No acute normality Discharge Plan Discharge Patient Disposition: Home Clinical Impression: Upper respiratory infection Qualifiers: URI type: unspecified URI Qualified Code(s): J06.9 - Acute upper respiratory infection, unspecified Depression Qualifiers: Depression Type: unspecified Qualified Code(s): F32.9 - Major depressive disorder, single episode, unspecified Condition: Stable Prescriptions: No Action lisinopril 5 mg tablet 5 mg PO BID@ RF: 0 Benadryl 25 mg Capsule 25 mg PO PRN RF: 0 gabapentin 600 mg tablet 600 mg PO BID@ RF: 0 Protonix 40 mg tablet,delayed release (DR/EC) 40 mg PO BID@ RF: 0 Remeron 15 mg tablet 15 mg PO BEDTIME@ RF: 0 Naprosyn 500 mg tablet 500 mg PO Q12H PRN (Reason: pain) RF: 0 prednisone 20 mg tablet 60 mg PO DAILY Qty: 15 RF: 0 Discharge Orders: Discharge ED (Routine); Ordered 09/06/20 Ordered By: Radha Osullivan Referrals: Teresa Andrade NP [Primary Care Provider] - 1-3 days Discharge Diet: Advance as tolerated Discharge Activity: Resume usual activity Patient Instructions: Depression (ED) Coding Level of Care Code 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
[2020-09-06 19:54] LABS: SARS Covid-2 Antigen Negative (Negative)
[2020-09-09 07:17] LABS: Coronavirus Lab Test PTC Negative
--- NOTE | 2020-09-09 08:58 | PC.NURSE ---
Patient called to be notified of COVID results and no answer. Message left at this time.
--- NOTE | 2020-09-09 16:46 | PC.NURSE ---
Patient called again to be notified of COVID results and no answer. Unable to leave message at this time due to voicemail being full.
--- NOTE | 2020-09-09 17:08 | PC.NURSE ---
Patient notified of COVID results at this time.
== END 2020-09-06 20:30 | disposition home or self-care (01) ==
PROVIDERS: Emergency Provider Emergency Medicine; PCP Nurse Practitioner Family
DX: F32.9 Major depressive disorder, single episode, unspecified (principal); J06.9 Acute upper respiratory infection, unspecified; Z86.19 Personal history of other infectious and parasitic diseases; F17.210 Nicotine dependence, cigarettes, uncomplicated
CPT/HCPCS: 12345; 71045; 87426; 87635; 99281; 99282; 99283

== ENCOUNTER → 2020-10-07 08:29 | Outpatient (BNVA) | payer MEDICAID, SELFPAY | PROVIDERS: PCP Nurse Practitioner Family; Visit Provider Nurse Practitioner Psychiatric/Mental Health | DX: F33.1 Major depressive disorder, recurrent, moderate (principal); F10.21 Alcohol dependence, in remission; F19.10 Other psychoactive substance abuse, uncomplicated; F43.12 Post-traumatic stress disorder, chronic | CPT/HCPCS: 99213 ==

== ENCOUNTER 2020-12-01 07:58 | Outpatient (CLI) | payer MEDICAID, SELFPAY ==
--- NOTE | 2020-12-01 08:04 | CT_ITS ---
WS: [id number] CT NECK WITH CONTRAST HISTORY: OTALGIA BILATERAL TECHNIQUE: Contiguous 5 mm axial images are performed through the neck with intravenous contrast. Sag ittal and coronal reformats are also submitted. All CT scans at [facility] use at least o ne of these dose optimization techniques: automated exposure control; mA and/or kV adjustment per pat ient size (includes targeted exams where dose is matched to clinical indication); or iterative recons truction. CONTRAST: CONTRAST: Omnipaque 300; 95 mL IV. DLP: 2662.42 mGycm COMPARISON: 01/05/2020 CT Nasopharynx, oropharynx, hypopharynx and larynx are unremarkable. No soft tissue masses or abnormal e nhancement. Torus tubarius and fossa of Rosenmuller and parapharyngeal fat are normal. Small bilateral cervical chain lymph nodes. The cervical chain lymph nodes were also present on the p rior study but decreased in size. No enlarged lymph nodes. 5 mm LEFT thyroid nodule. No inflammation surrounding the submandibular or parotid glands. No masses. Mild cervical spondylosis. No bone destruction. Visualized portions of the skull base demonstrate no abnormalities. Orbits and globes are within norm al limits. No soft tissue masses. Visualized paranasal sinuses and mastoid air cells are normal. Lung apices are clear. Mild carotid atherosclerosis. CT/CT neck w con* [id number] IMPRESSION: 1. No neck mass or adenopathy. 2. Subcentimeter LEFT thyroid nodule.
== END 2020-12-01 07:59 | disposition home or self-care (01) ==
LOC: RADWPI 08:00
PROVIDERS: PCP Nurse Practitioner Family; Visit Provider Specialist
DX: H92.03 Otalgia, bilateral (principal); E04.1 Nontoxic single thyroid nodule
CPT/HCPCS: 70491; 99214; Q9967

== ENCOUNTER 2020-12-03 07:04 | Outpatient (CLI) | payer MEDICAID, SELFPAY ==
--- NOTE | 2020-12-03 07:11 | US_ITS ---
WS: [id number] ULTRASOUND ABDOMEN LIMITED CLINICAL INFORMATION: CHRONIC HEPATITIS C WITHOUT HEPATIC COMA COMPARISON: Ultrasound 3 FINDINGS: Liver Size: Mild hepatomegaly Craniocaudal length: 16.6 cm. Echogenicity: Coarse echotexture Surface nodularity: None. Mass (size and location): None. Bile ducts Intrahepatic ducts: Normal. Common bile duct diameter: 0.3 cm. Gallbladder Cholecystectomy Pancreas Normal as visualized. Right kidney: Normal. Hydronephrosis: None. Size: 10.2 cm x 4.6 cm x 4.9 cm. Abdominal aorta and IVC Visualized portions are normal. Ascites: None. US/US abdomen limited [id number] IMPRESSION: 1. Mild hepatomegaly with coarse echogenicity consistent with hepatocellular d isease. 2. Cholecystectomy. Normal common bile duct. 3. No hydronephrosis in right kidney.
== END 2020-12-03 07:05 | disposition home or self-care (01) ==
LOC: RAD 07:06
PROVIDERS: PCP Nurse Practitioner Family; Visit Provider Nurse Practitioner Family
DX: B18.2 Chronic viral hepatitis C (principal); R16.0 Hepatomegaly, not elsewhere classified; Z90.49 Acquired absence of other specified parts of digestive tract
CPT/HCPCS: 76705